=== PATIENT | male | born 1945 | race Caucasian/White ===

== ENCOUNTER → 2017-01-16 | Outpatient (CLI) | payer OTHER ==
[~2017-01-16] MED LIST: ADVIN50/60 INH; ALBUAER2 INH; ATEN-173 PO; CYAN3INJ INJ; FAMO20TA11 PO; FELO5TAB PO; FERR325T5 PO; LORA-741 PO; OMEG10007 PO; ONDA8TAB7 PO; POTA-335 PO; PROM25TA9 PO; SERT100T PO; TERA1CAP PO
--- NOTE | 2017-01-16 09:25 | DIAGNOSTIC IMAGING REPORT ---
CHEST 2 VIEWS ROUTINE CLINICAL HISTORY: R05 [id number] dyspnea COMPARISON STUDY: 03/21/2016 FINDINGS: Chronic emphysematous change. Chronic blunting right lateral costophrenic angle. No focal infiltrate. IMPRESSION: Emphysematous change. Chronic basilar pleural reactive change. No acute process. A small chronic pneumothorax right base is unchanged Electronically signed by: Diony Wallis M.D. 01/16/2017 9:24 AM Dictated Date/Time: 01/16/2017 9:20 AM
== END | disposition home or self-care (01) ==
LOC: C.RAD1850 08:53
PROVIDERS: ATTEND Physician Assistant
DX: R05 Cough (principal)

== ENCOUNTER → 2018-04-27 | Outpatient (CLI) | payer OTHER ==
[2018-04-27 14:44] LABS: BASO % 0.9 %; BASO ABS # 0.05 K/uL (0-0.2); EOS % 2.7 %; EOS ABS # 0.15 K/uL (0-0.5); HEMATOCRIT 40.8 % (42-52); HEMOGLOBIN 13.5 g/dL (14.0-18.0); IG# 0.01 K/uL (0.00-0.02); LYMPH % 15.4 %; LYMPH ABS # 0.84 K/uL (1.2-3.4); MEAN CELL VOLUME 88.5 fL (80-100); MEAN CORPUSCULAR HEMOGLOBIN 29.3 pg (25-34); MEAN CORPUSCULAR HGB CONC 33.1 g/dl (32-36); MEAN PLATELET VOLUME 10.1 fL (7.4-10.4); MONO ABS # 0.44 K/uL (0.11-0.59); NEUT % 72.8 %; NEUT ABS # 3.98 K/uL (1.4-6.5); PLATELET COUNT 180 K/uL (130-400); RED CELL DISTRIBUTION WIDTH CV 13.8 % (11.5-14.5); RED CELL DISTRIBUTION WIDTH SD 44.2 fL (36.4-46.3); WHITE BLOOD COUNT 5.47 K/uL (4.8-10.8)
== END | disposition home or self-care (01) ==
LOC: C.LAB1850 12:57
PROVIDERS: ATTEND Internal Medicine
DX: D64.9 Anemia, unspecified (principal)

== ENCOUNTER 2021-08-23 17:57 | Inpatient (IN) ==
[2021-08-23] MEDS ORDERED: ACETAMINOPHEN 325 MG TAB PO STA (18:24)
[2021-08-23 18:43] LABS: Hematocrit (blood only) 39.8 % (42-52); Mean Corpuscular Hgb Conc 32.7 g/dL (32-36); Mean Corpuscular Volume 85.8 fL (80-100); Platelet Count 151 K/uL (130-400); RDW Coefficient of Variation 12.9 % (11.5-14.5); RDW Standard Deviation 41.1 fL (36.4-46.3); Red Blood Count 4.64 M/uL (4.7-6.1); White Blood Count 7.31 K/uL (4.8-10.8)
[2021-08-23 19:06] LABS: Alanine Aminotransferase 18 (12-78); Albumin Level 2.7 gm/dl (3.4-5.0); Aspartate Aminotransferase 35 U/L (15-37); BUN Creatinine Ratio 21.7 (10-20); Blood Urea Nitrogen 30 mg/dl (7-18); Calcium 8.9 mg/dl (8.5-10.1); Carbon Dioxide 28 mmol/L (21-32); Chloride 102 mmol/L (98-107); Est GFR (African American) 56.8 ml/min; Glucose 209 mg/dl (70-99); Potassium 3.5 mmol/L (3.5-5.1); Sodium 137 mmol/L (136-145)
[2021-08-23 19:09] LABS: Albumin Globulin Ratio 0.6 (0.9-2); Alkaline Phosphatase 158 U/L (45-117); Bilirubin,Total 0.5 mg/dl (0.2-1); Globulin 4.2 gm/dl (2.5-4.0); Total Protein 6.9 gm/dl (6.4-8.2)
[2021-08-23 20:04] LABS: Appearance Urine Clear (Clear); Bacteria Urine Automated Negative (Negative); Bilirubin Urine Negative (Negative); Blood Urine Trace (Negative); Color Urine Yellow; Epithelial Cell Urine Auto >30 /lpf (0-5); Glucose Urine UA Trace (Negative); Ketones Urine Negative (Negative); Leukocyte Esterase Urine Negative (Negative); Nitrite Urine Negative (Negative); Protein Urine 4+ (Negative); RBC Urine Automated 0-4 /hpf (0-4); Specific Gravity Urine 1.019 (1.000-1.030); Urobilinogen Urine Negative (Negative)
[2021-08-23 20:50] LABS: Basophils # (auto) 0.01 K/uL (0-0.2); Basophils % (auto) 0.1 %; Immature Granulocytes # (auto) 0.02 K/uL (0.00-0.02); Immature Granulocytes % (auto) 0.3 %; Lymphocytes # (auto) 0.41 K/uL (1.2-3.4); Lymphocytes % (auto) 5.6 %; Monocytes # (auto) 0.61 K/uL (0.11-0.59); Monocytes % (auto) 8.3 %; Neutrophils # (auto) 6.26 K/uL (1.4-6.5); Neutrophils % (auto) 85.7 %
[2021-08-23] MEDS ORDERED: SODIUM CHLORIDE 0.9% 1000ML 500 ML IV ONE (23:43)
[2021-08-23] MEDS ORDERED: PIPERACILL/TAZOBAC CONSULT ACTIVE PRN (23:44)
[2021-08-23] MEDS ORDERED: PIPERACILLIN/TAZOBACTAM 4.5 GM/120 ML BAG IV ONE (23:44)
[2021-08-24] MEDS: SODIUM CHLORIDE 0.9% 1000ML 1,000 ML IV SCH ×2 (01:06→07:39)
[2021-08-24 01:20] LABS: Influenza A virus by PCR Negative (Neg); Influenza B virus by PCR Negative (Neg); RSV by PCR Negative (Neg); SARS CoV2 RNA(COVID-19) InHosp NEGATIVE (Negative)
[2021-08-24] MEDS ORDERED: ACETAMINOPHEN 500 MG TAB PO STA (02:17)
--- NOTE | 2021-08-24 03:20 | History & Physical Report ---
Date of Service August 24, 2021 Assessment & Plan (1) Fever: Plan: 75 yo M with extensive cancer history currently on chemotherapy admitted for fever of unknown origin. Fever of unknown origin - febrile to 39.1C in ER, no wbc elevation. crp and procal pending.normotensive - CXR comparable to previous, no obvious pneumonia - no abdominal signs/sx - no sx - normal mentation/neuro exam, less likely meningitis - blood cultures pending - UA wo LE/nitrates - started on zosyn in ER - MRSA nares ordered - Covid/flu/rsv negative HTN - cont losartan, felodipine,atenolol, BPH - cont terazosin Depression - cont sertraline Chemotherapy - dabrafenib 150 mg po Q12 - trametinib 2 mg daily - follows with dr. nowak DVT ppx: heparin sq bid FEN/GI: regular diet, iv ns Bowel regimen: prn miralax Code Status: full code Dispo: med/surg (2) Adenocarcinoma of prostate: (3) Lung cancer: (4) Cancer of kidney: History of Present Illness Primary Care Provider: Raffy Bedolla MD 75 yo M with hx nonsmall cell lung cancer s/p resection, adenocarcinoma of prostate, kidney cancer, currently on chemotherapy who came to the ER for concern of ongoing fevers and chills. He says he's had these symptoms for about 3 days now. Mostly fatigued, and feeling chills. Mild fever at home but doesn't remember the number. No trouble breathing/cough/nausea. did have 1 episode of emesis, no diarrhea or abdominal pain. No trouble with urination or pain with urination. No recent radiation treatments, takes chemotherapy pills daily. Allergies Allergy/AdvReac Type Severity Reaction Status Date / Time No Known Drug Allergies Allergy Unknown Verified 08/24/21 01:57 Home Medications Medication Instructions Recorded Confirmed Type cholecalciferol (vitamin D3) 25 1,000 unit PO QAM 07/02/18 08/24/21 History mcg (1,000 unit) tablet (Vitamin D3) ferrous sulfate 325 mg (65 mg 325 mg PO QAM tab 09/08/19 08/24/21 History iron) tablet,delayed release famotidine 20 mg tablet (Pepcid) 20 mg PO QAM 11/23/19 08/24/21 History ondansetron 8 mg disintegrating 8 mg PO Q8 PRN 11/23/19 08/24/21 History tablet albuterol sulfate 90 mcg/actuation 2 puff INHALATION Q4 PRN #18 gm 10/11/20 08/24/21 Rx aerosol inhaler (Ventolin HFA) fluticasone propionate 220 2 puff INH BID #3 inhaler 10/11/20 08/24/21 Rx mcg/actuation HFA aerosol inhaler (Flovent HFA) losartan 100 mg tablet (Cozaar) 100 mg PO QAM #90 tab 03/07/21 08/24/21 Rx terazosin 5 mg capsule 5 mg PO HS #90 cap 03/07/21 08/24/21 Rx atenolol 25 mg tablet (Tenormin) 25 mg PO BID #180 tab 06/07/21 08/24/21 Rx sertraline 100 mg tablet (Zoloft) 200 mg PO HS #180 tab 06/07/21 08/24/21 Rx potassium chloride 10 mEq 30 meq PO BID #540 tab 06/24/21 08/24/21 Rx tablet,extended release(part/cryst) (Klor-Con M) Metamucil 0.36gm 1 cap PO DAILY 08/24/21 08/24/21 History acetaminophen 650 mg tablet 650 mg PO Q6H PRN 08/24/21 08/24/21 History cyanocobalamin (vitamin B-12) 1,000 mcg IM MONTHLY 08/24/21 08/24/21 History 1,000 mcg/mL injection solution dabrafenib 75 mg capsule (Tafinlar) 150 mg PO Q12 08/24/21 08/24/21 History felodipine 5 mg tablet,extended 5 mg PO AMPM 08/24/21 08/24/21 History release 24 hr multivitamin with minerals 1 tab PO BID 08/24/21 08/24/21 History (Multiple Vitamin-Minerals) omega [id number]-ukm-fish oil 1,200 mg 1 cap PO DAILY 08/24/21 08/24/21 History (144 mg-216 mg) capsule (Fish Oil) prochlorperazine maleate 10 mg 10 mg PO Q6 PRN 08/24/21 08/24/21 History tablet trametinib 2 mg tablet (Mekinist) 2 mg PO DAILY 08/24/21 08/24/21 History Past Med/Surg History Medical History Adenocarcinoma of prostate Anemia Anosmia Anxiety Asthma Bladder neck contracture Cancer of kidney Chronic back pain Diastasis recti Dysphagia Essential hypertension GERD (gastroesophageal reflux disease) Hernia, abdominal Hyperlipidemia Hypertension Irritable bowel syndrome Lung cancer Male stress incontinence Migraine Non-small cell carcinoma of lung Osteoarthritis Renal cell carcinoma Sensorineural hearing loss (SNHL) Sensorineural hearing loss (SNHL) of both ears Umbilical hernia Surgical History H/O basal cell carcinoma excision H/O radical prostatectomy H/O straightening of nasal septum H/O vasectomy History of colonoscopy History of esophagogastroduodenoscopy (EGD) History of lung surgery History of right cataract extraction Family History Mother Parkinson disease Father Colon cancer Colorectal cancer Other FHx: cancer Family history of diabetes mellitus Family history of high blood pressure Family history of lung disease No family history of adverse response to anesthesia Denies family history of Ovarian cancer Prostate cancer Myocardial infarction Breast cancer Social History Smoking Status: Never smoker Second Hand Exposure: Yes (family smoked); Hx Alcohol Use: Yes Alcohol type: wine Hx Substance Use: No Preferred Language: Stateless Communication Ability: Effective Visual Impairment: No Limitations Hearing Ability: Normal Geothermal Installer Required: No Beliefs That Will Affect Care: None marital status: / Current Living Situation: Alone current occupational status: retired Feels Safe at Home: Yes Childhood Exposure to Second-Hand Smoke: Yes Dental Care, Regularly: Yes Physical Activity Frequency: Does not Exercise Seatbelt Use: always Sunscreen Use: Yes Assistive Devices: Glasses and Hearing Aid - Bilateral Review of Systems Review of Systems: All systems reviewed & are unremarkable except as noted in Subjective Physical Exam Constitutional: + cachectic, + frail appearing and cooperative; no acute distress Respiratory: normal respiratory effort, lungs clear to auscultation able to speak in complete sentences; no respiratory distress and no retractions Auscultation: no crackles, no rhonchi and no wheezes Cardiovascular: Rate/Rhythm: regular rate and regular rhythm Heart Sounds: normal S1, normal S2 and + murmur Vessels: posterior tibial pulses present Extremities: no edema Gastrointestinal (Abdomen): Inspection/Auscultation: abdomen normal to inspection Percussion/Palpation: abdomen soft; abdomen nontender Results & Data Results & Data ([facility]) Vital Signs (Past 12 Hours) Vital Signs Temp Pulse Pulse Resp BP BP Pulse Ox 08/24/21 02:36 73 22 174/77 H 95 08/24/21 02:17 39.1 C H 08/24/21 01:06 75 18 176/83 H 96 08/23/21 23:00 36.8 C 66 18 138/71 93 08/23/21 18:16 38.5 C H 84 20 152/67 H 90 Laboratory Results Laboratory Results WBC 7.31 K/uL (4.8-10.8) 08/23/21 18:25 RBC 4.64 M/uL (4.7-6.1) L 08/23/21 18:25 Hgb 13.0 g/dL (14.0-18.0) L 08/23/21 18:25 Hct 39.8 % (42-52) L 08/23/21 18:25 MCV 85.8 fL (80-100) 08/23/21 18:25 MCH 28.0 pg (25-34) 08/23/21 18:25 MCHC 32.7 g/dL (32-36) 08/23/21 18:25 RDW Std Deviation 41.1 fL (36.4-46.3) 08/23/21 18:25 RDW Coeff of Girish 12.9 % (11.5-14.5) 08/23/21 18:25 Plt Count 151 K/uL (130-400) 08/23/21 18:25 MPV 10.0 fL (7.4-10.4) 08/23/21 18:25 Immature Gran % (Auto) 0.3 % 08/23/21 18:25 Neut % (Auto) 85.7 % 08/23/21 18:25 Lymph % (Auto) 5.6 % 08/23/21 18:25 [place] % (Auto) 8.3 % 08/23/21 18:25 Eos % (Auto) 0.0 % 08/23/21 18:25 Baso % (Auto) 0.1 % 08/23/21 18:25 Neut # (Auto) 6.26 K/uL (1.4-6.5) 08/23/21 18:25 Lymph # (Auto) 0.41 K/uL (1.2-3.4) L 08/23/21 18:25 [place] # (Auto) 0.61 K/uL (0.11-0.59) H 08/23/21 18:25 Eos # (Auto) 0.00 K/uL (0-0.5) 08/23/21 18:25 Baso # (Auto) 0.01 K/uL (0-0.2) 08/23/21 18:25 Immature Gran # (Auto) 0.02 K/uL (0.00-0.02) 08/23/21 18:25 Hyposegmented Neuts 1+ 08/23/21 18:25 Sodium 137 mmol/L (136-145) 08/23/21 18:25 Potassium 3.5 mmol/L (3.5-5.1) 08/23/21 18:25 Chloride 102 mmol/L (98-107) 08/23/21 18:25 Carbon Dioxide 28 mmol/L (21-32) 08/23/21 18:25 Anion Gap 7.0 (3-11) 08/23/21 18:25 BUN 30 mg/dl (7-18) H 08/23/21 18:25 Creatinine 1.38 mg/dl (0.6-1.4) 08/23/21 18:25 Est Cr Clr Drug Dosing Not Reportable 08/23/21 18:25 Est GFR ( Amer) 56.8 ml/min 08/23/21 18:25 Est GFR (Non-Af Amer) 49.0 ml/min 08/23/21 18:25 BUN/Creatinine Ratio 21.7 (10-20) H 08/23/21 18:25 Glucose 209 mg/dl (70-99) H 08/23/21 18:25 Lactate 2.0 mmol/L (0.4-2.0) 08/24/21 00:39 Calcium 8.9 mg/dl (8.5-10.1) 08/23/21 18:25 Total Bilirubin 0.5 mg/dl (0.2-1) 08/23/21 18:25 AST 35 U/L (15-37) 08/23/21 18:25 ALT 18 (12-78) 08/23/21 18:25 Alkaline Phosphatase 158 U/L (45-117) H 08/23/21 18:25 Total Protein 6.9 gm/dl (6.4-8.2) 08/23/21 18: Albumin 2.7 gm/dl (3.4-5.0) L 08/23/21 18: Globulin 4.2 gm/dl (2.5-4.0) H 08/23/21 18: Albumin/Globulin Ratio 0.6 (0.9-2) L 08/23/21 18: Urine Color Yellow 08/23/21 18: Urine Appearance Clear (Clear) 08/23/21 18: Urine pH 7.0 (4.5-7.5) 08/23/21 18:30 Ur Specific [place] 1.019 (1.000-1.030) 08/23/21 18:30 Urine Protein 4+ (Negative) H 08/23/21 18:30 Urine Glucose (UA) Trace (Negative) H 08/23/21 18:30 Urine Ketones Negative (Negative) 08/23/21 18: Urine Blood Trace (Negative) H 08/23/21 18:30 Urine Nitrite Negative (Negative) 08/23/21 18:30 Urine Bilirubin Negative (Negative) 08/23/21 18:30 Urine Urobilinogen Negative (Negative) 08/23/21 18:30 Ur Leukocyte Esterase Negative (Negative) 08/23/21 18:30 Urine WBC (Auto) 5-10 /hpf (0-5) H 08/23/21 18:30 Urine RBC (Auto) 0-4 /hpf (0-4) 08/23/21 18:30 U Hyaline Cast (Auto) 1-5 /lpf (0-5) 08/23/21 18:30 U Epithel Cells (Auto) >30 /lpf (0-5) H 08/23/21 18:30 Urine Bacteria (Auto) Negative (Negative) 08/23/21 18:30 Ur Renal Epithelial Cell Not Reportable 08/23/21 18:30 SARS-CoV-2 (PCR) NEGATIVE (Negative) 08/24/21 00:06 Influenza Type A (PCR) Negative (Neg) 08/24/21 00:06 Influenza Type B (PCR) Negative (Neg) 08/24/21 00:06 RSV (RT-PCR) Negative (Neg) 08/24/21 00:06 SARS-CoV-2, RNA, NAAT NEGATIVE (NEGATIVE) 08/23/21 22:50 Code Status & VTE Plan VTE Prophylaxis Plan VTE Prophylaxis will be ordered: Yes Supervising Physician Co-Signing Physician Notes Attending addendum: I have physically seen this patient, have supervised the medical residents activities, and agree with the H&P unless as otherwise noted. Assessment and Plan: Febrile illness/immunocompromised patient on oral chemotherapy for lung cancer- Empiric broad-spectrum antibiotic coverage with vancomycin IV and Zosyn IV DuoNebs every 2 hours as needed Nasal cannula oxygen, titrate for pulse ox about 92% Sputum Gram stain culture Blood cultures Remaining orders and notations as noted Resident Activity Tracking Resident Involvement: Resident Care Provided Care Provided: Adult Hospital Medicine
[2021-08-24] MEDS ORDERED: ONDANSETRON INJ 2 MG/ML 2 ML VIAL IV PRN (05:20)
[2021-08-24] MEDS ORDERED: PROCHLORPERAZINE 5 MG in SYRINGE 4 ML IV PRN (05:20)
[2021-08-24] MEDS ORDERED: PATIENT'S HEIGHT AND/OR WEIGHT NEEDED SCH (05:45)
[2021-08-24 06:43] LABS: Hematocrit (blood only) 35.4 % (42-52); Hemoglobin 11.5 g/dL (14.0-18.0); Mean Corpuscular Hemoglobin 27.8 pg (25-34); Mean Corpuscular Hgb Conc 32.5 g/dL (32-36); Mean Corpuscular Volume 85.7 fL (80-100); Mean Platelet Volume 10.3 fL (7.4-10.4); Platelet Count 148 K/uL (130-400); Red Blood Count 4.13 M/uL (4.7-6.1); White Blood Count 8.25 K/uL (4.8-10.8)
[2021-08-24 07:02] LABS: BUN Creatinine Ratio 23.7 (10-20); C Reactive Protein 8.97 mg/dl (0-0.29); Creatinine Clr Calc Pharmacy 34.4 ml/min; Est GFR (African American) 50.5 ml/min; Est GFR (Non-African American) 43.6 ml/min; Potassium 3.2 mmol/L (3.5-5.1)
[2021-08-24 07:09] LABS: Basophils # (auto) 0.01 K/uL (0-0.2); Basophils % (auto) 0.1 %; Immature Granulocytes # (auto) 0.02 K/uL (0.00-0.02); Immature Granulocytes % (auto) 0.2 %; Lymphocytes # (auto) 0.44 K/uL (1.2-3.4); Lymphocytes % (auto) 5.3 %; Monocytes # (auto) 0.18 K/uL (0.11-0.59); Monocytes % (auto) 2.2 %; Neutrophils % (auto) 92.2 %
[2021-08-24] MEDS: PIPERACILLIN/TAZOBACTAM 3.375 GM in DEXTROSE 5% 100 ML IV SCH ×3 (07:39→22:03)
--- NOTE | 2021-08-24 08:12 | XRay Report ---
XR chest 1V portable CLINICAL HISTORY: SOB, fever, lung CA. COMPARISON STUDY: 09/08/2018 TECHNIQUE: 1 view of the chest FINDINGS: Single frontal view of the chest demonstrates the heart to again be enlarged. Compared to previous ex amination, there is no significant interval change in patchy interstitial and alveolar opacities invo lving the right lower lobe. There is also again blunting of the right costophrenic angle. The finding s are characteristic of the patient's previous history of lung cancer. The lungs are otherwise clear of acute alveolar opacities or air bronchograms. There is no evidence f or a left pleural effusion. There is no evidence for vascular congestion. There is no acute osseous p athology. IMPRESSION: No acute cardiopulmonary disease. Chronic changes are present involving the right lower l obe in a patient with a history of lung cancer. ACT 112: Negative or not required by law. Electronically signed by: Aleksey Brandt M.D. 08/24/2021 8:11 AM
[2021-08-24] MEDS ORDERED: POTASSIUM CHLORIDE CRTAB 20 MEQ TABCR PO STA (08:34)
[2021-08-24] MEDS ORDERED: LOSARTAN POTASSIUM 50 MG TAB PO SCH (09:00)
[2021-08-24] MEDS: ATENOLOL 25 MG TABLET PO SCH ×2 (10:07→21:59)
[2021-08-24] MEDS: FLUTICASONE FUROATE 200MCG 14 PUFFS/INHALER INH SCH (10:07)
[2021-08-24] MEDS: FELODIPINE 5 MG TABCR PO SCH ×2 (10:07→22:05)
[2021-08-24] MEDS: PSYLLIUM 58.6% POWDER PACKET PO SCH (10:12)
[2021-08-24] MEDS: HEPARIN SOD 5,000 UNIT/0.5 ML VIAL SQ SCH ×2 (10:15→22:01)
--- NOTE | 2021-08-24 10:23 | Electrocardiogram Report ---
Test Reason : Blood Pressure : / mmHG Vent. Rate : 079 BPM Atrial Rate : 079 BPM P-R Int : 154 ms QRS Dur : 074 ms QT Int : 482 ms P-R-T Axes : 066 040 054 degrees QTc Int : 552 ms Normal sinus rhythm Left atrial enlargement Nonspecific ST abnormality Prolonged QT Abnormal ECG When compared with ECG of 05-JUL-2018 22:37, Minimal criteria for Inferior infarct are no longer Present ST no longer elevated in Anterior leads T wave inversion no longer evident in Inferior leads QT has lengthened Confirmed by Dawit Watt ([id number]) on 08/24/2021 10:23:23 AM Referred By: REFERRED SELF Confirmed By:Dawit Watt
--- NOTE | 2021-08-24 11:15 | Hospitalist Progress Note ---
Date of Service August 24, 2021 Assessment & Plan (1) Fever: Plan: Livan Wayne is a 75 yo M with extensive cancer history (non-small cell lung carcinoma, renal papillary carcinoma, adenocarcinoma of prostate) currently on chemotherapy admitted for fever of uncertain etiology. Fever of uncertain etiology: - febrile to 39.1C in ER on 08/23, no wbc elevation - Procal 14.7, CRP 8.97 - CXR from 08/23 comparable to previous, no obvious pneumonia - questionable relation to diarrheal illness that he has had over the last week - blood culture pending - stool culture and C. diff ordered - urinalysis unimpressive for infection - continue zosyn at this time - MRSA nares negative - Covid/flu/rsv negative Proteinuria: - 4+ protein on urinalysis -With mild increase in creatinine today to 1.52 - uncertain relation to history of previous renal carcinoma - should have repeat evaluation as outpatient -Follow BMP -Hold losartan for now for mildly increased losartan HTN: -Hold losartan as above for increasing creatinine -Continue felodipine, atenolol BPH: - cont terazosin Depression: - cont sertraline Chemotherapy - dabrafenib 150 mg po Q12 - trametinib 2 mg daily - follows with Dr. Jaramillo as an outpatient DVT ppx: heparin sq bid FEN/GI: regular diet, iv ns Code Status: full code Dispo: Continued stay, med/surg (2) Lung cancer: (3) Adenocarcinoma of prostate: (4) Cancer of kidney: (5) Hypokalemia: (6) Acute renal insufficiency: (7) Proteinuria: Admission and Anticipated Discharge Date Admission Date: August 24, 2021 Supervising Physician Co-Signing Physician Notes I personally examined the patient and verified all [place] points of history and exam, discussed case, and agree with decision making with Dr. Osorio with the following additions/exceptions: Patient reports feeling a little bit better, but still having chills when I saw him in starting to spike another fever. Is eating somewhat. Reports diarrhea but has not had any so far today. Denies abdominal pain, no chest pain or shortness of breath, no cough. Vitals reviewed Gen: AAOx3, NAD, frail-appearing HEENT: Anicteric sclerae, EOMI CV: RRR no mgr nl S1S2 Pulm: Positive rhonchi at the bases, no wheezes or crackles Abd: +BS soft NT ND no masses or hernias Ext: No edema Skin: No rashes, warm/dry Neuro: Full strength throughout Laboratory values reviewed 75-year-old male here with fever of unknown etiology, in the setting of chemotherapy. He is not neutropenic. Continue to follow blood cultures Continue empiric broad-spectrum antibiotics -Could be drug fever as a side effect of his chemotherapy -Tylenol as needed for fevers Subjective No fevers overnight; continuing to have loose stools that have been present over the last week, did not think it related to his current symptoms but as this has continued he thought he should mention it. Continuing to have chills intermittently. Review of Systems Review of Systems: All systems reviewed & are unremarkable except as noted in Subjective Physical Exam Constitutional: WD/WN, vitals as above Eyes: PERRL, conjunctivae normal, anicteric sclerae Respiratory: normal respiratory effort, lungs clear to auscultation Auscultation: no crackles, no rales, no rhonchi and no wheezes Cardiovascular: Rate/Rhythm: regular rate and regular rhythm Heart Sounds: no gallop, no murmur and no cardiac rub Vessels: normal peripheral pulses; no JVD Extremities: no edema Neurologic: PERRL, EOMI, accommodation nl, no face palsy, no dysarthria CN's II-XI intact bilaterally and moves all extremities Psychiatric: Orientation: alert and oriented x 3 Results & Data Results & Data ([facility]) Vital Signs (Past 12 Hours) Vital Signs Temp Pulse Resp BP Pulse Ox 08/24/21 08:00 68 17 127/64 94 08/24/21 05:20 61 18 142/56 H 92 08/24/21 05:17 61 18 142/56 H 92 08/24/21 02:36 73 22 174/77 H 95 08/24/21 02:17 39.1 C H 08/24/21 01:06 75 18 176/83 H 96 Laboratory Results 08/24/21 08/24/21 08/24/21 Range/Units 05:47 05:47 05:47 WBC 8.25 (4.8-10.8) K/uL RBC 4.13 L (4.7-6.1) M/uL Hgb 11.5 L (14.0-18.0) g/dL Hct 35.4 L (42-52) % MCV 85.7 (80-100) fL MCH 27.8 (25-34) pg MCHC 32.5 (32-36) g/dL RDW Std Deviation 41.0 (36.4-46.3) fL RDW Coeff of Girish 13.0 (11.5-14.5) % Plt Count 148 (130-400) K/uL MPV 10.3 (7.4-10.4) fL Immature Gran % (Auto) 0.2 % Neut % (Auto) 92.2 % Lymph % (Auto) 5.3 % [place] % (Auto) 2.2 % Eos % (Auto) 0.0 % Baso % (Auto) 0.1 % Neut # (Auto) 7.60 H (1.4-6.5) K/uL Lymph # (Auto) 0.44 L (1.2-3.4) K/uL [place] # (Auto) 0.18 (0.11-0.59) K/uL Eos # (Auto) 0.00 (0-0.5) K/uL Baso # (Auto) 0.01 (0-0.2) K/uL Immature Gran # (Auto) 0.02 (0.00-0.02) K/uL Hyposegmented Neuts Sodium 138 (136-145) mmol/L Potassium 3.2 L (3.5-5.1) mmol/L Chloride 104 (98-107) mmol/L Carbon Dioxide 28 (21-32) mmol/L Anion Gap 6.0 (3-11) BUN 36 H (7-18) mg/dl Creatinine 1.52 H (0.6-1.4) mg/dl Est Cr Clr Drug Dosing 34.4 Est GFR ( Amer) 50.5 ml/min Est GFR (Non-Af Amer) 43.6 ml/min BUN/Creatinine Ratio 23.7 H (10-20) Glucose 152 H (70-99) mg/dl Lactate (0.4-2.0) mmol/L Calcium 8.0 L (8.5-10.1) mg/dl Total Bilirubin (0.2-1) mg/dl AST (15-37) U/L ALT (12-78) Alkaline Phosphatase (45-117) U/L C-Reactive Protein 8.97 H (0-0.29) mg/dl Total Protein (6.4-8.2) gm/dl Albumin (3.4-5.0) gm/dl Globulin (2.5-4.0) gm/dl Albumin/Globulin Ratio (0.9-2) Procalcitonin 14.74 H (0-0.5) ng/ml Urine Color Urine Appearance (Clear) Urine pH (4.5-7.5) Ur Specific [place] (1.000-1.030) Urine Protein (Negative) Urine Glucose (UA) (Negative) Urine Ketones (Negative) Urine Blood (Negative) Urine Nitrite (Negative) Urine Bilirubin (Negative) Urine Urobilinogen (Negative) Ur Leukocyte Esterase (Negative) Urine WBC (Auto) (0-5) /hpf Urine RBC (Auto) (0-4) /hpf U Hyaline Cast (Auto) (0-5) /lpf U Epithel Cells (Auto) (0-5) /lpf Urine Bacteria (Auto) (Negative) Ur Renal Epithelial Cell Nasal Screen MRSA (PCR) (Negative) SARS-CoV-2 (PCR) (Negative) Influenza Type A (PCR) (Neg) Influenza Type B (PCR) (Neg) RSV (RT-PCR) (Neg) SARS-CoV-2, RNA, NAAT (NEGATIVE) 08/24/21 08/24/21 08/24/21 Range/Units 03:15 00:39 00:06 WBC (4.8-10.8) K/uL RBC (4.7-6.1) M/uL Hgb (14.0-18.0) g/dL Hct (42-52) % MCV (80-100) fL MCH (25-34) pg MCHC (32-36) g/dL RDW Std Deviation (36.4-46.3) fL RDW Coeff of Girish (11.5-14.5) % Plt Count (130-400) K/uL MPV (7.4-10.4) fL Immature Gran % (Auto) % Neut % (Auto) % Lymph % (Auto) % [place] % (Auto) % Eos % (Auto) % Baso % (Auto) % Neut # (Auto) (1.4-6.5) K/uL Lymph # (Auto) (1.2-3.4) K/uL [place] # (Auto) (0.11-0.59) K/uL Eos # (Auto) (0-0.5) K/uL Baso # (Auto) (0-0.2) K/uL Immature Gran # (Auto) (0.00-0.02) K/uL Hyposegmented Neuts Sodium (136-145) mmol/L Potassium (3.5-5.1) mmol/L Chloride (98-107) mmol/L Carbon Dioxide (21-32) mmol/L Anion Gap (3-11) BUN (7-18) mg/dl Creatinine (0.6-1.4) mg/dl Est Cr Clr Drug Dosing Est GFR ( Amer) ml/min Est GFR (Non-Af Amer) ml/min BUN/Creatinine Ratio (10-20) Glucose (70-99) mg/dl Lactate 2.0 (0.4-2.0) mmol/L Calcium (8.5-10.1) mg/dl Total Bilirubin (0.2-1) mg/dl AST (15-37) U/L ALT (12-78) Alkaline Phosphatase (45-117) U/L C-Reactive Protein (0-0.29) mg/dl Total Protein (6.4-8.2) gm/dl Albumin (3.4-5.0) gm/dl Globulin (2.5-4.0) gm/dl Albumin/Globulin Ratio (0.9-2) Procalcitonin (0-0.5) ng/ml Urine Color Urine Appearance (Clear) Urine pH (4.5-7.5) Ur Specific [place] (1.000-1.030) Urine Protein (Negative) Urine Glucose (UA) (Negative) Urine Ketones (Negative) Urine Blood (Negative) Urine Nitrite (Negative) Urine Bilirubin (Negative) Urine Urobilinogen (Negative) Ur Leukocyte Esterase (Negative) Urine WBC (Auto) (0-5) /hpf Urine RBC (Auto) (0-4) /hpf U Hyaline Cast (Auto) (0-5) /lpf U Epithel Cells (Auto) (0-5) /lpf Urine Bacteria (Auto) (Negative) Ur Renal Epithelial Cell Nasal Screen MRSA (PCR) Negative (Negative) SARS-CoV-2 (PCR) NEGATIVE (Negative) Influenza Type A (PCR) Negative (Neg) Influenza Type B (PCR) Negative (Neg) RSV (RT-PCR) Negative (Neg) SARS-CoV-2, RNA, NAAT (NEGATIVE) 08/23/21 08/23/21 08/23/21 Range/Units 22:50 18:30 18:25 WBC (4.8-10.8) K/uL RBC (4.7-6.1) M/uL Hgb (14.0-18.0) g/dL Hct (42-52) % MCV (80-100) fL MCH (25-34) pg MCHC (32-36) g/dL RDW Std Deviation (36.4-46.3) fL RDW Coeff of Girish (11.5-14.5) % Plt Count (130-400) K/uL MPV (7.4-10.4) fL Immature Gran % (Auto) % Neut % (Auto) % Lymph % (Auto) % [place] % (Auto) % Eos % (Auto) % Baso % (Auto) % Neut # (Auto) (1.4-6.5) K/uL Lymph # (Auto) (1.2-3.4) K/uL [place] # (Auto) (0.11-0.59) K/uL Eos # (Auto) (0-0.5) K/uL Baso # (Auto) (0-0.2) K/uL Immature Gran # (Auto) (0.00-0.02) K/uL Hyposegmented Neuts Sodium 137 (136-145) mmol/L Potassium 3.5 (3.5-5.1) mmol/L Chloride 102 (98-107) mmol/L Carbon Dioxide 28 (21-32) mmol/L Anion Gap 7.0 (3-11) BUN 30 H (7-18) mg/dl Creatinine 1.38 (0.6-1.4) mg/dl Est Cr Clr Drug Dosing Not Reportable Est GFR ( Amer) 56.8 ml/min Est GFR (Non-Af Amer) 49.0 ml/min BUN/Creatinine Ratio 21.7 H (10-20) Glucose 209 H (70-99) mg/dl Lactate (0.4-2.0) mmol/L Calcium 8.9 (8.5-10.1) mg/dl Total Bilirubin 0.5 (0.2-1) mg/dl AST 35 (15-37) U/L ALT 18 (12-78) Alkaline Phosphatase 158 H (45-117) U/L C-Reactive Protein (0-0.29) mg/dl Total Protein 6.9 (6.4-8.2) gm/dl Albumin 2.7 L (3.4-5.0) gm/dl Globulin 4.2 H (2.5-4.0) gm/dl Albumin/Globulin Ratio 0.6 L (0.9-2) Procalcitonin (0-0.5) ng/ml Urine Color Yellow Urine Appearance Clear (Clear) Urine pH 7.0 (4.5-7.5) Ur Specific [place] 1.019 (1.000-1.030) Urine Protein 4+ H (Negative) Urine Glucose (UA) Trace H (Negative) Urine Ketones Negative (Negative) Urine Blood Trace H (Negative) Urine Nitrite Negative (Negative) Urine Bilirubin Negative (Negative) Urine Urobilinogen Negative (Negative) Ur Leukocyte Esterase Negative (Negative) Urine WBC (Auto) 5-10 H (0-5) /hpf Urine RBC (Auto) 0-4 (0-4) /hpf U Hyaline Cast (Auto) 1-5 (0-5) /lpf U Epithel Cells (Auto) >30 H (0-5) /lpf Urine Bacteria (Auto) Negative (Negative) Ur Renal Epithelial Cell Not Reportable Nasal Screen MRSA (PCR) (Negative) SARS-CoV-2 (PCR) (Negative) Influenza Type A (PCR) (Neg) Influenza Type B (PCR) (Neg) RSV (RT-PCR) (Neg) SARS-CoV-2, RNA, NAAT NEGATIVE (NEGATIVE) 08/23/21 Range/Units 18:25 WBC (4.8-10.8) K/uL RBC (4.7-6.1) M/uL Hgb (14.0-18.0) g/dL Hct (42-52) % MCV (80-100) fL MCH (25-34) pg MCHC (32-36) g/dL RDW Std Deviation (36.4-46.3) fL RDW Coeff of Girish (11.5-14.5) % Plt Count (130-400) K/uL MPV (7.4-10.4) fL Immature Gran % (Auto) 0.3 % Neut % (Auto) 85.7 % Lymph % (Auto) 5.6 % [place] % (Auto) 8.3 % Eos % (Auto) 0.0 % Baso % (Auto) 0.1 % Neut # (Auto) 6.26 (1.4-6.5) K/uL Lymph # (Auto) 0.41 L (1.2-3.4) K/uL [place] # (Auto) 0.61 H (0.11-0.59) K/uL Eos # (Auto) 0.00 (0-0.5) K/uL Baso # (Auto) 0.01 (0-0.2) K/uL Immature Gran # (Auto) 0.02 (0.00-0.02) K/uL Hyposegmented Neuts 1+ Sodium (136-145) mmol/L Potassium (3.5-5.1) mmol/L Chloride (98-107) mmol/L Carbon Dioxide (21-32) mmol/L Anion Gap (3-11) BUN (7-18) mg/dl Creatinine (0.6-1.4) mg/dl Est Cr Clr Drug Dosing Est GFR ( Amer) ml/min Est GFR (Non-Af Amer) ml/min BUN/Creatinine Ratio (10-20) Glucose (70-99) mg/dl Lactate (0.4-2.0) mmol/L Calcium (8.5-10.1) mg/dl Total Bilirubin (0.2-1) mg/dl AST (15-37) U/L ALT (12-78) Alkaline Phosphatase (45-117) U/L C-Reactive Protein (0-0.29) mg/dl Total Protein (6.4-8.2) gm/dl Albumin (3.4-5.0) gm/dl Globulin (2.5-4.0) gm/dl Albumin/Globulin Ratio (0.9-2) Procalcitonin (0-0.5) ng/ml Urine Color Urine Appearance (Clear) Urine pH (4.5-7.5) Ur Specific [place] (1.000-1.030) Urine Protein (Negative) Urine Glucose (UA) (Negative) Urine Ketones (Negative) Urine Blood (Negative) Urine Nitrite (Negative) Urine Bilirubin (Negative) Urine Urobilinogen (Negative) Ur Leukocyte Esterase (Negative) Urine WBC (Auto) (0-5) /hpf Urine RBC (Auto) (0-4) /hpf U Hyaline Cast (Auto) (0-5) /lpf U Epithel Cells (Auto) (0-5) /lpf Urine Bacteria (Auto) (Negative) Ur Renal Epithelial Cell Nasal Screen MRSA (PCR) (Negative) SARS-CoV-2 (PCR) (Negative) Influenza Type A (PCR) (Neg) Influenza Type B (PCR) (Neg) RSV (RT-PCR) (Neg) SARS-CoV-2, RNA, NAAT (NEGATIVE) Medications Administered Current Inpatient Medications Acetaminophen (Acetaminophen 500 Mg Tab) 1,000 mg PO Q8H PRN PRN Reason: Pain or Fever Stop: 09/23/21 18:00 Last Admin: 08/24/21 18:43 Dose: 1,000 mg Documented by: Atenolol (Atenolol 25 Mg Tablet) 25 mg PO BID [facility] Stop: 09/23/21 08:59 Last Admin: 08/24/21 10:07 Dose: 25 mg Documented by: Felodipine (Felodipine 5 Mg Tabcr) 5 mg PO BID [facility] Stop: 09/23/21 08:59 Last Admin: 08/24/21 10:07 Dose: 5 mg Documented by: Fluticasone Furoate (Fluticasone Furoate 200mcg 14 Puffs/Inhaler) 1 puffs INH QAM [facility] Stop: 09/23/21 08:59 Last Admin: 08/24/21 10:07 Dose: 1 puffs Documented by: Heparin Sodium (Porcine) (Heparin Sod 5,000 Unit/0.5 Ml Vial) 5,000 units SQ Q12 [facility] Stop: 09/23/21 08:59 Last Admin: 08/24/21 10:15 Dose: 5,000 units Documented by: Prochlorperazine 5 mg/ Syringe 5 mls @ 5 mls/min IV Q6H PRN PRN Reason: Nausea And Vomiting Stop: 09/23/21 05:19 Piperacillin Sod/Tazobactam (Sod 3.375 gm/ Dextrose) 115 mls @ 28.75 mls/hr IV Q8H [facility]; Protocol Stop: 08/26/21 05:59 Last Admin: 08/24/21 15:28 Dose: 28.8 mls/hr Documented by: Potassium Chloride/Sodium Chloride (Normal Saline W/20 Meq Kcl) 20 meq in 1,000 mls @ 125 mls/hr IV .Q8H [facility] Stop: 09/23/21 14:24 Last Admin: 08/24/21 16:07 Dose: 125 mls/hr Documented by: Losartan Potassium (Losartan Potassium 50 Mg Tab) 100 mg PO QAM [facility] Stop: 09/23/21 08:59 Last Admin: 08/24/21 10:07 Dose: 100 mg Documented by: Miscellaneous (Dabrafenib [Tafinlar] 75 Mg - Order Awaiting Action) 1 ea N/A QS [facility] Stop: 09/23/21 07:59 Last Admin: 08/24/21 15:27 Dose: Not Given Documented by: Miscellaneous (Trametinib [Mekinist] 2 Mg - Order Awaiting Action) 1 ea N/A QS [facility] Stop: 09/23/21 07:59 Last Admin: 08/24/21 15:28 Dose: Not Given Documented by: Miscellaneous Information (Piperacill/Tazobac Consult Active) 1 ea N/A UD PRN PRN Reason: Consult Stop: 09/22/21 23:43 Ondansetron HCl (Ondansetron Inj 2 Mg/Ml 2 Ml Vial) 4 mg IV Q4H PRN PRN Reason: nausea Stop: 09/23/21 05:19 Last Admin: 08/24/21 18:43 Dose: 4 mg Documented by: Psyllium Hydrophilic Mucilloid (Psyllium 58.6% Powder Packet) 1 pkt PO DAILY [facility] Stop: 09/23/21 08:59 Last Admin: 08/24/21 10:12 Dose: 1 pkt Documented by: Sertraline HCl (Sertraline Hcl 100 Mg Tablet) 200 mg PO [facility] Stop: 09/23/21 20:59 Terazosin HCl (Terazosin Hcl 5 Mg Cap) 5 mg PO [facility] Stop: 09/23/21 20:59 Resident Activity Tracking Resident Involvement: Resident Care Provided Care Provided: Adult [facility]
[2021-08-24] MEDS: NSS + 20MEQ KCL 20 MEQ/1,000 ML BAG IV SCH ×2 (16:07→21:52)
--- NOTE | 2021-08-24 17:37 | Emergency Department Note ---
Impression & Plan Non-small cell carcinoma of lung, Fever ED Provider Note CHIEF COMPLAINT: fever HISTORY OF PRESENT ILLNESS: This 75-year-old male patient presents to the emergency department complaints of fevers and chills. Patient states he is undergoing chemotherapy for non-small cell cancer of the lung. He noticed some chills earlier this evening and took his temperature. He states it was low-grade, just over 100 degrees. He denies any different coughing than usual. He has not had any shortness of breath. He is vaccinated against COVID-19. He denies any unusual exposures or recent illnesses. He does have a history also of skin cancer, renal cell cancer and prostate cancer. He denies any difficulty with his urination recently. REVIEW OF SYSTEMS: A review of systems was performed with positives and pertinent negatives listed in the history of present illness. 10 systems were reviewed and are otherwise negative. ALLERGIES: see below MEDICATIONS: see below PMH: see below SOCIAL HISTORY: see below DDx:Viral syndrome, otitis, pharyngitis, pneumonia, influenza, meningitis, urinary tract infection, sepsis, bacteremia, as well as other pathologies. PHYSICAL EXAM: Vital signs reviewed. General: Chronically ill-appearing 75-year-old male, thin and frail in no significant distress. HEENT: No scleral icterus, PERRLA, neck supple. Atraumatic. Cardiovascular: Regular rate and rhythm, no extra sounds. Pulmonary: Clear to auscultation bilaterally, normal work of breathing. Abdomen: Soft, nontender, nondistended, positive bowel sounds. Musculoskeletal: Atraumatic, no peripheral edema. Neurologic: Patient awake alert and oriented x 3 Skin: Warm, dry, no rash EMERGENCY DEPARTMENT COURSE/MDM: This patient was evaluated and appears to be in no significant distress. IV access was obtained and laboratory work was drawn. Patient was placed on surveillance system monitor and appears to be in a normal sinus rhythm. Oxygenation has remained stable. Patient was given Tylenol initially but waited for a prolonged period of time prior to coming back to bed in the emergency department due to overwhelming volumes. Blood cultures and a lactate have been obtained. Patient did spike a fever. He was hydrated with normal saline solution, given IV Zosyn was administered. Patient has tested Covid and flu negative. Case has been discussed with the hospitalist service for admissio n and further management. The patient is aware of the plan and agrees. MONITORING: An order for cardiac monitoring was placed and the patient is noted to be in a NSR at 66 beats per minute. RADIOLOGY: see below EKG: normal sinus rhythm at 79 bpm. Left atrial enlargement, nonspecific ST abnormality. T wave abnormality noted in the anterolateral leads. Prolonged QT interval at 552. DISPOSITION: Admit Past Med/Surg History Medical History Adenocarcinoma of prostate Anemia 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 per records Anxiety Asthma well controlled Bladder neck contracture Cancer of kidney s/p cryoablation Chronic back pain Diastasis recti Dysphagia per remote records Essential hypertension GERD (gastroesophageal reflux disease) Hernia, abdominal Hyperlipidemia Hypertension Irritable bowel syndrome Lung cancer 7 years ago, s/p surgery Male stress incontinence Migraine ocular Non-small cell carcinoma of lung Osteoarthritis Renal cell carcinoma Sensorineural hearing loss (SNHL) Sensorineural hearing loss (SNHL) of both ears Umbilical hernia Surgical History H/O basal cell carcinoma excision x2 H/O radical prostatectomy H/O straightening of nasal septum H/O vasectomy History of colonoscopy History of esophagogastroduodenoscopy (EGD) History of lung surgery RIGHT > 7 YRS AGO History of right cataract extraction Family History Mother Parkinson disease Father Colon cancer Colorectal cancer Other FHx: cancer Family history of diabetes mellitus Family history of high blood pressure Family history of lung disease No family history of adverse response to anesthesia Denies family history of Ovarian cancer Prostate cancer Myocardial infarction Breast cancer Social History Smoking Status: Former smoker Second Hand Exposure: No; Do You Dip or Chew Tobacco: No; Hx Alcohol Use: No Hx Substance Use: No Preferred Language: Italian Communication Ability: Effective Visual Impairment: No Limitations Hearing Ability: Normal Filing Or Registry Clerk Required: No Beliefs That Will Affect Care: None marital status: / Current Living Situation: Alone current occupational status: retired Other Information That Helps Us Care for You: No Feels Safe at Home: Yes Safety Concerns: Feels Safe At This Time Childhood Exposure to Second-Hand Smoke: Yes Dental Care, Regularly: Yes Physical Activity Frequency: Does not Exercise Seatbelt Use: always Sunscreen Use: Yes Assistive Devices: Glasses Allergies Allergies Allergy/AdvReac Type Severity Reaction Status Date / Time No Known Drug Allergies Allergy Unknown Verified 08/24/21 01:57 Home Meds Home Medications Medication Instructions Recorded Confirmed cholecalciferol (vitamin D3) 25 1,000 unit PO QAM 07/02/18 08/24/21 mcg (1,000 unit) tablet (Vitamin D3) ferrous sulfate 325 mg (65 mg 325 mg PO QAM tab 09/08/19 08/24/21 iron) tablet,delayed release famotidine 20 mg tablet (Pepcid) 20 mg PO QAM 11/23/19 08/24/21 ondansetron 8 mg disintegrating 8 mg PO Q8 PRN 11/23/19 08/24/21 tablet Metamucil 0.36gm 1 cap PO DAILY 08/24/21 08/24/21 acetaminophen 650 mg tablet 650 mg PO Q6H PRN 08/24/21 08/24/21 cyanocobalamin (vitamin B-12) 1,000 mcg IM MONTHLY 08/24/21 08/24/21 1,000 mcg/mL injection solution dabrafenib 75 mg capsule (Tafinlar) 150 mg PO Q12 08/24/21 08/24/21 felodipine 5 mg tablet,extended 5 mg PO AMPM 08/24/21 08/24/21 release 24 hr multivitamin with minerals 1 tab PO BID 08/24/21 08/24/21 (Multiple Vitamin-Minerals) omega [id number]-ovk-fish oil 1,200 mg 1 cap PO DAILY 08/24/21 08/24/21 (144 mg-216 mg) capsule (Fish Oil) prochlorperazine maleate 10 mg 10 mg PO Q6 PRN 08/24/21 08/24/21 tablet trametinib 2 mg tablet (Mekinist) 2 mg PO DAILY 08/24/21 08/24/21 Previous Rx's Medication Instructions Recorded albuterol sulfate 90 mcg/actuation 2 puff INHALATION Q4 PRN #18 gm 10/11/20 aerosol inhaler (Ventolin HFA) fluticasone propionate 220 2 puff INH BID #3 inhaler 10/11/20 mcg/actuation HFA aerosol inhaler (Flovent HFA) losartan 100 mg tablet (Cozaar) 100 mg PO QAM #90 tab 03/07/21 terazosin 5 mg capsule 5 mg PO HS #90 cap 03/07/21 atenolol 25 mg tablet (Tenormin) 25 mg PO BID #180 tab 06/07/21 sertraline 100 mg tablet (Zoloft) 200 mg PO HS #180 tab 06/07/21 potassium chloride 10 mEq 30 meq PO BID #540 tab 06/24/21 tablet,extended release(part/cryst) (Klor-Con M) Results & Data (ED) Vital Signs Vital Signs - 24 hr 08/25/21 15:29 08/25/21 22:15 08/26/21 03:12 Temperature 36.4 C L 36.5 C Temperature Source Oral Oral Pulse Rate [Finger] 58 L 60 60 Respiratory Rate 16 16 Respiratory Effort / Characteristics Non-Labored Spontaneous Respiratory Depth Normal Normal Respiratory Pattern Regular Blood Pressure [Left Arm] Blood Pressure [Right Arm] 126/78 183/72 H 127/65 Blood Pressure Mean [Left Arm] Blood Pressure Mean [Right Arm] 94 109 85 Blood Pressure Position [Right Arm] Lying Lying Lying Pulse Oximetry 96 96 Oxygen Delivery Method Room Air Room Air 08/26/21 08:20 Temperature 34.7 C L Temperature Source Axillary Pulse Rate [Finger] 63 Respiratory Rate 16 Respiratory Effort / Characteristics Non-Labored Respiratory Depth Normal Respiratory Pattern Blood Pressure [Left Arm] 180/80 H Blood Pressure [Right Arm] Blood Pressure Mean [Left Arm] 113 Blood Pressure Mean [Right Arm] Blood Pressure Position [Right Arm] Pulse Oximetry 95 Oxygen Delivery Method Room Air Home Medications Current Medication List: was personally reviewed by me Laboratory Data Attestation: I reviewed the patient's lab results. Result diagrams: 08/26/21 07:05 08/26/21 07:05 Lab Results 08/23/21 08/23/21 08/23/21 Range/Units 18:25 18:25 18:30 WBC 7.31 (4.8-10.8) K/uL RBC 4.64 L (4.7-6.1) M/uL Hgb 13.0 L (14.0-18.0) g/dL Hct 39.8 L (42-52) % MCV 85.8 (80-100) fL MCH 28.0 (25-34) pg MCHC 32.7 (32-36) g/dL RDW Std Deviation 41.1 (36.4-46.3) fL RDW Coeff of Girish 12.9 (11.5-14.5) % Plt Count 151 (130-400) K/uL MPV 10.0 (7.4-10.4) fL Immature Gran % (Auto) 0.3 % Neut % (Auto) 85.7 % Lymph % (Auto) 5.6 % [place] % (Auto) 8.3 % Eos % (Auto) 0.0 % Baso % (Auto) 0.1 % Neut # (Auto) 6.26 (1.4-6.5) K/uL Lymph # (Auto) 0.41 L (1.2-3.4) K/uL [place] # (Auto) 0.61 H (0.11-0.59) K/uL Eos # (Auto) 0.00 (0-0.5) K/uL Baso # (Auto) 0.01 (0-0.2) K/uL Immature Gran # (Auto) 0.02 (0.00-0.02) K/uL Hyposegmented Neuts 1+ RBC Morphology PT (9.0-12.0) Seconds INR (0.9-1.1) Fibrinogen (184-400) mg/dl Sodium 137 (136-145) mmol/L Potassium 3.5 (3.5-5.1) mmol/L Chloride 102 (98-107) mmol/L Carbon Dioxide 28 (21-32) mmol/L Anion Gap 7.0 (3-11) BUN 30 H (7-18) mg/dl Creatinine 1.38 (0.6-1.4) mg/dl Est Cr Clr Drug Dosing Not Reportable Est GFR ( Amer) 56.8 ml/min Est GFR (Non-Af Amer) 49.0 ml/min BUN/Creatinine Ratio 21.7 H (10-20) Glucose 209 H (70-99) mg/dl POC Glucose (70-99) mg/dl Lactate (0.4-2.0) mmol/L Calcium 8.9 (8.5-10.1) mg/dl Phosphorus (2.5-4.9) mg/dl Magnesium (1.8-2.4) mg/dl Total Bilirubin 0.5 (0.2-1) mg/dl AST 35 (15-37) U/L ALT 18 (12-78) Alkaline Phosphatase 158 H (45-117) U/L C-Reactive Protein (0-0.29) mg/dl Total Protein 6.9 (6.4-8.2) gm/dl Albumin 2.7 L (3.4-5.0) gm/dl Globulin 4.2 H (2.5-4.0) gm/dl Albumin/Globulin Ratio 0.6 L (0.9-2) Procalcitonin (0-0.5) ng/ml Urine Color Yellow Urine Appearance Clear (Clear) Urine pH 7.0 (4.5-7.5) Ur Specific [place] 1.019 (1.000-1.030) Urine Protein 4+ H (Negative) Urine Glucose (UA) Trace H (Negative) Urine Ketones Negative (Negative) Urine Blood Trace H (Negative) Urine Nitrite Negative (Negative) Urine Bilirubin Negative (Negative) Urine Urobilinogen Negative (Negative) Ur Leukocyte Esterase Negative (Negative) Urine WBC (Auto) 5-10 H (0-5) /hpf Urine RBC (Auto) 0-4 (0-4) /hpf U Hyaline Cast (Auto) 1-5 (0-5) /lpf U Epithel Cells (Auto) >30 H (0-5) /lpf Urine Bacteria (Auto) Negative (Negative) Ur Renal Epithelial Cell Not Reportable Nasal Screen MRSA (PCR) (Negative) Stl C. cayetanensis PCR (NotDetected) Stool Rotavirus A PCR (NotDetected) Stl Adenov F 40/41 PCR (NotDetected) Stool Astrovirus (PCR) (NotDetected) Stool Campylobacter PCR (NotDetected) Stl C. diff Tox A/B PCR (NotDetected) Stool Cryptosporidium PCR (NotDetected) Stl E.coli Shiga Tox PCR (NotDetected) Stl Enterotoxigenic E PCR (NotDetected) Stool EPEC (PCR) (NotDetected) Stool EAEC (PCR) (NotDetected) Stl E. histolytica PCR (NotDetected) Stool Giardia Lamblia PCR (NotDetected) Stool Salmonella PCR (NotDetected) Stool Sapovirus (PCR) (NotDetected) Stl P. shigelloides PCR (NotDetected) Stl Shigella/EIEC PCR (NotDetected) St Y.enterocolitica PCR (NotDetected) Stool Vibrio (PCR) (NotDetected) Stl Vibrio cholerae PCR (NotDetected) Stl Norovirus GI/GII PCR (NotDetected) SARS-CoV-2 (PCR) (Negative) Influenza Type A (PCR) (Neg) Influenza Type B (PCR) (Neg) RSV (RT-PCR) (Neg) SARS-CoV-2, RNA, NAAT (NEGATIVE) 08/23/21 08/24/21 08/24/21 Range/Units 22:50 00:06 00:39 WBC (4.8-10.8) K/uL RBC (4.7-6.1) M/uL Hgb (14.0-18.0) g/dL Hct (42-52) % MCV (80-100) fL MCH (25-34) pg MCHC (32-36) g/dL RDW Std Deviation (36.4-46.3) fL RDW Coeff of Girish (11.5-14.5) % Plt Count (130-400) K/uL MPV (7.4-10.4) fL Immature Gran % (Auto) % Neut % (Auto) % Lymph % (Auto) % [place] % (Auto) % Eos % (Auto) % Baso % (Auto) % Neut # (Auto) (1.4-6.5) K/uL Lymph # (Auto) (1.2-3.4) K/uL [place] # (Auto) (0.11-0.59) K/uL Eos # (Auto) (0-0.5) K/uL Baso # (Auto) (0-0.2) K/uL Immature Gran # (Auto) (0.00-0.02) K/uL Hyposegmented Neuts RBC Morphology PT (9.0-12.0) Seconds INR (0.9-1.1) Fibrinogen (184-400) mg/dl Sodium (136-145) mmol/L Potassium (3.5-5.1) mmol/L Chloride (98-107) mmol/L Carbon Dioxide (21-32) mmol/L Anion Gap (3-11) BUN (7-18) mg/dl Creatinine (0.6-1.4) mg/dl Est Cr Clr Drug Dosing Est GFR ( Amer) ml/min Est GFR (Non-Af Amer) ml/min BUN/Creatinine Ratio (10-20) Glucose (70-99) mg/dl POC Glucose (70-99) mg/dl Lactate 2.0 (0.4-2.0) mmol/L Calcium (8.5-10.1) mg/dl Phosphorus (2.5-4.9) mg/dl Magnesium (1.8-2.4) mg/dl Total Bilirubin (0.2-1) mg/dl AST (15-37) U/L ALT (12-78) Alkaline Phosphatase (45-117) U/L C-Reactive Protein (0-0.29) mg/dl Total Protein (6.4-8.2) gm/dl Albumin (3.4-5.0) gm/dl Globulin (2.5-4.0) gm/dl Albumin/Globulin Ratio (0.9-2) Procalcitonin (0-0.5) ng/ml Urine Color Urine Appearance (Clear) Urine pH (4.5-7.5) Ur Specific [place] (1.000-1.030) Urine Protein (Negative) Urine Glucose (UA) (Negative) Urine Ketones (Negative) Urine Blood (Negative) Urine Nitrite (Negative) Urine Bilirubin (Negative) Urine Urobilinogen (Negative) Ur Leukocyte Esterase (Negative) Urine WBC (Auto) (0-5) /hpf Urine RBC (Auto) (0-4) /hpf U Hyaline Cast (Auto) (0-5) /lpf U Epithel Cells (Auto) (0-5) /lpf Urine Bacteria (Auto) (Negative) Ur Renal Epithelial Cell Nasal Screen MRSA (PCR) (Negative) Stl C. cayetanensis PCR (NotDetected) Stool Rotavirus A PCR (NotDetected) Stl Adenov F 40/41 PCR (NotDetected) Stool Astrovirus (PCR) (NotDetected) Stool Campylobacter PCR (NotDetected) Stl C. diff Tox A/B PCR (NotDetected) Stool Cryptosporidium PCR (NotDetected) Stl E.coli Shiga Tox PCR (NotDetected) Stl Enterotoxigenic E PCR (NotDetected) Stool EPEC (PCR) (NotDetected) Stool EAEC (PCR) (NotDetected) Stl E. histolytica PCR (NotDetected) Stool Giardia Lamblia PCR (NotDetected) Stool Salmonella PCR (NotDetected) Stool Sapovirus (PCR) (NotDetected) Stl P. shigelloides PCR (NotDetected) Stl Shigella/EIEC PCR (NotDetected) St Y.enterocolitica PCR (NotDetected) Stool Vibrio (PCR) (NotDetected) Stl Vibrio cholerae PCR (NotDetected) Stl Norovirus GI/GII PCR (NotDetected) SARS-CoV-2 (PCR) NEGATIVE (Negative) Influenza Type A (PCR) Negative (Neg) Influenza Type B (PCR) Negative (Neg) RSV (RT-PCR) Negative (Neg) SARS-CoV-2, RNA, NAAT NEGATIVE (NEGATIVE) 08/24/21 08/24/21 08/24/21 Range/Units 03:15 05:47 05:47 WBC 8.25 (4.8-10.8) K/uL RBC 4.13 L (4.7-6.1) M/uL Hgb 11.5 L (14.0-18.0) g/dL Hct 35.4 L (42-52) % MCV 85.7 (80-100) fL MCH 27.8 (25-34) pg MCHC 32.5 (32-36) g/dL RDW Std Deviation 41.0 (36.4-46.3) fL RDW Coeff of Girish 13.0 (11.5-14.5) % Plt Count 148 (130-400) K/uL MPV 10.3 (7.4-10.4) fL Immature Gran % (Auto) 0.2 % Neut % (Auto) 92.2 % Lymph % (Auto) 5.3 % [place] % (Auto) 2.2 % Eos % (Auto) 0.0 % Baso % (Auto) 0.1 % Neut # (Auto) 7.60 H (1.4-6.5) K/uL Lymph # (Auto) 0.44 L (1.2-3.4) K/uL [place] # (Auto) 0.18 (0.11-0.59) K/uL Eos # (Auto) 0.00 (0-0.5) K/uL Baso # (Auto) 0.01 (0-0.2) K/uL Immature Gran # (Auto) 0.02 (0.00-0.02) K/uL Hyposegmented Neuts RBC Morphology PT (9.0-12.0) Seconds INR (0.9-1.1) Fibrinogen (184-400) mg/dl Sodium 138 (136-145) mmol/L Potassium 3.2 L (3.5-5.1) mmol/L Chloride 104 (98-107) mmol/L Carbon Dioxide 28 (21-32) mmol/L Anion Gap 6.0 (3-11) BUN 36 H (7-18) mg/dl Creatinine 1.52 H (0.6-1.4) mg/dl Est Cr Clr Drug Dosing 34.4 Est GFR ( Amer) 50.5 ml/min Est GFR (Non-Af Amer) 43.6 ml/min BUN/Creatinine Ratio 23.7 H (10-20) Glucose 152 H (70-99) mg/dl POC Glucose (70-99) mg/dl Lactate (0.4-2.0) mmol/L Calcium 8.0 L (8.5-10.1) mg/dl Phosphorus (2.5-4.9) mg/dl Magnesium (1.8-2.4) mg/dl Total Bilirubin (0.2-1) mg/dl AST (15-37) U/L ALT (12-78) Alkaline Phosphatase (45-117) U/L C-Reactive Protein 8.97 H (0-0.29) mg/dl Total Protein (6.4-8.2) gm/dl Albumin (3.4-5.0) gm/dl Globulin (2.5-4.0) gm/dl Albumin/Globulin Ratio (0.9-2) Procalcitonin (0-0.5) ng/ml Urine Color Urine Appearance (Clear) Urine pH (4.5-7.5) Ur Specific [place] (1.000-1.030) Urine Protein (Negative) Urine Glucose (UA) (Negative) Urine Ketones (Negative) Urine Blood (Negative) Urine Nitrite (Negative) Urine Bilirubin (Negative) Urine Urobilinogen (Negative) Ur Leukocyte Esterase (Negative) Urine WBC (Auto) (0-5) /hpf Urine RBC (Auto) (0-4) /hpf U Hyaline Cast (Auto) (0-5) /lpf U Epithel Cells (Auto) (0-5) /lpf Urine Bacteria (Auto) (Negative) Ur Renal Epithelial Cell Nasal Screen MRSA (PCR) Negative (Negative) Stl C. cayetanensis PCR (NotDetected) Stool Rotavirus A PCR (NotDetected) Stl Adenov F 40 PCR (NotDetected) Stool Astrovirus (PCR) (NotDetected) Stool Campylobacter PCR (NotDetected) Stl C. diff Tox A/B PCR (NotDetected) Stool Cryptosporidium PCR (NotDetected) Stl E.coli Shiga Tox PCR (NotDetected) Stl Enterotoxigenic E PCR (NotDetected) Stool EPEC (PCR) (NotDetected) Stool EAEC (PCR) (NotDetected) Stl E. histolytica PCR (NotDetected) Stool Giardia Lamblia PCR (NotDetected) Stool Salmonella PCR (NotDetected) Stool Sapovirus (PCR) (NotDetected) Stl P. shigelloides PCR (NotDetected) Stl Shigella/EIEC PCR (NotDetected) St Y.enterocolitica PCR (NotDetected) Stool Vibrio (PCR) (NotDetected) Stl Vibrio cholerae PCR (NotDetected) Stl Norovirus GI/GII PCR (NotDetected) SARS-CoV-2 (PCR) (Negative) Influenza Type A (PCR) (Neg) Influenza Type B (PCR) (Neg) RSV (RT-PCR) (Neg) SARS-CoV-2, RNA, NAAT (NEGATIVE) 08/24/21 08/24/21 08/25/21 Range/Units 05:47 21:41 02:24 WBC (4.8-10.8) K/uL RBC (4.7-6.1) M/uL Hgb (14.0-18.0) g/dL Hct (42-52) % MCV (80-100) fL MCH (25-34) pg MCHC (32-36) g/dL RDW Std Deviation (36.4-46.3) fL RDW Coeff of Girish (11.5-14.5) % Plt Count (130-400) K/uL MPV (7.4-10.4) fL Immature Gran % (Auto) % Neut % (Auto) % Lymph % (Auto) % [place] % (Auto) % Eos % (Auto) % Baso % (Auto) % Neut # (Auto) (1.4-6.5) K/uL Lymph # (Auto) (1.2-3.4) K/uL [place] # (Auto) (0.11-0.59) K/uL Eos # (Auto) (0-0.5) K/uL Baso # (Auto) (0-0.2) K/uL Immature Gran # (Auto) (0.00-0.02) K/uL Hyposegmented Neuts RBC Morphology PT (9.0-12.0) Seconds INR (0.9-1.1) Fibrinogen (184-400) mg/dl Sodium (136-145) mmol/L Potassium (3.5-5.1) mmol/L Chloride (98-107) mmol/L Carbon Dioxide (21-32) mmol/L Anion Gap (3-11) BUN (7-18) mg/dl Creatinine (0.6-1.4) mg/dl Est Cr Clr Drug Dosing Est GFR ( Amer) ml/min Est GFR (Non-Af Amer) ml/min BUN/Creatinine Ratio (10-20) Glucose (70-99) mg/dl POC Glucose 154 H (70-99) mg/dl Lactate (0.4-2.0) mmol/L Calcium (8.5-10.1) mg/dl Phosphorus (2.5-4.9) mg/dl Magnesium (1.8-2.4) mg/dl Total Bilirubin (0.2-1) mg/dl AST (15-37) U/L ALT (12-78) Alkaline Phosphatase (45-117) U/L C-Reactive Protein (0-0.29) mg/dl Total Protein (6.4-8.2) gm/dl Albumin (3.4-5.0) gm/dl Globulin (2.5-4.0) gm/dl Albumin/Globulin Ratio (0.9-2) Procalcitonin 14.74 H (0-0.5) ng/ml Urine Color Urine Appearance (Clear) Urine pH (4.5-7.5) Ur Specific [place] (1.000-1.030) Urine Protein (Negative) Urine Glucose (UA) (Negative) Urine Ketones (Negative) Urine Blood (Negative) Urine Nitrite (Negative) Urine Bilirubin (Negative) Urine Urobilinogen (Negative) Ur Leukocyte Esterase (Negative) Urine WBC (Auto) (0-5) /hpf Urine RBC (Auto) (0-4) /hpf U Hyaline Cast (Auto) (0-5) /lpf U Epithel Cells (Auto) (0-5) /lpf Urine Bacteria (Auto) (Negative) Ur Renal Epithelial Cell Nasal Screen MRSA (PCR) (Negative) Stl C. cayetanensis PCR Not Detected (NotDetected) Stool Rotavirus A PCR Not Detected (NotDetected) Stl Adenov F 40/41 PCR Not Detected (NotDetected) Stool Astrovirus (PCR) Not Detected (NotDetected) Stool Campylobacter PCR Not Detected (NotDetected) Stl C. diff Tox A/B PCR Not Detected (NotDetected) Stool Cryptosporidium PCR Not Detected (NotDetected) Stl E.coli Shiga Tox PCR Not Detected (NotDetected) Stl Enterotoxigenic E PCR Not Detected (NotDetected) Stool EPEC (PCR) Not Detected (NotDetected) Stool EAEC (PCR) Not Detected (NotDetected) Stl E. histolytica PCR Not Detected (NotDetected) Stool Giardia Lamblia PCR Not Detected (NotDetected) Stool Salmonella PCR Not Detected (NotDetected) Stool Sapovirus (PCR) Not Detected (NotDetected) Stl P. shigelloides PCR Not Detected (NotDetected) Stl Shigella/EIEC PCR Not Detected (NotDetected) St Y.enterocolitica PCR Not Detected (NotDetected) Stool Vibrio (PCR) Not Detected (NotDetected) Stl Vibrio cholerae PCR Not Detected (NotDetected) Stl Norovirus GI/GII PCR Not Detected (NotDetected) SARS-CoV-2 (PCR) (Negative) Influenza Type A (PCR) (Neg) Influenza Type B (PCR) (Neg) RSV (RT-PCR) (Neg) SARS-CoV-2, RNA, NAAT (NEGATIVE) 08/25/21 08/25/21 08/25/21 Range/Units 05:34 05:34 09:38 WBC 4.61 L (4.8-10.8) K/uL RBC 3.70 L (4.7-6.1) M/uL Hgb 10.4 L (14.0-18.0) g/dL Hct 31.3 L (42-52) % MCV 84.6 (80-100) fL MCH 28.1 (25-34) pg MCHC 33.2 (32-36) g/dL RDW Std Deviation 40.6 (36.4-46.3) fL RDW Coeff of Girish 13.2 (11.5-14.5) % Plt Count 87 L (130-400) K/uL MPV 9.3 (7.4-10.4) fL Immature Gran % (Auto) 0.2 % Neut % (Auto) 91.4 % Lymph % (Auto) 6.7 % [place] % (Auto) 1.7 % Eos % (Auto) 0.0 % Baso % (Auto) 0.0 % Neut # (Auto) 4.21 (1.4-6.5) K/uL Lymph # (Auto) 0.31 L (1.2-3.4) K/uL [place] # (Auto) 0.08 L (0.11-0.59) K/uL Eos # (Auto) 0.00 (0-0.5) K/uL Baso # (Auto) 0.00 (0-0.2) K/uL Immature Gran # (Auto) 0.01 (0.00-0.02) K/uL Hyposegmented Neuts RBC Morphology Unremarkable PT 12.4 H (9.0-12.0) Seconds INR 1.2 H (0.9-1.1) Fibrinogen 407 H (184-400) mg/dl Sodium 137 (136-145) mmol/L Potassium 3.3 L (3.5-5.1) mmol/L Chloride 107 (98-107) mmol/L Carbon Dioxide 22 (21-32) mmol/L Anion Gap 8.0 (3-11) BUN 40 H (7-18) mg/dl Creatinine 1.78 H (0.6-1.4) mg/dl Est Cr Clr Drug Dosing 26.4 Est GFR ( Amer) 41.7 ml/min Est GFR (Non-Af Amer) 36.0 ml/min BUN/Creatinine Ratio 22.2 H (10-20) Glucose 149 H (70-99) mg/dl POC Glucose (70-99) mg/dl Lactate (0.4-2.0) mmol/L Calcium 7.8 L (8.5-10.1) mg/dl Phosphorus (2.5-4.9) mg/dl Magnesium (1.8-2.4) mg/dl Total Bilirubin (0.2-1) mg/dl AST (15-37) U/L ALT (12-78) Alkaline Phosphatase (45-117) U/L C-Reactive Protein (0-0.29) mg/dl Total Protein (6.4-8.2) gm/dl Albumin (3.4-5.0) gm/dl Globulin (2.5-4.0) gm/dl Albumin/Globulin Ratio (0.9-2) Procalcitonin (0-0.5) ng/ml Urine Color Urine Appearance (Clear) Urine pH (4.5-7.5) Ur Specific [place] (1.000-1.030) Urine Protein (Negative) Urine Glucose (UA) (Negative) Urine Ketones (Negative) Urine Blood (Negative) Urine Nitrite (Negative) Urine Bilirubin (Negative) Urine Urobilinogen (Negative) Ur Leukocyte Esterase (Negative) Urine WBC (Auto) (0-5) /hpf Urine RBC (Auto) (0-4) /hpf U Hyaline Cast (Auto) (0-5) /lpf U Epithel Cells (Auto) (0-5) /lpf Urine Bacteria (Auto) (Negative) Ur Renal Epithelial Cell Nasal Screen MRSA (PCR) (Negative) Stl C. cayetanensis PCR (NotDetected) Stool Rotavirus A PCR (NotDetected) Stl Adenov F 40/41 PCR (NotDetected) Stool Astrovirus (PCR) (NotDetected) Stool Campylobacter PCR (NotDetected) Stl C. diff Tox A/B PCR (NotDetected) Stool Cryptosporidium PCR (NotDetected) Stl E.coli Shiga Tox PCR (NotDetected) Stl Enterotoxigenic E PCR (NotDetected) Stool EPEC (PCR) (NotDetected) Stool EAEC (PCR) (NotDetected) Stl E. histolytica PCR (NotDetected) Stool Giardia Lamblia PCR (NotDetected) Stool Salmonella PCR (NotDetected) Stool Sapovirus (PCR) (NotDetected) Stl P. shigelloides PCR (NotDetected) Stl Shigella/EIEC PCR (NotDetected) St Y.enterocolitica PCR (NotDetected) Stool Vibrio (PCR) (NotDetected) Stl Vibrio cholerae PCR (NotDetected) Stl Norovirus GI/GII PCR (NotDetected) SARS-CoV-2 (PCR) (Negative) Influenza Type A (PCR) (Neg) Influenza Type B (PCR) (Neg) RSV (RT-PCR) (Neg) SARS-CoV-2, RNA, NAAT (NEGATIVE) 08/25/21 08/26/21 08/26/21 Range/Units 09:38 07:05 07:05 WBC 3.96 L 3.25 L (4.8-10.8) K/uL RBC 3.70 L 3.61 L (4.7-6.1) M/uL Hgb 10.3 L 10.0 L (14.0-18.0) g/dL Hct 31.8 L 31.0 L (42-52) % MCV 85.9 85.9 (80-100) fL MCH 27.8 27.7 (25-34) pg MCHC 32.4 32.3 (32-36) g/dL RDW Std Deviation 42.2 41.9 (36.4-46.3) fL RDW Coeff of Girish 13.3 13.2 (11.5-14.5) % Plt Count 83 L 90 L (130-400) K/uL MPV 10.1 11.3 H (7.4-10.4) fL Immature Gran % (Auto) 0.3 0.3 % Neut % (Auto) 87.0 76.0 % Lymph % (Auto) 10.4 16.3 % [place] % (Auto) 2.3 6.8 % Eos % (Auto) 0.0 0.3 % Baso % (Auto) 0.0 0.3 % Neut # (Auto) 3.45 2.47 (1.4-6.5) K/uL Lymph # (Auto) 0.41 L 0.53 L (1.2-3.4) K/uL [place] # (Auto) 0.09 L 0.22 (0.11-0.59) K/uL Eos # (Auto) 0.00 0.01 (0-0.5) K/uL Baso # (Auto) 0.00 0.01 (0-0.2) K/uL Immature Gran # (Auto) 0.01 0.01 (0.00-0.02) K/uL Hyposegmented Neuts RBC Morphology PT (9.0-12.0) Seconds INR (0.9-1.1) Fibrinogen (184-400) mg/dl Sodium 141 (136-145) mmol/L Potassium 3.0 L (3.5-5.1) mmol/L Chloride 111 H (98-107) mmol/L Carbon Dioxide 23 (21-32) mmol/L Anion Gap 7.0 (3-11) BUN 29 H (7-18) mg/dl Creatinine 1.59 H (0.6-1.4) mg/dl Est Cr Clr Drug Dosing 29.6 Est GFR ( Amer) 47.8 ml/min Est GFR (Non-Af Amer) 41.3 ml/min BUN/Creatinine Ratio 18.1 (10-20) Glucose 141 H (70-99) mg/dl POC Glucose (70-99) mg/dl Lactate (0.4-2.0) mmol/L Calcium 8.4 L (8.5-10.1) mg/dl Phosphorus 1.9 L (2.5-4.9) mg/dl Magnesium 1.8 (1.8-2.4) mg/dl Total Bilirubin (0.2-1) mg/dl AST (15-37) U/L ALT (12-78) Alkaline Phosphatase (45-117) U/L C-Reactive Protein (0-0.29) mg/dl Total Protein (6.4-8.2) gm/dl Albumin (3.4-5.0) gm/dl Globulin (2.5-4.0) gm/dl Albumin/Globulin Ratio (0.9-2) Procalcitonin (0-0.5) ng/ml Urine Color Urine Appearance (Clear) Urine pH (4.5-7.5) Ur Specific [place] (1.000-1.030) Urine Protein (Negative) Urine Glucose (UA) (Negative) Urine Ketones (Negative) Urine Blood (Negative) Urine Nitrite (Negative) Urine Bilirubin (Negative) Urine Urobilinogen (Negative) Ur Leukocyte Esterase (Negative) Urine WBC (Auto) (0-5) /hpf Urine RBC (Auto) (0-4) /hpf U Hyaline Cast (Auto) (0-5) /lpf U Epithel Cells (Auto) (0-5) /lpf Urine Bacteria (Auto) (Negative) Ur Renal Epithelial Cell Nasal Screen MRSA (PCR) (Negative) Stl C. cayetanensis PCR (NotDetected) Stool Rotavirus A PCR (NotDetected) Stl Adenov F 40/41 PCR (NotDetected) Stool Astrovirus (PCR) (NotDetected) Stool Campylobacter PCR (NotDetected) Stl C. diff Tox A/B PCR (NotDetected) Stool Cryptosporidium PCR (NotDetected) Stl E.coli Shiga Tox PCR (NotDetected) Stl Enterotoxigenic E PCR (NotDetected) Stool EPEC (PCR) (NotDetected) Stool EAEC (PCR) (NotDetected) Stl E. histolytica PCR (NotDetected) Stool Giardia Lamblia PCR (NotDetected) Stool Salmonella PCR (NotDetected) Stool Sapovirus (PCR) (NotDetected) Stl P. shigelloides PCR (NotDetected) Stl Shigella/EIEC PCR (NotDetected) St Y.enterocolitica PCR (NotDetected) Stool Vibrio (PCR) (NotDetected) Stl Vibrio cholerae PCR (NotDetected) Stl Norovirus GI/GII PCR (NotDetected) SARS-CoV-2 (PCR) (Negative) Influenza Type A (PCR) (Neg) Influenza Type B (PCR) (Neg) RSV (RT-PCR) (Neg) SARS-CoV-2, RNA, NAAT (NEGATIVE) Administered Medications Acetaminophen (Acetaminophen 500 Mg Tab) 1,000 mg PO Q8H PRN PRN Reason: Pain or Fever Stop: 09/23/21 18:00 Last Admin: 08/24/21 18:43 Dose: 1,000 mg Documented by: [id number] Atenolol (Atenolol 25 Mg Tablet) 25 mg PO BID [facility] Stop: 09/23/21 08:59 Last Admin: 08/26/21 09:22 Dose: 25 mg Documented by: [id number] Admin: 08/25/21 22:18 Dose: 25 mg Documented by: [id number] Admin: 08/25/21 09:23 Dose: 25 mg Documented by: [id number] Admin: 08/24/21 21:59 Dose: Not Given Documented by: [id number] Admin: 08/24/21 10:07 Dose: 25 mg Documented by: [id number] Felodipine (Felodipine 5 Mg Tabcr) 5 mg PO BID [facility] Stop: 09/23/21 08:59 Last Admin: 08/26/21 09:22 Dose: 5 mg Documented by: [id number] Admin: 08/25/21 22:18 Dose: 5 mg Documented by: [id number] Admin: 08/25/21 09:23 Dose: 5 mg Documented by: [id number] Admin: 08/24/21 22:05 Dose: 5 mg Documented by: [id number] Admin: 08/24/21 10:07 Dose: 5 mg Documented by: [id number] Fluticasone Furoate (Fluticasone Furoate 200mcg 14 Puffs/Inhaler) 1 puffs INH QAM [facility] Stop: 09/23/21 08:59 Last Admin: 08/26/21 10:36 Dose: 1 puffs Documented by: [id number] Admin: 08/25/21 09:34 Dose: Not Given Documented by: [id number] Admin: 08/24/21 10:07 Dose: 1 puffs Documented by: [id number] Heparin Sodium (Porcine) (Heparin Sod 5,000 Unit/0.5 Ml Vial) 5,000 units SQ Q12 [facility] Stop: 09/23/21 08:59 Last Admin: 08/24/21 22:01 Dose: 5,000 units Documented by: [id number] Admin: 08/24/21 10:15 Dose: 5,000 units Documented by: [id number] Potassium Chloride/Sodium Chloride (Normal Saline W/20 Meq Kcl) 20 meq in 1,000 mls @ 125 mls/hr IV .Q8H [facility] Stop: 09/23/21 14:24 Last Admin: 08/26/21 10:36 Dose: 125 mls/hr Documented by: [id number] Infusion: 08/26/21 10:36 Dose: 125 mls/hr Documented by: [id number] Admin: 08/26/21 03:05 Dose: 125 mls/hr Documented by: [id number] Infusion: 08/26/21 03:05 Dose: 0 mls/hr Documented by: [id number] Admin: 08/25/21 19:01 Dose: 75 mls/hr Documented by: [id number] Infusion: 08/25/21 19:01 Dose: 75 mls/hr Documented by: [id number] Admin: 08/25/21 09:23 Dose: 75 mls/hr Documented by: [id number] Infusion: 08/25/21 09:23 Dose: 75 mls/hr Documented by: [id number] Infusion: 08/24/21 23:05 Dose: 75 mls/hr Documented by: [id number] Admin: 08/24/21 21:52 Dose: 125 mls/hr Documented by: [id number] Infusion: 08/24/21 21:52 Dose: 0 mls/hr Documented by: [id number] Admin: 08/24/21 16:07 Dose: 125 mls/hr Documented by: [id number] Loperamide HCl (Loperamide Hcl 2 Mg Cap) 2 mg PO Q4H PRN PRN Reason: diarrhea/loose stools Stop: 09/24/21 13:59 Last Admin: 08/26/21 09:34 Dose: 2 mg Documented by: [id number] Admin: 08/25/21 19:05 Dose: 2 mg Documented by: [id number] Admin: 08/25/21 14:56 Dose: 2 mg Documented by: [id number] Losartan Potassium (Losartan Potassium 50 Mg Tab) 100 mg PO QAM [facility] Stop: 09/23/21 08:59 Last Admin: 08/24/21 10:07 Dose: 100 mg Documented by: [id number] Non-Formulary Patient's Own Med- Trametinib 1 ea PO Q24H [facility] Stop: 09/24/21 17:59 Last Admin: 08/25/21 22:38 Dose: 1 tab Documented by: [id number] Non-Formulary Patient's Own Med- Tafinlar 1 ea PO Q12H [facility] Stop: 09/24/21 18:14 Last Admin: 08/26/21 09:25 Dose: 2 cap Documented by: [id number] Admin: 08/25/21 22:38 Dose: 2 cap Documented by: [id number] Ondansetron HCl (Ondansetron Inj 2 Mg/Ml 2 Ml Vial) 4 mg IV Q4H PRN PRN Reason: nausea Stop: 09/23/21 05:19 Last Admin: 08/24/21 18:43 Dose: 4 mg Documented by: [id number] Potassium Chloride (Potassium Chloride Crtab 20 Meq Tabcr) 40 meq PO TODAY@0930 [facility] Stop: 08/26/21 23:59 Last Admin: 08/26/21 09:31 Dose: 40 meq Documented by: [id number] Psyllium Hydrophilic Mucilloid (Psyllium 58.6% Powder Packet) 1 pkt PO DAILY [facility] Stop: 09/23/21 08:59 Last Admin: 08/26/21 09:22 Dose: Not Given Documented by: [id number] Admin: 08/25/21 09:24 Dose: Not Given Documented by: [id number] Admin: 08/24/21 10:12 Dose: 1 pkt Documented by: [id number] Sertraline HCl (Sertraline Hcl 100 Mg Tablet) 200 mg PO [facility] Stop: 09/23/21 20:59 Last Admin: 08/25/21 22:40 Dose: 200 mg Documented by: [id number] Admin: 08/24/21 22:03 Dose: 200 mg Documented by: [id number] Terazosin HCl (Terazosin Hcl 5 Mg Cap) 5 mg PO [facility] Stop: 09/23/21 20:59 Last Admin: 08/25/21 22:19 Dose: 5 mg Documented by: [id number] Admin: 08/24/21 22:05 Dose: 5 mg Documented by: [id number] Discontinued Medications Acetaminophen (Acetaminophen 325 Mg Tab) 650 mg PO NOW STA Stop: 08/23/21 18:25 Last Admin: 12/10/21 18:45 Dose: 650 mg Documented by: [id number] Acetaminophen (Acetaminophen 500 Mg Tab) 1,000 mg PO NOW STA Stop: 08/24/21 02:18 Last Admin: 08/24/21 02:33 Dose: 1,000 mg Documented by: [id number] Albuterol (Albut/Ipratrop 3mg/0.5mg Neb 3 Ml Vial) 3 ml NEB QIDR [facility] Stop: 09/24/21 06:59 Last Admin: 08/25/21 10:56 Dose: Not Given Documented by: [id number] Admin: 08/25/21 08:41 Dose: Not Given Documented by: [id number] Sodium Chloride (Nss 1000ml) 500 mls @ 999 mls/hr IV .Q31M ONE Stop: 08/24/21 00:13 Last Infusion: 08/24/21 00:32 Dose: 0 mls/hr Documented by: [id number] Admin: 08/23/21 23:57 Dose: 999 mls/hr Documented by: [id number] Sodium Chloride (Nss 1000ml) 1,000 mls @ 125 mls/hr IV .Q8H [facility] Stop: 09/22/21 23:44 Last Infusion: 08/24/21 16:07 Dose: 0 mls/hr Documented by: [id number] Admin: 08/24/21 07:39 Dose: 125 mls/hr Documented by: [id number] Infusion: 08/24/21 07:39 Dose: 125 mls/hr Documented by: [id number] Admin: 08/24/21 01:06 Dose: 125 mls/hr Documented by: [id number] Piperacillin Sod/Tazobactam Sod (Zosyn) 4.5 gm in 120 mls @ 240 mls/hr IV NOW ONE Stop: 08/24/21 00:13 Last Infusion: 08/24/21 01:03 Dose: 0 mls/hr Documented by: [id number] Admin: 08/23/21 23:57 Dose: 240 mls/hr Documented by: [id number] Piperacillin Sod/Tazobactam (Sod 3.375 gm/ Dextrose) 115 mls @ 28.75 mls/hr IV Q8H [facility]; Protocol Stop: 08/26/21 05:59 Last Infusion: 08/26/21 02:23 Dose: 0 mls/hr Documented by: [id number] Admin: 08/25/21 22:20 Dose: 28.8 mls/hr Documented by: [id number] Infusion: 08/25/21 19:01 Dose: 0 mls/hr Documented by: [id number] Admin: 08/25/21 14:56 Dose: 28.8 mls/hr Documented by: [id number] Infusion: 08/25/21 09:53 Dose: 0 mls/hr Documented by: [id number] Admin: 08/25/21 05:48 Dose: 28.8 mls/hr Documented by: [id number] Infusion: 08/25/21 02:18 Dose: 0 mls/hr Documented by: [id number] Admin: 08/24/21 22:03 Dose: 28.8 mls/hr Documented by: [id number] Infusion: 08/24/21 19:45 Dose: 0 mls/hr Documented by: [id number] Admin: 08/24/21 15:28 Dose: 28.8 mls/hr Documented by: [id number] Infusion: 08/24/21 12:00 Dose: 0 mls/hr Documented by: [id number] Admin: 08/24/21 07:39 Dose: 28.8 mls/hr Documented by: [id number] Magnesium Sulfate/Dextrose (Magnesium Sulfate / D5w) 1 gm in 100 mls @ 50 mls/hr IV ONE ONE Stop: 08/26/21 11:59 Last Infusion: 08/26/21 12:51 Dose: 0 mls/hr Documented by: [id number] Admin: 08/26/21 10:36 Dose: 50 mls/hr Documented by: [id number] Potassium Phosphate 15 mmol/ (Sodium Chloride) 255 mls @ 88 mls/hr IV ONE ONE Stop: 08/26/21 12:53 Last Admin: 08/26/21 10:36 Dose: 88 mls/hr Documented by: [id number] Miscellaneous (Dabrafenib [Tafinlar] 75 Mg - Order Awaiting Action) 1 ea N/A QS [facility] Stop: 09/23/21 07:59 Last Admin: 08/25/21 15:24 Dose: Not Given Documented by: [id number] Admin: 08/25/21 09:22 Dose: Not Given Documented by: [id number] Admin: 08/24/21 23:31 Dose: Not Given Documented by: [id number] Admin: 08/24/21 15:27 Dose: Not Given Documented by: [id number] Admin: 08/24/21 15:27 Dose: Not Given Documented by: [id number] Miscellaneous (Trametinib [Mekinist] 2 Mg - Order Awaiting Action) 1 ea N/A QS [facility] Stop: 09/23/21 07:59 Last Admin: 08/25/21 15:25 Dose: Not Given Documented by: [id number] Admin: 08/25/21 09:23 Dose: Not Given Documented by: [id number] Admin: 08/24/21 23:31 Dose: Not Given Documented by: [id number] Admin: 08/24/21 15:28 Dose: Not Given Documented by: [id number] Admin: 08/24/21 15:28 Dose: Not Given Documented by: [id number] Potassium Chloride (Potassium Chloride Crtab 20 Meq Tabcr) 40 meq PO NOW STA Stop: 08/24/21 08:35 Last Admin: 08/24/21 10:06 Dose: 40 meq Documented by: [id number] Potassium Chloride (Potassium Chloride Crtab 20 Meq Tabcr) 40 meq PO NOW [facility] Stop: 08/25/21 07:48 Last Admin: 08/25/21 09:22 Dose: 40 meq Documented by: [id number] Imaging Data Radiologist's Impression: Chest X-Ray 08/23/21 23:42 XR chest 1V portable CLINICAL HISTORY: SOB, fever, lung CA. COMPARISON STUDY: 09/08/2018 TECHNIQUE: 1 view of the chest FINDINGS: Single frontal view of the chest demonstrates the heart to again be enlarged. Compared to previous examination, there is no significant interval change in patchy interstitial and alveolar opacities involving the right lower lobe. There is also again blunting of the right costophrenic angle. The findings are characteristic of the patient's previous history of lung cancer. The lungs are otherwise clear of acute alveolar opacities or air bronchograms. There is no evidence for a left pleural effusion. There is no evidence for vascular congestion. There is no acute osseous pathology. IMPRESSION: No acute cardiopulmonary disease. Chronic changes are present involving the right lower lobe in a patient with a history of lung cancer. ACT 112: Negative or not required by law. Electronically signed by: Aleksey Brandt M.D. 08/24/2021 8:11 AM Blood Pressure Blood Pressure Findings: Elevated blood pressure Blood Pressure Disposition: further management by hospitalist Discharge Plan Visit Data Chief Complaint: Vomiting ED Provider: Rani Rucker Discharge Problem: Non-small cell carcinoma of lung, Fever Patient Disposition: Admitted As Inpatient Discharge Instructions Interventions: ED Discharge Assessment Last Done: 08/24/21 05:19 Discharge Problem: Non-small cell carcinoma of lung Qualifiers: Laterality: unspecified laterality Qualified Code(s): C34.90 - Malignant neoplasm of unspecified part of unspecified bronchus or lung Fever Qualifiers: Fever type: due to other condition Qualified Code(s): R50.81 - Fever presenting with conditions classified elsewhere
[2021-08-24] MEDS ORDERED: ACETAMINOPHEN 500 MG TAB PO PRN (18:01)
--- NOTE | 2021-08-24 20:22 | Billing Data ---
Date of Service August 24, 2021 Coding Level of Care Code 89532 Initial Inpt Care Lvl 3
--- NOTE | 2021-08-24 21:36 | Billing Data ---
Date of Service August 24, 2021 Coding Level of Care Code 93110 Subseq Hosp Care Lvl 3
[2021-08-24] MEDS: SERTRALINE HCL 100 MG TABLET PO SCH (22:03)
[2021-08-24] MEDS: TERAZOSIN HCL 5 MG CAP PO SCH (22:05)
[2021-08-24 23:27] LABS: Adenovirus F 40/41 PCR Not Detected (NotDetected); Astrovirus PCR Not Detected (NotDetected); Campylobacter PCR Not Detected (NotDetected); Clostridium diff Toxin A/B PCR Not Detected (NotDetected); Cryptosporidium PCR Not Detected (NotDetected); Cyclospora cayetanensis PCR Not Detected (NotDetected); Entamoeba histolytica PCR Not Detected (NotDetected); Enteroaggregative E.coli(EAEC) Not Detected (NotDetected); Enteropathogenic E.coli (EPEC) Not Detected (NotDetected); Enterotoxigenic E.coli (ETEC) Not Detected (NotDetected); Giardia lamblia PCR Not Detected (NotDetected); Norovirus GI/GII PCR Not Detected (NotDetected); Plesiomonas shigelloides PCR Not Detected (NotDetected); Rotavirus A PCR Not Detected (NotDetected); Salmonella PCR Not Detected (NotDetected); Sapovirus PCR Not Detected (NotDetected); Shiga-like Toxin E.coli (STEC) Not Detected (NotDetected); Shigella/Enteroinvasive E.coli Not Detected (NotDetected); Vibrio cholerae PCR Not Detected (NotDetected); Vibrio species PCR Not Detected (NotDetected); Yersinia enterocolitica PCR Not Detected (NotDetected)
[2021-08-25 05:44] LABS: Hematocrit (blood only) 31.3 % (42-52); Hemoglobin 10.4 g/dL (14.0-18.0); Mean Corpuscular Hemoglobin 28.1 pg (25-34); Mean Corpuscular Hgb Conc 33.2 g/dL (32-36); Mean Corpuscular Volume 84.6 fL (80-100); RDW Coefficient of Variation 13.2 % (11.5-14.5); RDW Standard Deviation 40.6 fL (36.4-46.3); White Blood Count 4.61 K/uL (4.8-10.8)
[2021-08-25] MEDS: PIPERACILLIN/TAZOBACTAM 3.375 GM in DEXTROSE 5% 100 ML IV SCH ×3 (05:48→22:20)
[2021-08-25 06:05] LABS: BUN Creatinine Ratio 22.2 (10-20); Calcium 7.8 mg/dl (8.5-10.1); Creatinine Clr Calc Pharmacy 26.4 ml/min; Est GFR (African American) 41.7 ml/min; Potassium 3.3 mmol/L (3.5-5.1)
[2021-08-25 07:08] LABS: Immature Granulocytes # (auto) 0.01 K/uL (0.00-0.02); Immature Granulocytes % (auto) 0.2 %; Lymphocytes # (auto) 0.31 K/uL (1.2-3.4); Lymphocytes % (auto) 6.7 %; Mean Platelet Volume 9.3 fL (7.4-10.4); Monocytes # (auto) 0.08 K/uL (0.11-0.59); Monocytes % (auto) 1.7 %; Neutrophils # (auto) 4.21 K/uL (1.4-6.5); Neutrophils % (auto) 91.4 %; Platelet Count 87 K/uL (130-400); RBC Morphology Unremarkable
[2021-08-25] MEDS ORDERED: POTASSIUM CHLORIDE CRTAB 20 MEQ TABCR PO STA (07:47)
[2021-08-25] MEDS: ALBUT/IPRATROP 3MG/0.5MG NEB 3 ML VIAL NEB SCH ×2 (08:41→10:56)
[2021-08-25] MEDS: NSS + 20MEQ KCL 20 MEQ/1,000 ML BAG IV SCH ×2 (09:23→19:01)
[2021-08-25] MEDS: FELODIPINE 5 MG TABCR PO SCH ×2 (09:23→22:18)
[2021-08-25] MEDS: ATENOLOL 25 MG TABLET PO SCH ×2 (09:23→22:18)
[2021-08-25] MEDS: PSYLLIUM 58.6% POWDER PACKET PO SCH (09:24)
[2021-08-25] MEDS: FLUTICASONE FUROATE 200MCG 14 PUFFS/INHALER INH SCH (09:34)
[2021-08-25 09:51] LABS: Hematocrit (blood only) 31.8 % (42-52); Hemoglobin 10.3 g/dL (14.0-18.0); Mean Corpuscular Hemoglobin 27.8 pg (25-34); Mean Corpuscular Hgb Conc 32.4 g/dL (32-36); Mean Corpuscular Volume 85.9 fL (80-100); RDW Coefficient of Variation 13.3 % (11.5-14.5); RDW Standard Deviation 42.2 fL (36.4-46.3); White Blood Count 3.96 K/uL (4.8-10.8)
[2021-08-25 09:52] LABS: Mean Platelet Volume 10.1 fL (7.4-10.4); Platelet Count 83 K/uL (130-400)
[2021-08-25 10:02] LABS: Fibrinogen 407 mg/dl (184-400); INR 1.2 (0.9-1.1); Prothrombin Time 12.4 Seconds (9.0-12.0)
[2021-08-25 10:06] LABS: Immature Granulocytes # (auto) 0.01 K/uL (0.00-0.02); Immature Granulocytes % (auto) 0.3 %; Lymphocytes # (auto) 0.41 K/uL (1.2-3.4); Lymphocytes % (auto) 10.4 %; Monocytes # (auto) 0.09 K/uL (0.11-0.59); Monocytes % (auto) 2.3 %; Neutrophils # (auto) 3.45 K/uL (1.4-6.5)
--- NOTE | 2021-08-25 12:10 | Hospitalist Progress Note ---
Date of Service August 25, 2021 Assessment & Plan (1) Fever: Plan: Livan Wayne is a 75 yo M with extensive cancer history (non-small cell lung carcinoma, renal papillary carcinoma, adenocarcinoma of prostate) currently on chemotherapy admitted for fever of uncertain etiology. Fever of uncertain etiology: - febrile to 39.1C in ER on 08/23, no wbc elevation - Procal 14.7, CRP 8.97 - CXR from 08/23 comparable to previous, no obvious pneumonia - questionable relation to diarrheal illness that he has had over the last week, but stool studies PCR and C. diff negative - blood culture NGTD - urinalysis unimpressive for infection - continue zosyn until blood cultures negative at 48hrs - MRSA nares negative - Covid/flu/rsv negative -Could be from drug reaction Hypokalemia: - likely secondary to diarrhea - K 3.3 this morning - IVF with 20meq of KCl - replenished with 40meq of KCl PO this morning - continue to monitor and replete as needed Acute Kidney Injury: - Cr elevated this AM to 1.78 - baseline Cr 1.2 - likely secondary to dehydration in the setting of diarrheal illness - IVF increased to 125mL/hr - recheck BMP in AM Thrombocytopenia: - Plts dropped to 87 this AM; recheck 83 - fibrinogen 407 - unlikely to represent DIC/HIT - stopped SQ Heparin - potential side effect of chemotherapy - continue to monitor daily Proteinuria: - 4+ protein on urinalysis - uncertain relation to history of previous renal carcinoma - should have repeat evaluation as outpatient -Holding home losartan HTN: -Holding home losartan for acute kidney injury but will continue felodipine, atenolol BPH: - continue terazosin Depression: - continue sertraline Chemotherapy - dabrafenib 150 mg po Q12 - trametinib 2 mg daily - follows with Dr. Jaramillo as an outpatient DVT ppx: SCDs; hold chemoprophylaxis at this time due to worsening thrombocytopenia FEN/GI: regular diet, iv ns Code Status: full code Dispo: med/surg (2) Adenocarcinoma of prostate: (3) Lung cancer: (4) Cancer of kidney: (5) Hypokalemia: (6) Acute renal insufficiency: (7) Proteinuria: Admission and Anticipated Discharge Date Admission Date: August 24, 2021 Supervising Physician Co-Signing Physician Notes I personally examined the patient and verified all [place] points of history and exam, discussed case, and agree with decision making with Dr. Osorio with the following additions/exceptions: Patient reports continued diarrhea loose stools, weakness, but denies abdominal pains. No fevers today. Is eating somewhat. Does not really feel much better than yesterday. Vitals reviewed Gen: AAOx3, NAD, frail-appearing HEENT: Anicteric sclerae, EOMI CV: RRR no mgr nl S1S2 Pulm: Clear to auscultation bilaterally, no wheezes crackles or rhonchi, breathing unlabored Abd: +BS soft NT ND no masses or hernias Ext: No edema Skin: No rashes, warm/dry Neuro: Full strength throughout Laboratory values reviewed 75-year-old male here with fever of unknown etiology, in the setting of chemotherapy. He is not neutropenic. With diarrhea and generalized weakness, acute kidney injury, hypokalemia, and antineoplastic induced pancytopenia Continue to follow blood cultures-discontinue antibiotics if cultures negative after 48 hours -Could be drug fever as a side effect of his chemotherapy -Tylenol as needed for fevers -Hydrate for dehydration from diarrhea, replete potassium, and follow BMP in the morning to see if acute kidney injury resolved Imodium added as needed for diarrhea Needs PT/OT to see if we will need rehab We will touch base with his oncologist on Thursday to let him know about his admission Subjective Feeling much better this morning, no return of fevers or chills overnight. Did have one elevated temperature to 37.7 yesterday afternoon but otherwise has felt fine. Continuing to have intermittent loose stools that are what concerns him most about going home. Feels like he would be too weak from having the diarrhea if he does not have some help at home. Review of Systems Review of Systems: All systems reviewed & are unremarkable except as noted in Subjective Physical Exam Constitutional: WD/WN, vitals as above Eyes: PERRL, conjunctivae normal, anicteric sclerae Respiratory: normal respiratory effort, lungs clear to auscultation Aus cultation: no crackles, no rales, no rhonchi and no wheezes Cardiovascular: Rate/Rhythm: regular rate and regular rhythm Heart Sounds: no gallop, no murmur and no cardiac rub Vessels: normal peripheral pulses; no JVD Extremities: no edema Neurologic: PERRL, EOMI, accommodation nl, no face palsy, no dysarthria CN's II-XI intact bilaterally and moves all extremities Psychiatric: Orientation: alert and oriented x 3 Results & Data Results & Data ([facility]) Vital Signs (Past 12 Hours) Vital Signs Temp Pulse Resp BP Pulse Ox 08/25/21 07:53 37 C 65 16 111/60 93 Laboratory Results 08/25/21 08/25/21 08/25/21 Range/Units 09:38 09:38 05:34 WBC 3.96 L (4.8-10.8) K/uL RBC 3.70 L (4.7-6.1) M/uL Hgb 10.3 L (14.0-18.0) g/dL Hct 31.8 L (42-52) % MCV 85.9 (80-100) fL MCH 27.8 (25-34) pg MCHC 32.4 (32-36) g/dL RDW Std Deviation 42.2 (36.4-46.3) fL RDW Coeff of Girish 13.3 (11.5-14.5) % Plt Count 83 L (130-400) K/uL MPV 10.1 (7.4-10.4) fL Immature Gran % (Auto) 0.3 % Neut % (Auto) 87.0 % Lymph % (Auto) 10.4 % [place] % (Auto) 2.3 % Eos % (Auto) 0.0 % Baso % (Auto) 0.0 % Neut # (Auto) 3.45 (1.4-6.5) K/uL Lymph # (Auto) 0.41 L (1.2-3.4) K/uL [place] # (Auto) 0.09 L (0.11-0.59) K/uL Eos # (Auto) 0.00 (0-0.5) K/uL Baso # (Auto) 0.00 (0-0.2) K/uL Immature Gran # (Auto) 0.01 (0.00-0.02) K/uL RBC Morphology PT 12.4 H (9.0-12.0) Seconds INR 1.2 H (0.9-1.1) Fibrinogen 407 H (184-400) mg/dl Sodium 137 (136-145) mmol/L Potassium 3.3 L (3.5-5.1) mmol/L Chloride 107 (98-107) mmol/L Carbon Dioxide 22 (21-32) mmol/L Anion Gap 8.0 (3-11) BUN 40 H (7-18) mg/dl Creatinine 1.78 H (0.6-1.4) mg/dl Est Cr Clr Drug Dosing 26.4 ml/min Est GFR ( Amer) 41.7 ml/min Est GFR (Non-Af Amer) 36.0 ml/min BUN/Creatinine Ratio 22.2 H (10-20) Glucose 149 H (70-99) mg/dl POC Glucose (70-99) mg/dl Calcium 7.8 L (8.5-10.1) mg/dl Stl C. cayetanensis PCR (NotDetected) Stool Rotavirus A PCR (NotDetected) Stl Adenov F 40 PCR (NotDetected) Stool Astrovirus (PCR) (NotDetected) Stool Campylobacter PCR (NotDetected) Stl C. diff Tox A/B PCR (NotDetected) Stool Cryptosporidium PCR (NotDetected) Stl E.coli Shiga Tox PCR (NotDetected) Stl Enterotoxigenic E PCR (NotDetected) Stool EPEC (PCR) (NotDetected) Stool EAEC (PCR) (NotDetected) Stl E. histolytica PCR (NotDetected) Stool Giardia Lamblia PCR (NotDetected) Stool Salmonella PCR (NotDetected) Stool Sapovirus (PCR) (NotDetected) Stl P. shigelloides PCR (NotDetected) Stl Shigella/EIEC PCR (NotDetected) St Y.enterocolitica PCR (NotDetected) Stool Vibrio (PCR) (NotDetected) Stl Vibrio cholerae PCR (NotDetected) Stl Norovirus GI/GII PCR (NotDetected) 08/25/21 08/25/21 08/24/21 Range/Units 05:34 02:24 21:41 WBC 4.61 L (4.8-10.8) K/uL RBC 3.70 L (4.7-6.1) M/uL Hgb 10.4 L (14.0-18.0) g/dL Hct 31.3 L (42-52) % MCV 84.6 (80-100) fL MCH 28.1 (25-34) pg MCHC 33.2 (32-36) g/dL RDW Std Deviation 40.6 (36.4-46.3) fL RDW Coeff of Girihs 13.2 (11.5-14.5) % Plt Count 87 L (130-400) K/uL MPV 9.3 (7.4-10.4) fL Immature Gran % (Auto) 0.2 % Neut % (Auto) 91.4 % Lymph % (Auto) 6.7 % [place] % (Auto) 1.7 % Eos % (Auto) 0.0 % Baso % (Auto) 0.0 % Neut # (Auto) 4.21 (1.4-6.5) K/uL Lymph # (Auto) 0.31 L (1.2-3.4) K/uL [place] # (Auto) 0.08 L (0.11-0.59) K/uL Eos # (Auto) 0.00 (0-0.5) K/uL Baso # (Auto) 0.00 (0-0.2) K/uL Immature Gran # (Auto) 0.01 (0.00-0.02) K/uL RBC Morphology Unremarkable PT (9.0-12.0) Seconds INR (0.9-1.1) Fibrinogen (184-400) mg/dl Sodium (136-145) mmol/L Potassium (3.5-5.1) mmol/L Chloride (98-107) mmol/L Carbon Dioxide (21-32) mmol/L Anion Gap (3-11) BUN (7-18) mg/dl Creatinine (0.6-1.4) mg/dl Est Cr Clr Drug Dosing ml/min Est GFR ( Amer) ml/min Est GFR (Non-Af Amer) ml/min BUN/Creatinine Ratio (10-20) Glucose (70-99) mg/dl POC Glucose 154 H (70-99) mg/dl Calcium (8.5-10.1) mg/dl Stl C. cayetanensis PCR Not Detected (NotDetected) Stool Rotavirus A PCR Not Detected (NotDetected) Stl Adenov F 40/41 PCR Not Detected (NotDetected) Stool Astrovirus (PCR) Not Detected (NotDetected) Stool Campylobacter PCR Not Detected (NotDetected) Stl C. diff Tox A/B PCR Not Detected (NotDetected) Stool Cryptosporidium PCR Not Detected (NotDetected) Stl E.coli Shiga Tox PCR Not Detected (NotDetected) Stl Enterotoxigenic E PCR Not Detected (NotDetected) Stool EPEC (PCR) Not Detected (NotDetected) Stool EAEC (PCR) Not Detected (NotDetected) Stl E. histolytica PCR Not Detected (NotDetected) Stool Giardia Lamblia PCR Not Detected (NotDetected) Stool Salmonella PCR Not Detected (NotDetected) Stool Sapovirus (PCR) Not Detected (NotDetected) Stl P. shigelloides PCR Not Detected (NotDetected) Stl Shigella/EIEC PCR Not Detected (NotDetected) St Y.enterocolitica PCR Not Detected (NotDetected) Stool Vibrio (PCR) Not Detected (NotDetected) Stl Vibrio cholerae PCR Not Detected (NotDetected) Stl Norovirus GI/GII PCR Not Detected (NotDetected) Medications Administered Current Inpatient Medications Acetaminophen (Acetaminophen 500 Mg Tab) 1,000 mg PO Q8H PRN PRN Reason: Pain or Fever Stop: 09/23/21 18:00 Last Admin: 08/24/21 18:43 Dose: 1,000 mg Documented by: Albuterol (Albut/Ipratrop 3mg/0.5mg Neb 3 Ml Vial) 3 ml NEB Q4R PRN PRN Reason: Shortness Of Breath Or Wheezing Stop: 09/24/21 12:40 Atenolol (Atenolol 25 Mg Tablet) 25 mg PO BID [facility] Stop: 09/23/21 08:59 Last Admin: 08/25/21 09:23 Dose: 25 mg Documented by: Felodipine (Felodipine 5 Mg Tabcr) 5 mg PO BID [facility] Stop: 09/23/21 08:59 Last Admin: 08/25/21 09:23 Dose: 5 mg Documented by: Fluticasone Furoate (Fluticasone Furoate 200mcg 14 Puffs/Inhaler) 1 puffs INH QAM [facility] Stop: 09/23/21 08:59 Last Admin: 08/25/21 09:34 Dose: Not Given Documented by: Heparin Sodium (Porcine) (Heparin Sod 5,000 Unit/0.5 Ml Vial) 5,000 units SQ Q12 [facility] Stop: 09/23/21 08:59 Last Admin: 08/24/21 22:01 Dose: 5,000 units Documented by: Prochlorperazine 5 mg/ Syringe 5 mls @ 5 mls/min IV Q6H PRN PRN Reason: Nausea And Vomiting Stop: 09/23/21 05:19 Piperacillin Sod/Tazobactam (Sod 3.375 gm/ Dextrose) 115 mls @ 28.75 mls/hr IV Q8H [facility]; Protocol Stop: 08/26/21 05:59 Last Admin: 08/25/21 14:56 Dose: 28.8 mls/hr Documented by: Potassium Chloride/Sodium Chloride (Normal Saline W/20 Meq Kcl) 20 meq in 1,000 mls @ 125 mls/hr IV .Q8H [facility] Stop: 09/23/21 14:24 Last Admin: 08/25/21 09:23 Dose: 75 mls/hr Documented by: Loperamide HCl (Loperamide Hcl 2 Mg Cap) 2 mg PO Q4H PRN PRN Reason: diarrhea/loose stools Stop: 09/24/21 13:59 Last Admin: 08/25/21 14:56 Dose: 2 mg Documented by: Losartan Potassium (Losartan Potassium 50 Mg Tab) 100 mg PO QAM [facility] Stop: 09/23/21 08:59 Last Admin: 08/24/21 10:07 Dose: 100 mg Documented by: Miscellaneous (Dabrafenib [Tafinlar] 75 Mg - Order Awaiting Action) 1 ea N/A QS [facility] Stop: 09/23/21 07:59 Last Admin: 08/25/21 15:24 Dose: Not Given Documented by: Miscellaneous (Trametinib [Mekinist] 2 Mg - Order Awaiting Action) 1 ea N/A QS [facility] Stop: 09/23/21 07:59 Last Admin: 08/25/21 15:25 Dose: Not Given Documented by: Miscellaneous Information (Piperacill/Tazobac Consult Active) 1 ea N/A UD PRN PRN Reason: Consult Stop: 08/26/21 05:59 Ondansetron HCl (Ondansetron Inj 2 Mg/Ml 2 Ml Vial) 4 mg IV Q4H PRN PRN Reason: nausea Stop: 09/23/21 05:19 Last Admin: 08/24/21 18:43 Dose: 4 mg Documented by: Psyllium Hydrophilic Mucilloid (Psyllium 58.6% Powder Packet) 1 pkt PO DAILY [facility] Stop: 09/23/21 08:59 Last Admin: 08/25/21 09:24 Dose: Not Given Documented by: Sertraline HCl (Sertraline Hcl 100 Mg Tablet) 200 mg PO [facility] Stop: 09/23/21 20:59 Last Admin: 08/24/21 22:03 Dose: 200 mg Documented by: Terazosin HCl (Terazosin Hcl 5 Mg Cap) 5 mg PO [facility] Stop: 09/23/21 20:59 Last Admin: 08/24/21 22:05 Dose: 5 mg Documented by: Resident Activity Tracking Resident Involvement: Resident Care Provided Care Provided: Adult Hospital Medicine
[2021-08-25] MEDS ORDERED: ALBUT/IPRATROP 3MG/0.5MG NEB 3 ML VIAL NEB PRN (12:42)
[2021-08-25] MEDS: LOPERAMIDE HCL 2 MG CAP PO PRN ×2 (14:56→19:05)
[2021-08-25] MEDS ORDERED: [UNRECOGNIZED DRUG - OTHER] PO SCH (18:15)
--- NOTE | 2021-08-25 21:25 | Billing Data ---
Date of Service August 25, 2021 Coding Level of Care Code 64847 Subseq Obs Care Lvl 3
[2021-08-25] MEDS: TERAZOSIN HCL 5 MG CAP PO SCH (22:19)
[2021-08-25] MEDS: TAFINLAR PO SCH (22:38)
[2021-08-25] MEDS: TRAMETINIB PO SCH (22:38)
[2021-08-25] MEDS: SERTRALINE HCL 100 MG TABLET PO SCH (22:40)
[2021-08-26] MEDS: NSS + 20MEQ KCL 20 MEQ/1,000 ML BAG IV SCH ×3 (03:05→18:31)
[2021-08-26 08:29] LABS: Basophils # (auto) 0.01 K/uL (0-0.2); Basophils % (auto) 0.3 %; Eosinophils # (auto) 0.01 K/uL (0-0.5); Eosinophils % (auto) 0.3 %; Immature Granulocytes # (auto) 0.01 K/uL (0.00-0.02); Immature Granulocytes % (auto) 0.3 %; Lymphocytes # (auto) 0.53 K/uL (1.2-3.4); Lymphocytes % (auto) 16.3 %; Mean Corpuscular Hemoglobin 27.7 pg (25-34); Mean Corpuscular Hgb Conc 32.3 g/dL (32-36); Mean Corpuscular Volume 85.9 fL (80-100); Mean Platelet Volume 11.3 fL (7.4-10.4); Monocytes # (auto) 0.22 K/uL (0.11-0.59); Monocytes % (auto) 6.8 %; Neutrophils # (auto) 2.47 K/uL (1.4-6.5); Platelet Count 90 K/uL (130-400); RDW Coefficient of Variation 13.2 % (11.5-14.5); RDW Standard Deviation 41.9 fL (36.4-46.3); Red Blood Count 3.61 M/uL (4.7-6.1); White Blood Count 3.25 K/uL (4.8-10.8)
[2021-08-26 08:52] LABS: BUN Creatinine Ratio 18.1 (10-20); Calcium 8.4 mg/dl (8.5-10.1); Creatinine Clr Calc Pharmacy 29.6 ml/min; Est GFR (African American) 47.8 ml/min; Est GFR (Non-African American) 41.3 ml/min; Magnesium 1.8 mg/dl (1.8-2.4); Phosphorus 1.9 mg/dl (2.5-4.9)
[2021-08-26] MEDS ORDERED: POTASSIUM PHOS 3 MMOL/1 ML INFUSION IV STA (09:12)
[2021-08-26] MEDS: ATENOLOL 25 MG TABLET PO SCH ×2 (09:22→21:18)
[2021-08-26] MEDS: FELODIPINE 5 MG TABCR PO SCH ×2 (09:22→21:18)
[2021-08-26] MEDS: PSYLLIUM 58.6% POWDER PACKET PO SCH (09:22)
[2021-08-26] MEDS: TAFINLAR PO SCH ×2 (09:25→21:16)
[2021-08-26] MEDS ORDERED: POTASSIUM CHLORIDE CRTAB 20 MEQ TABCR PO SCH (09:30)
[2021-08-26] MEDS: LOPERAMIDE HCL 2 MG CAP PO PRN (09:34)
[2021-08-26] MEDS ORDERED: MAGNESIUM SULFATE / D5W 1 GM/100 ML BAG IV ONE (10:00)
[2021-08-26] MEDS ORDERED: POTASSIUM PHOSPHATE 15 MMOL in SODIUM CHLORIDE 0.9% 250 ML IV ONE (10:00)
[2021-08-26] MEDS: FLUTICASONE FUROATE 200MCG 14 PUFFS/INHALER INH SCH (10:36)
--- NOTE | 2021-08-26 14:51 | Hospitalist Progress Note ---
Date of Service August 26, 2021 Assessment & Plan (1) Fever: Plan: Livan Wayne is a 75 yo M with extensive cancer history (non-small cell lung carcinoma, renal papillary carcinoma, adenocarcinoma of prostate) currently on chemotherapy admitted for fever of uncertain etiology. Fever of uncertain etiology: - febrile to 39.1C in ER on 08/23, no wbc elevation. No fever since 08/24 - Procal 14.7, CRP 8.97 - CXR from 08/23 comparable to previous, no obvious pneumonia - questionable relation to diarrheal illness that he has had over the last week, but stool studies PCR and C. diff negative - blood culture remains NGTD - urinalysis negative for infection -Received zosyn but now discontinued as blood cultures negative at 48hrs - MRSA nares negative - Covid/flu/rsv negative -Could be from drug reaction-discussed with his primary oncologist who agrees that fever was most likely secondary to drug reaction to his chemotherapy Hypokalemia: Process - likely secondary to diarrhea - K 3.0 this morning -Replace with oral potassium chloride - continue to monitor and replete as needed -Give 1 g of magnesium sulfate Hypophosphatemia-give potassium phosphate -Follow level in the morning Acute Kidney Injury: - Cr elevated to 1.78 after admission, now improved after IV fluid hydration - baseline Cr 1.2 - likely secondary to dehydration in the setting of diarrheal illness -Continue IVF increased to 125mL/hr - recheck BMP in AM -Holding losartan from home but can now restart Thrombocytopenia/pancytopenia secondary to antineoplastic therapy - Plts dropped to 87 but now improved back to 90 - fibrinogen 407 - unlikely to represent DIC/HIT -Okay to restart SQ Heparin -Hemoglobin at 10 and WBC count 3.2-monitor, no transfusional support needed Proteinuria: - 4+ protein on urinalysis - uncertain relation to history of previous renal carcinoma - should have repeat evaluation as outpatient -Holding home losartan for now for acute kidney injury but will restart tomorrow HTN: Blood pressures becoming quite elevated -Restart home losartan as above -Continue felodipine, atenolol BPH: - continue terazosin Depression: - continue sertraline Chemotherapy - dabrafenib 150 mg po Q12 - trametinib 2 mg daily - follows with Dr. Jaramillo as an outpatient-Dr. Jaramillo is aware that he was admitted with fever as above Left inguinal hernia-reducible, occasionally symptomatic -Advised he is not a candidate for elective repair at this time due to undergoing chemotherapy -Gave precautions to return if has signs of incarcerated hernia, worsening pain, etc. DVT ppx: SCDs; SQ heparin Code Status: full code Dispo: med/surg, hopeful to discharge to home tomorrow PT/OT recommend return home (2) Adenocarcinoma of prostate: (3) Lung cancer: (4) Cancer of kidney: (5) Hypokalemia: (6) Acute renal insufficiency: (7) Proteinuria: (8) Inguinal hernia of left side without obstruction or gangrene: Admission and Anticipated Discharge Date Admission Date: August 26, 2021 Subjective Patient reports still having diarrhea 3-4 times a day but has improved and is getting more formed. No blood. No abdominal pain but does report pain in the left groin above the penis that is been going on for a few months since he was out gardening 1 day. He also has pain in that left inguinal region with straining on the toilet to go to the bathroom. No chest pain or shortness of breath. No fevers. I discussed his care with his primary oncologist. Patient is feeling little bit stronger. Review of Systems Review of Systems: All systems reviewed & are unremarkable except as noted in HPI & below Physical Exam Constitutional: + thin and + underweight Eyes: + anicteric sclerae Neck: trachea midline, no thyromegaly Respiratory: normal respiratory effort Auscultation: + rhonchi (at right base); no crackles and no wheezes Cardiovascular: RRR, no murmur, no edema Chest (Breasts): Chest: normal inspection of chest Gastrointestinal (Abdomen): Inspection/Auscultation: abdomen normal to inspection and normal bowel sounds Percussion/Palpation: abdomen soft and + hernia (Small, left inguinal region, reducible); abdomen nontender Musculoskeletal: Extremities: extremities normal to inspection; no cyanosis and no clubbing Skin: no rashes, warm and dry Neurologic: moves all extremities and awake; no focal motor deficits Psychiatric: A+Ox3, euthymic affect Lymphatic: no lymphedema Results & Data Results & Data ([facility]) Vital Signs (Past 12 Hours) Vital Signs Temp Pulse Resp BP BP Pulse Ox 08/26/21 11:30 167/72 H 08/26/21 08:20 34.7 C L 63 16 180/80 H 95 08/26/21 03:12 60 127/65 Laboratory Results 08/26/21 07:05 08/26/21 07:05 PG Care Time/CCT Total # of Minutes Spent Total Time Spent with Patient: Total time spent is greater than 50% in coordination of care (as documented) at patient's floor/unit and/or counseling patient: Coding Level of Care Code 46334 Subseq Hosp Care Lvl 3 Diagnoses Fever R50.9 Adenocarcinoma of prostate C61 Lung cancer C34.90 Cancer of kidney C64.9 Hypokalemia E87.6 Acute renal insufficiency N28.9 Proteinuria R80.9 Inguinal hernia of left side without obstruction or gangrene K40.90
[2021-08-26] MEDS: TRAMETINIB PO SCH (21:15)
[2021-08-26] MEDS: HEPARIN SOD 5,000 UNIT/0.5 ML VIAL SQ SCH (21:17)
[2021-08-26] MEDS: SERTRALINE HCL 100 MG TABLET PO SCH (21:17)
[2021-08-26] MEDS: TERAZOSIN HCL 5 MG CAP PO SCH (21:18)
[2021-08-27] MEDS: NSS + 20MEQ KCL 20 MEQ/1,000 ML BAG IV SCH ×2 (02:37→10:27)
[2021-08-27 06:55] LABS: Hematocrit (blood only) 33.5 % (42-52); Mean Corpuscular Hemoglobin 27.8 pg (25-34); Mean Corpuscular Hgb Conc 32.8 g/dL (32-36); Mean Corpuscular Volume 84.8 fL (80-100); RDW Coefficient of Variation 13.1 % (11.5-14.5); RDW Standard Deviation 40.7 fL (36.4-46.3); Red Blood Count 3.95 M/uL (4.7-6.1); White Blood Count 3.57 K/uL (4.8-10.8)
[2021-08-27 06:58] LABS: Mean Platelet Volume 11.1 fL (7.4-10.4); Platelet Count 92 K/uL (130-400)
[2021-08-27 07:22] LABS: Basophils # (auto) 0.01 K/uL (0-0.2); Basophils % (auto) 0.3 %; Eosinophils # (auto) 0.04 K/uL (0-0.5); Eosinophils % (auto) 1.1 %; Immature Granulocytes # (auto) 0.01 K/uL (0.00-0.02); Immature Granulocytes % (auto) 0.3 %; Lymphocytes # (auto) 0.86 K/uL (1.2-3.4); Lymphocytes % (auto) 24.1 %; Monocytes # (auto) 0.22 K/uL (0.11-0.59); Monocytes % (auto) 6.2 %; Neutrophils # (auto) 2.43 K/uL (1.4-6.5)
[2021-08-27 07:24] LABS: Potassium 2.7 mmol/L (3.5-5.1)
[2021-08-27 07:28] LABS: Calcium 8.4 mg/dl (8.5-10.1); Creatinine Clr Calc Pharmacy 43.2 ml/min; Est GFR (African American) 75.5 ml/min; Est GFR (Non-African American) 65.1 ml/min; Magnesium 1.7 mg/dl (1.8-2.4); Phosphorus 2.3 mg/dl (2.5-4.9)
[2021-08-27] MEDS: FELODIPINE 5 MG TABCR PO SCH ×2 (08:04→21:03)
[2021-08-27] MEDS: ATENOLOL 25 MG TABLET PO SCH ×2 (08:04→21:03)
[2021-08-27] MEDS: FAMOTIDINE 20 MG TAB PO SCH (08:04)
[2021-08-27] MEDS: FERROUS SULFATE 325 MG TAB PO SCH (08:05)
[2021-08-27] MEDS: CEROVITE ADV FORMULA TAB PO SCH ×2 (08:05→21:04)
[2021-08-27] MEDS: FLUTICASONE FUROATE 200MCG 14 PUFFS/INHALER INH SCH (08:06)
[2021-08-27] MEDS: LOSARTAN POTASSIUM 50 MG TAB PO SCH (08:06)
[2021-08-27] MEDS: TAFINLAR PO SCH ×2 (08:07→21:05)
[2021-08-27] MEDS: HEPARIN SOD 5,000 UNIT/0.5 ML VIAL SQ SCH ×2 (08:08→21:03)
[2021-08-27] MEDS: PSYLLIUM 58.6% POWDER PACKET PO SCH (08:08)
[2021-08-27] MEDS ORDERED: POTASSIUM CHLORIDE 10 MEQ TABCR PO SCH (09:00)
[2021-08-27] MEDS ORDERED: POTASSIUM PHOS 3 MMOL/1 ML INFUSION IV STA (09:13)
[2021-08-27] MEDS ORDERED: POTASSIUM PHOSPHATE 21 MMOL in SODIUM CHLORIDE 0.9% 500 ML IV ONE (10:00)
[2021-08-27] MEDS: POTASSIUM CHLORIDE CRTAB 20 MEQ TABCR PO SCH ×3 (10:00→21:03)
--- NOTE | 2021-08-27 11:31 | Hospitalist Progress Note ---
Date of Service August 27, 2021 Assessment & Plan (1) Fever: Plan: Livan Wayne is a 75 yo M with extensive cancer history (non-small cell lung carcinoma, renal papillary carcinoma, adenocarcinoma of prostate) currently on chemotherapy admitted for fever of uncertain etiology. Fever-infection ruled out, most likely from chemotherapy agents - febrile to 39.1C in ER on 08/23, no wbc elevation. No fever since 08/24 - Procal 14.7, CRP 8.97, PCT now trended downward to 4...may be due to cancer and not bacterial infection - CXR from 08/23 comparable to previous, no obvious pneumonia - questionable relation to diarrheal illness that he has had over the last week, but stool studies PCR and C. diff negative - blood culture remains NGTD over 72 hours - urinalysis negative for infection -Received zosyn but now discontinued as blood cultures negative at 48hrs - MRSA nares negative - Covid/flu/rsv negative -Could be from drug reaction-discussed with his primary oncologist who agrees that fever was most likely secondary to drug reaction to his chemotherapy Hypokalemia: Process - likely secondary to diarrhea -K remains even lower today at 2.7 -Replace with oral potassium chloride as wlel as IV K-phos - continue to monitor and replete as needed -Give 2 g of magnesium sulfate as wlel for hypomagnesemia Hypophosphatemia-give potassium phosphate again today -Follow level in the morning Acute Kidney Injury: - Cr elevated to 1.78 after admission, now improved after IV fluid hydration - baseline Cr 1.2 and seal skinner now less than that - likely secondary to dehydration in the setting of diarrheal illness -dc IVF - recheck BMP in AM -have since restarted losartan from home Thrombocytopenia/pancytopenia secondary to antineoplastic therapy - Plts dropped to 87 but now improved back to 92 - fibrinogen 407 - unlikely to represent DIC/HIT -Hemoglobin up to 11 and WBC count 3.2-monitor, no transfusional support needed Proteinuria: - 4+ protein on urinalysis - uncertain relation to history of previous renal carcinoma - should have repeat evaluation as outpatient -continue losartan HTN: Blood pressures becoming quite elevated -Restarted home losartan as above today -Continue felodipine, atenolol -follow BPs dc IVFs BPH: - continue terazosin Depression: - continue sertraline Chemotherapy - dabrafenib 150 mg po Q12 - trametinib 2 mg daily - follows with Dr. Jaramillo as an outpatient-Dr. Jaramillo is aware that he was admitted with fever as above Left inguinal hernia-reducible, occasionally symptomatic -Advised he is not a candidate for elective repair at this time due to undergoing chemotherapy -Gave precautions to return if has signs of incarcerated hernia, worsening pain, etc. DVT ppx: SCDs; SQ heparin Code Status: full code Dispo: med/surg, hopeful to discharge to home tomorrow with home health, discussed with CM PT/OT recommend return home (2) Adenocarcinoma of prostate: (3) Lung cancer: (4) Cancer of kidney: (5) Hypokalemia: (6) Acute renal insufficiency: (7) Proteinuria: (8) Inguinal hernia of left side without obstruction or gangrene: Admission and Anticipated Discharge Date Admission Date: August 26, 2021 Subjective Anxious about making sure he has home health set up prior to discharge. Diarrhea has definitely slowed down-only 2 times since yesterday and more formed. Says his appetite is improving. No fevers, no other concerns except has questions about if he is a risk to others as far as chemotherapy exposure i.e. can he hold his friend's grandchild safely. Review of Systems Review of Systems: All systems reviewed & are unremarkable except as noted in HPI & below Physical Exam Constitutional: + thin and + underweight Eyes: + anicteric sclerae Neck: trachea midline, no thyromegaly Respiratory: normal respiratory effort Auscultation: + rhonchi (at right base); no crackles and no wheezes Cardiovascular: RRR, no murmur, no edema Chest (Breasts): Chest: normal inspection of chest Gastrointestinal (Abdomen): Inspection/Auscultation: abdomen normal to inspection and normal bowel sounds Percussion/Palpation: abdomen soft; abdomen nontender and no guarding Musculoskeletal: Extremities: extremities normal to inspection; no cyanosis and no clubbing Skin: no rashes, warm and dry Neurologic: moves all extremities and awake; no focal motor deficits Psychiatric: A+Ox3, euthymic affect Lymphatic: no lymphedema Results & Data Results & Data ([facility]) Vital Signs (Past 12 Hours) Vital Signs Temp Pulse Resp BP Pulse Ox 08/27/21 07:59 36.2 C L 67 16 173/77 H 96 Laboratory Results 08/27/21 08/27/21 08/27/21 Range/Units 05:36 05:36 05:36 WBC 3.57 L (4.8-10.8) K/uL RBC 3.95 L (4.7-6.1) M/uL Hgb 11.0 L (14.0-18.0) g/dL Hct 33.5 L (42-52) % MCV 84.8 (80-100) fL MCH 27.8 (25-34) pg MCHC 32.8 (32-36) g/dL RDW Std Deviation 40.7 (36.4-46.3) fL RDW Coeff of Girish 13.1 (11.5-14.5) % Plt Count 92 L (130-400) K/uL MPV 11.1 H (7.4-10.4) fL Immature Gran % (Auto) 0.3 % Neut % (Auto) 68.0 % Lymph % (Auto) 24.1 % [place] % (Auto) 6.2 % Eos % (Auto) 1.1 % Baso % (Auto) 0.3 % Neut # (Auto) 2.43 (1.4-6.5) K/uL Lymph # (Auto) 0.86 L (1.2-3.4) K/uL [place] # (Auto) 0.22 (0.11-0.59) K/uL Eos # (Auto) 0.04 (0-0.5) K/uL Baso # (Auto) 0.01 (0-0.2) K/uL Immature Gran # (Auto) 0.01 (0.00-0.02) K/uL Hyposegmented Neuts Occasional Sodium 142 (136-145) mmol/L Potassium 2.7 L (3.5-5.1) mmol/L Chloride 110 H (98-107) mmol/L Carbon Dioxide 26 (21-32) mmol/L Anion Gap 6.0 (3-11) BUN 20 H (7-18) mg/dl Creatinine 1.09 (0.6-1.4) mg/dl Est Cr Clr Drug Dosing 43.2 ml/min Est GFR ( Amer) 75.5 ml/min Est GFR (Non-Af Amer) 65.1 ml/min BUN/Creatinine Ratio 18.0 (10-20) Glucose 113 H (70-99) mg/dl Calcium 8.4 L (8.5-10.1) mg/dl Phosphorus 2.3 L (2.5-4.9) mg/dl Magnesium 1.7 L (1.8-2.4) mg/dl Procalcitonin 4.89 H (0-0.5) ng/ml PG Care Time/CCT Total # of Minutes Spent Total Time Spent with Patient: Total time spent is greater than 50% in coordination of care (as documented) at patient's floor/unit and/or counseling patient: Coding Level of Care Code 94103 Subseq Hosp Care Lvl 3 Diagnoses Fever R50.9 Adenocarcinoma of prostate C61 Lung cancer C34.90 Cancer of kidney C64.9 Hypokalemia E87.6 Acute renal insufficiency N28.9 Proteinuria R80.9 Inguinal hernia of left side without obstruction or gangrene K40.90
[2021-08-27] MEDS: MAGNESIUM SULFATE / D5W 1 GM/100 ML BAG IV SCH ×2 (11:41→14:10)
[2021-08-27 20:57] LABS: Appearance Urine Clear (Clear); Bacteria Urine Automated Negative (Negative); Bilirubin Urine Negative (Negative); Blood Urine 1+ (Negative); Color Urine Yellow; Glucose Urine UA Trace (Negative); Ketones Urine Negative (Negative); Leukocyte Esterase Urine Negative (Negative); Nitrite Urine Negative (Negative); Protein Urine 2+ (Negative); RBC Urine Automated 0-4 /hpf (0-4); Specific Gravity Urine 1.011 (1.000-1.030); Urobilinogen Urine Negative (Negative)
[2021-08-27] MEDS: SERTRALINE HCL 100 MG TABLET PO SCH (21:03)
[2021-08-27] MEDS: TRAMETINIB PO SCH (21:04)
[2021-08-27] MEDS: TERAZOSIN HCL 5 MG CAP PO SCH (21:04)
[2021-08-27 21:13] LABS: Creatinine Urine Random 18.6 mg/dl; Protein Creatinine Ratio Urine 6.7 (0-0.2); Total Protein Urine Random 124.3 mg/dl (0-11.9)
[2021-08-28] MEDS: TAFINLAR PO SCH (07:53)
[2021-08-28 08:27] LABS: Basophils # (auto) 0.02 K/uL (0-0.2); Basophils % (auto) 0.7 %; Eosinophils # (auto) 0.02 K/uL (0-0.5); Eosinophils % (auto) 0.7 %; Hematocrit (blood only) 35.5 % (42-52); Hemoglobin 11.5 g/dL (14.0-18.0); Lymphocytes # (auto) 0.83 K/uL (1.2-3.4); Lymphocytes % (auto) 28.7 %; Mean Corpuscular Hemoglobin 27.8 pg (25-34); Mean Corpuscular Hgb Conc 32.4 g/dL (32-36); Mean Corpuscular Volume 85.7 fL (80-100); Mean Platelet Volume 10.3 fL (7.4-10.4); Monocytes # (auto) 0.14 K/uL (0.11-0.59); Monocytes % (auto) 4.8 %; Neutrophils # (auto) 1.88 K/uL (1.4-6.5); Neutrophils % (auto) 65.1 %; Platelet Count 104 K/uL (130-400); RDW Coefficient of Variation 13.3 % (11.5-14.5); RDW Standard Deviation 42.2 fL (36.4-46.3); Red Blood Count 4.14 M/uL (4.7-6.1); White Blood Count 2.89 K/uL (4.8-10.8)
[2021-08-28] MEDS: PSYLLIUM 58.6% POWDER PACKET PO SCH (08:52)
[2021-08-28 09:05] LABS: Calcium 9.3 mg/dl (8.5-10.1); Creatinine Clr Calc Pharmacy 44.8 ml/min; Est GFR (Non-African American) 68.1 ml/min; Phosphorus 2.3 mg/dl (2.5-4.9); Potassium 3.8 mmol/L (3.5-5.1)
[2021-08-28] MEDS ORDERED: hydrALAZINE HCL 20 MG/ML VIAL IV STA (09:28)
[2021-08-28] MEDS ORDERED: POTASSIUM PHOS 3 MMOL/1 ML INFUSION IV STA (09:30)
[2021-08-28] MEDS: POTASSIUM CHLORIDE CRTAB 20 MEQ TABCR PO SCH (09:36)
[2021-08-28] MEDS ORDERED: POTASSIUM PHOSPHATE 9 MMOL in SODIUM CHLORIDE 0.9% 250 ML IV ONE (10:00)
[2021-08-28] MEDS: FLUTICASONE FUROATE 200MCG 14 PUFFS/INHALER INH SCH (10:02)
[2021-08-28] MEDS: CEROVITE ADV FORMULA TAB PO SCH (10:02)
[2021-08-28] MEDS: FERROUS SULFATE 325 MG TAB PO SCH (10:02)
[2021-08-28] MEDS: LOSARTAN POTASSIUM 50 MG TAB PO SCH (10:02)
[2021-08-28] MEDS: FAMOTIDINE 20 MG TAB PO SCH (10:02)
[2021-08-28] MEDS: FELODIPINE 5 MG TABCR PO SCH (10:02)
[2021-08-28] MEDS: HEPARIN SOD 5,000 UNIT/0.5 ML VIAL SQ SCH (10:02)
[2021-08-28] MEDS: ATENOLOL 25 MG TABLET PO SCH (10:59)
--- NOTE | 2021-08-28 12:15 | Discharge Summary ---
Date of Service August 28, 2021 Admission HPI Per Admitting Provider 75 yo M with hx nonsmall cell lung cancer s/p resection, adenocarcinoma of prostate, kidney cancer, currently on chemotherapy who came to the ER for concern of ongoing fevers and chills. He says he's had these symptoms for about 3 days now. Mostly fatigued, and feeling chills. Mild fever at home but doesn't remember the number. No trouble breathing/cough/nausea. did have 1 episode of emesis, no diarrhea or abdominal pain. No trouble with urination or pain with urination. No recent radiation treatments, takes chemotherapy pills daily. Principal Diagnosis Fever-likely secondary to chemotherapy, Hypokalemia, SEN Discharge Exam Constitutional + thin and + underweight Eyes + anicteric sclerae Neck trachea midline, no thyromegaly Respiratory normal respiratory effort Auscultation: + rhonchi (at right base); no crackles and no wheezes Cardiovascular RRR, no murmur, no edema Chest (Breasts) Chest: normal inspection of chest Gastrointestinal (Abdomen) Inspection/Auscultation: abdomen normal to inspection and normal bowel sounds Percussion/Palpation: abdomen soft; abdomen nontender and no guarding Musculoskeletal Extremities: extremities normal to inspection; no cyanosis and no clubbing Skin no rashes, warm and dry Neurologic moves all extremities and awake; no focal motor deficits Psychiatric A+Ox3, euthymic affect Lymphatic no lymphedema Discharge Data Allergies Allergy/AdvReac Type Severity Reaction Status Date / Time No Known Drug Allergies Allergy Unknown Verified 08/24/21 01:57 Consultations 08/24/21 02:19 ED Decision to Admit Stat Procedures Performed 08/28/21 08:10 08/28/21 08:10 Ordered Studies Chest X-Ray 08/23/21 23:42 XR chest 1V portable CLINICAL HISTORY: SOB, fever, lung CA. COMPARISON STUDY: 09/08/2018 TECHNIQUE: 1 view of the chest FINDINGS: Single frontal view of the chest demonstrates the heart to again be enlarged. C ompared to previous examination, there is no significant interval change in patchy interstitial and alveolar opacities involving the right lower lobe. There is also again blunting of the right costophrenic angle. The findings are characteristic of the patient's previous history of lung cancer. The lungs are otherwise clear of acute alveolar opacities or air bronchograms. There is no evidence for a left pleural effusion. There is no evidence for vascular congestion. There is no acute osseous pathology. IMPRESSION: No acute cardiopulmonary disease. Chronic changes are present involving the right lower lobe in a patient with a history of lung cancer. ACT 112: Negative or not required by law. Electronically signed by: Aleksey Brandt M.D. 08/24/2021 8:11 AM Hospital Course (1) Fever: Livan Wayne is a 75 yo M with extensive cancer history (non-small cell lung carcinoma, renal papillary carcinoma, adenocarcinoma of prostate) currently on chemotherapy admitted for fever of uncertain etiology. Fever-infection ruled out, most likely from chemotherapy agents - febrile to 39.1C in ER on 08/23, no wbc elevation. No fever since 08/24 - Procal 14.7, CRP 8.97, PCT now trended downward to 4...may be due to chemotherapy agents and not bacterial infection - CXR from 08/23 comparable to previous, no obvious pneumonia - questionable relation to diarrheal illness that he has had over the last week, but stool studies PCR and C. diff negative - blood culture remains NGTD after 4 days - urinalysis negative for infection -Received zosyn but then discontinued as blood cultures negative at 48hrs - MRSA nares negative - Covid/flu/rsv negative -Could be from drug reaction-discussed with his primary oncologist who agrees that fever was most likely secondary to drug reaction to his chemotherapy Hypokalemia: Process - likely secondary to diarrhea -replaced K+ and Magnesium over several days and improved -continue home KCl supplement on discharge Hypophosphatemia-give potassium phosphate again today but overall improved Acute Kidney Injury: - Cr elevated to 1.78 after admission, now improved after IV fluid hydration - baseline Cr 1.2 and executive staff assistant now less than that - likely secondary to dehydration in the setting of diarrheal illness -have since restarted losartan from home -follow up with Nephrology especially given proteinuria--> UA with 4+ and then repeat UA with 2+ protein. Spot prot/executive staff assistant ratio HIGH at 6.4 Thrombocytopenia/pancytopenia secondary to antineoplastic therapy - Plts dropped to 87 but now improved back to 100 - fibrinogen 407 - unlikely to represent DIC/HIT -Hemoglobin up to 11.5 and WBC count 2.8-monitor, no transfusional support needed Proteinuria: - 4+ protein on urinalysis, then Spot Prot/executive staff assistant ratio 6.4 - uncertain relation to history of previous renal carcinoma vs chemotherapy? - should have repeat evaluation as outpatient and see Nephro -continue losartan HTN: Blood pressures becoming quite elevated but was off his losartan for a few days due to SEN gave IV hydralazine asymptomatic -Restarted home losartan and should improve -Continue felodipine, atenolol -follow BPs with home health RN BPH: - continue terazosin Depression: - continue sertraline Chemotherapy - dabrafenib 150 mg po Q12 - trametinib 2 mg daily - follows with Dr. Jaramillo as an outpatient-Dr. Jaramillo is aware that he was admitted with fever as above Left inguinal hernia-reducible, occasionally symptomatic -Advised he is not a candidate for elective repair at this time due to undergoing chemotherapy -Gave precautions to return if has signs of incarcerated hernia, worsening pain, etc. DVT ppx: SCDs; SQ heparin Code Status: full code Dispo: dc to home with home health today PT/OT recommend return home (2) Adenocarcinoma of prostate: (3) Lung cancer: (4) Cancer of kidney: (5) Hypokalemia: (6) Acute renal insufficiency: (7) Proteinuria: (8) Inguinal hernia of left side without obstruction or gangrene: Total Time Total Time Spent Total Time Spent (In Minutes): 40 min Discharge Plan Discharge Items Patient Disposition: Home - Home Health Services Reason For Visit: FEVER, CHEMO Discharge Diagnosis: Fever, dehydration, Diarrhea, Proteinuria (protein in urine) Condition on Discharge: Fair Activity: As commented below Lifting: No more than 10 pounds Lifting Comment: Due to suspected left groin hernia Bathing: No limitations Exercise/Sports: Gradually increase as tolerated Non-emergency contact: Primary Care Provider, Mold Release Worker and Oncologist Call non-emergency contact if: you have any medication questions, your symptoms worsen, your pain is not controlled, your pain is worsening, your pain is unus ual for you, your pain is concerning for you, you have a fever and your temperature is above 101 Follow-up/Referrals: Martín Gomez MD [Physician] - (Please follow up on the protein in your urine within 2-3 weeks. ) ,Raffy Montano MD [Primary Care Provider] - (Follow up within 1-2 weeks.) Clark Jaramillo MD [Surgeon] - (Follow up within 1 week ) Diet: Regular Addtl Attending Provider Instructions: You can take Imodium for your lose stools as needed. Your fever was likely due to a side effect of your chemotherapy drugs. You were not found to have a source of infection and all antibiotics were stopped. Follow up with Dr. Jaramillo within the week. You were also found to have a likely left inguinal (groin) hernia. This is not an urgent problem unless it becomes painful and the pain is not resolving. You have some protein in your urine. The reason for why is not clear, but you should follow up with a Mold Release Worker within the month. Pending Studies at Discharge: No Stand-Alone Forms: My [facility], Smoking Cessation Medications and DC Order Prescriptions: New loperamide 2 mg Capsule 2 mg PO Q4H PRN (Reason: loose stool) Qty: 30 RF: 0 Continued losartan [Cozaar] 100 mg tablet 100 mg PO QAM Qty: 90 RF: 3 terazosin 5 mg capsule 5 mg PO HS Qty: 90 RF: 3 sertraline [Zoloft] 100 mg tablet 200 mg PO HS Qty: 180 RF: 3 atenolol [Tenormin] 25 mg tablet 25 mg PO BID Qty: 180 RF: 3 potassium chloride [Klor-Con M10] 10 mEq tablet,ER particles/crystals 30 meq PO BID Qty: 540 RF: 3 ferrous sulfate 325 mg (65 mg iron) tablet,delayed release (DR/EC) 325 mg PO QAM RF: 0 albuterol sulfate [Ventolin HFA] 90 mcg/actuation HFA aerosol inhaler 2 puff Inhalation Q4 PRN (Reason: Shortness Of Breath Or Wheezing) Qty: 18 RF: 11 Flovent HFA 220 mcg/actuation HFA aerosol inhaler 2 puff INH BID Qty: 3 RF: 3 cholecalciferol (vitamin D3) [Vitamin D3] 1,000 unit Tablet 1,000 unit PO QAM RF: 0 ondansetron 8 mg Tablet,Disintegrating 8 mg PO Q8 PRN (Reason: Nausea) RF: 0 famotidine [Pepcid] 20 mg Tablet 20 mg PO QAM RF: 0 felodipine 5 mg tablet extended release 24 hr 5 mg PO AMPM RF: 0 Mekinist 2 mg tablet 2 mg PO DAILY RF: 0 prochlorperazine maleate 10 mg tablet 10 mg PO Q6 PRN (Reason: Nausea) RF: 0 acetaminophen 650 mg Tablet 650 mg PO Q6H PRN (Reason: Pain) RF: 0 Tafinlar 75 mg capsule 150 mg PO Q12 RF: 0 Multiple Vitamin-Minerals Tablet 1 tab PO BID RF: 0 omega 1-djb-kdj-fish oil [Fish Oil] 1,200 (144-216) mg Capsule 1 cap PO DAILY RF: 0 Metamucil 0.36gm 1 cap PO DAILY RF: 0 cyanocobalamin (vitamin B-12) [Vitamin B-12] 1,000 mcg/mL Solution 1,000 mcg IM MONTHLY RF: 0 Discharge Orders: Discharge Order (Routine); Ordered 08/28/21 Ordered By: Amanda Hurley Admission Data Admit Date/Time: 08/26/21 09:09 Attending Provider: Amanda Hurley Admit Provider: Graciela Duckworth Primary Care Provider: Raffy Bedolla Other Providers: Aakash Vargas [facility] Coding Level of Care Code D/C DAY MANAGEMENT >30 MINS Diagnoses Fever R50.9 Adenocarcinoma of prostate C61 Lung cancer C34.90 Cancer of kidney C64.9 Hypokalemia E87.6 Acute renal insufficiency N28.9 Proteinuria R80.9 Inguinal hernia of left side without obstruction or gangrene K40.90
== END 2021-08-28 14:33 | disposition home health service (06) | DRG 864 ==
LOC: EDINP 17:57 → ED 17:57 → SUATTDRO 08-24 03:05 → 3E 08-24 05:19
DX: R50.2 Drug induced fever; K21.9 Gastro-esophageal reflux disease without esophagitis; Z80.0 Family history of malignant neoplasm of digestive organs; R80.9 Proteinuria, unspecified; Z90.79 Acquired absence of other genital organ(s); N40.0 Benign prostatic hyperplasia without lower urinary tract symptoms; Z79.899 Other long term (current) drug therapy; Z77.22 Contact with and (suspected) exposure to environmental tobacco smoke (acute) (chronic); I10 Essential (primary) hypertension; D84.821 Immunodeficiency due to drugs; C34.90 Malignant neoplasm of unspecified part of unspecified bronchus or lung; D61.810 Antineoplastic chemotherapy induced pancytopenia; K40.90 Unilateral inguinal hernia, without obstruction or gangrene, not specified as recurrent; T45.1X5A Adverse effect of antineoplastic and immunosuppressive drugs, initial encounter; E78.5 Hyperlipidemia, unspecified; R63.6 Underweight; E86.0 Dehydration; Z68.1 Body mass index [BMI] 19.9 or less, adult; Z85.528 Personal history of other malignant neoplasm of kidney; E87.6 Hypokalemia; F32.9 Major depressive disorder, single episode, unspecified; J45.909 Unspecified asthma, uncomplicated; N17.9 Acute kidney failure, unspecified; R19.7 Diarrhea, unspecified; E83.39 Other disorders of phosphorus metabolism; Z85.46 Personal history of malignant neoplasm of prostate; Z87.891 Personal history of nicotine dependence; Z20.822 Contact with and (suspected) exposure to COVID-19

== ENCOUNTER 2021-09-06 16:49 | Inpatient (IN) ==
--- NOTE | 2021-09-06 17:09 | Emergency Department Note ---
Impression & Plan Elevated troponin, Rhabdomyolysis, Acute renal failure ADMIT ED Provider Note HPI: The patient is a 75-year-old male with history of adenocarcinoma of the prostate, Adenocarcinoma of the lung, he is currently on chemotherapy, presents the emergency department with a chief complaint of "found down". Patient is alert on arrival, he is very frail appearing, appears disheveled, has dry mucous membranes and dried blood within the oral cavity. He is alert and oriented, he tells me he fell earlier today, A friend did a wellness check today and found him on the ground lying on his right side. Patient states that he does have some headache, he does have a contusion to the right part of his head. He maintains flexion is at the hips bilaterally, ambulates his upper extremities without issue. Denies any chest pain or shortness of breath. He is tachycardic on arrival but otherwise saturating well on room air. ROS: - General: Found down, unwitnessed fall *10 point review systems was conducted and is otherwise negative unless stated above *Outpatient medications and allergy history reviewed PE: General: Alert, NAD, Frail-appearing and cachectic HEENT: R forehead contusion, trachea midline, dry mucous membranes Eyes: Extraocular eye movement is intact, no scleral erythema Pulmonary: Clear to auscultation bilaterally, no wheezing Cardio: Regular rate and rhythm GI: Abdomen is soft, nontender : No suprapubic tenderness MSK: No evidence of trauma or malformation of the extremities, no edema, patient maintains flexion at the hips bilaterally Skin: No evidence of rash Neuro: Alert, no focal deficits Psychiatric: Cooperative conveyor monitor: - An order was placed for continuous cardiac monitoring - Patient was noted to be in Sinus rhythm with rate of 116 EKG: Rate: 101 Rhythm: Sinus tachycardia Intervals: Within normal limits ST changes: No ST elevation Time: 1718 Medical Decision Making: Patient presented having been found down at home at a wellness check. He is very frail appearing, cachectic, appears dry. He is otherwise in no acute distress and he is alert and able to speak to me on arrival. Labwork shows multiple metabolic abnormalities, patient does have a creatinine elevation of 4.4 which appears acute, also noted to have CPK level at approximately 87,000, troponin is slightly elevated at 0.15, patient denies any chest pain, EKG does not show any acute ischemic changes. I suspect the troponin elevation is secondary to dehydration and acute kidney injury in the setting of otherwise asymptomatic presentation for ACS and EKG without ischemic changes.X-ray imaging of the chest does not show any evidence of rib fractures or pneumothorax. CT imaging of the head does not show any evidence of an acute intracranial bleed. Interventions included2 L of IV fluid here in the ED and none further secondary to hemodynamic stability and concern for fluid overload, patient remained hemodynamically stable while here in the ED. Procalcitonin is elevated greater than 200, there is no leukocytosis or left shift however given the patient's immunocompromised status blood cultures were drawn in the ED and he was initiated on broad-spectrum antibiotics. On reevaluation the patient is resting in bed, he remains hemodynamically stable, discussed the above findings and the patient is in agreement for admission. Case was discussed with the on-call hospitalist and the patient was admitted to the [facility] hospitalist group for further care. Diagnosis: 1. Acute kidney injury 2. Elevated troponin 3. Rhabdomyolysis 4. Deconditioned state, Ambulatory difficulty Disposition: Admission Diony Garcia DO Emergency Medicine Past Med/Surg History Medical History (Updated 09/06/21 @ 20:50 by Diony Garcia DO) Adenocarcinoma of prostate Anemia 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 per records Anxiety Asthma well controlled Bladder neck contracture Cancer of kidney s/p cryoablation Chronic back pain Diastasis recti Dysphagia per remote records Essential hypertension GERD (gastroesophageal reflux disease) Hyperlipidemia Hypertension Inguinal hernia of left side without obstruction or gangrene Irritable bowel syndrome Lung cancer 7 years ago, s/p surgery Male stress incontinence Migraine ocular Non-small cell carcinoma of lung Osteoarthritis Renal cell carcinoma Sensorineural hearing loss (SNHL) of both ears Umbilical hernia Surgical History H/O basal cell carcinoma excision x2 H/O radical prostatectomy H/O straightening of nasal septum H/O vasectomy History of colonoscopy History of esophagogastroduodenoscopy (EGD) History of lung surgery RIGHT > 7 YRS AGO History of right cataract extraction Family History Mother Parkinson disease Father Colon cancer Colorectal cancer Other FHx: cancer Family history of diabetes mellitus Family history of high blood pressure Family history of lung disease No family history of adverse response to anesthesia Denies family history of Ovarian cancer Prostate cancer Myocardial infarction Breast cancer Social History Smoking Status: Former smoker Second Hand Exposure: No; Hx Alcohol Use: No Hx Substance Use: No Preferred Language: Czech Communication Ability: Effective Visual Impairment: No Limitations 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 Beliefs That Will Affect Care: None marital status: / Current Living Situation: Alone current occupational status: retired Feels Safe at Home: No Is there a partner from a previous relationship who is making you feel unsafe now?: No Childhood Exposure to Second-Hand Smoke: Yes Dental Care, Regularly: Yes Physical Activity Frequency: Does not Exercise Seatbelt Use: always Sunscreen Use: Yes Assistive Devices: Glasses Allergies Allergies Allergy/AdvReac Type Severity Reaction Status Date / Time No Known Allergies Allergy Verified 09/06/21 17:37 Home Meds Home Medications Medication Instructions Recorded Confirmed cholecalciferol (vitamin D3) 25 1,000 unit PO QAM 07/02/18 09/06/21 mcg (1,000 unit) tablet (Vitamin D3) ferrous sulfate 325 mg (65 mg 325 mg PO QAM tab 09/08/19 09/06/21 iron) tablet,delayed release famotidine 20 mg tablet (Pepcid) 20 mg PO QAM 11/23/19 09/06/21 ondansetron 8 mg disintegrating 8 mg PO Q8 PRN 11/23/19 09/06/21 tablet cyanocobalamin (vitamin B-12) 1,000 mcg IM MONTHLY 08/24/21 09/06/21 1,000 mcg/mL injection solution dabrafenib 75 mg capsule (Tafinlar) 150 mg PO Q12 08/24/21 09/06/21 felodipine 5 mg tablet,extended 5 mg PO AMPM 08/24/21 09/06/21 release 24 hr multivitamin with minerals 1 tab PO BID 08/24/21 09/06/21 (Multiple Vitamin-Minerals) omega 5-nmd-gvx-fish oil 1,200 mg 1 cap PO DAILY 08/24/21 09/06/21 (144 mg-216 mg) capsule (Fish Oil) prochlorperazine maleate 10 mg 10 mg PO Q6 PRN 08/24/21 09/06/21 tablet trametinib 2 mg tablet (Mekinist) 2 mg PO DAILY 08/24/21 09/06/21 acetaminophen 325 mg tablet 650 mg PO DIRECTED PRN 09/06/21 09/06/21 (Tylenol) psyllium husk 0.4 gram capsule 0.4 g PO DAILY 09/06/21 09/06/21 (Metamucil) Previous Rx's Medication Instructions Recorded albuterol sulfate 90 mcg/actuation 2 puff INHALATION Q4 PRN #18 gm 10/11/20 aerosol inhaler (Ventolin HFA) fluticasone propionate 220 2 puff INH BID #3 inhaler 10/11/20 mcg/actuation HFA aerosol inhaler (Flovent HFA) losartan 100 mg tablet (Cozaar) 100 mg PO QAM #90 tab 03/07/21 terazosin 5 mg capsule 5 mg PO HS #90 cap 03/07/21 atenolol 25 mg tablet (Tenormin) 25 mg PO BID #180 tab 06/07/21 sertraline 100 mg tablet (Zoloft) 200 mg PO HS #180 tab 06/07/21 potassium chloride 10 mEq 30 meq PO BID #540 tab 06/24/21 tablet,extended release(part/cryst) (Klor-Con M) loperamide 2 mg capsule 2 mg PO Q4H PRN #30 cap 08/28/21 Results & Data (ED) Vital Signs Vital Signs - 24 hr 09/06/21 16:44 09/06/21 17:06 09/06/21 17:07 Temperature 37.9 C H Temperature Source Oral Pulse Rate 117 H 112 H 112 H Pulse Rate from SpO2 Sensor 112 H Pulse Rhythm Regular Regular Pulse Strength Normal Respiratory Rate 20 20 27 H Respiratory Effort / Characteristics Non-Labored Non-Labored Respiratory Depth Normal Respiratory Pattern Regular Blood Pressure 115/70 Blood Pressure Mean 85 Blood Pressure Position Lying Pulse Oximetry 95 96 94 Oxygen Delivery Method Room Air Room Air Sepsis Recent Fever Within 48 Hours No Sepsis New/Unexplained Change in Mental Status No Sepsis Action Taken by Nursing No Action Required 09/06/21 17:30 09/06/21 17:43 09/06/21 18:00 Temperature Temperature Source Pulse Rate 102 H 103 H Pulse Rate from SpO2 Sensor Pulse Rhythm Pulse Strength Respiratory Rate 28 H 20 24 Respiratory Effort / Characteristics Non-Labored Respiratory Depth Respiratory Pattern Blood Pressure 115/70 Blood Pressure Mean 85 Blood Pressure Position Pulse Oximetry 98 94 Oxygen Delivery Method Nasal Cannula Sepsis Recent Fever Within 48 Hours Sepsis New/Unexplained Change in Mental Status Sepsis Action Taken by Nursing Laboratory Data Result diagrams: 09/06/21 17:35 09/06/21 17:35 Lab Results 09/06/21 09/06/21 09/06/21 Range/Units 17:35 17:35 17:35 WBC 10.52 (4.8-10.8) K/uL RBC 4.66 L (4.7-6.1) M/uL Hgb 13.2 L (14.0-18.0) g/dL Hct 40.4 L (42-52) % MCV 86.7 (80-100) fL MCH 28.3 (25-34) pg MCHC 32.7 (32-36) g/dL RDW Std Deviation 44.3 (36.4-46.3) fL RDW Coeff of Girish 14.2 (11.5-14.5) % Plt Count 97 L (130-400) K/uL MPV 11.4 H (7.4-10.4) fL Immature Gran % (Auto) 0.2 % Neut % (Auto) 87.6 % Lymph % (Auto) 9.0 % [place] % (Auto) 3.0 % Eos % (Auto) 0.0 % Baso % (Auto) 0.2 % Neut # (Auto) 9.21 H (1.4-6.5) K/uL Lymph # (Auto) 0.95 L (1.2-3.4) K/uL [place] # (Auto) 0.32 (0.11-0.59) K/uL Eos # (Auto) 0.00 (0-0.5) K/uL Baso # (Auto) 0.02 (0-0.2) K/uL Immature Gran # (Auto) 0.02 (0.00-0.02) K/uL Hyposegmented Neuts 1+ Dohle Bodies 1+ Platelet Estimate Decreased L (Normal) PT 13.9 H (9.0-12.0) Seconds INR 1.4 H (0.9-1.1) APTT 43.9 H (21.0-31.0) Seconds PTT Ratio 1.7 Sodium 138 (136-145) mmol/L Potassium 3.6 (3.5-5.1) mmol/L Chloride 103 (98-107) mmol/L Carbon Dioxide 26 (21-32) mmol/L Anion Gap 9.0 (3-11) BUN 62 H (7-18) mg/dl Creatinine 4.44 H (0.6-1.4) mg/dl Est Cr Clr Drug Dosing 11.2 ml/min Est GFR ( Amer) 13.8 ml/min Est GFR (Non-Af Amer) 11.9 ml/min BUN/Creatinine Ratio 14.0 (10-20) Glucose 120 H (70-99) mg/dl Lactate (0.4-2.0) mmol/L Calcium 8.9 (8.5-10.1) mg/dl Magnesium 2.5 H (1.8-2.4) mg/dl Total Bilirubin 0.8 (0.2-1) mg/dl AST 311 H (15-37) U/L ALT 40 (12-78) Alkaline Phosphatase 111 (45-117) U/L Total Creatine Kinase 8707 H (39-308) U/L Troponin I 0.541 H* (0-0.045) ng/ml Total Protein 7.0 (6.4-8.2) gm/dl Albumin 2.5 L (3.4-5.0) gm/dl Globulin 4.5 H (2.5-4.0) gm/dl Albumin/Globulin Ratio 0.6 L (0.9-2) Procalcitonin (0-0.5) ng/ml SARS-CoV-2 (PCR) (Negative) Influenza Type A (PCR) (Neg) Influenza Type B (PCR) (Neg) RSV (RT-PCR) (Neg) 09/06/21 09/06/21 09/06/21 Range/Units 17:35 17:35 19:36 WBC (4.8-10.8) K/uL RBC (4.7-6.1) M/uL Hgb (14.0-18.0) g/dL Hct (42-52) % MCV (80-100) fL MCH (25-34) pg MCHC (32-36) g/dL RDW Std Deviation (36.4-46.3) fL RDW Coeff of Girish (11.5-14.5) % Plt Count (130-400) K/uL MPV (7.4-10.4) fL Immature Gran % (Auto) % Neut % (Auto) % Lymph % (Auto) % [place] % (Auto) % Eos % (Auto) % Baso % (Auto) % Neut # (Auto) (1.4-6.5) K/uL Lymph # (Auto) (1.2-3.4) K/uL [place] # (Auto) (0.11-0.59) K/uL Eos # (Auto) (0-0.5) K/uL Baso # (Auto) (0-0.2) K/uL Immature Gran # (Auto) (0.00-0.02) K/uL Hyposegmented Neuts Dohle Bodies Platelet Estimate (Normal) PT (9.0-12.0) Seconds INR (0.9-1.1) APTT (21.0-31.0) Seconds PTT Ratio Sodium (136-145) mmol/L Potassium (3.5-5.1) mmol/L Chloride (98-107) mmol/L Carbon Dioxide (21-32) mmol/L Anion Gap (3-11) BUN (7-18) mg/dl Creatinine (0.6-1.4) mg/dl Est Cr Clr Drug Dosing ml/min Est GFR ( Amer) ml/min Est GFR (Non-Af Amer) ml/min BUN/Creatinine Ratio (10-20) Glucose (70-99) mg/dl Lactate 2.1 H* 1.9 (0.4-2.0) mmol/L Calcium (8.5-10.1) mg/dl Magnesium (1.8-2.4) mg/dl Total Bilirubin (0.2-1) mg/dl AST (15-37) U/L ALT (12-78) Alkaline Phosphatase (45-117) U/L Total Creatine Kinase (39-308) U/L Troponin I (0-0.045) ng/ml Total Protein (6.4-8.2) gm/dl Albumin (3.4-5.0) gm/dl Globulin (2.5-4.0) gm/dl Albumin/Globulin Ratio (0.9-2) Procalcitonin > 200.00 H (0-0.5) ng/ml SARS-CoV-2 (PCR) (Negative) Influenza Type A (PCR) (Neg) Influenza Type B (PCR) (Neg) RSV (RT-PCR) (Neg) 09/06/21 Range/Units Unknown WBC (4.8-10.8) K/uL RBC (4.7-6.1) M/uL Hgb (14.0-18.0) g/dL Hct (42-52) % MCV (80-100) fL MCH (25-34) pg MCHC (32-36) g/dL RDW Std Deviation (36.4-46.3) fL RDW Coeff of Girish (11.5-14.5) % Plt Count (130-400) K/uL MPV (7.4-10.4) fL Immature Gran % (Auto) % Neut % (Auto) % Lymph % (Auto) % [place] % (Auto) % Eos % (Auto) % Baso % (Auto) % Neut # (Auto) (1.4-6.5) K/uL Lymph # (Auto) (1.2-3.4) K/uL [place] # (Auto) (0.11-0.59) K/uL Eos # (Auto) (0-0.5) K/uL Baso # (Auto) (0-0.2) K/uL Immature Gran # (Auto) (0.00-0.02) K/uL Hyposegmented Neuts Dohle Bodies Platelet Estimate (Normal) PT (9.0-12.0) Seconds INR (0.9-1.1) APTT (21.0-31.0) Seconds PTT Ratio Sodium (136-145) mmol/L Potassium (3.5-5.1) mmol/L Chloride (98-107) mmol/L Carbon Dioxide (21-32) mmol/L Anion Gap (3-11) BUN (7-18) mg/dl Creatinine (0.6-1.4) mg/dl Est Cr Clr Drug Dosing ml/min Est GFR ( Amer) ml/min Est GFR (Non-Af Amer) ml/min BUN/Creatinine Ratio (10-20) Glucose (70-99) mg/dl Lactate (0.4-2.0) mmol/L Calcium (8.5-10.1) mg/dl Magnesium (1.8-2.4) mg/dl Total Bilirubin (0.2-1) mg/dl AST (15-37) U/L ALT (12-78) Alkaline Phosphatase (45-117) U/L Total Creatine Kinase (39-308) U/L Troponin I (0-0.045) ng/ml Total Protein (6.4-8.2) gm/dl Albumin (3.4-5.0) gm/dl Globulin (2.5-4.0) gm/dl Albumin/Globulin Ratio (0.9-2) Procalcitonin (0-0.5) ng/ml SARS-CoV-2 (PCR) NEGATIVE (Negative) Influenza Type A (PCR) Negative (Neg) Influenza Type B (PCR) Negative (Neg) RSV (RT-PCR) Negative (Neg) Administered Medications Discontinued Medications Sodium Chloride (Nss 1000ml) 1,000 mls @ 999 mls/hr IV .Q1H1M MAURO Stop: 09/06/21 18:15 Last Admin: 09/06/21 18:07 Dose: 999 mls/hr Documented by: [id number] Sodium Chloride (Nss 1000ml) 1,000 mls @ 999 mls/hr IV .Q1H1M ONE Stop: 09/06/21 19:48 Last Admin: 09/06/21 19:56 Dose: 999 mls/hr Documented by: [id number] Piperacillin Sod/Tazobactam (Sod 3.375 gm/ Dextrose) 100 ml in 115 mls @ 230 mls/hr IV NOW STA Stop: 09/06/21 19:43 Last Admin: 09/06/21 19:56 Dose: 230 mls/hr Documented by: [id number] Imaging Data Radiologist's Impression: Chest X-Ray 09/06/21 17:06 XR chest 1V portable CLINICAL HISTORY: SEPSIS. Evaluate cardiopulmonary status COMPARISON STUDY: 08/23/2021 TECHNIQUE: 1 view of the chest FINDINGS: Single frontal view of the chest demonstrates the cardiomediastinal silhouette to be within normal limits. Compared to previous examination, there are again chronic prominence of the interstitial markings involving the right lower lobe and chronic blunting the right costophrenic angle. The lungs are otherwise clear of alveolar opacities. There is no evidence for pleural effusion. There is no evidence for vascular congestion. There is no acute osseous pathology. IMPRESSION: No acute cardiopulmonary disease. Chronic prominence of the initial markings involving the right lung base is again seen with chronic blunting of the right costophrenic angle. ACT 112: Negative or not required by law. Electronically signed by: Aleksey Brandt M.D. 09/06/2021 5:[address] 09/06/21 17:06 CT head/brain wo con CLINICAL HISTORY: Status post fall with trauma to the head. Swelling of the forehead. COMPARISON STUDY: No previous studies for comparison. CT DOSE: TECHNIQUE: Standard CT of the Brain was performed without IV contrast. A dose lowering technique was utilized adhering to the principles of ALARA. FINDINGS: Extraaxial space: There is no evidence for subdural hematoma. There are no extra-axial fluid collections. Ventricles and cisterns: The ventricles are mildly dilated bilaterally. There is no evidence for midline shift or mass effect. Parenchyma: There is no subarachnoid or intraparenchymal hemorrhage. There is no evidence for an acute infarct or cerebral edema. There is mild cerebral cortical atrophy and decreased attenuation in the periventricular white matter representing remote small vessel disease. There are no gross mass lesions. Osseous structures: There is no evidence for an acute fracture. The visualized paranasal sinuses are clear. The mastoid air cells are clear bilaterally. Soft tissues: There is a small subgaleal hematoma involving the forehead on the right. IMPRESSION: No acute intracerebral pathology. Mild cerebral cortical atrophy and remote small vessel disease. Small subgaleal hematoma. ACT 112: Negative or not required by law. Electronically signed by: Aleksey Brandt M.D. 09/06/2021 6:[address] 09/06/21 17:09 CT facial bones wo con CLINICAL HISTORY: Status post fall with trauma to the head. Swelling of the forehead. COMPARISON STUDY: No previous studies for comparison. CT DOSE: 851.29 mGy.cm TECHNIQUE: Standard CT of the Facial Bones and Orbits was performed without IV contrast. A dose lowering technique was utilized adhering to the principles of ALARA. FINDINGS: Bones: There are no displaced fractures identified. The orbital rims are intact bilaterally. The zygomatic arches are intact bilaterally. There is evidence for a minimally depressed, nondisplaced fracture involving the lateral wall of the nasal bones on the right. It is possible that this represents an old fracture. Clinical correlation is necessary. The nasal bridge and spines are intact. The nasal septum is in the midline. The mandible and maxilla are intact. Paranasal sinuses:The adjacent paranasal sinuses are clear. Soft tissues:There is mild soft tissue swelling present involving the forehead on the right. IMPRESSION: Evidence for a minimally depressed, nondisplaced fracture involving the wall of the nasal bones on the right. It is possible that this represents an old fracture. Focal correlation is necessary. No other evidence for acute fracture. Mild soft tissue swelling involving the right forehead. ACT 112: Negative or not required by law. Electronically signed by: Aleksey Brandt M.D. 09/06/2021 6:56 PM Discharge Plan Visit Data Chief Complaint: Fall Stated Complaint: Fall, Weakness, Confusion ED Provider: Diony Garcia Discharge Problem: Elevated troponin, Rhabdomyolysis, Acute renal failure Forms Stand Alone Forms: [facility] Prescriptions Prescriptions: No Action losartan [Cozaar] 100 mg tablet 100 mg PO QAM Qty: 90 RF: 3 terazosin 5 mg capsule 5 mg PO HS Qty: 90 RF: 3 sertraline [Zoloft] 100 mg tablet 200 mg PO HS Qty: 180 RF: 3 atenolol [Tenormin] 25 mg tablet 25 mg PO BID Qty: 180 RF: 3 potassium chloride [Klor-Con M10] 10 mEq tablet,ER particles/crystals 30 meq PO BID Qty: 540 RF: 3 ferrous sulfate 325 mg (65 mg iron) tablet,delayed release (DR/EC) 325 mg PO QAM RF: 0 albuterol sulfate [Ventolin HFA] 90 mcg/actuation HFA aerosol inhaler 2 puff Inhalation Q4 PRN (Reason: Shortness Of Breath Or Wheezing) Qty: 18 RF: 11 Flovent HFA 220 mcg/actuation HFA aerosol inhaler 2 puff INH BID Qty: 3 RF: 3 cholecalciferol (vitamin D3) [Vitamin D3] 1,000 unit Tablet 1,000 unit PO QAM RF: 0 ondansetron 8 mg Tablet,Disintegrating 8 mg PO Q8 PRN (Reason: Nausea) RF: 0 famotidine [Pepcid] 20 mg Tablet 20 mg PO QAM RF: 0 felodipine 5 mg tablet extended release 24 hr 5 mg PO AMPM RF: 0 Mekinist 2 mg tablet 2 mg PO DAILY RF: 0 prochlorperazine maleate 10 mg tablet 10 mg PO Q6 PRN (Reason: Nausea) RF: 0 Tafinlar 75 mg capsule 150 mg PO Q12 RF: 0 Multiple Vitamin-Minerals Tablet 1 tab PO BID RF: 0 omega 3-cyr-cms-fish oil [Fish Oil] 1,200 (144-216) mg Capsule 1 cap PO DAILY RF: 0 cyanocobalamin (vitamin B-12) 1,000 mcg/mL Solution 1,000 mcg IM MONTHLY RF: 0 loperamide 2 mg Capsule 2 mg PO Q4H PRN (Reason: loose stool) Qty: 30 RF: 0 acetaminophen [Tylenol] 325 mg Tablet 650 mg PO DIRECTED PRN (Reason: PAIN/FEVER) RF: 0 psyllium husk [Metamucil] 0.4 gram Capsule 0.4 g PO DAILY RF: 0 Referrals Referrals: Raffy Bedolla MD [Primary Care Provider] - Discharge Problem: Rhabdomyolysis Qualifiers: Rhabdomyolysis type: non-traumatic Qualified Code(s): M62.82 - Rhabdomyolysis Acute renal failure Qualifiers: Acute renal failure type: unspecified Qualified Code(s): N17.9 - Acute kidney failure, unspecified
[2021-09-06] MEDS ORDERED: SODIUM CHLORIDE 0.9% 1000ML 1,000 ML IV SCH (17:15)
[2021-09-06 17:50] LABS: Hematocrit (blood only) 40.4 % (42-52); Hemoglobin 13.2 g/dL (14.0-18.0); Mean Corpuscular Hemoglobin 28.3 pg (25-34); Mean Corpuscular Hgb Conc 32.7 g/dL (32-36); Mean Corpuscular Volume 86.7 fL (80-100); RDW Coefficient of Variation 14.2 % (11.5-14.5); RDW Standard Deviation 44.3 fL (36.4-46.3); Red Blood Count 4.66 M/uL (4.7-6.1); White Blood Count 10.52 K/uL (4.8-10.8)
--- NOTE | 2021-09-06 18:00 | XRay Report ---
XR chest 1V portable CLINICAL HISTORY: SEPSIS. Evaluate cardiopulmonary status COMPARISON STUDY: 08/23/2021 TECHNIQUE: 1 view of the chest FINDINGS: Single frontal view of the chest demonstrates the cardiomediastinal silhouette to be within normal li mits. Compared to previous examination, there are again chronic prominence of the interstitial markin gs involving the right lower lobe and chronic blunting the right costophrenic angle. The lungs are ot herwise clear of alveolar opacities. There is no evidence for pleural effusion. There is no evidence for vascular congestion. There is no acute osseous pathology. IMPRESSION: No acute cardiopulmonary disease. Chronic prominence of the initial markings involving th e right lung base is again seen with chronic blunting of the right costophrenic angle. ACT 112: Negative or not required by law. Electronically signed by: Aleksey Brandt M.D. 09/06/2021 5:59 PM
[2021-09-06 18:02] LABS: INR 1.4 (0.9-1.1); Partial Thromboplastin Ratio 1.7; Partial Thromboplastin Time 43.9 Seconds (21.0-31.0); Prothrombin Time 13.9 Seconds (9.0-12.0)
[2021-09-06 18:11] LABS: Albumin Level 2.5 gm/dl (3.4-5.0); Calcium 8.9 mg/dl (8.5-10.1); Creatinine Clr Calc Pharmacy 11.2 ml/min; Est GFR (African American) 13.8 ml/min; Est GFR (Non-African American) 11.9 ml/min; Magnesium 2.5 mg/dl (1.8-2.4); Potassium 3.6 mmol/L (3.5-5.1)
[2021-09-06 18:23] LABS: Mean Platelet Volume 11.4 fL (7.4-10.4); Platelet Count 97 K/uL (130-400)
[2021-09-06 18:25] LABS: Basophils # (auto) 0.02 K/uL (0-0.2); Basophils % (auto) 0.2 %; Dohle Bodies 1+; Immature Granulocytes # (auto) 0.02 K/uL (0.00-0.02); Immature Granulocytes % (auto) 0.2 %; Lymphocytes # (auto) 0.95 K/uL (1.2-3.4); Monocytes # (auto) 0.32 K/uL (0.11-0.59); Neutrophils # (auto) 9.21 K/uL (1.4-6.5); Neutrophils % (auto) 87.6 %; Platelet Estimate Decreased (Normal)
[2021-09-06 18:28] LABS: Influenza A virus by PCR Negative (Neg); Influenza B virus by PCR Negative (Neg); RSV by PCR Negative (Neg); SARS CoV2 RNA(COVID-19) InHosp NEGATIVE (Negative)
[2021-09-06 18:42] LABS: Albumin Globulin Ratio 0.6 (0.9-2); Bilirubin,Total 0.8 mg/dl (0.2-1); Globulin 4.5 gm/dl (2.5-4.0); Troponin I 0.541 ng/ml (0-0.045)
[2021-09-06] MEDS ORDERED: SODIUM CHLORIDE 0.9% 1000ML 1,000 ML IV ONE (18:48)
--- NOTE | 2021-09-06 18:52 | CT Scan Report ---
CT head/brain wo con CLINICAL HISTORY: Status post fall with trauma to the head. Swelling of the forehead. COMPARISON STUDY: No previous studies for comparison. CT DOSE: TECHNIQUE: Standard CT of the Brain was performed without IV contrast. A dose lowering technique was utilized adhering to the principles of ALARA. FINDINGS: Extraaxial space: There is no evidence for subdural hematoma. There are no extra-axial fluid collecti ons. Ventricles and cisterns: The ventricles are mildly dilated bilaterally. There is no evidence for mid line shift or mass effect. Parenchyma: There is no subarachnoid or intraparenchymal hemorrhage. There is no evidence for an acu te infarct or cerebral edema. There is mild cerebral cortical atrophy and decreased attenuation in th e periventricular white matter representing remote small vessel disease. There are no gross mass lesi ons. Osseous structures: There is no evidence for an acute fracture. The visualized paranasal sinuses are clear. The mastoid air cells are clear bilaterally. Soft tissues: There is a small subgaleal hematoma involving the forehead on the right. IMPRESSION: No acute intracerebral pathology. Mild cerebral cortical atrophy and remote small vessel disease. Small subgaleal hematoma. ACT 112: Negative or not required by law. Electronically signed by: Aleksey Brandt M.D. 09/06/2021 6:51 PM
--- NOTE | 2021-09-06 18:58 | CT Scan Report ---
CT facial bones wo con CLINICAL HISTORY: Status post fall with trauma to the head. Swelling of the forehead. COMPARISON STUDY: No previous studies for comparison. CT DOSE: 851.29 mGy.cm TECHNIQUE: Standard CT of the Facial Bones and Orbits was performed without IV contrast. A dose lowe ring technique was utilized adhering to the principles of ALARA. FINDINGS: Bones: There are no displaced fractures identified. The orbital rims are intact bilaterally. The zygo matic arches are intact bilaterally. There is evidence for a minimally depressed, nondisplaced fractu re involving the lateral wall of the nasal bones on the right. It is possible that this represents an old fracture. Clinical correlation is necessary. The nasal bridge and spines are intact. The nasal s eptum is in the midline. The mandible and maxilla are intact. Paranasal sinuses:The adjacent paranasal sinuses are clear. Soft tissues:There is mild soft tissue swelling present involving the forehead on the right. IMPRESSION: Evidence for a minimally depressed, nondisplaced fracture involving the wall of the nasal bones on the right. It is possible that this represents an old fracture. Focal correlation is necess mariah. No other evidence for acute fracture. Mild soft tissue swelling involving the right forehead. ACT 112: Negative or not required by law. Electronically signed by: Aleksey Brandt M.D. 09/06/2021 6:56 PM
[2021-09-06] MEDS ORDERED: PIPERACILLIN/TAZOBACTAM 3.375 GM in DEXTROSE 5% 100 ML/100 ML BAG IV STA (19:14)
[2021-09-06] MEDS ORDERED: VANCOMYCIN HCL 1,250 MG in SODIUM CHLORIDE 0.9% 500 ML IV ONE (19:14)
[2021-09-06] MEDS ORDERED: VANCOMYCIN CONSULT ACTIVE PRN ×2 (19:14→23:43)
[2021-09-06] MEDS ORDERED: PIPERACILL/TAZOBAC CONSULT ACTIVE PRN ×2 (19:14→23:43)
--- NOTE | 2021-09-06 20:25 | History & Physical Report ---
Date of Service September 06, 2021 Assessment & Plan (1) Elevated troponin: Plan: The patient will be admitted to telemetry for serial cardiac enzymes, serial EKG's, cardiac rhythm monitoring and a 2-D echocardiogram with Dopplers. Troponin 0.541 upon admission Likely supply demand mismatch, type II MO (2) Rhabdomyolysis: Plan: Rhabdomyolysis/acute renal failure- CK 8707, creatinine 4.44 with baseline 1.05 Received normal saline 2 L from the ED Continue NSS at 80 mils per hour x1 additional liter, and follow labs serially in a.m. (3) Acute renal failure: Plan: See above (4) Lung cancer: Plan: Lung cancer, presently undergoing chemotherapy (5) Adenocarcinoma of prostate: Plan: Continue Terazosin (6) Renal cell carcinoma: Plan: Noted (7) Essential hypertension: Plan: Continue atenolol, felodipine with hold parameters, hold losartan History of Present Illness Chief Complaint: The patient presents to the emergency department after being found down on the floor for an unknown period of time, after having been found by a friend who was doing a wellness check today. Primary Care Provider: Raffy Bedolla MD The patient is a 75-year-old male with a past medical history including SNHL bilaterally, prostate cancer, aortic regurgitation, asthma, diastases recti, diastolic dysfunction, hypertension, hyperlipidemia, irritable bowel syndrome, LVH, male stress incontinence, much regurgitation, non-small cell carcinoma of lung, renal cell carcinoma, umbilical hernia, ayla B12 deficiency and hypertens ion. The patient is presently undergoing chemotherapy for lung cancer. He does not remember any of the events that led up to his fall. He has a notable Eulalio contusion over his right frontal area. Allergies Allergy/AdvReac Type Severity Reaction Status Date / Time No Known Allergies Allergy Verified 09/06/21 17:37 Home Medications Medication Instructions Recorded Confirmed Type cholecalciferol (vitamin D3) 25 1,000 unit PO QAM 07/02/18 09/06/21 History mcg (1,000 unit) tablet (Vitamin D3) ferrous sulfate 325 mg (65 mg 325 mg PO QAM tab 09/08/19 09/06/21 History iron) tablet,delayed release famotidine 20 mg tablet (Pepcid) 20 mg PO QAM 11/23/19 09/06/21 History ondansetron 8 mg disintegrating 8 mg PO Q8 PRN 11/23/19 09/06/21 History tablet albuterol sulfate 90 mcg/actuation 2 puff INHALATION Q4 PRN #18 gm 10/11/20 09/06/21 Rx aerosol inhaler (Ventolin HFA) fluticasone propionate 220 2 puff INH BID #3 inhaler 10/11/20 09/06/21 Rx mcg/actuation HFA aerosol inhaler (Flovent HFA) losartan 100 mg tablet (Cozaar) 100 mg PO QAM #90 tab 03/07/21 09/06/21 Rx terazosin 5 mg capsule 5 mg PO HS #90 cap 03/07/21 09/06/21 Rx atenolol 25 mg tablet (Tenormin) 25 mg PO BID #180 tab 06/07/21 09/06/21 Rx sertraline 100 mg tablet (Zoloft) 200 mg PO HS #180 tab 06/07/21 09/06/21 Rx potassium chloride 10 mEq 30 meq PO BID #540 tab 06/24/21 09/06/21 Rx tablet,extended release(part/cryst) (Klor-Con M) cyanocobalamin (vitamin B-12) 1,000 mcg IM MONTHLY 08/24/21 09/06/21 History 1,000 mcg/mL injection solution dabrafenib 75 mg capsule (Tafinlar) 150 mg PO Q12 08/24/21 09/06/21 History felodipine 5 mg tablet,extended 5 mg PO AMPM 08/24/21 09/06/21 History release 24 hr multivitamin with minerals 1 tab PO BID 08/24/21 09/06/21 History (Multiple Vitamin-Minerals) omega 9-[id number]-znz-fish oil 1,200 mg 1 cap PO DAILY 08/24/21 09/06/21 History (144 mg-216 mg) capsule (Fish Oil) prochlorperazine maleate 10 mg 10 mg PO Q6 PRN 08/24/21 09/06/21 History tablet trametinib 2 mg tablet (Mekinist) 2 mg PO DAILY 08/24/21 09/06/21 History loperamide 2 mg capsule 2 mg PO Q4H PRN #30 cap 08/28/21 09/06/21 Rx acetaminophen 325 mg tablet 650 mg PO DIRECTED PRN 09/06/21 09/06/21 History (Tylenol) psyllium husk 0.4 gram capsule 0.4 g PO DAILY 09/06/21 09/06/21 History (Metamucil) Past Med/Surg History Medical History (Updated 09/07/21 @ 00:03 by Mic Bermudez) Adenocarcinoma of prostate Anemia 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 per records Anxiety Asthma well controlled Bladder neck contracture Cancer of kidney s/p cryoablation Chronic back pain Diastasis recti Dysphagia per remote records Essential hypertension GERD (gastroesophageal reflux disease) Hyperlipidemia Hypertension Inguinal hernia of left side without obstruction or gangrene Irritable bowel syndrome Lung cancer 7 years ago, s/p surgery Male stress incontinence Migraine ocular Non-small cell carcinoma of lung Osteoarthritis Renal cell carcinoma Sensorineural hearing loss (SNHL) of both ears Umbilical hernia Surgical History H/O basal cell carcinoma excision x2 H/O radical prostatectomy H/O straightening of nasal septum H/O vasectomy History of colonoscopy History of esophagogastroduodenoscopy (EGD) History of lung surgery RIGHT > 7 YRS AGO History of right cataract extraction Family History Mother Parkinson disease Father Colon cancer Colorectal cancer Other FHx: cancer Family history of diabetes mellitus Family history of high blood pressure Family history of lung disease No family history of adverse response to anesthesia Denies family history of Ovarian cancer Prostate cancer Myocardial infarction Breast cancer Social History Smoking Status: Former smoker Second Hand Exposure: No; Hx Alcohol Use: No Hx Substance Use: No Preferred Language: Malaysian Communication Ability: Effective Visual Impairment: No Limitations Hearing Ability: Normal Form Carpenter Required: No Beliefs That Will Affect Care: None marital status: / Current Living Situation: Alone current occupational status: retired Feels Safe at Home: No Is there a partner from a previous relationship who is making you feel unsafe now?: No Childhood Exposure to Second-Hand Smoke: Yes Dental Care, Regularly: Yes Physical Activity Frequency: Does not Exercise Seatbelt Use: always Sunscreen Use: Yes Assistive Devices: Glasses Review of Systems Review of Systems: The patient presently denies chest pain, palpitations, lower extremity swelling, sore throat, fevers, chills, sweats, nausea, vomiting, diarrhea , constipation, abdominal pain, pelvic pain, blood in urine or stool, dysuria, urinary frequency or urgency, rash, abnormal bruising or bleeding, focal weakness, numbness or tingling in arms or legs, back or neck pain, or night sweats. The review of systems is otherwise negative other than for that already noted above, and at least 10 systems have been reviewed. Physical Exam Physical Exam: The patient is awake, alert, looks cachectic, bifrontal and right supraorbital swelling and erythema, lying in bed and in no acute distress. HEENT--PERRL, EOMI, mucous membranes and oropharynx dry. Neck--supple. No JVD. No bruits. Thyroid normal, trachea midline, no adenopathy. Heart--normal S1 and S2. No murmurs, rubs or gallops. Lungs--diminished throughout. No respiratory distress, no accessory muscle use. Abdomen--normal bowel sounds and soft. Nontender. Nondistended. Extremities--no cyanosis or clubbing. No edema. Dermatologic--rash as noted above Neurologic--cranial nerves II through XII grossly intact. Rheumatologic--limited exam Psychiatric--mildly confused Results & Data Results & Data ([facility]) Vital Signs (Past 12 Hours) Vital Signs Temp Pulse Resp BP Pulse Ox 09/06/21 18:00 103 H 24 115/70 94 09/06/21 17:43 20 98 09/06/21 17:30 102 H 28 H 09/06/21 17:07 112 H 27 H 94 09/06/21 17:06 112 H 20 96 09/06/21 16:44 37.9 C H 117 H 20 115/70 95 Laboratory Results Laboratory Results WBC 10.52 K/uL (4.8-10.8) 09/06/21 17:35 RBC 4.66 M/uL (4.7-6.1) L 09/06/21 17:35 Hgb 13.2 g/dL (14.0-18.0) L 09/06/21 17:35 Hct 40.4 % (42-52) L 09/06/21 17:35 MCV 86.7 fL (80-100) 09/06/21 17:35 MCH 28.3 pg (25-34) 09/06/21 17:35 MCHC 32.7 g/dL (32-36) 09/06/21 17:35 RDW Std Deviation 44.3 fL (36.4-46.3) 09/06/21 17:35 RDW Coeff of Girish 14.2 % (11.5-14.5) 09/06/21 17:35 Plt Count 97 K/uL (130-400) L 09/06/21 17:35 MPV 11.4 fL (7.4-10.4) H 09/06/21 17:35 Immature Gran % (Auto) 0.2 % 09/06/21 17:35 Neut % (Auto) 87.6 % 09/06/21 17:35 Lymph % (Auto) 9.0 % 09/06/21 17:35 [place]osa % (Auto) 3.0 % 09/06/21 17:35 Eos % (Auto) 0.0 % 09/06/21 17:35 Baso % (Auto) 0.2 % 09/06/21 17:35 Neut # (Auto) 9.21 K/uL (1.4-6.5) H 09/06/21 17:35 Lymph # (Auto) 0.95 K/uL (1.2-3.4) L 09/06/21 17:35 [place]iposa # (Auto) 0.32 K/uL (0.11-0.59) 09/06/21 17:35 Eos # (Auto) 0.00 K/uL (0-0.5) 09/06/21 17:35 Baso # (Auto) 0.02 K/uL (0-0.2) 09/06/21 17:35 Immature Gran # (Auto) 0.02 K/uL (0.00-0.02) 09/06/21 17:35 Hyposegmented Neuts 1+ 09/06/21 17:35 Dohle Bodies 1+ 09/06/21 17:35 Platelet Estimate Decreased (Normal) L 09/06/21 17:35 PT 13.9 Seconds (9.0-12.0) H 09/06/21 17:35 INR 1.4 (0.9-1.1) H 09/06/21 17:35 APTT 43.9 Seconds (21.0-31.0) H 09/06/21 17:35 PTT Ratio 1.7 09/06/21 17:35 Sodium 138 mmol/L (136-145) 09/06/21 17:35 Potassium 3.6 mmol/L (3.5-5.1) 09/06/21 17:35 Chloride 103 mmol/L (98-107) 09/06/21 17:35 Carbon Dioxide 26 mmol/L (21-32) 09/06/21 17:35 Anion Gap 9.0 (3-11) 09/06/21 17:35 BUN 62 mg/dl (7-18) H 09/06/21 17:35 Creatinine 4.44 mg/dl (0.6-1.4) H 09/06/21 17:35 Est Cr Clr Drug Dosing 11.2 ml/min 09/06/21 17:35 Est GFR ( Amer) 13.8 ml/min 09/06/21 17:35 Est GFR (Non-Af Amer) 11.9 ml/min 09/06/21 17:35 BUN/Creatinine Ratio 14.0 (10-20) 09/06/21 17:35 Glucose 120 mg/dl (70-99) H 09/06/21 17:35 Lactate 1.9 mmol/L (0.4-2.0) 09/06/21 19:36 Calcium 8.9 mg/dl (8.5-10.1) 09/06/21 17:35 Magnesium 2.5 mg/dl (1.8-2.4) H 09/06/21 17:35 Total Bilirubin 0.8 mg/dl (0.2-1) 09/06/21 17:35 AST 311 U/L (15-37) H 09/06/21 17:35 ALT 40 (12-78) 09/06/21 17:35 Alkaline Phosphatase 111 U/L (45-117) 09/06/21 17:35 Total Creatine Kinase 8707 U/L (39-308) H 09/06/21 17:35 Troponin I 0.541 ng/ml (0-0.045) H* 09/06/21 17:35 Total Protein 7.0 gm/dl (6.4-8.2) 09/06/21 17:35 Albumin 2.5 gm/dl (3.4-5.0) L 09/06/21 17:35 Globulin 4.5 gm/dl (2.5-4.0) H 09/06/21 17:35 Albumin/Globulin Ratio 0.6 (0.9-2) L 09/06/21 17:35 Procalcitonin > 200.00 ng/ml (0-0.5) H 09/06/21 17:35 SARS-CoV-2 (PCR) NEGATIVE (Negative) 09/06/21 Unknown Influenza Type A (PCR) Negative (Neg) 09/06/21 Unknown Influenza Type B (PCR) Negative (Neg) 09/06/21 Unknown RSV (RT-PCR) Negative (Neg) 09/06/21 Unknown Impressions Chest X-Ray 09/06/21 17:06 XR chest 1V portable CLINICAL HISTORY: SEPSIS. Evaluate cardiopulmonary status COMPARISON STUDY: 08/23/2021 TECHNIQUE: 1 view of the chest FINDINGS: Single frontal view of the chest demonstrates the cardiomediastinal silhouette to be within normal limits. Compared to previous examination, there are again chronic prominence of the interstitial markings involving the right lower lobe and chronic blunting the right costophrenic angle. The lungs are otherwise clear of alveolar opacities. There is no evidence for pleural effusion. There is no evidence for vascular congestion. There is no acute osseous pathology. IMPRESSION: No acute cardiopulmonary disease. Chronic prominence of the initial markings involving the right lung base is again seen with chronic blunting of the right costophrenic angle. ACT 112: Negative or not required by law. Electronically signed by: Aleksey Brandt M.D. 09/06/2021 5:[address] 09/06/21 17:06 CT head/brain wo con CLINICAL HISTORY: Status post fall with trauma to the head. Swelling of the forehead. COMPARISON STUDY: No previous studies for comparison. CT DOSE: TECHNIQUE: Standard CT of the Brain was performed without IV contrast. A dose lowering technique was utilized adhering to the principles of ALARA. FINDINGS: Extraaxial space: There is no evidence for subdural hematoma. There are no extra-axial fluid collections. Ventricles and cisterns: The ventricles are mildly dilated bilaterally. There is no evidence for midline shift or mass effect. Parenchyma: There is no subarachnoid or intraparenchymal hemorrhage. There is no evidence for an acute infarct or cerebral edema. There is mild cerebral cortical atrophy and decreased attenuation in the periventricular white matter representing remote small vessel disease. There are no gross mass lesions. Osseous structures: There is no evidence for an acute fracture. The visualized paranasal sinuses are clear. The mastoid air cells are clear bilaterally. Soft tissues: There is a small subgaleal hematoma involving the forehead on the right. IMPRESSION: No acute intracerebral pathology. Mild cerebral cortical atrophy and remote small vessel disease. Small subgaleal hematoma. ACT 112: Negative or not required by law. Electronically signed by: Aleksey Brandt M.D. 09/06/2021 6:[address] 09/06/21 17:09 CT facial bones wo con CLINICAL HISTORY: Status post fall with trauma to the head. Swelling of the forehead. COMPARISON STUDY: No previous studies for comparison. CT DOSE: 851.29 mGy.cm TECHNIQUE: Standard CT of the Facial Bones and Orbits was performed without IV contrast. A dose lowering technique was utilized adhering to the principles of ALARA. FINDINGS: Bones: There are no displaced fractures identified. The orbital rims are intact bilaterally. The zygomatic arches are intact bilaterally. There is evidence for a minimally depressed, nondisplaced fracture involving the lateral wall of the nasal bones on the right. It is possible that this represents an old fracture. Clinical correlation is necessary. The nasal bridge and spines are intact. The nasal septum is in the midline. The mandible and maxilla are intact. Paranasal sinuses:The adjacent paranasal sinuses are clear. Soft tissues:There is mild soft tissue swelling present involving the forehead on the right. IMPRESSION: Evidence for a minimally depressed, nondisplaced fracture involving the wall of the nasal bones on the right. It is possible that this represents an old fracture. Focal correlation is necessary. No other evidence for acute fracture. Mild soft tissue swelling involving the right forehead. ACT 112: Negative or not required by law. Electronically signed by: Aleksey Brandt M.D. 09/06/2021 6:56 PM Code Status & VTE Plan Code Status Full code VTE Prophylaxis Plan VTE Prophylaxis will be ordered: Yes PG Care Time/CCT Total # of Minutes Spent Total Time Spent with Patient: Total time spent is greater than 50% in coordination of care (as documented) at patient's floor/unit and/or counseling patient: Coding Level of Care Code 52709 Initial Inpt Care Lvl 3 Diagnoses Elevated troponin R77.8 Rhabdomyolysis M62.82 Rhabdomyolysis type: non-traumatic Acute renal failure N17.9 Acute renal failure type: unspecified Adenocarcinoma of prostate C61 Essential hypertension I10 Renal cell carcinoma C64.9 Lung cancer C34.90 (1) Rhabdomyolysis Rhabdomyolysis type: non-traumatic Qualified Code(s): M62.82 - Rhabdomyolysis (2) Acute renal failure Acute renal failure type: unspecified Qualified Code(s): N17.9 - Acute kidney failure, unspecified
[2021-09-06] MEDS ORDERED: ATENOLOL 25 MG TABLET PO SCH (23:43)
[2021-09-06] MEDS ORDERED: POTASSIUM CHLORIDE 10 MEQ TABCR PO SCH (23:43)
[2021-09-06] MEDS ORDERED: PROCHLORPERAZINE MALEATE 10 MG TAB PO PRN (23:43)
[2021-09-06] MEDS ORDERED: ONDANSETRON INJ 2 MG/ML 2 ML VIAL IV PRN (23:43)
[2021-09-06] MEDS ORDERED: FELODIPINE 5 MG TABCR PO SCH (23:43)
[2021-09-06] MEDS ORDERED: LOPERAMIDE HCL 2 MG CAP PO PRN (23:43)
[2021-09-07] MEDS: SERTRALINE HCL 100 MG TABLET PO SCH ×2 (01:02→21:55)
[2021-09-07] MEDS: TERAZOSIN HCL 5 MG CAP PO SCH (01:02)
[2021-09-07] MEDS ORDERED: SODIUM CHLORIDE 0.9% 1000ML 1,000 ML IV SCH (02:45)
[2021-09-07] MEDS: ALBUMIN 25% 100 mL 25 GM/100 ML VIAL IV SCH ×2 (04:19→05:56)
[2021-09-07] MEDS: PIPERACILLIN/TAZOBACTAM 3.375 GM in DEXTROSE 5% 100 ML IV SCH ×2 (05:14→16:46)
[2021-09-07 06:15] LABS: Hematocrit (blood only) 30.4 % (42-52); Hemoglobin 9.8 g/dL (14.0-18.0); Mean Corpuscular Hemoglobin 27.8 pg (25-34); Mean Corpuscular Hgb Conc 32.2 g/dL (32-36); Mean Corpuscular Volume 86.1 fL (80-100); Mean Platelet Volume 11.6 fL (7.4-10.4); Platelet Count 69 K/uL (130-400); RDW Coefficient of Variation 14.5 % (11.5-14.5); RDW Standard Deviation 44.8 fL (36.4-46.3); Red Blood Count 3.53 M/uL (4.7-6.1); White Blood Count 6.17 K/uL (4.8-10.8)
[2021-09-07 06:20] LABS: Basophils # (auto) 0.01 K/uL (0-0.2); Basophils % (auto) 0.2 %; Immature Granulocytes # (auto) 0.01 K/uL (0.00-0.02); Immature Granulocytes % (auto) 0.2 %; Lymphocytes % (auto) 11.3 %; Monocytes # (auto) 0.27 K/uL (0.11-0.59); Monocytes % (auto) 4.4 %; Neutrophils # (auto) 5.18 K/uL (1.4-6.5); Neutrophils % (auto) 83.9 %; RBC Morphology Unremarkable
[2021-09-07 06:46] LABS: Albumin Globulin Ratio 0.6 (0.9-2); Albumin Level 2.1 gm/dl (3.4-5.0); BUN Creatinine Ratio 14.6 (10-20); Bilirubin,Total 0.6 mg/dl (0.2-1); Calcium 7.7 mg/dl (8.5-10.1); Creatinine Clr Calc Pharmacy 10.7 ml/min; Est GFR (African American) 13.1 ml/min; Est GFR (Non-African American) 11.3 ml/min; Globulin 3.5 gm/dl (2.5-4.0); Potassium 3.4 mmol/L (3.5-5.1); Total Protein 5.6 gm/dl (6.4-8.2); Troponin I 0.525 ng/ml (0-0.045)
[2021-09-07] MEDS ORDERED: STAT IV STA ×2 (06:51→18:02)
[2021-09-07] MEDS ORDERED: SODIUM BICARBONATE 8.4% 150 MEQ in DEXTROSE 5% 1,000 ML IV SCH (07:00)
[2021-09-07] MEDS ORDERED: LACTATED RINGER'S 1,000 ML IV ONE ×2 (08:36→09:45)
[2021-09-07] MEDS ORDERED: POTASSIUM CHLORIDE CRTAB 20 MEQ TABCR PO STA (08:39)
[2021-09-07] MEDS ORDERED: FERROUS SULFATE 325 MG TAB PO SCH (09:00)
[2021-09-07] MEDS ORDERED: VANCOMYCIN HCL 1,000 MG in SODIUM CHLORIDE 0.9% 250 ML IV SCH (09:00)
[2021-09-07] MEDS ORDERED: ENOXAPARIN INJ 30 MG/0.3 ML SYR SQ SCH (09:00)
[2021-09-07] MEDS ORDERED: CEROVITE ADV FORMULA TAB PO SCH (09:00)
[2021-09-07] MEDS ORDERED: LOSARTAN POTASSIUM 50 MG TAB PO SCH (09:00)
[2021-09-07] MEDS ORDERED: CHOLECALCIFEROL 1,000 UNITS 25 MCG TAB PO SCH (09:00)
--- NOTE | 2021-09-07 09:48 | Pharmacy Report ---
Pharmacy Abx Dose Short Note - Date of Service September 07, 2021 - Assessment & Plan Assessment 75 year old M receiving IV Vancomycin + Zosyn for empiric treatment of sepsis Day # 2 of antimicrobial therapy, pt immunocompromised, lung cancer, with Rhabdomyolysis/acute renal failure- CK 8707, creatinine 4.6 with baseline 1.05 Procal > 200 WBC normal Blood cultures pending Plan Vancomycin * Random level of 19.7 mcg/mL is therapeutic * Will continue to dose empirically based on blood levels d/t ARF * Vancomycin 750mg IV x1 dose now, then random level with AM labs Pharmacy will continue to follow and will adjust dose/frequency as necessary. Thank you.
[2021-09-07] MEDS ORDERED: VANCOMYCIN HCL 750 MG in SODIUM CHLORIDE 0.9% 250 ML IV ONE (10:00)
[2021-09-07] MEDS ORDERED: STAT IV Infusion **Titration per Protocol STA (10:22)
[2021-09-07] MEDS ORDERED: NOREPINEPHRINE/D5W 8 MG/508 ML BAG IV SCH (10:30)
--- NOTE | 2021-09-07 10:34 | Electrocardiogram Report ---
Test Reason : Blood Pressure : / mmHG Vent. Rate : 101 BPM Atrial Rate : 101 BPM P-R Int : 142 ms QRS Dur : 078 ms QT Int : 344 ms P-R-T Axes : 057 059 059 degrees QTc Int : 446 ms Poor data quality, interpretation may be adversely affected Sinus tachycardia with Premature supraventricular complexes and Premature ventricular complexes Possible Left atrial enlargement T wave abnormality, consider lateral ischemia Abnormal ECG When compared with ECG of 23-AUG-2021 18:26, Significant changes have occurred Confirmed by Raffy Dawn ([id number]) on 09/07/2021 10:33:58 AM Referred By: REFERRED SELF Confirmed By:Raffy Dawn
[2021-09-07] MEDS: FAMOTIDINE 20 MG TAB PO SCH (10:48)
[2021-09-07] MEDS: HEPARIN SOD 5,000 UNIT/0.5 ML VIAL SC SCH ×2 (10:49→21:55)
[2021-09-07] MEDS ORDERED: VANCOMYCIN HCL 500 MG in 0.9 % SODIUM CHLORIDE 100 ML IV ONE (11:00)
--- NOTE | 2021-09-07 11:13 | Hospitalist Progress Note ---
Date of Service September 07, 2021 Assessment & Plan (1) Shock: Plan: Likely secondary to sepsis and hypovolemic shock, with associated acute kidney injury, myocardial demand ischemia With lactic acidosis and high anion gap metabolic acidosis Blood pressure 60/40 this morning despite 2 L normal saline Hemoglobin low but stable at 9.8 -Bolused two more liters of LR and blood pressure still in the 70s over 50s systolic, lactate remains back within normal limits -Procalcitonin greater than 200 but could be falsely positive in the setting of rhabdomyolysis -Transferred to ICU and started on Levophed through peripheral IV, may need central line later if not able to be weaned off by this evening -Continue broad-spectrum antibiotics with IV Zosyn and vancomycin -Follow blood cultures -Urinalysis still not collected as Bautista catheterization was unsuccessful-attemp t to collect UA and urine culture -Follow CBC, CMP, magnesium, phosphorus (2) Acute renal failure: Plan: With acute kidney injury with creatinine up to 4.6, BUN up to 68, worsening since admission With high anion gap metabolic acidosis Secondary to septic shock and hypovolemia from diarrhea, as well as rhabdomyolysis UA unable to be collected so far With a history of proteinuria last admission (last week) With small amount of urine in the bladder on bladder scan, renal ultrasound normal here -Continue hydrating with IV fluids -Starting vasopressors as above -Appreciate nephrology consultation -Follow serial BMP -Continue sodium bicarbonate drip (3) Lactic acidosis: Plan: Secondary to septic shock as above Following continue hydration Pressure support with vasopressors (4) Elevated troponin: Plan: Troponin 0.541 upon admission and repeat trended downward Likely supply demand mismatch, type II IN Most recent echocardiogram 07/25/2021 with hyperdynamic systolic function, no regional wall motion abnormalities, trace AI, mild pulmonary hypertension No need to repeat echo at this point as troponin is mildly elevated and trending downward Do not suspect acute coronary syndrome (5) Fall: Plan: Secondary to weakness from sepsis and hypotension With possible new versus old nasal bone fracture on the right, however patient does not clinically have any pain there and this is likely old With neck pain-check CT neck-negative (6) Rhabdomyolysis: Plan: Rhabdomyolysis/acute renal failure- CK 8707, creatinine 4.44 with baseline 1.05 upon admission CK now trending downward to 7000, creatinine worsening as above Continue IV fluids Follow CPK in the morning Nephrology following Follow Phos, magnesium, CMP Continue sodium bicarbonate drip (7) Lung cancer: Plan: Lung cancer, presently undergoing chemotherapy and hold home chemotherapy agents (8) Adenocarcinoma of prostate: Plan: Hold home Terazosin due to hypotension (9) Renal cell carcinoma: Plan: Noted with history of cryotherapy Follows with urology as an outpatient (10) Essential hypertension: Plan: hold atenolol, felodipine, and losartan, as well as Terazosin (11) Nasal fracture: Plan: As above, likely chronic (12) Neck pain: Plan: [place] whiplash therapy CT neck negative for fracture Plan: DVT prophylaxis-Heparin SQ Disposition-transfer to ICU for septic shock as above Admission and Anticipated Discharge Date Admission Date: September 06, 2021 Subjective Patient was having significant hypotension this morning with blood pressure 60/40. He was still mentating. Complained of some pain in the back of his neck from his fall, but denied nasal or facial pain. Also some pain in the knees. No abdominal pain but continues to have incontinence to loose stools. Reports he started having chills a few days ago and then was just so weak that he fell on the ground he thinks for at least many hours but does not recall exactly how long he was down. He remembers being so weak that he could not get up. I discussed his care with his son on the phone. Patient denies chest pains but has some shortness of breath and is requiring oxygen. I discussed his care with the superintendent [employer] mixing [employer]. After receiving a total of 4 L of crystalloid fluid since admission without improvement of his blood pressure, recommendation was to start Levophed and transferred to the ICU. The nurse tried to place Bautista catheter but was unable to pass and the patient refused further tries. Review of Systems Review of Systems: All systems reviewed & are unremarkable except as noted in HPI & below Physical Exam Constitutional: + ill appearing and + underweight Eyes: + anicteric sclerae ENMT: external ear and nose normal, oropharynx normal Neck: trachea midline, no thyromegaly (+TTP over paraspinous muscles but not over spinous processes) Respiratory: normal respiratory effort; no cough Auscultation: + rhonchi (right lower lung field); no crackles and no wheezes Cardiovascular: RRR, no murmur, no edema Chest (Breasts): Chest: normal inspection of chest Gastrointestinal (Abdomen): normal bowel sounds, soft, nontender, no hepatosplenomegaly Musculoskeletal: Extremities: extremities normal to inspection; no cyanosis and no clubbing No tenderness palpation over bilateral knees Skin: no rashes, warm and dry Neurologic: moves all extremities and awake; no focal motor deficits Psychiatric: A+Ox3, euthymic affect Lymphatic: no lymphedema Results & Data Results & Data ([facility]) Vital Signs (Past 12 Hours) Vital Signs Pulse Pulse Ox Pulse Ox 09/07/21 01:35 83 95 09/07/21 01:33 91 Laboratory Results 09/07/21 09/07/21 09/07/21 Range/Units 15:00 12:48 12:48 WBC (4.8-10.8) K/uL RBC (4.7-6.1) M/uL Hgb (14.0-18.0) g/dL Hct (42-52) % MCV (80-100) fL MCH (25-34) pg MCHC (32-36) g/dL RDW Std Deviation (36.4-46.3) fL RDW Coeff of Girish (11.5-14.5) % Plt Count (130-400) K/uL MPV (7.4-10.4) fL Immature Gran % (Auto) % Neut % (Auto) % Lymph % (Auto) % [place] % (Auto) % Eos % (Auto) % Baso % (Auto) % Neut # (Auto) (1.4-6.5) K/uL Lymph # (Auto) (1.2-3.4) K/uL [place] # (Auto) (0.11-0.59) K/uL Eos # (Auto) (0-0.5) K/uL Baso # (Auto) (0-0.2) K/uL Immature Gran # (Auto) (0.00-0.02) K/uL RBC Morphology Sodium 143 (136-145) mmol/L Potassium 3.7 (3.5-5.1) mmol/L Chloride 111 H (98-107) mmol/L Carbon Dioxide 17 L (21-32) mmol/L Anion Gap 15.0 H (3-11) BUN 70 H (7-18) mg/dl Creatinine 4.52 H* (0.6-1.4) mg/dl Est Cr Clr Drug Dosing 10.9 ml/min Est GFR ( Amer) 13.5 ml/min Est GFR (Non-Af Amer) 11.7 ml/min BUN/Creatinine Ratio 15.4 (10-20) Glucose 177 H (70-99) mg/dl Lactate (0.4-2.0) mmol/L Calcium 7.0 L (8.5-10.1) mg/dl Phosphorus 5.3 H (2.5-4.9) mg/dl Magnesium 2.2 (1.8-2.4) mg/dl Total Bilirubin (0.2-1) mg/dl AST (15-37) U/L ALT (12-78) Alkaline Phosphatase (45-117) U/L Total Creatine Kinase 7941 H (39-308) U/L Troponin I 0.316 H* (0-0.045) ng/ml Total Protein (6.4-8.2) gm/dl Albumin 2.4 L (3.4-5.0) gm/dl Globulin (2.5-4.0) gm/dl Albumin/Globulin Ratio (0.9-2) Procalcitonin (0-0.5) ng/ml Random Cortisol Nasal Screen MRSA (PCR) Negative (Negative) Random Vancomycin mcg/ml 09/07/21 09/07/21 09/07/21 Range/Units 09:07 09:07 04:47 WBC (4.8-10.8) K/uL RBC (4.7-6.1) M/uL Hgb (14.0-18.0) g/dL Hct (42-52) % MCV (80-100) fL MCH (25-34) pg MCHC (32-36) g/dL RDW Std Deviation (36.4-46.3) fL RDW Coeff of Girish (11.5-14.5) % Plt Count (130-400) K/uL MPV (7.4-10.4) fL Immature Gran % (Auto) % Neut % (Auto) % Lymph % (Auto) % [place] % (Auto) % Eos % (Auto) % Baso % (Auto) % Neut # (Auto) (1.4-6.5) K/uL Lymph # (Auto) (1.2-3.4) K/uL [place] # (Auto) (0.11-0.59) K/uL Eos # (Auto) (0-0.5) K/uL Baso # (Auto) (0-0.2) K/uL Immature Gran # (Auto) (0.00-0.02) K/uL RBC Morphology Sodium (136-145) mmol/L Potassium (3.5-5.1) mmol/L Chloride (98-107) mmol/L Carbon Dioxide (21-32) mmol/L Anion Gap (3-11) BUN (7-18) mg/dl Creatinine (0.6-1.4) mg/dl Est Cr Clr Drug Dosing ml/min Est GFR ( Amer) ml/min Est GFR (Non-Af Amer) ml/min BUN/Creatinine Ratio (10-20) Glucose (70-99) mg/dl Lactate 1.6 (0.4-2.0) mmol/L Calcium (8.5-10.1) mg/dl Phosphorus (2.5-4.9) mg/dl Magnesium (1.8-2.4) mg/dl Total Bilirubin (0.2-1) mg/dl AST (15-37) U/L ALT (12-78) Alkaline Phosphatase (45-117) U/L Total Creatine Kinase (39-308) U/L Troponin I (0-0.045) ng/ml Total Protein (6.4-8.2) gm/dl Albumin (3.4-5.0) gm/dl Globulin (2.5-4.0) gm/dl Albumin/Globulin Ratio (0.9-2) Procalcitonin (0-0.5) ng/ml Random Cortisol Pending Nasal Screen MRSA (PCR) (Negative) Random Vancomycin 19.7 mcg/ml 09/07/21 09/07/21 09/06/21 Range/Units 04:47 04:47 19:36 WBC 6.17 (4.8-10.8) K/uL RBC 3.53 L (4.7-6.1) M/uL Hgb 9.8 L D (14.0-18.0) g/dL Hct 30.4 L (42-52) % MCV 86.1 (80-100) fL MCH 27.8 (25-34) pg MCHC 32.2 (32-36) g/dL RDW Std Deviation 44.8 (36.4-46.3) fL RDW Coeff of Girish 14.5 (11.5-14.5) % Plt Count 69 L (130-400) K/uL MPV 11.6 H (7.4-10.4) fL Immature Gran % (Auto) 0.2 % Neut % (Auto) 83.9 % Lymph % (Auto) 11.3 % [place] % (Auto) 4.4 % Eos % (Auto) 0.0 % Baso % (Auto) 0.2 % Neut # (Auto) 5.18 (1.4-6.5) K/uL Lymph # (Auto) 0.70 L (1.2-3.4) K/uL [place] # (Auto) 0.27 (0.11-0.59) K/uL Eos # (Auto) 0.00 (0-0.5) K/uL Baso # (Auto) 0.01 (0-0.2) K/uL Immature Gran # (Auto) 0.01 (0.00-0.02) K/uL RBC Morphology Unremarkable Sodium 140 (136-145) mmol/L Potassium 3.4 L (3.5-5.1) mmol/L Chloride 110 H (98-107) mmol/L Carbon Dioxide 18 L (21-32) mmol/L Anion Gap 12.0 H (3-11) BUN 68 H (7-18) mg/dl Creatinine 4.64 H* (0.6-1.4) mg/dl Est Cr Clr Drug Dosing 10.7 ml/min Est GFR ( Amer) 13.1 ml/min Est GFR (Non-Af Amer) 11.3 ml/min BUN/Creatinine Ratio 14.6 (10-20) Glucose 102 H (70-99) mg/dl Lactate 1.9 (0.4-2.0) mmol/L Calcium 7.7 L (8.5-10.1) mg/dl Phosphorus (2.5-4.9) mg/dl Magnesium (1.8-2.4) mg/dl Total Bilirubin 0.6 (0.2-1) mg/dl AST 338 H (15-37) U/L ALT 46 (12-78) Alkaline Phosphatase 82 (45-117) U/L Total Creatine Kinase 54745 H (39-308) U/L Troponin I 0.525 H* (0-0.045) ng/ml Total Protein 5.6 L (6.4-8.2) gm/dl Albumin 2.1 L (3.4-5.0) gm/dl Globulin 3.5 (2.5-4.0) gm/dl Albumin/Globulin Ratio 0.6 L (0.9-2) Procalcitonin (0-0.5) ng/ml Random Cortisol Nasal Screen MRSA (PCR) (Negative) Random Vancomycin mcg/ml 09/06/21 Range/Units 17:35 WBC (4.8-10.8) K/uL RBC (4.7-6.1) M/uL Hgb (14.0-18.0) g/dL Hct (42-52) % MCV (80-100) fL MCH (25-34) pg MCHC (32-36) g/dL RDW Std Deviation (36.4-46.3) fL RDW Coeff of Girish (11.5-14.5) % Plt Count (130-400) K/uL MPV (7.4-10.4) fL Immature Gran % (Auto) % Neut % (Auto) % Lymph % (Auto) % [place] % (Auto) % Eos % (Auto) % Baso % (Auto) % Neut # (Auto) (1.4-6.5) K/uL Lymph # (Auto) (1.2-3.4) K/uL [place] # (Auto) (0.11-0.59) K/uL Eos # (Auto) (0-0.5) K/uL Baso # (Auto) (0-0.2) K/uL Immature Gran # (Auto) (0.00-0.02) K/uL RBC Morphology Sodium (136-145) mmol/L Potassium (3.5-5.1) mmol/L Chloride (98-107) mmol/L Carbon Dioxide (21-32) mmol/L Anion Gap (3-11) BUN (7-18) mg/dl Creatinine (0.6-1.4) mg/dl Est Cr Clr Drug Dosing ml/min Est GFR ( Amer) ml/min Est GFR (Non-Af Amer) ml/min BUN/Creatinine Ratio (10-20) Glucose (70-99) mg/dl Lactate (0.4-2.0) mmol/L Calcium (8.5-10.1) mg/dl Phosphorus (2.5-4.9) mg/dl Magnesium (1.8-2.4) mg/dl Total Bilirubin (0.2-1) mg/dl AST (15-37) U/L ALT (12-78) Alkaline Phosphatase (45-117) U/L Total Creatine Kinase (39-308) U/L Troponin I (0-0.045) ng/ml Total Protein (6.4-8.2) gm/dl Albumin (3.4-5.0) gm/dl Globulin (2.5-4.0) gm/dl Albumin/Globulin Ratio (0.9-2) Procalcitonin > 200.00 H (0-0.5) ng/ml Random Cortisol Nasal Screen MRSA (PCR) (Negative) Random Vancomycin mcg/ml Diagnostic Findings Cervical Spine CT 09/07/21 11:14 CT cervical spine wo con CLINICAL HISTORY: fall, posterior neck pain TECHNIQUE: Multidetector row helical CT of the cervical spine was performed without administration of intravenous contrast. Coronal and sagittal reformations were obtained. Automated dose lowering techniques and/or adjustment according to patient size were utilized for this exam. Comparison: None available at the time of this dictation. FINDINGS: No acute fractures or subluxations are identified. The alignment is normal. Degenerative changes are seen in the visualized spine. The prevertebral soft tissues are unremarkable. IMPRESSION: No evidence of acute bony injury. ACT 112: Negative or not required by law. Electronically signed by: Eitan Whitfield M.D. 09/07/2021 3:07 PM Renal Ultrasound 09/07/21 16:49 US renal/blad retro comp CLINICAL HISTORY: SEN TECHNIQUE: Multiple sonographic real-time images of the kidneys and bladder were obtained. COMPARISON: None available at the time of this dictation. FINDINGS: The right kidney measures 10.3 cm in length, and the left kidney measures 10.5 cm in length. The right kidney is normal in size, contour, cortical thickness, and echogenicity. No hydronephrosis is identified. Simple appearing cysts are seen. No perinephric fluid collection is seen. The left kidney is normal in size, contour, cortical thickness and echogenicity. 2 renal cysts are noted. No renal lesion is identified. No perinephric fluid collection is seen. The bladder is partially distended. No large intraluminal mass is seen. IMPRESSION: No evidence of hydronephrosis bilaterally. Renal cysts are seen. ACT 112: Negative or not required by law. Electronically signed by: Eitan Whitfield M.D. 09/07/2021 5:34 PM PG Care Time/CCT Total # of Minutes Spent Total Time Spent with Patient: Total time spent is greater than 50% in coordination of care (as documented) at patient's floor/unit and/or counseling patient: Coding Level of Care Code 38388 Subseq Hosp Care Lvl 3 Diagnoses Elevated troponin R77.8 Rhabdomyolysis M62.82 Rhabdomyolysis type: non-traumatic Acute renal failure N17.9 Acute renal failure type: unspecified Lung cancer C34.90 Adenocarcinoma of prostate C61 Renal cell carcinoma C64.9 Essential hypertension I10 Shock R57.9 Lactic acidosis E87.2 Fall W19.XXXA Nasal fracture S02.2XXA Neck pain M54.2 (1) Acute renal failure Acute renal failure type: unspecified Qualified Code(s): N17.9 - Acute kidney failure, unspecified (2) Rhabdomyolysis Rhabdomyolysis type: non-traumatic Qualified Code(s): M62.82 - Rhabdomyolysis
[2021-09-07] MEDS ORDERED: ICU PROTOCOL FOR HYPERGLYCEMIA PRN (14:30)
--- NOTE | 2021-09-07 15:08 | CT Scan Report ---
CT cervical spine wo con CLINICAL HISTORY: fall, posterior neck pain TECHNIQUE: Multidetector row helical CT of the cervical spine was performed without administration of intravenous contrast. Coronal and sagittal reformations were obtained. Automated dose lowering techn iques and/or adjustment according to patient size were utilized for this exam. Comparison: None available at the time of this dictation. FINDINGS: No acute fractures or subluxations are identified. The alignment is normal. Degenerative changes are seen in the visualized spine. The prevertebral soft tissues are unremarkable. IMPRESSION: No evidence of acute bony injury. ACT 112: Negative or not required by law. Electronically signed by: Eitan Whitfield M.D. 09/07/2021 3:07 PM
[2021-09-07] MEDS ORDERED: NORMOSOL-R 500 ML IV ONE (16:48)
--- NOTE | 2021-09-07 16:51 | Nephrology Consultation ---
Date of Consultation September 07, 2021 Assessment & Plan (1) Acute renal failure: Prerenal + rhabdomyolysis. Urine output not able to be documented due to incontinence. Challenge with additional 500 ml bolus Normosol now. Renal US requested. Unable to obtain UA/microscopy. Goals of care reviewed. Repeat metabolic profile + PO4 + CK now. Medications appropriate for kidney dysfunction. (2) Rhabdomyolysis: Repeat CK now. Found down at home --- precipitating event unclear. Tele monitor. Dabrafenib and trametinib held. Continue NaHCO3 gtt. (3) Lactic acidosis: MAP goal >65. Weaning levophed. History of Present Illness Reason for Consultation: SEN Requesting Physician: Amanda Hurley MD Attending Physician: Amanda Hurley MD History of Present Illness Mr. Regino Wayne is a 75 year-old male with metastatic poorly differentiated lung adenocarcinoma on palliative therapy with dabrafenib and trametinib. Medical history notable for prostate cancer treated with prostatectomy in 2009 and a papillary renal cell treated with cryoblation in 2016. Medical history also notable for hypertension and recent issues with dysphagia. Livan has had evidence of failure to thrive over the past several months with notable weight loss and progressive weakness. Livan continues to live alone. He admits that he is having more difficulty maintaining indepen dence. He has friends checking in regularly at home. Livan does not recall falling at home. He did suffer an unwitnessed fall with head injury and was found down at home by a friend. Head CT demonstrating a scalp hematoma and possible broken nose. Laboratory studies demonstrating SEN and rhabdomyolysis. CK trending 8700 to [address]. Incontinent of urine. I/O's not accurate. Bladder scan for 130 ml. Bautista not able to be placed after 2 attempts and subsequently refused by patient. The patient was transferred to the ICU today, after he remained hypotensive post 2 L of IV Normosol and IV albumin. Levophed gtt started on transfer. Overnight, IV NSS provided which was converted to a NaHCO3 gtt. Baseline creatinine is normal <1 mg/dL. Creatinine 4.44 mg/dL on admission increased to 4.64 mg/dL. I discussed dialysis briefly with Livan. He has never previously seen a delivery merchandiser. His [id number] is on hemodialysis and he has some insight into the treatments. EKG/tele demonstrating sinus tachycardia and PVC's. QTc 446. Allergies Allergy/AdvReac Type Severity Reaction Status Date / Time No Known Allergies Allergy Verified 09/06/21 17:37 Home Medications Medication Instructions Recorded Confirmed Type cholecalciferol (vitamin D3) 25 1,000 unit PO QAM 07/02/18 09/06/21 History mcg (1,000 unit) tablet (Vitamin D3) ferrous sulfate 325 mg (65 mg 325 mg PO QAM tab 09/08/19 09/06/21 History iron) tablet,delayed release famotidine 20 mg tablet (Pepcid) 20 mg PO QAM 11/23/19 09/06/21 History ondansetron 8 mg disintegrating 8 mg PO Q8 PRN 11/23/19 09/06/21 History tablet albuterol sulfate 90 mcg/actuation 2 puff INHALATION Q4 PRN #18 gm 10/11/20 09/06/21 Rx aerosol inhaler (Ventolin HFA) fluticasone propionate 220 2 puff INH BID #3 inhaler 10/11/20 09/06/21 Rx mcg/actuation HFA aerosol inhaler (Flovent HFA) losartan 100 mg tablet (Cozaar) 100 mg PO QAM #90 tab 03/07/21 09/06/21 Rx terazosin 5 mg capsule 5 mg PO HS #90 cap 03/07/21 09/06/21 Rx atenolol 25 mg tablet (Tenormin) 25 mg PO BID #180 tab 06/07/21 09/06/21 Rx sertraline 100 mg tablet (Zoloft) 200 mg PO HS #180 tab 06/07/21 09/06/21 Rx potassium chloride 10 mEq 30 meq PO BID #540 tab 06/24/21 09/06/21 Rx tablet,extended release(part/cryst) (Klor-Con M) cyanocobalamin (vitamin B-12) 1,000 mcg IM MONTHLY 08/24/21 09/06/21 History 1,000 mcg/mL injection solution dabrafenib 75 mg capsule (Tafinlar) 150 mg PO Q12 08/24/21 09/06/21 History felodipine 5 mg tablet,extended 5 mg PO AMPM 08/24/21 09/06/21 History release 24 hr multivitamin with minerals 1 tab PO BID 08/24/21 09/06/21 History (Multiple Vitamin-Minerals) omega 9-xuy-smo-fish oil 1,200 mg 1 cap PO DAILY 08/24/21 09/06/21 History (144 mg-216 mg) capsule (Fish Oil) prochlorperazine maleate 10 mg 10 mg PO Q6 PRN 08/24/21 09/06/21 History tablet trametinib 2 mg tablet (Mekinist) 2 mg PO DAILY 08/24/21 09/06/21 History loperamide 2 mg capsule 2 mg PO Q4H PRN #30 cap 08/28/21 09/06/21 Rx acetaminophen 325 mg tablet 650 mg PO DIRECTED PRN 09/06/21 09/06/21 History (Tylenol) psyllium husk 0.4 gram capsule 0.4 g PO DAILY 09/06/21 09/06/21 History (Metamucil) Patient History Medical History (Updated 09/07/21 @ 11:13 by Amanda Hurley MD) Adenocarcinoma of prostate Anemia 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 per records Anxiety Asthma well controlled Bladder neck contracture Cancer of kidney s/p cryoablation Chronic back pain Diastasis recti Dysphagia per remote records Essential hypertension GERD (gastroesophageal reflux disease) Hyperlipidemia Hypertension Inguinal hernia of left side without obstruction or gangrene Irritable bowel syndrome Lung cancer 7 years ago, s/p surgery Male stress incontinence Migraine ocular Non-small cell carcinoma of lung Osteoarthritis Renal cell carcinoma Sensorineural hearing loss (SNHL) of both ears Umbilical hernia Surgical History H/O basal cell carcinoma excision x2 H/O radical prostatectomy H/O straightening of nasal septum H/O vasectomy History of colonoscopy History of esophagogastroduodenoscopy (EGD) History of lung surgery RIGHT > 7 YRS AGO History of right cataract extraction Family History Mother Parkinson disease Father Colon cancer Colorectal cancer Other FHx: cancer Family history of diabetes mellitus Family history of high blood pressure Family history of lung disease No family history of adverse response to anesthesia Denies family history of Ovarian cancer Prostate cancer Myocardial infarction Breast cancer Social History Smoking Status: Former smoker Second Hand Exposure: No; Hx Alcohol Use: No Hx Substance Use: No Preferred Language: Setswana Communication Ability: Effective Visual Impairment: No Limitations Hearing Ability: Normal Breast Surgeon Required: No Beliefs That Will Affect Care: None marital status: / Current Living Situation: Alone current occupational status: retired Feels Safe at Home: Yes Childhood Exposure to Second-Hand Smoke: Yes Dental Care, Regularly: Yes Physical Activity Frequency: Does not Exercise Seatbelt Use: always Sunscreen Use: Yes Assistive Devices: Glasses Review of Systems Review of Systems: All systems reviewed & are unremarkable except as noted in HPI & below Physical Exam Constitutional: + ill appearing, + cachectic and + frail appearing; no acute distress Eyes: + anicteric sclerae; no corneal abnormality ENMT: Mouth: + dry oral mucous membranes; no oral mucosal abnormality Neck: normal visual inspection and trachea midline Respiratory: normal respiratory effort Auscultation: lungs clear to auscultation bilaterally Cardiovascular: Rate/Rhythm: regular rate Heart Sounds: normal S1 and normal S2 Extremities: no edema Musculoskeletal: Extremities: no cyanosis and no clubbing Skin: normal turgor; no lesions Neurologic: Motor/Sensory: no tremor and no asterixis Psychiatric: Orientation: alert and oriented x 3 Results & Data ([facility]) Vital Signs (Past 12 Hours) Vital Signs Pulse Resp BP Pulse Ox 09/07/21 16:00 71 19 121/69 94 09/07/21 15:24 72 09/07/21 15:00 78 19 101/67 98 09/07/21 14:00 63 18 100 09/07/21 13:30 69 21 100 09/07/21 13:00 72 16 98 09/07/21 12:45 67 17 104/56 L 100 09/07/21 12:30 77 22 99 09/07/21 12:15 75 6 L 97 09/07/21 12:00 97 H 11 L 92/53 L 97 09/07/21 11:45 108 H 13 97 09/07/21 11:30 100 H 23 95 09/07/21 11:15 103 H 29 H 89 L 09/07/21 11:00 103 H 11 L 90 09/07/21 10:45 94 H 17 92/50 L 95 09/07/21 10:30 98 H 16 96 09/07/21 10:15 92 H 7 L 77/48 L 96 09/07/21 10:00 94 H 9 L 92 09/07/21 09:45 97 H 11 L 77/48 L 99 09/07/21 09:30 90 10 L 99 09/07/21 09:15 89 13 100 09/07/21 09:00 96 H 14 100 09/07/21 08:45 90 18 98 09/07/21 08:30 98 H 20 100 09/07/21 08:15 96 H 22 98 09/07/21 08:00 92 H 14 90 09/07/21 07:45 93 H 14 100 09/07/21 07:30 99 H 17 100 09/07/21 07:15 65 14 99 09/07/21 07:00 69 15 97 09/07/21 06:45 68 13 96 09/07/21 06:30 63 5 L 90/44 L 98 09/07/21 06:15 66 18 97 09/07/21 06:00 65 17 93 09/07/21 05:45 75 26 H 09/07/21 05:30 66 20 97 09/07/21 05:15 78 17 89 L 09/07/21 05:00 71 22 78/42 L 90 Laboratory Results Laboratory Results - last 24 hr 09/06/21 09/06/21 09/06/21 17:35 17:35 17:35 WBC 10.52 RBC 4.66 L Hgb 13.2 L Hct 40.4 L MCV 86.7 MCH 28.3 MCHC 32.7 RDW Std Deviation 44.3 RDW Coeff of Girish 14.2 Plt Count 97 L MPV 11.4 H Immature Gran % (Auto) 0.2 Neut % (Auto) 87.6 Lymph % (Auto) 9.0 [place] % (Auto) 3.0 Eos % (Auto) 0.0 Baso % (Auto) 0.2 Neut # (Auto) 9.21 H Lymph # (Auto) 0.95 L [place] # (Auto) 0.32 Eos # (Auto) 0.00 Baso # (Auto) 0.02 Immature Gran # (Auto) 0.02 Hyposegmented Neuts 1+ Dohle Bodies 1+ Platelet Estimate Decreased L RBC Morphology PT 13.9 H INR 1.4 H APTT 43.9 H PTT Ratio 1.7 Sodium 138 Potassium 3.6 Chloride 103 Carbon Dioxide 26 Anion Gap 9.0 BUN 62 H Creatinine 4.44 H Est Cr Clr Drug Dosing 11.2 Est GFR ( Amer) 13.8 Est GFR (Non-Af Amer) 11.9 BUN/Creatinine Ratio 14.0 Glucose 120 H Lactate Calcium 8.9 Phosphorus Magnesium 2.5 H Total Bilirubin 0.8 AST 311 H ALT 40 Alkaline Phosphatase 111 Total Creatine Kinase 8707 H Troponin I 0.541 H* Total Protein 7.0 Albumin 2.5 L Globulin 4.5 H Albumin/Globulin Ratio 0.6 L Procalcitonin Random Cortisol Nasal Screen MRSA (PCR) Random Vancomycin SARS-CoV-2 (PCR) Influenza Type A (PCR) Influenza Type B (PCR) RSV (RT-PCR) 09/06/21 09/06/21 09/06/21 17:35 17:35 19:36 WBC RBC Hgb Hct MCV MCH MCHC RDW Std Deviation RDW Coeff of Girish Plt Count MPV Immature Gran % (Auto) Neut % (Auto) Lymph % (Auto) [place] % (Auto) Eos % (Auto) Baso % (Auto) Neut # (Auto) Lymph # (Auto) [place] # (Auto) Eos # (Auto) Baso # (Auto) Immature Gran # (Auto) Hyposegmented Neuts Dohle Bodies Platelet Estimate RBC Morphology PT INR APTT PTT Ratio Sodium Potassium Chloride Carbon Dioxide Anion Gap BUN Creatinine Est Cr Clr Drug Dosing Est GFR ( Amer) Est GFR (Non-Af Amer) BUN/Creatinine Ratio Glucose Lactate 2.1 H* 1.9 Calcium Phosphorus Magnesium Total Bilirubin AST ALT Alkaline Phosphatase Total Creatine Kinase Troponin I Total Protein Albumin Globulin Albumin/Globulin Ratio Procalcitonin > 200.00 H Random Cortisol Nasal Screen MRSA (PCR) Random Vancomycin SARS-CoV-2 (PCR) Influenza Type A (PCR) Influenza Type B (PCR) RSV (RT-PCR) 09/06/21 09/07/21 09/07/21 Unknown 04:47 04:47 WBC 6.17 RBC 3.53 L Hgb 9.8 L D Hct 30.4 L MCV 86.1 MCH 27.8 MCHC 32.2 RDW Std Deviation 44.8 RDW Coeff of Girish 14.5 Plt Count 69 L MPV 11.6 H Immature Gran % (Auto) 0.2 Neut % (Auto) 83.9 Lymph % (Auto) 11.3 [place] % (Auto) 4.4 Eos % (Auto) 0.0 Baso % (Auto) 0.2 Neut # (Auto) 5.18 Lymph # (Auto) 0.70 L [place] # (Auto) 0.27 Eos # (Auto) 0.00 Baso # (Auto) 0.01 Immature Gran # (Auto) 0.01 Hyposegmented Neuts Dohle Bodies Platelet Estimate RBC Morphology Unremarkable PT INR APTT PTT Ratio Sodium 140 Potassium 3.4 L Chloride 110 H Carbon Dioxide 18 L Anion Gap 12.0 H BUN 68 H Creatinine 4.64 H* Est Cr Clr Drug Dosing 10.7 Est GFR ( Amer) 13.1 Est GFR (Non-Af Amer) 11.3 BUN/Creatinine Ratio 14.6 Glucose 102 H Lactate Calcium 7.7 L Phosphorus Magnesium Total Bilirubin 0.6 AST 338 H ALT 46 Alkaline Phosphatase 82 Total Creatine Kinase 68151 H Troponin I 0.525 H* Total Protein 5.6 L Albumin 2.1 L Globulin 3.5 Albumin/Globulin Ratio 0.6 L Procalcitonin Random Cortisol Nasal Screen MRSA (PCR) Random Vancomycin SARS-CoV-2 (PCR) NEGATIVE Influenza Type A (PCR) Negative Influenza Type B (PCR) Negative RSV (RT-PCR) Negative 09/07/21 09/07/21 09/07/21 04:47 09:07 09:07 WBC RBC Hgb Hct MCV MCH MCHC RDW Std Deviation RDW Coeff of Girish Plt Count MPV Immature Gran % (Auto) Neut % (Auto) Lymph % (Auto) [place] % (Auto) Eos % (Auto) Baso % (Auto) Neut # (Auto) Lymph # (Auto) [place] # (Auto) Eos # (Auto) Baso # (Auto) Immature Gran # (Auto) Hyposegmented Neuts Dohle Bodies Platelet Estimate RBC Morphology PT INR APTT PTT Ratio Sodium Potassium Chloride Carbon Dioxide Anion Gap BUN Creatinine Est Cr Clr Drug Dosing Est GFR ( Amer) Est GFR (Non-Af Amer) BUN/Creatinine Ratio Glucose Lactate 1.6 Calcium Phosphorus Magnesium Total Bilirubin AST ALT Alkaline Phosphatase Total Creatine Kinase Troponin I Total Protein Albumin Globulin Albumin/Globulin Ratio Procalcitonin Random Cortisol Pending Nasal Screen MRSA (PCR) Random Vancomycin 19.7 SARS-CoV-2 (PCR) Influenza Type A (PCR) Influenza Type B (PCR) RSV (RT-PCR) 09/07/21 09/07/21 09/07/21 12:48 12:48 15:00 WBC RBC Hgb Hct MCV MCH MCHC RDW Std Deviation RDW Coeff of Girish Plt Count MPV Immature Gran % (Auto) Neut % (Auto) Lymph % (Auto) [place] % (Auto) Eos % (Auto) Baso % (Auto) Neut # (Auto) Lymph # (Auto) [place] # (Auto) Eos # (Auto) Baso # (Auto) Immature Gran # (Auto) Hyposegmented Neuts Dohle Bodies Platelet Estimate RBC Morphology PT INR APTT PTT Ratio Sodium Pending Potassium Pending Chloride Pending Carbon Dioxide Pending Anion Gap Pending BUN Pending Creatinine Pending Est Cr Clr Drug Dosing Pending Est GFR ( Amer) Pending Est GFR (Non-Af Amer) Pending BUN/Creatinine Ratio Pending Glucose Pending Lactate Calcium Pending Phosphorus Pending Magnesium Pending Total Bilirubin AST ALT Alkaline Phosphatase Total Creatine Kinase Pending Troponin I 0.316 H* Total Protein Albumin Pending Globulin Albumin/Globulin Ratio Procalcitonin Random Cortisol Nasal Screen MRSA (PCR) Negative Random Vancomycin SARS-CoV-2 (PCR) Influenza Type A (PCR) Influenza Type B (PCR) RSV (RT-PCR) PG Care Time/CCT Total # of Minutes Spent Total Time Spent with Patient: Total time spent is greater than 50% in coordination of care (as documented) at patient's floor/unit and/or counseling patient: Coding Level of Care Code 04855 Inpt Consult Level 4 Diagnoses Rhabdomyolysis M62.82 Rhabdomyolysis type: non-traumatic Acute renal failure N17.9 Acute renal failure type: unspecified Lactic acidosis E87.2 (1) Rhabdomyolysis Rhabdomyolysis type: non-traumatic Qualified Code(s): M62.82 - Rhabdomyolysis (2) Acute renal failure Acute renal failure type: unspecified Qualified Code(s): N17.9 - Acute kidney failure, unspecified
[2021-09-07 17:25] LABS: Albumin Level 2.4 gm/dl (3.4-5.0); BUN Creatinine Ratio 15.4 (10-20); Creatinine Clr Calc Pharmacy 10.9 ml/min; Est GFR (African American) 13.5 ml/min; Est GFR (Non-African American) 11.7 ml/min; Magnesium 2.2 mg/dl (1.8-2.4); Phosphorus 5.3 mg/dl (2.5-4.9); Potassium 3.7 mmol/L (3.5-5.1)
--- NOTE | 2021-09-07 17:35 | Critical Care Consultation ---
Date of Consultation September 07, 2021 Assessment & Plan (1) Acute renal failure: (2) Rhabdomyolysis: (3) Shock: (4) Non-small cell carcinoma of lung: Chest x-ray 07/07/2021 personally reviewed: portable film, hyperinflated, right costophrenic angle is blunted, left costophrenic angle is clean. No clear lung infiltrate appreciated. --Shock Seems to be a combination of sepsis and hypovolemia Patient has gone appropriate amount of IV fluids Continue with vasopressor support to keep the MAP better than 65 Continue with antibiotics Nasal MRSA negative COVID-19 PCR negative Influenza a and B negative Procalcitonin > 200, this could be seen in case of rhabdo as well --Acute renal failure Likely from dehydration and rhabdomyolysis Continue with IV fluids If there is no improvement patient will need hemodialysis Nephrology is on board Continue with bicarb drip -- HAGMA Likely from elevated BUN Continue to monitor --Rhabdomyolysis CPK 10,000 Etiology is likely from being on the floor for a long time Medication which the patient was taking for palliative --NSTEMI Likely demand ischemia Continue to monitor --Coagulopathy INR 1.4 Vitamin K 5 mg given 09/07/2021 --History of metastatic adenocarcinoma of the lung On palliative chemotherapy Dabrafenib and trametinib On hold while in the hospital --COPD Patient is only on ICS regimen I would rather have the patient on LABA/LAMA regimen --History of renal cell carcinoma as well as prostate cancer S/p surgery --DNI --Prophylaxis VTE: Heparin GI: Pepcid Lines: Peripheral Diet: N.p.o. Plan: Try to write it down vasopressors. If the patient is persistently needing high dose of vasopressors and I will put a central line in. Patient is incontinent. And is refusing Bautista catheter placement. We will repeat BMP to see if the creatinine is going down. Patient might need hemodialysis in future. There is no emergent need for hemodialysis Source of sepsis is unknown right now. UA was not dirty Chest x-ray did not show any significant change compared to before Patient did complain of diarrhea Patient is +6 L his lungs are clear. We will give more monitoring of fluid. Renal ultrasound has been ordered by nephrology. We will follow it up Random cortisol has been ordered. We will follow it up I have personally spent 57 minutes of critical care time in the direct managemen t of this patient. This is a life/limb threatening event. This includes time spent evaluating patie nt, direct bedside care, chart review, placing orders, interpretation of diagnostic studies, discussion with consultants, patient, and family members, as well as other required patient management activities. This time is exclusive of all separately billable procedures, and teaching time and separate from and in addition to any other critical care service time. Please note the above document was generated using voice recognition software. It may contain grammatical, syntax or spelling errors. History of Present Illness Attending Physician: Amanda Hurley MD History of Present Illness 75 year-old male with metastatic poorly differentiated lung adenocarcinoma on palliative therapy with dabrafenib and trametinib presented to the hospital with complaints of generalized weakness. He was also found on the floor for unknown duration of time Past medical history:prostate cancer treated with prostatectomy in 2009 and a papillary renal cell treated with cryoblation in 2016, hypertension Patient was found to be in acute renal failure. He was also hypotensive earlier during the day and did not respond to 3 L of fluid. He was started on Levophed and subsequently sent to the ICU At the time of examination patient was on 0.11 of Levophed. His map was in the 70s. I went down to 0.05 and his map was still in the low 70s. Patient has been complaining of diarrhea since what he can recall. Loose with complaints of chills Denies any dysuria prior to presented to the hospital Denies any headache No blurry vision Complains of cough which has been there for a long time. No change in frequency or consistency. Denies any hemoptysis Social history: Heavy smoker quit approximately 40 years ago Allergies Allergy/AdvReac Type Severity Reaction Status Date / Time No Known Allergies Allergy Verified 09/06/21 17:37 Home Medications Medication Instructions Recorded Confirmed Type cholecalciferol (vitamin D3) 25 1,000 unit PO QAM 07/02/18 09/06/21 History mcg (1,000 unit) tablet (Vitamin D3) ferrous sulfate 325 mg (65 mg 325 mg PO QAM tab 09/08/19 09/06/21 History iron) tablet,delayed release famotidine 20 mg tablet (Pepcid) 20 mg PO QAM 11/23/19 09/06/21 History ondansetron 8 mg disintegrating 8 mg PO Q8 PRN 11/23/19 09/06/21 History tablet albuterol sulfate 90 mcg/actuation 2 puff INHALATION Q4 PRN #18 gm 10/11/20 09/06/21 Rx aerosol inhaler (Ventolin HFA) fluticasone propionate 220 2 puff INH BID #3 inhaler 10/11/20 09/06/21 Rx mcg/actuation HFA aerosol inhaler (Flovent HFA) losartan 100 mg tablet (Cozaar) 100 mg PO QAM #90 tab 03/07/21 09/06/21 Rx terazosin 5 mg capsule 5 mg PO HS #90 cap 03/07/21 09/06/21 Rx atenolol 25 mg tablet (Tenormin) 25 mg PO BID #180 tab 06/07/21 09/06/21 Rx sertraline 100 mg tablet (Zoloft) 200 mg PO HS #180 tab 06/07/21 09/06/21 Rx potassium chloride 10 mEq 30 meq PO BID #540 tab 06/24/21 09/06/21 Rx tablet,extended release(part/cryst) (Klor-Con M) cyanocobalamin (vitamin B-12) 1,000 mcg IM MONTHLY 08/24/21 09/06/21 History 1,000 mcg/mL injection solution dabrafenib 75 mg capsule (Tafinlar) 150 mg PO Q12 08/24/21 09/06/21 History felodipine 5 mg tablet,extended 5 mg PO AMPM 08/24/21 09/06/21 History release 24 hr multivitamin with minerals 1 tab PO BID 08/24/21 09/06/21 History (Multiple Vitamin-Minerals) omega 3-uah-tcl-fish oil 1,200 mg 1 cap PO DAILY 08/24/21 09/06/21 History (144 mg-216 mg) capsule (Fish Oil) prochlorperazine maleate 10 mg 10 mg PO Q6 PRN 08/24/21 09/06/21 History tablet trametinib 2 mg tablet (Mekinist) 2 mg PO DAILY 08/24/21 09/06/21 History loperamide 2 mg capsule 2 mg PO Q4H PRN #30 cap 08/28/21 09/06/21 Rx acetaminophen 325 mg tablet 650 mg PO DIRECTED PRN 09/06/21 09/06/21 History (Tylenol) psyllium husk 0.4 gram capsule 0.4 g PO DAILY 09/06/21 09/06/21 History (Metamucil) Patient History Medical History (Updated 09/07/21 @ 11:13 by Amanda Hurley MD) Adenocarcinoma of prostate Anemia 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 per records Anxiety Asthma well controlled Bladder neck contracture Cancer of kidney s/p cryoablation Chronic back pain Diastasis recti Dysphagia per remote records Essential hypertension GERD (gastroesophageal reflux disease) Hyperlipidemia Hypertension Inguinal hernia of left side without obstruction or gangrene Irritable bowel syndrome Lung cancer 7 years ago, s/p surgery Male stress incontinence Migraine ocular Non-small cell carcinoma of lung Osteoarthritis Renal cell carcinoma Sensorineural hearing loss (SNHL) of both ears Umbilical hernia Surgical History H/O basal cell carcinoma excision x2 H/O radical prostatectomy H/O straightening of nasal septum H/O vasectomy History of colonoscopy History of esophagogastroduodenoscopy (EGD) History of lung surgery RIGHT > 7 YRS AGO History of right cataract extraction Family History Mother Parkinson disease Father Colon cancer Colorectal cancer Other FHx: cancer Family history of diabetes mellitus Family history of high blood pressure Family history of lung disease No family history of adverse response to anesthesia Denies family history of Ovarian cancer Prostate cancer Myocardial infarction Breast cancer Social History Smoking Status: Former smoker Second Hand Exposure: No; Hx Alcohol Use: No Hx Substance Use: No Preferred Language: Bel[place]ian Communication Ability: Effective Visual Impairment: No Limitations Hearing Ability: Normal 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 Beliefs That Will Affect Care: None marital status: / Current Living Situation: Alone current occupational status: retired Feels Safe at Home: Yes Childhood Exposure to Second-Hand Smoke: Yes Dental Care, Regularly: Yes Physical Activity Frequency: Does not Exercise Seatbelt Use: always Sunscreen Use: Yes Assistive Devices: Glasses Review of Systems Review of Systems: All systems reviewed & are unremarkable except as noted in HPI & below Physical Exam Physical Exam: Constitutional: No acute distress, frail-appearing HEENT: EOMI, PERRLA Respiratory system: Decreased air entry bilaterally, no wheeze, rhonchi, mild crackles right lower lobe CVS: S1-S2 positive, no murmurs or gallops Abdomen: Soft, nontender, nondistended, positive bowel sounds x4 Extremities: +2 pulses bilaterally radialis/ dorsalis pedis, no cyanosis, no edema Neuro: Awake alert oriented x3 Psych: Normal mood and affect G/U: No Bautista Skin: no rashes, warm and dry Lymphatic: no cervical or axillary lymphadenopathy Results & Data Results & Data ([facility]) Vital Signs (Past 12 Hours) Vital Signs Pulse Resp BP Pulse Ox 09/07/21 16:00 71 19 121/69 94 09/07/21 15:24 72 09/07/21 15:00 78 19 101/67 98 09/07/21 14:00 63 18 100 09/07/21 13:30 69 21 100 09/07/21 13:00 72 16 98 09/07/21 12:45 67 17 104/56 L 100 09/07/21 12:30 77 22 99 09/07/21 12:15 75 6 L 97 09/07/21 12:00 97 H 11 L 92/53 L 97 09/07/21 11:45 108 H 13 97 09/07/21 11:30 100 H 23 95 09/07/21 11:15 103 H 29 H 89 L 09/07/21 11:00 103 H 11 L 90 09/07/21 10:45 94 H 17 92/50 L 95 09/07/21 10:30 98 H 16 96 09/07/21 10:15 92 H 7 L 77/48 L 96 09/07/21 10:00 94 H 9 L 92 09/07/21 09:45 97 H 11 L 77/48 L 99 09/07/21 09:30 90 10 L 99 09/07/21 09:15 89 13 100 09/07/21 09:00 96 H 14 100 09/07/21 08:45 90 18 98 09/07/21 08:30 98 H 20 100 09/07/21 08:15 96 H 22 98 09/07/21 08:00 92 H 14 90 09/07/21 07:45 93 H 14 100 09/07/21 07:30 99 H 17 100 09/07/21 07:15 65 14 99 09/07/21 07:00 69 15 97 09/07/21 06:45 68 13 96 09/07/21 06:30 63 5 L 90/44 L 98 09/07/21 06:15 66 18 97 09/07/21 06:00 65 17 93 09/07/21 05:45 75 26 H 09/07/21 05:30 66 20 97 09/07/21 05:15 78 17 89 L Laboratory Results 09/07/21 04:47 Coding Level of Care Code Critical Care 1st 30-74 mins Diagnoses Acute renal failure N17.9 Acute renal failure type: unspecified Rhabdomyolysis M62.82 Rhabdomyolysis type: non-traumatic Shock R57.9 Non-small cell carcinoma of lung C34.90 Laterality: unspecified laterality Time Spent (min) 57 (1) Acute renal failure Acute renal failure type: unspecified Qualified Code(s): N17.9 - Acute kidney failure, unspecified (2) Non-small cell carcinoma of lung Laterality: unspecified laterality Qualified Code(s): C34.90 - Malignant neoplasm of unspecified part of unspecified bronchus or lung (3) Rhabdomyolysis Rhabdomyolysis type: non-traumatic Qualified Code(s): M62.82 - Rhabdomyolysis
--- NOTE | 2021-09-07 17:35 | Ultrasound Report ---
US renal/blad retro comp CLINICAL HISTORY: SEN TECHNIQUE: Multiple sonographic real-time images of the kidneys and bladder were obtained. COMPARISON: None available at the time of this dictation. FINDINGS: The right kidney measures 10.3 cm in length, and the left kidney measures 10.5 cm in length. The right kidney is normal in size, contour, cortical thickness, and echogenicity. No hydronephrosis is identified. Simple appearing cysts are seen. No perinephric fluid collection is seen. The left kidney is normal in size, contour, cortical thickness and echogenicity. 2 renal cysts are n oted. No renal lesion is identified. No perinephric fluid collection is seen. The bladder is partially distended. No large intraluminal mass is seen. IMPRESSION: No evidence of hydronephrosis bilaterally. Renal cysts are seen. ACT 112: Negative or not required by law. Electronically signed by: Eitan Whitfield M.D. 09/07/2021 5:34 PM
[2021-09-07] MEDS ORDERED: PHYTONADIONE 5 MG in SODIUM CHLORIDE 0.9% 50 ML IV ONE (18:00)
[2021-09-07] MEDS: DOXYCYCLINE HYCLATE 100 MG in DEXTROSE 5% 100 ML IV SCH (18:43)
[2021-09-07] MEDS: SODIUM BICARBONATE 8.4% 150 MEQ in DEXTROSE 5% 1,000 ML IV SCH (18:44)
[2021-09-08] MEDS: PIPERACILLIN/TAZOBACTAM 3.375 GM in DEXTROSE 5% 100 ML IV SCH ×2 (03:41→16:35)
[2021-09-08 05:16] LABS: Hematocrit (blood only) 24.5 % (42-52); Mean Corpuscular Hemoglobin 27.7 pg (25-34); Mean Corpuscular Hgb Conc 32.7 g/dL (32-36); Mean Corpuscular Volume 84.8 fL (80-100); RDW Coefficient of Variation 14.3 % (11.5-14.5); RDW Standard Deviation 44.1 fL (36.4-46.3); Red Blood Count 2.89 M/uL (4.7-6.1); White Blood Count 3.39 K/uL (4.8-10.8)
[2021-09-08 05:35] LABS: Mean Platelet Volume 11.2 fL (7.4-10.4); Platelet Count 60 K/uL (130-400)
[2021-09-08 05:53] LABS: Albumin Level 2.2 gm/dl (3.4-5.0); BUN Creatinine Ratio 15.5 (10-20); Calcium 6.9 mg/dl (8.5-10.1); Creatinine Clr Calc Pharmacy 11.4 ml/min; Est GFR (African American) 14.2 ml/min; Est GFR (Non-African American) 12.3 ml/min
[2021-09-08 05:58] LABS: Basophils # (auto) 0.01 K/uL (0-0.2); Basophils % (auto) 0.3 %; Lymphocytes # (auto) 0.47 K/uL (1.2-3.4); Lymphocytes % (auto) 13.9 %; Monocytes # (auto) 0.17 K/uL (0.11-0.59); Neutrophils # (auto) 2.74 K/uL (1.4-6.5); Neutrophils % (auto) 80.8 %
[2021-09-08 06:02] LABS: Albumin Globulin Ratio 0.7 (0.9-2); Bilirubin,Total 0.6 mg/dl (0.2-1); Total Protein 5.2 gm/dl (6.4-8.2); Troponin I 0.152 ng/ml (0-0.045)
[2021-09-08] MEDS: DOXYCYCLINE HYCLATE 100 MG in DEXTROSE 5% 100 ML IV SCH ×2 (06:24→18:02)
[2021-09-08 07:46] LABS: Appearance Urine Clear (Clear); Bacteria Urine Automated Negative (Negative); Bilirubin Urine Negative (Negative); Blood Urine 3+ (Negative); Color Urine Yellow; Glucose Urine UA Negative (Negative); Ketones Urine Negative (Negative); Leukocyte Esterase Urine Negative (Negative); Nitrite Urine Negative (Negative); Protein Urine 2+ (Negative); RBC Urine Automated 0-4 /hpf (0-4); Urobilinogen Urine Negative (Negative)
[2021-09-08] MEDS: POTASSIUM CHLORIDE / WTR 10 MEQ/100 ML PLCT IV SCH ×3 (08:43→11:12)
[2021-09-08] MEDS: FAMOTIDINE 20 MG TAB PO SCH (08:44)
[2021-09-08] MEDS: HEPARIN SOD 5,000 UNIT/0.5 ML VIAL SC SCH (08:45)
[2021-09-08] MEDS: FLUTICASONE FUROATE 200MCG 14 PUFFS/INHALER INH SCH (08:45)
[2021-09-08] MEDS: SODIUM BICARBONATE 8.4% 150 MEQ in DEXTROSE 5% 1,000 ML IV SCH (08:56)
[2021-09-08] MEDS ORDERED: POTASSIUM CHLORIDE CRTAB 20 MEQ TABCR PO STA (09:05)
[2021-09-08] MEDS: NORMOSOL-R 1,000 ML IV SCH ×2 (09:22→18:03)
[2021-09-08 09:56] LABS: Magnesium 2.2 mg/dl (1.8-2.4)
[2021-09-08] MEDS: PANTOprazole 40 MG in SYRINGE 0 ML IV SCH ×2 (12:03→21:15)
--- NOTE | 2021-09-08 12:18 | Hospitalist Progress Note ---
Date of Service September 08, 2021 Assessment & Plan (1) Shock: Plan: Likely secondary to sepsis and hypovolemic shock, with associated acute kidney injury, myocardial demand ischemia With lactic acidosis and high anion gap metabolic acidosis Blood pressure 60/40 shortly after admission despite 2 L normal saline Hemoglobin low but stable at 9.8 on arrival -was bolused two more liters of LR and blood pressure still in the 70s over 50s systolic, lactate back within normal limits -Procalcitonin greater than 200 but could be falsely positive in the setting of rhabdomyolysis -Transferred to ICU and started on Levophed through peripheral IV, then weaned off within 8 hours BPs now much improved -holding all home antihypertensives -Continue broad-spectrum antibiotics with IV Zosyn and doxy -Follow blood cultures-NGTD -Urinalysis took a while to collect after admission and had already received abx--> no signs of infection -continue IVFs with Normosol at 125mL/hr -Follow CBC, CMP, magnesium, phosphorus Appreciate Ticket Agent's management (2) Acute renal failure: Plan: With acute kidney injury with creatinine up to 4.6, BUN up to 68, worsening since admission With high anion gap metabolic acidosis Secondary to septic shock and hypovolemia from diarrhea, as well as rhabdomyolysis UA with 2+ protein and 3+ blood, no casts With a history of proteinuria last admission (last week) With small amount of urine in the bladder on bladder scan, renal ultrasound normal here Groundman/Lineman down today to 4.3, HAGMA now resolved after NaHCO3 gtt Making urine Appreciate Nephrology consultation -Continue hydrating with IV fluids -Follow serial BMP (3) Lactic acidosis: Plan: Secondary to septic shock as above resolved now with hydration and pressor support (4) Elevated troponin: Plan: Troponin 0.541 upon admission and repeat trended downward Likely supply demand mismatch, type II [place] Most recent echocardiogram 07/25/2021 with hyperdynamic systolic function, no regional wall motion abnormalities, trace AI, mild pulmonary hypertension No need to repeat echo at this point as troponin is mildly elevated and trending downward Do not suspect acute coronary syndrome (5) Fall: Plan: Secondary to weakness from sepsis and hypotension With possible new versus old nasal bone fracture on the right, however patient does not clinically have any pain there and this is likely old With neck pain-check CT neck-negative (6) Rhabdomyolysis: Plan: Rhabdomyolysis/acute renal failure- CK 8707, creatinine 4.44 with baseline 1.05 upon admission CK now trending downward to 6000, creatinine worsening as above Continue IV fluids Follow CPK in the morning Nephrology following Follow Phos, magnesium, CMP received sodium bicarbonate drip, now stopped (7) Lung cancer: Plan: Lung cancer, presently undergoing chemotherapy and hold home chemotherapy agents f/u with Oncology after discharge not ready to consider Hospice but is thinking about end of life issues (8) Adenocarcinoma of prostate: Plan: Hold home Terazosin due to hypotension is s/p prostatectomy is on terazosin for urinary incontinence (9) Renal cell carcinoma: Plan: Noted with history of cryotherapy Follows with urology as an outpatient (10) Essential hypertension: Plan: hold atenolol, felodipine, and losartan, as well as Terazosin for hypotension as above (11) Nasal fracture: Plan: As above, likely chronic (12) Neck pain: Plan: Shannan whiplash therapy CT neck negative for fracture (13) Anemia: Plan: hgb dropped to 8.0 from 9.8 yesterday no melena or BRBPR Likely hemodilutional repeat H/H later start IV PPI bid in case of UGI bleeding no abd pain (14) Hypokalemia: Plan: replace with po and IV potassium Plan: DVT prophylaxis-Heparin SQ on hold in case of GI bleeding FEN-IVFs as above, can advance diet likely to renal diet-defer to ICU Disposition-continued stay ICU Admission and Anticipated Discharge Date Admission Date: September 06, 2021 Subjective Pt has laryngitis today and is having trouble speaking loudly. Was very philosophical this AM talking about end of life issues, but then would go off on tangents about caring for babies. I believe he is saying that he is realizing the end of his life is approaching, but he's accepting of it. He is not sure if he wants to go on hospice just yet when he broached the topic, but referred to his "love-hate relationship" with his chemotherapy drugs. Is making urine and had a green loose stool overnight but no melena. No abd pain Some neck pain still with certain movements Tele with NSR, frequent ectopy I discussed his care with Ticket Agent and Nephrology Review of Systems Review of Systems: All systems reviewed & are unremarkable except as noted in HPI & below Physical Exam Constitutional: + ill appearing and + underweight Eyes: + anicteric sclerae ENMT: external ear and nose normal, oropharynx normal Neck: normal visual inspection Respiratory: normal respiratory effort, lungs clear to auscultation normal respiratory effort; no cough Cardiovascular: RRR, no murmur, no edema Chest (Breasts): Chest: normal inspection of chest Gastrointestinal (Abdomen): normal bowel sounds, soft, nontender, no hepatosplenomegaly Musculoskeletal: Extremities: extremities normal to inspection; no cyanosis and no clubbing Skin: no rashes, warm and dry Neurologic: moves all extremities and awake; no focal motor deficits Psychiatric: Orientation: alert, oriented to person, oriented to place and cooperative Lymphatic: no lymphedema Results & Data Results & Data ([facility]) Vital Signs (Past 12 Hours) Vital Signs Temp Pulse Resp BP Pulse Ox 09/08/21 11:00 66 20 142/65 H 95 09/08/21 10:00 69 24 120/67 96 09/08/21 09:30 68 19 97 09/08/21 09:00 69 20 117/70 93 09/08/21 08:30 69 19 99 09/08/21 08:00 36.7 C 69 19 127/69 96 09/08/21 07:30 66 25 H 94 09/08/21 07:00 77 20 77 L 09/08/21 05:00 68 17 124/66 88 L 09/08/21 04:05 36.6 C 09/08/21 04:00 67 17 126/60 96 09/08/21 03:00 68 20 116/62 82 L 09/08/21 02:00 66 20 110/61 96 09/08/21 01:00 64 19 101/54 L 95 Laboratory Results 09/08/21 09/08/21 09/08/21 Range/Units 09:11 09:11 07:36 WBC (4.8-10.8) K/uL RBC (4.7-6.1) M/uL Hgb (14.0-18.0) g/dL Hct (42-52) % MCV (80-100) fL MCH (25-34) pg MCHC (32-36) g/dL RDW Std Deviation (36.4-46.3) fL RDW Coeff of Girish (11.5-14.5) % Plt Count (130-400) K/uL MPV (7.4-10.4) fL Immature Gran % (Auto) % Neut % (Auto) % Lymph % (Auto) % [place] % (Auto) % Eos % (Auto) % Baso % (Auto) % Neut # (Auto) (1.4-6.5) K/uL Lymph # (Auto) (1.2-3.4) K/uL [place] # (Auto) (0.11-0.59) K/uL Eos # (Auto) (0-0.5) K/uL Baso # (Auto) (0-0.2) K/uL Immature Gran # (Auto) (0.00-0.02) K/uL Sodium (136-145) mmol/L Potassium (3.5-5.1) mmol/L Chloride (98-107) mmol/L Carbon Dioxide (21-32) mmol/L Anion Gap (3-11) BUN (7-18) mg/dl Creatinine (0.6-1.4) mg/dl Est Cr Clr Drug Dosing ml/min Est GFR ( Amer) ml/min Est GFR (Non-Af Amer) ml/min BUN/Creatinine Ratio (10-20) Glucose (70-99) mg/dl Calcium (8.5-10.1) mg/dl Phosphorus 3.0 D (2.5-4.9) mg/dl Magnesium 2.2 (1.8-2.4) mg/dl Total Bilirubin (0.2-1) mg/dl AST (15-37) U/L ALT (12-78) Alkaline Phosphatase (45-117) U/L Total Creatine Kinase (39-308) U/L Troponin I (0-0.045) ng/ml Total Protein (6.4-8.2) gm/dl Albumin (3.4-5.0) gm/dl Globulin (2.5-4.0) gm/dl Albumin/Globulin Ratio (0.9-2) Urine Color Yellow Urine Appearance Clear (Clear) Urine pH 7.0 (4.5-7.5) Ur Specific [place] 1.010 (1.000-1.030) Urine Protein 2+ H (Negative) Urine Glucose (UA) Negative (Negative) Urine Ketones Negative (Negative) Urine Blood 3+ H (Negative) Urine Nitrite Negative (Negative) Urine Bilirubin Negative (Negative) Urine Urobilinogen Negative (Negative) Ur Leukocyte Esterase Negative (Negative) Urine WBC (Auto) 1-5 (0-5) /hpf Urine RBC (Auto) 0-4 (0-4) /hpf U Hyaline Cast (Auto) 1-5 (0-5) /lpf U Epithel Cells (Auto) 10-20 H (0-5) /lpf Urine Bacteria (Auto) Negative (Negative) Nasal Screen MRSA (PCR) (Negative) Random Vancomycin mcg/ml Blood Type O Positive Antibody Screen NEGATIVE 09/08/21 09/08/21 09/08/21 Range/Units 04:50 04:50 04:50 WBC 3.39 L (4.8-10.8) K/uL RBC 2.89 L (4.7-6.1) M/uL Hgb 8.0 L (14.0-18.0) g/dL Hct 24.5 L (42-52) % MCV 84.8 (80-100) fL MCH 27.7 (25-34) pg MCHC 32.7 (32-36) g/dL RDW Std Deviation 44.1 (36.4-46.3) fL RDW Coeff of Girish 14.3 (11.5-14.5) % Plt Count 60 L (130-400) K/uL MPV 11.2 H (7.4-10.4) fL Immature Gran % (Auto) 0.0 % Neut % (Auto) 80.8 % Lymph % (Auto) 13.9 % [place] % (Auto) 5.0 % Eos % (Auto) 0.0 % Baso % (Auto) 0.3 % Neut # (Auto) 2.74 (1.4-6.5) K/uL Lymph # (Auto) 0.47 L (1.2-3.4) K/uL [place] # (Auto) 0.17 (0.11-0.59) K/uL Eos # (Auto) 0.00 (0-0.5) K/uL Baso # (Auto) 0.01 (0-0.2) K/uL Immature Gran # (Auto) 0.00 (0.00-0.02) K/uL Sodium 140 (136-145) mmol/L Potassium 3.0 L D (3.5-5.1) mmol/L Chloride 105 (98-107) mmol/L Carbon Dioxide 28 (21-32) mmol/L Anion Gap 7.0 (3-11) BUN 67 H (7-18) mg/dl Creatinine 4.34 H (0.6-1.4) mg/dl Est Cr Clr Drug Dosing 11.4 ml/min Est GFR ( Amer) 14.2 ml/min Est GFR (Non-Af Amer) 12.3 ml/min BUN/Creatinine Ratio 15.5 (10-20) Glucose 172 H (70-99) mg/dl Calcium 6.9 L (8.5-10.1) mg/dl Phosphorus (2.5-4.9) mg/dl Magnesium (1.8-2.4) mg/dl Total Bilirubin 0.6 (0.2-1) mg/dl AST 269 H (15-37) U/L ALT 47 (12-78) Alkaline Phosphatase 59 (45-117) U/L Total Creatine Kinase 6919 H (39-308) U/L Troponin I 0.152 H* (0-0.045) ng/ml Total Protein 5.2 L (6.4-8.2) gm/dl Albumin 2.2 L (3.4-5.0) gm/dl Globulin 3.0 (2.5-4.0) gm/dl Albumin/Globulin Ratio 0.7 L (0.9-2) Urine Color Urine Appearance (Clear) Urine pH (4.5-7.5) Ur Specific [place] (1.000-1.030) Urine Protein (Negative) Urine Glucose (UA) (Negative) Urine Ketones (Negative) Urine Blood (Negative) Urine Nitrite (Negative) Urine Bilirubin (Negative) Urine Urobilinogen (Negative) Ur Leukocyte Esterase (Negative) Urine WBC (Auto) (0-5) /hpf Urine RBC (Auto) (0-4) /hpf U Hyaline Cast (Auto) (0-5) /lpf U Epithel Cells (Auto) (0-5) /lpf Urine Bacteria (Auto) (Negative) Nasal Screen MRSA (PCR) (Negative) Random Vancomycin 20.4 mcg/ml Blood Type Antibody Screen 09/07/21 09/07/21 09/07/21 Range/Units 20:38 15:00 12:48 WBC (4.8-10.8) K/uL RBC (4.7-6.1) M/uL Hgb (14.0-18.0) g/dL Hct (42-52) % MCV (80-100) fL MCH (25-34) pg MCHC (32-36) g/dL RDW Std Deviation (36.4-46.3) fL RDW Coeff of Girish (11.5-14.5) % Plt Count (130-400) K/uL MPV (7.4-10.4) fL Immature Gran % (Auto) % Neut % (Auto) % Lymph % (Auto) % [place] % (Auto) % Eos % (Auto) % Baso % (Auto) % Neut # (Auto) (1.4-6.5) K/uL Lymph # (Auto) (1.2-3.4) K/uL [place] # (Auto) (0.11-0.59) K/uL Eos # (Auto) (0-0.5) K/uL Baso # (Auto) (0-0.2) K/uL Immature Gran # (Auto) (0.00-0.02) K/uL Sodium 143 (136-145) mmol/L Potassium 3.7 (3.5-5.1) mmol/L Chloride 111 H (98-107) mmol/L Carbon Dioxide 17 L (21-32) mmol/L Anion Gap 15.0 H (3-11) BUN 70 H (7-18) mg/dl Creatinine 4.52 H* (0.6-1.4) mg/dl Est Cr Clr Drug Dosing 10.9 ml/min Est GFR ( Amer) 13.5 ml/min Est GFR (Non-Af Amer) 11.7 ml/min BUN/Creatinine Ratio 15.4 (10-20) Glucose 177 H (70-99) mg/dl Calcium 7.0 L (8.5-10.1) mg/dl Phosphorus 5.3 H (2.5-4.9) mg/dl Magnesium 2.2 (1.8-2.4) mg/dl Total Bilirubin (0.2-1) mg/dl AST (15-37) U/L ALT (12-78) Alkaline Phosphatase (45-117) U/L Total Creatine Kinase 7941 H (39-308) U/L Troponin I 0.213 H* (0-0.045) ng/ml Total Protein (6.4-8.2) gm/dl Albumin 2.4 L (3.4-5.0) gm/dl Globulin (2.5-4.0) gm/dl Albumin/Globulin Ratio (0.9-2) Urine Color Urine Appearance (Clear) Urine pH (4.5-7.5) Ur Specific [place] (1.000-1.030) Urine Protein (Negative) Urine Glucose (UA) (Negative) Urine Ketones (Negative) Urine Blood (Negative) Urine Nitrite (Negative) Urine Bilirubin (Negative) Urine Urobilinogen (Negative) Ur Leukocyte Esterase (Negative) Urine WBC (Auto) (0-5) /hpf Urine RBC (Auto) (0-4) /hpf U Hyaline Cast (Auto) (0-5) /lpf U Epithel Cells (Auto) (0-5) /lpf Urine Bacteria (Auto) (Negative) Nasal Screen MRSA (PCR) Negative (Negative) Random Vancomycin mcg/ml Blood Type Antibody Screen 09/07/21 Range/Units 12:48 WBC (4.8-10.8) K/uL RBC (4.7-6.1) M/uL Hgb (14.0-18.0) g/dL Hct (42-52) % MCV (80-100) fL MCH (25-34) pg MCHC (32-36) g/dL RDW Std Deviation (36.4-46.3) fL RDW Coeff of Girish (11.5-14.5) % Plt Count (130-400) K/uL MPV (7.4-10.4) fL Immature Gran % (Auto) % Neut % (Auto) % Lymph % (Auto) % [place] % (Auto) % Eos % (Auto) % Baso % (Auto) % Neut # (Auto) (1.4-6.5) K/uL Lymph # (Auto) (1.2-3.4) K/uL [place] # (Auto) (0.11-0.59) K/uL Eos # (Auto) (0-0.5) K/uL Baso # (Auto) (0-0.2) K/uL Immature Gran # (Auto) (0.00-0.02) K/uL Sodium (136-145) mmol/L Potassium (3.5-5.1) mmol/L Chloride (98-107) mmol/L Carbon Dioxide (21-32) mmol/L Anion Gap (3-11) BUN (7-18) mg/dl Creatinine (0.6-1.4) mg/dl Est Cr Clr Drug Dosing ml/min Est GFR ( Amer) ml/min Est GFR (Non-Af Amer) ml/min BUN/Creatinine Ratio (10-20) Glucose (70-99) mg/dl Calcium (8.5-10.1) mg/dl Phosphorus (2.5-4.9) mg/dl Magnesium (1.8-2.4) mg/dl Total Bilirubin (0.2-1) mg/dl AST (15-37) U/L ALT (12-78) Alkaline Phosphatase (45-117) U/L Total Creatine Kinase (39-308) U/L Troponin I 0.316 H* (0-0.045) ng/ml Total Protein (6.4-8.2) gm/dl Albumin (3.4-5.0) gm/dl Globulin (2.5-4.0) gm/dl Albumin/Globulin Ratio (0.9-2) Urine Color Urine Appearance (Clear) Urine pH (4.5-7.5) Ur Specific [place] (1.000-1.030) Urine Protein (Negative) Urine Glucose (UA) (Negative) Urine Ketones (Negative) Urine Blood (Negative) Urine Nitrite (Negative) Urine Bilirubin (Negative) Urine Urobilinogen (Negative) Ur Leukocyte Esterase (Negative) Urine WBC (Auto) (0-5) /hpf Urine RBC (Auto) (0-4) /hpf U Hyaline Cast (Auto) (0-5) /lpf U Epithel Cells (Auto) (0-5) /lpf Urine Bacteria (Auto) (Negative) Nasal Screen MRSA (PCR) (Negative) Random Vancomycin mcg/ml Blood Type Antibody Screen PG Care Time/CCT Total # of Minutes Spent Total Time Spent with Patient: Total time spent is greater than 50% in coordination of care (as documented) at patient's floor/unit and/or counseling patient: Coding Level of Care Code 46389 Subseq Hosp Care Lvl 3 Diagnoses Shock R57.9 Acute renal failure N17.9 Acute renal failure type: unspecified Lactic acidosis E87.2 Elevated troponin R77.8 Fall W19.XXXA Rhabdomyolysis M62.82 Rhabdomyolysis type: non-traumatic Lung cancer C34.90 Adenocarcinoma of prostate C61 Renal cell carcinoma C64.9 Essential hypertension I10 Nasal fracture S02.2XXA Neck pain M54.2 Anemia D64.9 Hypokalemia E87.6 (1) Acute renal failure Acute renal failure type: unspecified Qualified Code(s): N17.9 - Acute kidney failure, unspecified (2) Rhabdomyolysis Rhabdomyolysis type: non-traumatic Qualified Code(s): M62.82 - Rhabdomyolysis
--- NOTE | 2021-09-08 13:53 | Nephrology Progress Note ---
Date of Service September 08, 2021 Assessment & Plan (1) Acute renal failure: Plan: Prerenal + rhabdomyolysis. Urine output not able to be documented due to incontinence. Continue Normosol @ 125 ml/hr. Creatinine stable at 4.34 mg/dL. CK trending down, now 6000. Renal US reviewed. No obstruction. UA demonstrating 2+ protein and 3+ blood. Microscopy acellular. Repeat metabolic profile + CK in the AM. Medications appropriate for kidney dysfunction. Dabrafenib and trametinib held. (2) Rhabdomyolysis: Plan: Improving. Monitor CK daily. Found down at home likely due to debility. Low threshold for PRBC transfusion support in management of anemia. (3) Proteinuria: Plan: Outpatient follow up. Admission and Anticipated Discharge Date Admission Date: September 06, 2021 Subjective No acute events overnight. Livan reports some laryngitis this AM. Remains in sinus rhythm with PVCs on monitor. Laryngitis is new for him. No sinus congestion. Pain over the bridge of his nose associated with bruise from fall and an associated small laceration. Tolerating liquid diet. No abdominal pain. Loose stool but no diarrhea. Livan reports that he has had intermittent diarrhea at home for several months and questioned if this could be related to medications including his chemotherapy. No obvious blood in stool. He has been weak and losing weight for several months and expressed concerns that some of the side effects may be related to his chemotherapy. Review of Systems Review of Systems: All systems reviewed & are unremarkable except as noted in HPI & below Physical Exam Constitutional: + thin and + frail appearing; no acute distress Eyes: + anicteric sclerae; no corneal abnormality ENMT: Mouth: + dry oral mucous membranes; no oral mucosal abnormality Neck: normal visual inspection and trachea midline Respiratory: normal respiratory effort Auscultation: lungs clear to auscultation bilaterally Cardiovascular: Rate/Rhythm: regular rate Heart Sounds: normal S1 and normal S2 Extremities: no edema Musculoskeletal: Extremities: no cyanosis and no clubbing Skin: normal turgor; no lesions Neurologic: Motor/Sensory: no tremor and no asterixis Psychiatric: Orientation: alert and oriented x 3 Results & Data ([facility]) Vital Signs (Past 12 Hours) Vital Signs Temp Pulse Resp BP BP Pulse Ox 09/08/21 13:00 74 24 137/78 09/08/21 12:30 69 20 89 L 09/08/21 12:00 36.7 C 70 26 H 124/78 09/08/21 11:30 70 20 78 L 09/08/21 11:00 66 20 142/65 H 95 09/08/21 10:00 69 24 120/67 96 09/08/21 09:30 68 19 97 09/08/21 09:00 69 20 117/70 93 09/08/21 08:30 69 19 99 09/08/21 08:00 36.7 C 69 19 127/69 96 09/08/21 07:30 66 25 H 94 09/08/21 07:00 77 20 77 L 09/08/21 05:00 68 17 124/66 88 L 09/08/21 04:05 36.6 C 09/08/21 04:00 67 17 126/60 96 09/08/21 03:00 68 20 116/62 82 L 09/08/21 02:00 66 20 110/61 96 Laboratory Results Laboratory Results - last 24 hr 09/07/21 09/07/21 09/07/21 12:48 15:00 20:38 WBC RBC Hgb Hct MCV MCH MCHC RDW Std Deviation RDW Coeff of Girish Plt Count MPV Immature Gran % (Auto) Neut % (Auto) Lymph % (Auto) [place] % (Auto) Eos % (Auto) Baso % (Auto) Neut # (Auto) Lymph # (Auto) [place] # (Auto) Eos # (Auto) Baso # (Auto) Immature Gran # (Auto) Sodium 143 Potassium 3.7 Chloride 111 H Carbon Dioxide 17 L Anion Gap 15.0 H BUN 70 H Creatinine 4.52 H* Est Cr Clr Drug Dosing 10.9 Est GFR ( Amer) 13.5 Est GFR (Non-Af Amer) 11.7 BUN/Creatinine Ratio 15.4 Glucose 177 H Calcium 7.0 L Phosphorus 5.3 H Magnesium 2.2 Total Bilirubin AST ALT Alkaline Phosphatase Total Creatine Kinase 7941 H Troponin I 0.213 H* Total Protein Albumin 2.4 L Globulin Albumin/Globulin Ratio Urine Color Urine Appearance Urine pH Ur Specific [place] Urine Protein Urine Glucose (UA) Urine Ketones Urine Blood Urine Nitrite Urine Bilirubin Urine Urobilinogen Ur Leukocyte Esterase Urine WBC (Auto) Urine RBC (Auto) U Hyaline Cast (Auto) U Epithel Cells (Auto) Urine Bacteria (Auto) Nasal Screen MRSA (PCR) Negative Stool Occult Bld Scrn Stl C. diff Tox B Gene Random Vancomycin Blood Type Antibody Screen 09/08/21 09/08/21 09/08/21 04:50 04:50 04:50 WBC 3.39 L RBC 2.89 L Hgb 8.0 L Hct 24.5 L MCV 84.8 MCH 27.7 MCHC 32.7 RDW Std Deviation 44.1 RDW Coeff of Girish 14.3 Plt Count 60 L MPV 11.2 H Immature Gran % (Auto) 0.0 Neut % (Auto) 80.8 Lymph % (Auto) 13.9 [place] % (Auto) 5.0 Eos % (Auto) 0.0 Baso % (Auto) 0.3 Neut # (Auto) 2.74 Lymph # (Auto) 0.47 L [place] # (Auto) 0.17 Eos # (Auto) 0.00 Baso # (Auto) 0.01 Immature Gran # (Auto) 0.00 Sodium 140 Potassium 3.0 L D Chloride 105 Carbon Dioxide 28 Anion Gap 7.0 BUN 67 H Creatinine 4.34 H Est Cr Clr Drug Dosing 11.4 Est GFR ( Amer) 14.2 Est GFR (Non-Af Amer) 12.3 BUN/Creatinine Ratio 15.5 Glucose 172 H Calcium 6.9 L Phosphorus Magnesium Total Bilirubin 0.6 AST 269 H ALT 47 Alkaline Phosphatase 59 Total Creatine Kinase 6919 H Troponin I 0.152 H* Total Protein 5.2 L Albumin 2.2 L Globulin 3.0 Albumin/Globulin Ratio 0.7 L Urine Color Urine Appearance Urine pH Ur Specific [place] Urine Protein Urine Glucose (UA) Urine Ketones Urine Blood Urine Nitrite Urine Bilirubin Urine Urobilinogen Ur Leukocyte Esterase Urine WBC (Auto) Urine RBC (Auto) U Hyaline Cast (Auto) U Epithel Cells (Auto) Urine Bacteria (Auto) Nasal Screen MRSA (PCR) Stool Occult Bld Scrn Stl C. diff Tox B Gene Random Vancomycin 20.4 Blood Type Antibody Screen 09/08/21 09/08/21 09/08/21 07:36 09:11 09:11 WBC RBC Hgb Hct MCV MCH MCHC RDW Std Deviation RDW Coeff of Girish Plt Count MPV Immature Gran % (Auto) Neut % (Auto) Lymph % (Auto) [place] % (Auto) Eos % (Auto) Baso % (Auto) Neut # (Auto) Lymph # (Auto) [place] # (Auto) Eos # (Auto) Baso # (Auto) Immature Gran # (Auto) Sodium Potassium Chloride Carbon Dioxide Anion Gap BUN Creatinine Est Cr Clr Drug Dosing Est GFR ( Amer) Est GFR (Non-Af Amer) BUN/Creatinine Ratio Glucose Calcium Phosphorus 3.0 D Magnesium 2.2 Total Bilirubin AST ALT Alkaline Phosphatase Total Creatine Kinase Troponin I Total Protein Albumin Globulin Albumin/Globulin Ratio Urine Color Yellow Urine Appearance Clear Urine pH 7.0 Ur Specific [place] 1.010 Urine Protein 2+ H Urine Glucose (UA) Negative Urine Ketones Negative Urine Blood 3+ H Urine Nitrite Negative Urine Bilirubin Negative Urine Urobilinogen Negative Ur Leukocyte Esterase Negative Urine WBC (Auto) 1-5 Urine RBC (Auto) 0-4 U Hyaline Cast (Auto) 1-5 U Epithel Cells (Auto) 10-20 H Urine Bacteria (Auto) Negative Nasal Screen MRSA (PCR) Stool Occult Bld Scrn Stl C. diff Tox B Gene Random Vancomycin Blood Type O Positive Antibody Screen NEGATIVE 09/08/21 09/08/21 Unknown Unknown WBC RBC Hgb Hct MCV MCH MCHC RDW Std Deviation RDW Coeff of Girish Plt Count MPV Immature Gran % (Auto) Neut % (Auto) Lymph % (Auto) [place] % (Auto) Eos % (Auto) Baso % (Auto) Neut # (Auto) Lymph # (Auto) [place] # (Auto) Eos # (Auto) Baso # (Auto) Immature Gran # (Auto) Sodium Potassium Chloride Carbon Dioxide Anion Gap BUN Creatinine Est Cr Clr Drug Dosing Est GFR ( Amer) Est GFR (Non-Af Amer) BUN/Creatinine Ratio Glucose Calcium Phosphorus Magnesium Total Bilirubin AST ALT Alkaline Phosphatase Total Creatine Kinase Troponin I Total Protein Albumin Globulin Albumin/Globulin Ratio Urine Color Urine Appearance Urine pH Ur Specific [place] Urine Protein Urine Glucose (UA) Urine Ketones Urine Blood Urine Nitrite Urine Bilirubin Urine Urobilinogen Ur Leukocyte Esterase Urine WBC (Auto) Urine RBC (Auto) U Hyaline Cast (Auto) U Epithel Cells (Auto) Urine Bacteria (Auto) Nasal Screen MRSA (PCR) Stool Occult Bld Scrn Positive A Stl C. diff Tox B Gene Pending Random Vancomycin Blood Type Antibody Screen PG Care Time/CCT Total # of Minutes Spent Total Time Spent with Patient: Total time spent is greater than 50% in coordination of care (as documented) at patient's floor/unit and/or counseling patient: Coding Level of Care Code 12057 Subseq Hosp Care Lvl 3 Diagnoses Acute renal failure N17.9 Acute renal failure type: unspecified Rhabdomyolysis M62.82 Rhabdomyolysis type: non-traumatic Proteinuria R80.9 (1) Acute renal failure Acute renal failure type: unspecified Qualified Code(s): N17.9 - Acute kidney failure, unspecified (2) Rhabdomyolysis Rhabdomyolysis type: non-traumatic Qualified Code(s): M62.82 - Rhabdomyolysis
[2021-09-08 15:31] LABS: Hematocrit (blood only) 25.2 % (42-52); Hemoglobin 8.4 g/dL (14.0-18.0)
--- NOTE | 2021-09-08 15:50 | Critical Care Progress Note ---
Date of Service September 08, 2021 Assessment & Plan (1) Acute renal failure: (2) Rhabdomyolysis: (3) Shock: (4) Non-small cell carcinoma of lung: Plan: Chest x-ray 07/07/2021 personally reviewed: portable film, hyperinflated, right costophrenic angle is blunted, left costophrenic angle is clean. No clear lung infiltrate appreciated. --Shock Seems to be a combination of sepsis and hypovolemia Patient has gone appropriate amount of IV fluids Continue with vasopressor support to keep the MAP better than 65 Continue with antibiotics Nasal MRSA negative COVID-19 PCR negative Influenza a and B negative C. difficile negative Procalcitonin > 200, this could be seen in case of rhabdo as well --Acute renal failure Likely from dehydration and rhabdomyolysis Continue with IV fluids If there is no improvement patient will need hemodialysis Nephrology is on board Continue with bicarb drip --Acute drop in hemoglobin Could be dilutional given that the patient has gotten significant amount of IV fluid Type and screen Monitor H&H Transfuse if hemoglobin is less than 7 --S/p HAGMA Likely from elevated BUN Continue to monitor --Rhabdomyolysis CPK trending down 10,000 --> 6900 Etiology is likely from being on the floor for a long time Medication which the patient was taking for palliative --NSTEMI Likely demand ischemia Continue to monitor --Coagulopathy INR 1.4 Vitamin K 5 mg given 09/07/2021 --History of metastatic adenocarcinoma of the lung On palliative chemotherapy Dabrafenib and trametinib On hold while in the hospital --COPD Patient is only on ICS regimen I would rather have the patient on LABA/LAMA regimen --History of renal cell carcinoma as well as prostate cancer S/p surgery --DNI --Prophylaxis VTE: Heparin on hold GI: Protonix twice daily Lines: Peripheral Diet: Cardiorenal diet Plan: In/out: +4.1 L, urine output 653 Patient has been refusing Bautista catheters and so unfortunately do not have strict output numbers Patient seemed to have melanotic stools. He was Hemoccult was positive Repeat H&H was done which was found to be 8.4 I will repeat another H&H later today. Pepcid been discontinued patient has been started on Protonix. Patient is also thrombocytopenic likely from the chemotherapy. Hold heparin C. difficile negative Hypokalemia being replaced Bicarb drip was discontinued. I have personally spent 35 minutes of critical care time in the direct man agement of this patient. This is a life/limb threatening event. This includes time spent evaluating patient, direct bedside care, chart review, placing orders, interpretation of diagnostic studies, discussion with consultants, patient, and family members, as well as other required patient management activities. This time is exclusive of all separately billable procedures, and teaching time and separate from and in addition to any other critical care service time. Please note the above document was generated using voice recognition software. It may contain grammatical, syntax or spelling errors. Admission and Anticipated Discharge Date Admission Date: September 06, 2021 Subjective Patient seen and examined at bedside. No acute distress, no adverse events ove rnight Complains of mild. Denies any significant shortness of breath No nausea or vomiting Patient did have bowel movement and is also needing treatment. Patient had melanotic stool today. Review of Systems Review of Systems: All systems reviewed & are unremarkable except as noted in Subjective Physical Exam Physical Exam: Constitutional: No acute distress, frail-appearing HEENT: EOMI, PERRLA Respiratory system: Decreased air entry bilaterally, no wheeze, rhonchi, mild crackles right lower lobe CVS: S1-S2 positive, no murmurs or gallops Abdomen: Soft, nontender, nondistended, positive bowel sounds x4 Extremities: +2 pulses bilaterally radialis/ dorsalis pedis, no cyanosis, no edema Neuro: Awake alert oriented x3 Psych: Normal mood and affect G/U: No Bautista Skin: no rashes, warm and dry Lymphatic: no cervical or axillary lymphadenopathy Results & Data Results & Data ([facility]) Vital Signs (Past 12 Hours) Vital Signs Temp Pulse Resp BP BP Pulse Ox 09/08/21 15:00 68 14 144/89 H 88 L 09/08/21 14:30 67 21 92 09/08/21 14:00 67 19 127/75 88 L 09/08/21 13:30 69 20 90 09/08/21 13:00 74 24 137/78 09/08/21 12:30 69 20 89 L 09/08/21 12:00 36.7 C 70 26 H 124/78 09/08/21 11:30 70 20 78 L 09/08/21 11:00 66 20 142/65 H 95 09/08/21 10:00 69 24 120/67 96 09/08/21 09:30 68 19 97 09/08/21 09:00 69 20 117/70 93 09/08/21 08:30 69 19 99 09/08/21 08:00 36.7 C 69 19 127/69 96 09/08/21 07:30 66 25 H 94 09/08/21 07:00 77 20 77 L 09/08/21 05:00 68 17 124/66 88 L 09/08/21 04:05 36.6 C 09/08/21 04:00 67 17 126/60 96 Laboratory Results 09/08/21 15:14 09/08/21 04:50 Coding Level of Care Code Critical Care 1st 30-74 mins Diagnoses Acute renal failure N17.9 Acute renal failure type: unspecified Rhabdomyolysis M62.82 Rhabdomyolysis type: non-traumatic Shock R57.9 Non-small cell carcinoma of lung C34.90 Laterality: unspecified laterality Time Spent (min) 35 (1) Acute renal failure Acute renal failure type: unspecified Qualified Code(s): N17.9 - Acute kidney failure, unspecified (2) Rhabdomyolysis Rhabdomyolysis type: non-traumatic Qualified Code(s): M62.82 - Rhabdomyolysis (3) Non-small cell carcinoma of lung Laterality: unspecified laterality Qualified Code(s): C34.90 - Malignant neoplasm of unspecified part of unspecified bronchus or lung
[2021-09-08] MEDS ORDERED: ALBUTEROL HFA 8 GM INHALER INH PRN (16:49)
[2021-09-08] MEDS: SERTRALINE HCL 100 MG TABLET PO SCH (21:15)
[2021-09-09] MEDS: NORMOSOL-R 1,000 ML IV SCH ×2 (02:10→13:13)
[2021-09-09] MEDS: PIPERACILLIN/TAZOBACTAM 3.375 GM in DEXTROSE 5% 100 ML IV SCH ×2 (04:19→16:40)
[2021-09-09] MEDS: DOXYCYCLINE HYCLATE 100 MG in DEXTROSE 5% 100 ML IV SCH ×2 (05:35→17:59)
[2021-09-09 05:59] LABS: Albumin Globulin Ratio 0.7 (0.9-2); Albumin Level 2.3 gm/dl (3.4-5.0); BUN Creatinine Ratio 15.2 (10-20); Bilirubin,Total 0.7 mg/dl (0.2-1); Calcium 7.8 mg/dl (8.5-10.1); Creatinine Clr Calc Pharmacy 13.4 ml/min; Est GFR (African American) 17.7 ml/min; Est GFR (Non-African American) 15.3 ml/min; Globulin 3.3 gm/dl (2.5-4.0); Magnesium 2.2 mg/dl (1.8-2.4); Total Protein 5.6 gm/dl (6.4-8.2)
[2021-09-09 06:11] LABS: Phosphorus 3.1 mg/dl (2.5-4.9)
[2021-09-09 06:30] LABS: Basophils # (auto) 0.01 K/uL (0-0.2); Basophils % (auto) 0.3 %; Eosinophils # (auto) 0.01 K/uL (0-0.5); Eosinophils % (auto) 0.3 %; Hemoglobin 8.8 g/dL (14.0-18.0); Immature Granulocytes # (auto) 0.02 K/uL (0.00-0.02); Immature Granulocytes % (auto) 0.5 %; Lymphocytes # (auto) 0.63 K/uL (1.2-3.4); Lymphocytes % (auto) 16.2 %; Mean Corpuscular Hemoglobin 27.8 pg (25-34); Mean Corpuscular Hgb Conc 32.6 g/dL (32-36); Mean Corpuscular Volume 85.4 fL (80-100); Mean Platelet Volume 13.1 fL (7.4-10.4); Monocytes # (auto) 0.18 K/uL (0.11-0.59); Monocytes % (auto) 4.6 %; Neutrophils # (auto) 3.04 K/uL (1.4-6.5); Neutrophils % (auto) 78.1 %; Platelet Count 79 K/uL (130-400); RBC Morphology Unremarkable; RDW Coefficient of Variation 14.5 % (11.5-14.5); RDW Standard Deviation 44.9 fL (36.4-46.3); Red Blood Count 3.16 M/uL (4.7-6.1); White Blood Count 3.89 K/uL (4.8-10.8)
[2021-09-09] MEDS: PANTOprazole 40 MG in SYRINGE 0 ML IV SCH (08:50)
[2021-09-09] MEDS: FLUTICASONE FUROATE 200MCG 14 PUFFS/INHALER INH SCH (08:50)
--- NOTE | 2021-09-09 10:36 | Nephrology Progress Note ---
Date of Service September 09, 2021 Assessment & Plan (1) Acute renal failure: Plan: Prerenal + rhabdomyolysis. Urine output not able to be documented due to incontinence. Continue Normosol @ 100 ml/hr. Creatinine improving. CK trending down. Repeat metabolic profile + CK in the AM. Medications appropriate for kidney dysfunction. Dabrafenib and trametinib held. Baseline creatinine 1.0 mg/dL. (2) Rhabdomyolysis: Plan: Improving. Monitor CK daily. Low threshold for PRBC transfusion support in management of anemia. (3) Proteinuria: Plan: Outpatient follow up. Admission and Anticipated Discharge Date Admission Date: September 06, 2021 Subjective No acute events overnight. No BM overnight. Denies pain. Breathing comfortably. Appetite poor. Laryngitis improving. Review of Systems Review of Systems: All systems reviewed & are unremarkable except as noted in HPI & below Physical Exam Constitutional: + thin and + frail appearing; no acute distress Eyes: + anicteric sclerae; no corneal abnormality ENMT: Mouth: + dry oral mucous membranes; no oral mucosal abnormality Neck: normal visual inspection and trachea midline Respiratory: normal respiratory effort Auscultation: lungs clear to auscultation bilaterally Cardiovascular: Rate/Rhythm: regular rate Heart Sounds: normal S1 and normal S2 Extremities: no edema Musculoskeletal: Extremities: no cyanosis and no clubbing Skin: normal turgor; no lesions Neurologic: Motor/Sensory: no tremor and no asterixis Psychiatric: Orientation: alert and oriented x 3 Results & Data ([facility]) Vital Signs (Past 12 Hours) Vital Signs Temp Pulse Resp BP Pulse Ox 09/09/21 05:43 36.4 C L 72 15 163/63 H 98 09/09/21 02:45 36.6 C 70 20 136/78 99 09/08/21 22:50 36.5 C 82 19 147/63 H 93 Laboratory Results Laboratory Results - last 24 hr 09/08/21 09/08/21 09/08/21 04:50 15:14 Unknown WBC RBC Hgb 8.4 L Hct 25.2 L MCV MCH MCHC RDW Std Deviation RDW Coeff of Girish Plt Count MPV Immature Gran % (Auto) Neut % (Auto) Lymph % (Auto) [place] % (Auto) Eos % (Auto) Baso % (Auto) Neut # (Auto) Lymph # (Auto) [place] # (Auto) Eos # (Auto) Baso # (Auto) Immature Gran # (Auto) Hyposegmented Neuts 1+ RBC Morphology Sodium Potassium Chloride Carbon Dioxide Anion Gap BUN Creatinine Est Cr Clr Drug Dosing Est GFR ( Amer) Est GFR (Non-Af Amer) BUN/Creatinine Ratio Glucose Calcium Phosphorus Magnesium Total Bilirubin AST ALT Alkaline Phosphatase Total Creatine Kinase Total Protein Albumin Globulin Albumin/Globulin Ratio Procalcitonin Stool Occult Bld Scrn Stl C. diff Tox B Gene Negative Cdiff Gene 09/08/21 09/09/21 09/09/21 Unknown 05:01 05:01 WBC 3.89 L RBC 3.16 L Hgb 8.8 L Hct 27.0 L MCV 85.4 MCH 27.8 MCHC 32.6 RDW Std Deviation 44.9 RDW Coeff of Girish 14.5 Plt Count 79 L MPV 13.1 H Immature Gran % (Auto) 0.5 Neut % (Auto) 78.1 Lymph % (Auto) 16.2 [place] % (Auto) 4.6 Eos % (Auto) 0.3 Baso % (Auto) 0.3 Neut # (Auto) 3.04 Lymph # (Auto) 0.[address] [place] # (Auto) 0.18 Eos # (Auto) 0.01 Baso # (Auto) 0.01 Immature Gran # (Auto) 0.02 Hyposegmented Neuts 1+ RBC Morphology Unremarkable Sodium 142 Potassium 3.0 L Chloride 106 Carbon Dioxide 29 Anion Gap 7.0 BUN 55 H Creatinine 3.61 H D Est Cr Clr Drug Dosing 13.4 Est GFR ( Amer) 17.7 Est GFR (Non-Af Amer) 15.3 BUN/Creatinine Ratio 15.2 Glucose 132 H Calcium 7.8 L Phosphorus 3.1 Magnesium 2.2 Total Bilirubin 0.7 AST 261 H ALT 57 Alkaline Phosphatase 67 Total Creatine Kinase 4813 H Total Protein 5.6 L Albumin 2.3 L Globulin 3.3 Albumin/Globulin Ratio 0.7 L Procalcitonin Stool Occult Bld Scrn Positive A Stl C. diff Tox B Gene 09/09/21 05:01 WBC RBC Hgb Hct MCV MCH MCHC RDW Std Deviation RDW Coeff of Girish Plt Count MPV Immature Gran % (Auto) Neut % (Auto) Lymph % (Auto) [place] % (Auto) Eos % (Auto) Baso % (Auto) Neut # (Auto) Lymph # (Auto) [place] # (Auto) Eos # (Auto) Baso # (Auto) Immature Gran # (Auto) Hyposegmented Neuts RBC Morphology Sodium Potassium Chloride Carbon Dioxide Anion Gap BUN Creatinine Est Cr Clr Drug Dosing Est GFR ( Amer) Est GFR (Non-Af Amer) BUN/Creatinine Ratio Glucose Calcium Phosphorus Magnesium Total Bilirubin AST ALT Alkaline Phosphatase Total Creatine Kinase Total Protein Albumin Globulin Albumin/Globulin Ratio Procalcitonin 93.68 H Stool Occult Bld Scrn Stl C. diff Tox B Gene PG Care Time/CCT Total # of Minutes Spent Total Time Spent with Patient: Total time spent is greater than 50% in coordination of care (as documented) at patient's floor/unit and/or counseling patient: Coding Level of Care Code 82502 Subseq Hosp Care Lvl 3 Diagnoses Acute renal failure N17.9 Acute renal failure type: unspecified Rhabdomyolysis M62.82 Rhabdomyolysis type: non-traumatic Proteinuria R80.9 (1) Acute renal failure Acute renal failure type: unspecified Qualified Code(s): N17.9 - Acute kidney failure, unspecified (2) Rhabdomyolysis Rhabdomyolysis type: non-traumatic Qualified Code(s): M62.82 - Rhabdomyolysis
[2021-09-09] MEDS ORDERED: POTASSIUM CHLORIDE CRTAB 20 MEQ TABCR PO STA (18:14)
--- NOTE | 2021-09-09 19:11 | Hospitalist Progress Note ---
Date of Service September 09, 2021 Assessment & Plan (1) Shock: Plan: Sepsis/Septic Shock and hypovolemic shock, POA with associated acute kidney injury, myocardial demand ischemia With lactic acidosis and high anion gap metabolic acidosis Blood pressure 60/40 shortly after admission despite 2 L normal saline Hemoglobin low but stable at 9.8 on arrival -was bolused two more liters of LR and blood pressure still in the 70s over 50s systolic, lactate back within normal limits -Procalcitonin greater than 200 but could be falsely positive in the setting of rhabdomyolysis -Transferred to ICU and started on Levophed through peripheral IV, then weaned off within 8 hours -Transferred out of ICU on 09/08 BPs now much improved and now actually hypertensive Blood cultures no growth to date No source of infection found thus far Chest x-ray with chronic changes from previous lung surgery and with lung cancer Urinalysis collected after administration of antibiotics but no sign of infection No fevers since admission Procalcitonin trending downward to the 90s His chemotherapy drugs can be known for having side effects of fevers and SIRS -Continue holding all home antihypertensives for now -Continue broad-spectrum antibiotics with IV Zosyn and doxy -Follow blood cultures-NGTD -continue IVFs with Normosol at 100mL/hr -Follow CBC, CMP, magnesium, phosphorus (2) Acute renal failure: Plan: With acute kidney injury with creatinine up to 4.6, BUN up to 68 With high anion gap metabolic acidosis Secondary to septic shock and hypovolemia from diarrhea, as well as rhabdomyol ysis UA with 2+ protein and 3+ blood, no casts With a history of proteinuria last admission (last week) With small amount of urine in the bladder on bladder scan, renal ultrasound normal here School L[employer] Monitor continues to improve today down to 3.6, BUN down to 55, HAGMA now resolved after NaHCO3 gtt upon admission Not oliguric, potassium actually low Appreciate Nephrology consultation -Continue hydrating with IV fluids -Follow serial BMP -Follow urine output (3) Lactic acidosis: Plan: Secondary to septic shock as above resolved now with hydration and pressor support (4) Elevated troponin: Plan: Troponin 0.541 upon admission and repeat trended downward Likely supply demand mismatch, type II [place] Most recent echocardiogram 07/25/2021 with hyperdynamic systolic function, no regional wall motion abnormalities, trace AI, mild pulmonary hypertension No need to repeat echo at this point as troponin is mildly elevated and trending downward Do not suspect acute coronary syndrome (5) Fall: Plan: Secondary to weakness from sepsis and hypotension With possible new versus old nasal bone fracture on the right, however patient does not clinically have any pain there and this is likely old With neck pain-check CT neck-negative (6) Rhabdomyolysis: Plan: Rhabdomyolysis/acute renal failure- CK 8707, creatinine 4.44 with baseline 1.05 upon admission CK now trending downward to 4813, renal function improving Continue IV fluids Follow CPK in the morning Nephrology following Follow Phos, magnesium, CMP received sodium bicarbonate drip, now stopped (7) Anemia: Plan: hgb dropped to 8.0 the day after admission which was likely hemodilutional Chronically low due to antineoplastic therapy Hemoglobin back up today to 8.8 no melena or BRBPR but Hemoccult stool is positive, C. difficile negative -Continue PPI but change to p.o. twice daily (8) Hypokalemia: Plan: Potassium low again today at 3.0 Replaced with 20 mEq potassium chloride With caution in setting of acute kidney injury (9) Lung cancer: Plan: Lung cancer, presently undergoing chemotherapy and hold home chemotherapy agents f/u with Oncology after discharge not ready to consider Hospice but is thinking about end of life issues and "the big picture" (10) Adenocarcinoma of prostate: Plan: Hold home Terazosin due to hypotension is s/p prostatectomy is on terazosin for urinary incontinence (11) Renal cell carcinoma: Plan: Noted with history of cryotherapy Follows with urology as an outpatient (12) Essential hypertension: Plan: hold atenolol, felodipine, and losartan, as well as Terazosin for hypotension as above, but blood pressures are now mildly elevated Consider restarting felodipine and Terazosin in the near future Continue to hold losartan due to acute kidney injury, and would cautiously add back atenolol due to renal failure (13) Nasal fracture: Plan: As above, likely chronic, not having any pain (14) Neck pain: Plan: Likely whiplash secondary to fall down onto his face CT neck negative for fracture (15) Acute encephalopathy: Plan: With some ongoing confusion compared to his baseline mental status that I am familiar with from a previous admission Likely secondary to previous septic and hypovolemic shock (16) Pancytopenia due to antineoplastic chemotherapy: Plan: Pancytopenia due to antineoplastic chemotherapy All cell lines are down, but improving from previous Holding chemotherapy regimen Follow-up with hematology/oncology after discharge Plan: DVT prophylaxis-Heparin SQ on hold due to anemia and positive Hemoccult stool Disposition-continued stay in the PCU, will consult PT/OT and he will likely need rehab placement in the next 2 to 3 days if renal function continues to improve Admission and Anticipated Discharge Date Admission Date: September 06, 2021 Subjective Patient still a little confused today, did almost fall out of bed and is now on one-to-one but he is upset that he has a one-to-one in the room. He is questioning why he is getting so much individualized attention. I tried to explain its for safety. He denies shortness of breath or chest pain, no abdominal pains but feels like he has to have another bowel movement. He is making more urine today and renal function is improved. He is eating and drinking better today. Telemetry with normal sinus rhythm and PVCs and some bigeminy, rates in the 60s to 70s. Review of Systems Review of Systems: All systems reviewed & are unremarkable except as noted in HPI & below Physical Exam Constitutional: + underweight Eyes: + anicteric sclerae ENMT: external ear and nose normal, oropharynx normal Neck: normal visual inspection Respiratory: normal respiratory effort, lungs clear to auscultation normal respiratory effort; no cough Auscultation: + rhonchi (right lower lung field); no crackles and no wheezes Cardiovascular: RRR, no murmur, no edema Chest (Breasts): Chest: normal inspection of chest Gastrointestinal (Abdomen): normal bowel sounds, soft, nontender, no hepatosplenomegaly Musculoskeletal: Extremities: extremities normal to inspection; no cyanosis and no clubbing Skin: no rashes, warm and dry Neurologic: moves all extremities and awake; no focal motor deficits Psychiatric: Orientation: alert, oriented to person, oriented to place and cooperative Lymphatic: no lymphedema Results & Data Results & Data ([facility]) Vital Signs (Past 12 Hours) Vital Signs Temp Pulse Resp BP Pulse Ox 09/09/21 16:00 36.7 C 75 20 161/79 H 98 Laboratory Results 09/09/21 09/09/21 09/09/21 Range/Units 05:01 05:01 05:01 WBC 3.89 L (4.8-10.8) K/uL RBC 3.16 L (4.7-6.1) M/uL Hgb 8.8 L (14.0-18.0) g/dL Hct 27.0 L (42-52) % MCV 85.4 (80-100) fL MCH 27.8 (25-34) pg MCHC 32.6 (32-36) g/dL RDW Std Deviation 44.9 (36.4-46.3) fL RDW Coeff of Girish 14.5 (11.5-14.5) % Plt Count 79 L (130-400) K/uL MPV 13.1 H (7.4-10.4) fL Immature Gran % (Auto) 0.5 % Neut % (Auto) 78.1 % Lymph % (Auto) 16.2 % Barry % (Auto) 4.6 % Eos % (Auto) 0.3 % Baso % (Auto) 0.3 % Neut # (Auto) 3.04 (1.4-6.5) K/uL Lymph # (Auto) 0.63 L (1.2-3.4) K/uL Barry # (Auto) 0.18 (0.11-0.59) K/uL Eos # (Auto) 0.01 (0-0.5) K/uL Baso # (Auto) 0.01 (0-0.2) K/uL Immature Gran # (Auto) 0.02 (0.00-0.02) K/uL Hyposegmented Neuts 1+ RBC Morphology Unremarkable Sodium 142 (136-145) mmol/L Potassium 3.0 L (3.5-5.1) mmol/L Chloride 106 (98-107) mmol/L Carbon Dioxide 29 (21-32) mmol/L Anion Gap 7.0 (3-11) BUN 55 H (7-18) mg/dl Creatinine 3.61 H D (0.6-1.4) mg/dl Est Cr Clr Drug Dosing 13.4 ml/min Est GFR ( Amer) 17.7 ml/min Est GFR (Non-Af Amer) 15.3 ml/min BUN/Creatinine Ratio 15.2 (10-20) Glucose 132 H (70-99) mg/dl Calcium 7.8 L (8.5-10.1) mg/dl Phosphorus 3.1 (2.5-4.9) mg/dl Magnesium 2.2 (1.8-2.4) mg/dl Total Bilirubin 0.7 (0.2-1) mg/dl AST 261 H (15-37) U/L ALT 57 (12-78) Alkaline Phosphatase 67 (45-117) U/L Total Creatine Kinase 4813 H (39-308) U/L Total Protein 5.6 L (6.4-8.2) gm/dl Albumin 2.3 L (3.4-5.0) gm/dl Globulin 3.3 (2.5-4.0) gm/dl Albumin/Globulin Ratio 0.7 L (0.9-2) Procalcitonin 93.68 H (0-0.5) ng/ml Random Cortisol mcg/dl 09/08/21 09/07/21 Range/Units 04:50 09:07 WBC (4.8-10.8) K/uL RBC (4.7-6.1) M/uL Hgb (14.0-18.0) g/dL Hct (42-52) % MCV (80-100) fL MCH (25-34) pg MCHC (32-36) g/dL RDW Std Deviation (36.4-46.3) fL RDW Coeff of Girish (11.5-14.5) % Plt Count (130-400) K/uL MPV (7.4-10.4) fL Immature Gran % (Auto) % Neut % (Auto) % Lymph % (Auto) % Barry % (Auto) % Eos % (Auto) % Baso % (Auto) % Neut # (Auto) (1.4-6.5) K/uL Lymph # (Auto) (1.2-3.4) K/uL Barry # (Auto) (0.11-0.59) K/uL Eos # (Auto) (0-0.5) K/uL Baso # (Auto) (0-0.2) K/uL Immature Gran # (Auto) (0.00-0.02) K/uL Hyposegmented Neuts 1+ RBC Morphology Sodium (136-145) mmol/L Potassium (3.5-5.1) mmol/L Chloride (98-107) mmol/L Carbon Dioxide (21-32) mmol/L Anion Gap (3-11) BUN (7-18) mg/dl Creatinine (0.6-1.4) mg/dl Est Cr Clr Drug Dosing ml/min Est GFR ( Amer) ml/min Est GFR (Non-Af Amer) ml/min BUN/Creatinine Ratio (10-20) Glucose (70-99) mg/dl Calcium (8.5-10.1) mg/dl Phosphorus (2.5-4.9) mg/dl Magnesium (1.8-2.4) mg/dl Total Bilirubin (0.2-1) mg/dl AST (15-37) U/L ALT (12-78) Alkaline Phosphatase (45-117) U/L Total Creatine Kinase (39-308) U/L Total Protein (6.4-8.2) gm/dl Albumin (3.4-5.0) gm/dl Globulin (2.5-4.0) gm/dl Albumin/Globulin Ratio (0.9-2) Procalcitonin (0-0.5) ng/ml Random Cortisol 25.52 mcg/dl PG Care Time/CCT Total # of Minutes Spent Total Time Spent with Patient: Total time spent is greater than 50% in coordination of care (as documented) at patient's floor/unit and/or counseling patient: Coding Level of Care Code 80528 Subseq Hosp Care Lvl 3 Diagnoses Shock R57.9 Acute renal failure N17.9 Acute renal failure type: unspecified Lactic acidosis E87.2 Elevated troponin R77.8 Fall W19.XXXA Rhabdomyolysis M62.82 Rhabdomyolysis type: non-traumatic Lung cancer C34.90 Adenocarcinoma of prostate C61 Renal cell carcinoma C64.9 Essential hypertension I10 Nasal fracture S02.2XXA Neck pain M54.2 Anemia D64.9 Hypokalemia E87.6 Acute encephalopathy G93.40 Pancytopenia due to antineoplastic chemotherapy D61.810; T45.1X5A (1) Acute renal failure Acute renal failure type: unspecified Qualified Code(s): N17.9 - Acute kidney failure, unspecified (2) Rhabdomyolysis Rhabdomyolysis type: non-traumatic Qualified Code(s): M62.82 - Rhabdomyolysis
[2021-09-09] MEDS: SERTRALINE HCL 100 MG TABLET PO SCH (21:11)
[2021-09-09] MEDS: PANTOprazole 40 MG TAB PO SCH (21:11)
[2021-09-10] MEDS: NORMOSOL-R 1,000 ML IV SCH ×2 (02:35→21:19)
[2021-09-10] MEDS: PIPERACILLIN/TAZOBACTAM 3.375 GM in DEXTROSE 5% 100 ML IV SCH (03:36)
[2021-09-10 05:38] LABS: Hematocrit (blood only) 29.7 % (42-52); Hemoglobin 9.3 g/dL (14.0-18.0); Mean Corpuscular Hemoglobin 27.4 pg (25-34); Mean Corpuscular Hgb Conc 31.3 g/dL (32-36); Mean Corpuscular Volume 87.6 fL (80-100); Platelet Count 79 K/uL (130-400); RDW Coefficient of Variation 14.6 % (11.5-14.5); RDW Standard Deviation 46.6 fL (36.4-46.3); Red Blood Count 3.39 M/uL (4.7-6.1); White Blood Count 3.92 K/uL (4.8-10.8)
[2021-09-10] MEDS: DOXYCYCLINE HYCLATE 100 MG in DEXTROSE 5% 100 ML IV SCH (05:41)
[2021-09-10 05:44] LABS: Albumin Level 2.3 gm/dl (3.4-5.0); BUN Creatinine Ratio 14.9 (10-20); Calcium 8.3 mg/dl (8.5-10.1); Est GFR (African American) 25.3 ml/min; Est GFR (Non-African American) 21.8 ml/min; Magnesium 2.1 mg/dl (1.8-2.4); Potassium 2.9 mmol/L (3.5-5.1)
[2021-09-10 05:58] LABS: Basophils # (auto) 0.01 K/uL (0-0.2); Basophils % (auto) 0.3 %; Eosinophils # (auto) 0.02 K/uL (0-0.5); Eosinophils % (auto) 0.5 %; Immature Granulocytes # (auto) 0.01 K/uL (0.00-0.02); Immature Granulocytes % (auto) 0.3 %; Lymphocytes # (auto) 0.64 K/uL (1.2-3.4); Lymphocytes % (auto) 16.3 %; Monocytes # (auto) 0.29 K/uL (0.11-0.59); Monocytes % (auto) 7.4 %; Neutrophils # (auto) 2.95 K/uL (1.4-6.5); Neutrophils % (auto) 75.2 %
[2021-09-10 06:04] LABS: Albumin Globulin Ratio 0.7 (0.9-2); Bilirubin,Total 2.1 mg/dl (0.2-1); Globulin 3.5 gm/dl (2.5-4.0); Phosphorus 2.9 mg/dl (2.5-4.9); Total Protein 5.8 gm/dl (6.4-8.2)
[2021-09-10] MEDS ORDERED: POTASSIUM CHLORIDE CRTAB 20 MEQ TABCR PO STA ×2 (08:32→15:57)
[2021-09-10] MEDS: FLUTICASONE FUROATE 200MCG 14 PUFFS/INHALER INH SCH (09:45)
[2021-09-10] MEDS: PANTOprazole 40 MG TAB PO SCH ×2 (09:47→21:14)
--- NOTE | 2021-09-10 10:17 | Nephrology Progress Note ---
Date of Service September 10, 2021 Assessment & Plan (1) Acute renal failure: Plan: Prerenal + rhabdomyolysis. Urine output not able to be documented due to incontinence. Continue Normosol @ 100 ml/hr. Additional 60 mEq KCl provided this AM for hypokalemia. KCl 20 mEq BID added to medications. Creatinine improving. CK trending down. Repeat metabolic profile + CK in the AM. Medications appropriate for kidney dysfunction. Dabrafenib and trametinib held. Baseline creatinine 1.0 mg/dL. (2) Rhabdomyolysis: Plan: Improving. Monitor CK daily. Low threshold for PRBC transfusion support in management of anemia. (3) Proteinuria: Plan: Outpatient follow up. (4) Hypertension: Plan: Home medications (atenolol, felodipine, terazosin, and losartan) had been held. Continue to avoid restarting ARB for now. Admission and Anticipated Discharge Date Admission Date: September 06, 2021 Subjective No acute events overnight. Denies pain. Appetite fair. Review of Systems Review of Systems: All systems reviewed & are unremarkable except as noted in HPI & below Physical Exam Constitutional: + thin and + frail appearing; no acute distress Eyes: + anicteric sclerae; no corneal abnormality ENMT: Mouth: + dry oral mucous membranes; no oral mucosal abnormality Neck: normal visual inspection and trachea midline Respiratory: normal respiratory effort Auscultation: lungs clear to auscultation bilaterally Cardiovascular: Rate/Rhythm: regular rate Heart Sounds: normal S1 and normal S2 Extremities: no edema Musculoskeletal: Extremities: no cyanosis and no clubbing Skin: normal turgor; no lesions Neurologic: Motor/Sensory: no tremor and no asterixis Psychiatric: Orientation: alert and oriented x 3 Results & Data ([facility]) Vital Signs (Past 12 Hours) Vital Signs Temp Pulse Pulse Resp BP Pulse Ox 09/10/21 07:51 36.7 C 66 19 164/72 H 96 09/10/21 03:45 36.5 C 60 16 185/100 H 96 09/10/21 00:00 72 09/09/21 23:02 36.6 C 75 18 166/85 H 97 Laboratory Results Laboratory Results - last 24 hr 09/07/21 09/10/21 09/10/21 09:07 05:13 05:13 WBC 3.92 L RBC 3.39 L Hgb 9.3 L Hct 29.7 L MCV 87.6 MCH 27.4 MCHC 31.3 L RDW Std Deviation 46.6 H RDW Coeff of Girish 14.6 H Plt Count 79 L MPV 12.0 H Immature Gran % (Auto) 0.3 Neut % (Auto) 75.2 Lymph % (Auto) 16.3 [place] % (Auto) 7.4 Eos % (Auto) 0.5 Baso % (Auto) 0.3 Neut # (Auto) 2.95 Lymph # (Auto) 0.64 L [place] # (Auto) 0.29 Eos # (Auto) 0.02 Baso # (Auto) 0.01 Immature Gran # (Auto) 0.01 Hyposegmented Neuts 1+ Sodium 144 Potassium 2.9 L Chloride 107 Carbon Dioxide 31 Anion Gap 6.0 BUN 40 H Creatinine 2.69 H D Est Cr Clr Drug Dosing 18.0 Est GFR ( Amer) 25.3 Est GFR (Non-Af Amer) 21.8 BUN/Creatinine Ratio 14.9 Glucose 130 H Calcium 8.3 L Phosphorus 2.9 Magnesium 2.1 Total Bilirubin 2.1 H D AST 339 H ALT 93 H Alkaline Phosphatase 392 H D Total Creatine Kinase 1808 H Total Protein 5.8 L Albumin 2.3 L Globulin 3.5 Albumin/Globulin Ratio 0.7 L Random Cortisol 25.52 PG Care Time/CCT Total # of Minutes Spent Total Time Spent with Patient: Total time spent is greater than 50% in coordination of care (as documented) at patient's floor/unit and/or counseling patient: Coding Level of Care Code 29198 Subseq Hosp Care Lvl 3 Diagnoses Acute renal failure N17.9 Acute renal failure type: unspecified Rhabdomyolysis M62.82 Rhabdomyolysis type: non-traumatic Proteinuria R80.9 Hypertension I10 (1) Acute renal failure Acute renal failure type: unspecified Qualified Code(s): N17.9 - Acute kidney failure, unspecified (2) Rhabdomyolysis Rhabdomyolysis type: non-traumatic Qualified Code(s): M62.82 - Rhabdomyolysis
[2021-09-10] MEDS: POTASSIUM CHLORIDE CRTAB 20 MEQ TABCR PO SCH ×2 (12:56→21:15)
--- NOTE | 2021-09-10 15:34 | Hospitalist Progress Note ---
Date of Service September 10, 2021 Assessment & Plan (1) Shock: Plan: Sepsis/Septic Shock and hypovolemic shock, POA with associated acute kidney injury, myocardial demand ischemia. - Blood pressure was 60/40 shortly after admission despite 2 L normal saline. - Transferred to ICU and started on Levophed through peripheral IV, then weaned off within 8 hours. - No source of infection found thus far. * Blood cultures from 09/06 with no growth so far. * Chest x-ray with chronic changes from previous lung surgery and with lung cancer. * UA from 09/08 without signs of infection. * No fevers since admission. His chemotherapy drugs (dabrafenib & trametinib) can be known for having side effects of fevers and SIRS. UpToDate indicates it is even more likely when they are used in combination, and that some patients experienced multiple, discrete episodes. - Stop antibiotics at this time given negative cultures. - Monitor patient and procalcitonin to see if any worsening. - Hold his home chemotherapy medications. Discussed with his oncologist (Clark Jaramillo) on 09/10. Will hold on discharge. (2) Acute renal failure: Plan: With acute kidney injury with creatinine up to 4.6, BUN up to 68. Likely ATN from hypotensions vs. damage from rhabdomyolysis. - Cr continues to improve. Down to 2.7 on 09/10. - Appreciate Nephrology consultation (3) Rhabdomyolysis: Plan: CK was 8707 on admission. CK now trending downward to 1800. - Continue IV fluids (4) Essential hypertension: Plan: BP presently 180/90. - Restart home felodipine - Hold atenolol and losartan (5) Elevated troponin: Plan: Troponin 0.541 upon admission and repeat trended downward. Supply/demand mismatch, type II [place]. Most recent echocardiogram 07/25/2021 with hyperdynamic systolic function, no regional wall motion abnormalities, trace AI, mild pulmonary hypertension. - No inpatient needs (6) Fall: Plan: Secondary to weakness from sepsis and hypotension. With possible new versus old nasal bone fracture on the right; however, patient does not clinically have any pain there. CT neck also negative for fracture. - PT/OT (7) Anemia: Plan: Baseline hgb is ~11 - 12. Hgb dropped to 8.0 the day after admission which was likely hemodilutional. Chronically low due to antineoplastic therapy. No melena or BRBPR but Hemoccult stool is positive, C. difficile negative. - Continue PPI PO BID (8) Lung cancer: Plan: Lung cancer, presently undergoing chemotherapy. Follows with Clark Jaramillo. Per prior provider, not ready to consider hospice but is thinking about end of life issues and "the big picture." - F/u with oncology after discharge -> Hold dabrafenib & trametinib on discharge. (9) Pancytopenia due to antineoplastic chemotherapy: Plan: Pancytopenia due to antineoplastic chemotherapy. (10) Adenocarcinoma of prostate: Plan: S/p prostatectomy. Is on terazosin for urinary incontinence. - Continue home terazosin (11) Renal cell carcinoma: Plan: Noted with history of cryotherapy. Follows with urology as an outpatient. (12) DVT prophylaxis: Plan: Heparin 5,000 units SQ Q12h Admission and Anticipated Discharge Date Admission Date: September 06, 2021 Subjective Doing well today. Still having a tough time talking (he has to clear mucus in the mornings). But feels stronger than when he came in. Reports no fevers/chills, chest pain, shortness of breath, abdominal pain, nausea, or vomiting. Physical Exam Constitutional: + ill appearing and + frail appearing Very thin voice. Eyes: EOM intact bilaterally; no conjunctival abnormality ENMT: external ear and nose normal, oropharynx normal Neck: trachea midline, no thyromegaly normal visual inspection Respiratory: normal respiratory effort, lungs clear to auscultation no respiratory distress Cardiovascular: RRR, no murmur, no edema Gastrointestinal (Abdomen): Inspection/Auscultation: abdomen normal to inspection; abdomen not distended Musculoskeletal: no cyanosis or clubbing, extremities motor strength 5/5 Skin: no rashes, warm and dry Neurologic: moves all extremities and awake Psychiatric: Orientation: alert, oriented to person and cooperative Results & Data Results & Data ([facility]) Vital Signs (Past 12 Hours) Vital Signs Temp Pulse Pulse Resp BP Pulse Ox 09/10/21 12:30 177/89 H 09/10/21 12:07 37.0 C 76 18 181/87 H 97 09/10/21 12:06 77 09/10/21 07:51 36.7 C 66 19 164/72 H 96 09/10/21 03:45 36.5 C 60 16 185/100 H 96 PG Care Time/CCT Total # of Minutes Spent Total Time Spent with Patient: Total time spent is greater than 50% in coordination of care (as documented) at patient's floor/unit and/or counseling patient: Coding Level of Care Code 00099 Subseq Hosp Care Lvl 3 Diagnoses Shock R57.9 Acute renal failure N17.9 Acute renal failure type: unspecified Elevated troponin R77.8 Fall W19.XXXA Rhabdomyolysis M62.82 Rhabdomyolysis type: non-traumatic Anemia D64.9 Lung cancer C34.90 Adenocarcinoma of prostate C61 Renal cell carcinoma C64.9 Essential hypertension I10 Pancytopenia due to antineoplastic chemotherapy D61.810; T45.1X5A DVT prophylaxis Z29.9 (1) Acute renal failure Acute renal failure type: unspecified Qualified Code(s): N17.9 - Acute kidney failure, unspecified (2) Rhabdomyolysis Rhabdomyolysis type: non-traumatic Qualified Code(s): M62.82 - Rhabdomyolysis
[2021-09-10] MEDS: TERAZOSIN HCL 5 MG CAP PO SCH (19:41)
[2021-09-10] MEDS: SERTRALINE HCL 100 MG TABLET PO SCH (21:15)
[2021-09-10] MEDS: HEPARIN SOD 5,000 UNIT/0.5 ML VIAL SC SCH (21:16)
[2021-09-11 04:48] LABS: Hematocrit (blood only) 30.4 % (42-52); Hemoglobin 9.3 g/dL (14.0-18.0); Mean Corpuscular Hgb Conc 30.6 g/dL (32-36); Mean Corpuscular Volume 88.1 fL (80-100); Mean Platelet Volume 10.6 fL (7.4-10.4); Platelet Count 103 K/uL (130-400); RDW Coefficient of Variation 14.4 % (11.5-14.5); RDW Standard Deviation 46.4 fL (36.4-46.3); Red Blood Count 3.45 M/uL (4.7-6.1); White Blood Count 3.68 K/uL (4.8-10.8)
[2021-09-11 04:59] LABS: INR 1.1 (0.9-1.1); Partial Thromboplastin Ratio 1.1; Partial Thromboplastin Time 29.8 Seconds (21.0-31.0); Prothrombin Time 10.9 Seconds (9.0-12.0)
[2021-09-11 05:21] LABS: Albumin Level 2.3 gm/dl (3.4-5.0); BUN Creatinine Ratio 16.4 (10-20); Calcium 8.8 mg/dl (8.5-10.1); Creatinine Clr Calc Pharmacy 22.9 ml/min; Est GFR (African American) 33.8 ml/min; Est GFR (Non-African American) 29.1 ml/min; Magnesium 1.9 mg/dl (1.8-2.4)
[2021-09-11 05:22] LABS: Potassium 3.7 mmol/L (3.5-5.1)
[2021-09-11 05:28] LABS: Albumin Globulin Ratio 0.6 (0.9-2); Bilirubin,Total 0.9 mg/dl (0.2-1); Globulin 3.6 gm/dl (2.5-4.0); Total Protein 5.9 gm/dl (6.4-8.2)
[2021-09-11] MEDS: NORMOSOL-R 1,000 ML IV SCH ×2 (06:47→10:36)
[2021-09-11] MEDS: FELODIPINE 5 MG TABCR PO SCH (08:20)
[2021-09-11] MEDS: HEPARIN SOD 5,000 UNIT/0.5 ML VIAL SC SCH ×2 (08:21→20:54)
[2021-09-11] MEDS: PANTOprazole 40 MG TAB PO SCH ×2 (08:21→20:53)
[2021-09-11] MEDS: FLUTICASONE FUROATE 200MCG 14 PUFFS/INHALER INH SCH (08:21)
[2021-09-11] MEDS: POTASSIUM CHLORIDE CRTAB 20 MEQ TABCR PO SCH ×2 (08:24→20:52)
[2021-09-11] MEDS: FLUTICASONE PROPIONATE NA SPR 16 GM BTL SCH ×2 (09:54→20:53)
--- NOTE | 2021-09-11 10:32 | Nephrology Progress Note ---
Date of Service September 11, 2021 Assessment & Plan (1) Acute renal failure: Plan: Prerenal + rhabdomyolysis. Continued improvement noted. Increasing free water deficit. Normosol switched to 0.45% NaCl. KCl 20 mEq BID. Repeat metabolic profile + CK in the AM. Medications appropriate for kidney dysfunction. Dabrafenib and trametinib held. Baseline creatinine 1.0 mg/dL. (2) Rhabdomyolysis: Plan: Improving. Monitor CK daily. (3) Proteinuria: Plan: Outpatient follow up. (4) Hypertension: Plan: Home medications restarted. Continue to hold losartan. Admission and Anticipated Discharge Date Admission Date: September 06, 2021 Subjective No acute events overnight. No complaints this AM. Review of Systems Review of Systems: All systems reviewed & are unremarkable except as noted in HPI & below Physical Exam Constitutional: + thin and + frail appearing; no acute distress Eyes: + anicteric sclerae; no corneal abnormality ENMT: Mouth: + dry oral mucous membranes; no oral mucosal abnormality Neck: normal visual inspection and trachea midline Respiratory: normal respiratory effort Auscultation: lungs clear to auscultation bilaterally Cardiovascular: Rate/Rhythm: regular rate Heart Sounds: normal S1 and normal S2 Extremities: no edema Musculoskeletal: Extremities: no cyanosis and no clubbing Skin: normal turgor; no lesions Neurologic: Motor/Sensory: no tremor and no asterixis Psychiatric: Orientation: alert and oriented x 3 Results & Data ([facility]) Vital Signs (Past 12 Hours) Vital Signs Temp Pulse Pulse Resp BP Pulse Ox 09/11/21 07:42 36.5 C 66 19 164/86 H 98 09/11/21 03:20 36.4 C L 62 16 168/78 H 98 09/11/21 00:01 36.8 C 70 16 156/73 H 98 09/11/21 00:00 74 Laboratory Results Laboratory Results - last 24 hr 09/11/21 09/11/21 09/11/21 04:30 04:30 04:30 WBC 3.68 L RBC 3.45 L Hgb 9.3 L Hct 30.4 L MCV 88.1 MCH 27.0 MCHC 30.6 L RDW Std Deviation 46.4 H RDW Coeff of Girish 14.4 Plt Count 103 L MPV 10.6 H PT 10.9 INR 1.1 APTT 29.8 PTT Ratio 1.1 Sodium 146 H Potassium 3.7 D Chloride 110 H Carbon Dioxide 32 Anion Gap 4.0 BUN 35 H Creatinine 2.12 H D Est Cr Clr Drug Dosing 22.9 Est GFR ( Amer) 33.8 Est GFR (Non-Af Amer) 29.1 BUN/Creatinine Ratio 16.4 Glucose 116 H Calcium 8.8 Magnesium 1.9 Total Bilirubin 0.9 D AST 168 H ALT 79 H Alkaline Phosphatase 361 H Total Protein 5.9 L Albumin 2.3 L Globulin 3.6 Albumin/Globulin Ratio 0.6 L PG Care Time/CCT Total # of Minutes Spent Total Time Spent with Patient: Total time spent is greater than 50% in coordination of care (as documented) at patient's floor/unit and/or counseling patient: Coding Level of Care Code 47924 Subseq Hosp Care Lvl 3 Diagnoses Acute renal failure N17.9 Acute renal failure type: unspecified Rhabdomyolysis M62.82 Rhabdomyolysis type: non-traumatic Proteinuria R80.9 Hypertension I10 (1) Acute renal failure Acute renal failure type: unspecified Qualified Code(s): N17.9 - Acute kidney failure, unspecified (2) Rhabdomyolysis Rhabdomyolysis type: non-traumatic Qualified Code(s): M62.82 - Rhabdomyolysis
[2021-09-11] MEDS: SODIUM CHLORIDE 0.45 % 1,000 ML IV SCH ×2 (10:35→20:47)
--- NOTE | 2021-09-11 12:08 | Hospitalist Progress Note ---
Date of Service September 11, 2021 Assessment & Plan (1) Shock: Plan: Sepsis/Septic Shock and hypovolemic shock, POA with associated acute kidney injury, myocardial demand ischemia. - Blood pressure was 60/40 shortly after admission despite 2 L normal saline. - Transferred to ICU and started on Levophed through peripheral IV, then weaned off within 8 hours. - No source of infection found thus far. * Blood cultures from 09/06 with no growth so far. * Chest x-ray with chronic changes from previous lung surgery and with lung cancer. * UA from 09/08 without signs of infection. * No fevers since admission. His chemotherapy drugs (dabrafenib & trametinib) can be known for having side effects of fevers and SIRS. UpToDate indicates it is even more likely when they are used in combination, and that some patients experienced multiple, discrete episodes. - Stop antibiotics at this time given negative cultures. - Monitor patient and procalcitonin to see if any worsening. - Hold his home chemotherapy medications. Discussed with his oncologist (Clark Jaramillo) on 09/10. Will hold on discharge. (2) Acute renal failure: Plan: With acute kidney injury with creatinine up to 4.6, BUN up to 68. Likely ATN from hypotensions vs. damage from rhabdomyolysis. - Cr continues to improve. Down to 2.1 on 09/11. - Appreciate Nephrology consultation (3) Rhabdomyolysis: Plan: CK was 8707 on admission. CK now trending downward to 1800. - Continue IV fluids (4) Essential hypertension: Plan: BP presently 140/75. - Restarted home felodipine - Hold atenolol and losartan (5) Elevated troponin: Plan: Troponin 0.541 upon admission and repeat trended downward. Supply/demand mismatch, type II [place]. Most recent echocardiogram 07/25/2021 with hyperdynamic systolic function, no regional wall motion abnormalities, trace AI, mild pulmonary hypertension. - No inpatient needs (6) Fall: Plan: Secondary to weakness from sepsis and hypotension. With possible new versus old nasal bone fracture on the right; however, patient does not clinically have any pain there. CT neck also negative for fracture. - PT/OT (7) Anemia: Plan: Baseline hgb is ~11 - 12. Hgb dropped to 8.0 the day after admission which was likely hemodilutional. Chronically low due to antineoplastic therapy. No melena or BRBPR but Hemoccult stool is positive, C. difficile negative. - Continue PPI PO BID (8) Lung cancer: Plan: Lung cancer, presently undergoing chemotherapy. Follows with Clark Jaramillo. Per prior provider, not ready to consider hospice but is thinking about end of life issues and "the big picture." - F/u with oncology after discharge -> Hold dabrafenib & trametinib on discharge. (9) Pancytopenia due to antineoplastic chemotherapy: Plan: Pancytopenia due to antineoplastic chemotherapy. (10) Adenocarcinoma of prostate: Plan: S/p prostatectomy. Is on terazosin for urinary incontinence. - Continue home terazosin (11) Renal cell carcinoma: Plan: Noted with history of cryotherapy. Follows with urology as an outpatient. (12) DVT prophylaxis: Plan: Heparin 5,000 units SQ Q12h Admission and Anticipated Discharge Date Admission Date: September 06, 2021 Subjective Still having some swallowing issue and congestion in the AM. Also feeling weak. Reports no fevers/chills, chest pain, shortness of breath, abdominal pain, nausea, or vomiting. Physical Exam Constitutional: WD/WN, vitals as above + ill appearing and + frail appearing Eyes: EOM intact bilaterally; no conjunctival abnormality ENMT: external ear and nose normal, oropharynx normal Neck: trachea midline, no thyromegaly normal visual inspection Respiratory: normal respiratory effort, lungs clear to auscultation no respiratory distress Cardiovascular: RRR, no murmur, no edema Gastrointestinal (Abdomen): Inspection/Auscultation: abdomen normal to inspection; abdomen not distended Musculoskeletal: no cyanosis or clubbing, extremities motor strength 5/5 Skin: no rashes, warm and dry Neurologic: moves all extremities and awake Psychiatric: Orientation: alert, oriented to person and cooperative Results & Data Results & Data ([facility]) Vital Signs (Past 12 Hours) Vital Signs Temp Pulse Resp BP Pulse Ox 09/11/21 11:32 36.5 C 67 16 140/76 09/11/21 07:42 36.5 C 66 19 164/86 H 98 09/11/21 03:20 36.4 C L 62 16 168/78 H 98 PG Care Time/CCT Total # of Minutes Spent Total Time Spent with Patient: Total time spent is greater than 50% in coordination of care (as documented) at patient's floor/unit and/or counseling patient: Coding Level of Care Code 69766 Subseq Hosp Care Lvl 2 Diagnoses Shock R57.9 Acute renal failure N17.9 Acute renal failure type: unspecified Rhabdomyolysis M62.82 Rhabdomyolysis type: non-traumatic Essential hypertension I10 Elevated troponin R77.8 Fall W19.XXXA Anemia D64.9 Lung cancer C34.90 Pancytopenia due to antineoplastic chemotherapy D61.810; T45.1X5A Adenocarcinoma of prostate C61 Renal cell carcinoma C64.9 DVT prophylaxis Z29.9 (1) Acute renal failure Acute renal failure type: unspecified Qualified Code(s): N17.9 - Acute kidney failure, unspecified (2) Rhabdomyolysis Rhabdomyolysis type: non-traumatic Qualified Code(s): M62.82 - Rhabdomyolysis
[2021-09-11] MEDS: TERAZOSIN HCL 5 MG CAP PO SCH (20:52)
[2021-09-11] MEDS: SERTRALINE HCL 100 MG TABLET PO SCH (20:52)
[2021-09-12] MEDS: FELODIPINE 5 MG TABCR PO SCH (05:29)
[2021-09-12 06:19] LABS: Albumin Level 2.3 gm/dl (3.4-5.0); BUN Creatinine Ratio 18.1 (10-20); Calcium 8.7 mg/dl (8.5-10.1); Creatinine Clr Calc Pharmacy 30.5 ml/min; Est GFR (African American) 50.9 ml/min; Est GFR (Non-African American) 43.9 ml/min; Magnesium 1.5 mg/dl (1.8-2.4); Potassium 3.5 mmol/L (3.5-5.1)
[2021-09-12 06:21] LABS: Albumin Globulin Ratio 0.6 (0.9-2); Bilirubin,Total 0.9 mg/dl (0.2-1); Globulin 3.6 gm/dl (2.5-4.0); Total Protein 5.9 gm/dl (6.4-8.2)
[2021-09-12] MEDS: SODIUM CHLORIDE 0.45 % 1,000 ML IV SCH (06:24)
[2021-09-12 06:42] LABS: Hematocrit (blood only) 29.8 % (42-52); Hemoglobin 9.1 g/dL (14.0-18.0); Mean Corpuscular Hemoglobin 27.1 pg (25-34); Mean Corpuscular Hgb Conc 30.5 g/dL (32-36); Mean Corpuscular Volume 88.7 fL (80-100); Mean Platelet Volume 10.5 fL (7.4-10.4); Platelet Count 156 K/uL (130-400); RDW Coefficient of Variation 14.3 % (11.5-14.5); RDW Standard Deviation 45.6 fL (36.4-46.3); Red Blood Count 3.36 M/uL (4.7-6.1); White Blood Count 3.93 K/uL (4.8-10.8)
[2021-09-12] MEDS: FLUTICASONE FUROATE 200MCG 14 PUFFS/INHALER INH SCH (08:06)
[2021-09-12] MEDS: FLUTICASONE PROPIONATE NA SPR 16 GM BTL SCH ×2 (08:06→20:55)
[2021-09-12] MEDS: HEPARIN SOD 5,000 UNIT/0.5 ML VIAL SC SCH ×2 (08:07→20:55)
[2021-09-12] MEDS: MAGNESIUM SULFATE / D5W 1 GM/100 ML BAG IV SCH ×2 (09:18→11:39)
[2021-09-12] MEDS: POTASSIUM CHLORIDE CRTAB 20 MEQ TABCR PO SCH (09:19)
[2021-09-12] MEDS: PANTOprazole 40 MG TAB PO SCH ×2 (09:31→20:55)
--- NOTE | 2021-09-12 09:42 | Nephrology Progress Note ---
Date of Service September 12, 2021 Assessment & Plan (1) Acute renal failure: Plan: Continued renal recovery. Volume status acceptable. Tolerating adequate PO fluids. Stop 0.45% NaCl infusion once current bag complete. Remains on KCl 20 mEq BID which may be stopped once tolerating adequate PO intake and serum potassium stable. 2 gm IV MgSO4 provided this AM. Continue to monitor daily metabolic profile. Nephrology will sign off. Kidney function recovering appropriately with anticipated continued improvement once IVF stopped. Please call with any questions or concerns. (2) Rhabdomyolysis: (3) Proteinuria: Plan: Outpatient follow up in the nephrology clinic can be arranged with me at discharge. (4) Hypertension: Plan: Home medications restarted. Losartan may be restarted as needed for hypertension. Admission and Anticipated Discharge Date Admission Date: September 06, 2021 Subjective No acute events overnight. Out of bed to chair this AM. Oral intake improving. Review of Systems Review of Systems: All systems reviewed & are unremarkable except as noted in HPI & below Physical Exam Constitutional: + thin and + frail appearing; no acute distress Eyes: + anicteric sclerae; no corneal abnormality ENMT: Mouth: no oral mucosal abnormality and oral mucous membranes not dry Neck: normal visual inspection and trachea midline Respiratory: normal respiratory effort Auscultation: lungs clear to auscultation bilaterally Cardiovascular: Rate/Rhythm: regular rate Heart Sounds: normal S1 and normal S2 Extremities: no edema Musculoskeletal: Extremities: no cyanosis and no clubbing Skin: normal turgor; no lesions Neurologic: Motor/Sensory: no tremor and no asterixis Psychiatric: Orientation: alert and oriented x 3 Results & Data ([facility]) Vital Signs (Past 12 Hours) Vital Signs Temp Pulse Pulse Resp BP BP Pulse Ox 09/12/21 08:04 36.7 C 81 18 134/65 98 09/12/21 06:31 82 147/71 H 09/12/21 05:11 36.7 C 68 14 186/90 H 99 09/12/21 00:00 72 09/11/21 23:28 36.8 C 72 16 169/89 H 97 Laboratory Results Laboratory Results - last 24 hr 09/12/21 09/12/21 05:07 05:07 WBC 3.93 L RBC 3.36 L Hgb 9.1 L Hct 29.8 L MCV 88.7 MCH 27.1 MCHC 30.5 L RDW Std Deviation 45.6 RDW Coeff of Girish 14.3 Plt Count 156 D MPV 10.5 H Sodium 140 Potassium 3.5 Chloride 106 Carbon Dioxide 31 Anion Gap 3.0 BUN 27 H Creatinine 1.51 H D Est Cr Clr Drug Dosing 30.5 Est GFR ( Amer) 50.9 Est GFR (Non-Af Amer) 43.9 BUN/Creatinine Ratio 18.1 Glucose 96 Calcium 8.7 Magnesium 1.5 L Total Bilirubin 0.9 AST 91 H ALT 59 Alkaline Phosphatase 295 H D Total Protein 5.9 L Albumin 2.3 L Globulin 3.6 Albumin/Globulin Ratio 0.6 L PG Care Time/CCT Total # of Minutes Spent Total Time Spent with Patient: Total time spent is greater than 50% in coordination of care (as documented) at patient's floor/unit and/or counseling patient: Coding Level of Care Code 28160 Subseq Hosp Care Lvl 3 Diagnoses Acute renal failure N17.9 Acute renal failure type: unspecified Rhabdomyolysis M62.82 Rhabdomyolysis type: non-traumatic Proteinuria R80.9 Hypertension I10 (1) Acute renal failure Acute renal failure type: unspecified Qualified Code(s): N17.9 - Acute kidney failure, unspecified (2) Rhabdomyolysis Rhabdomyolysis type: non-traumatic Qualified Code(s): M62.82 - Rhabdomyolysis
--- NOTE | 2021-09-12 10:10 | Hospitalist Progress Note ---
Date of Service September 12, 2021 Assessment & Plan (1) Shock: Plan: Sepsis/Septic Shock and hypovolemic shock, POA with associated acute kidney injury, myocardial demand ischemia. - Blood pressure was 60/40 shortly after admission despite 2 L normal saline. - Transferred to ICU and started on Levophed through peripheral IV, then weaned off within 8 hours. - No source of infection found thus far. * Blood cultures from 09/06 with no growth so far. * Chest x-ray with chronic changes from previous lung surgery and with lung cancer. * UA from 09/08 without signs of infection. * No fevers since admission. His chemotherapy drugs (dabrafenib & trametinib) can be known for having side effects of fevers and SIRS. UpToDate indicates it is even more likely when they are used in combination, and that some patients experienced multiple, discrete episodes. - Stopped antibiotics given negative cultures. - Hold his home chemotherapy medications. Discussed with his oncologist (Clark Jaramillo) on 09/10. Will hold on discharge. - Still stable. Working with PT/OT to see if rehab is appropriate. (2) Acute renal failure: Plan: With acute kidney injury with creatinine up to 4.6, BUN up to 68. Likely ATN from hypotensions vs. damage from rhabdomyolysis. - Cr continues to improve. Down to 1.5 on 09/12. - Appreciate Nephrology consultation (3) Rhabdomyolysis: Plan: CK was 8707 on admission. CK now trending downward to 1800. - Stop IV fluids (4) Essential hypertension: Plan: BP presently 135/65. - Restarted home felodipine - Hold atenolol and losartan (5) Elevated troponin: Plan: Troponin 0.541 upon admission and repeat trended downward. Supply/demand mismatch, type II [place]. Most recent echocardiogram 07/25/2021 with hyperdynamic systolic function, no regional wall motion abnormalities, trace AI, mild pulmonary hypertension. - No inpatient needs (6) Fall: Plan: Secondary to weakness from sepsis and hypotension. With possible new versus old nasal bone fracture on the right; however, patient does not clinically have any pain there. CT neck also negative for fracture. - PT/OT (7) Anemia: Plan: Baseline hgb is ~11 - 12. Hgb dropped to 8.0 the day after admission which was likely hemodilutional. Chronically low due to antineoplastic therapy. No melena or BRBPR but Hemoccult stool is positive, C. difficile negative. - Continue PPI PO BID (8) Lung cancer: Plan: Lung cancer, presently undergoing chemotherapy. Follows with Clark Jaramillo. Per prior provider, not ready to consider hospice but is thinking about end of life issues and "the big picture." - F/u with oncology after discharge -> Hold dabrafenib & trametinib on discharge. (9) Pancytopenia due to antineoplastic chemotherapy: Plan: Pancytopenia due to antineoplastic chemotherapy. (10) Adenocarcinoma of prostate: Plan: S/p prostatectomy. Is on terazosin for urinary incontinence. - Continue home terazosin (11) Renal cell carcinoma: Plan: Noted with history of cryotherapy. Follows with urology as an outpatient. (12) DVT prophylaxis: Plan: Heparin 5,000 units SQ Q12h Admission and Anticipated Discharge Date Admission Date: September 06, 2021 Subjective Doing well today. No overnight concerns. Appetite is good. Reports no fevers/chills, chest pain, shortness of breath, abdominal pain, nausea, or vomiting. Physical Exam Constitutional: WD/WN, vitals as above + frail appearing Eyes: EOM intact bilaterally; no conjunctival abnormality ENMT: external ear and nose normal, oropharynx normal Neck: trachea midline, no thyromegaly normal visual inspection Respiratory: normal respiratory effort, lungs clear to auscultation no respiratory distress Cardiovascular: RRR, no murmur, no edema Gastrointestinal (Abdomen): Inspection/Auscultation: abdomen normal to inspection; abdomen not distended Musculoskeletal: no cyanosis or clubbing, extremities motor strength 5/5 Skin: no rashes, warm and dry Neurologic: moves all extremities and awake Psychiatric: Orientation: alert, oriented to person and cooperative Results & Data Results & Data ([facility]) Vital Signs (Past 12 Hours) Vital Signs Temp Pulse Pulse Resp BP BP Pulse Ox 09/12/21 08:04 36.7 C 81 18 134/65 98 09/12/21 08:00 70 09/12/21 06:31 82 147/71 H 09/12/21 05:11 36.7 C 68 14 186/90 H 99 09/12/21 00:00 72 09/11/21 23:28 36.8 C 72 16 169/89 H 97 PG Care Time/CCT Total # of Minutes Spent Total Time Spent with Patient: Total time spent is greater than 50% in coordination of care (as documented) at patient's floor/unit and/or counseling patient: Coding Level of Care Code 44982 Subseq Hosp Care Lvl 2 Diagnoses Shock R57.9 Acute renal failure N17.9 Acute renal failure type: unspecified Rhabdomyolysis M62.82 Rhabdomyolysis type: non-traumatic Essential hypertension I10 Elevated troponin R77.8 Fall W19.XXXA Anemia D64.9 Lung cancer C34.90 Pancytopenia due to antineoplastic chemotherapy D61.810; T45.1X5A Adenocarcinoma of prostate C61 Renal cell carcinoma C64.9 DVT prophylaxis Z29.9 (1) Acute renal failure Acute renal failure type: unspecified Qualified Code(s): N17.9 - Acute kidney failure, unspecified (2) Rhabdomyolysis Rhabdomyolysis type: non-traumatic Qualified Code(s): M62.82 - Rhabdomyolysis
[2021-09-12] MEDS: TERAZOSIN HCL 5 MG CAP PO SCH (20:55)
[2021-09-12] MEDS: SERTRALINE HCL 100 MG TABLET PO SCH (20:55)
[2021-09-13 07:28] LABS: Hematocrit (blood only) 29.3 % (42-52); Hemoglobin 9.4 g/dL (14.0-18.0); Mean Corpuscular Hemoglobin 27.8 pg (25-34); Mean Corpuscular Hgb Conc 32.1 g/dL (32-36); Mean Corpuscular Volume 86.7 fL (80-100); Mean Platelet Volume 10.8 fL (7.4-10.4); Platelet Count 203 K/uL (130-400); RDW Standard Deviation 44.2 fL (36.4-46.3); Red Blood Count 3.38 M/uL (4.7-6.1); White Blood Count 4.01 K/uL (4.8-10.8)
[2021-09-13] MEDS: HEPARIN SOD 5,000 UNIT/0.5 ML VIAL SC SCH ×2 (07:53→20:26)
[2021-09-13] MEDS: FLUTICASONE FUROATE 200MCG 14 PUFFS/INHALER INH SCH (07:53)
[2021-09-13] MEDS: PANTOprazole 40 MG TAB PO SCH ×2 (07:54→20:27)
[2021-09-13] MEDS: FLUTICASONE PROPIONATE NA SPR 16 GM BTL SCH ×2 (07:54→20:27)
[2021-09-13] MEDS: FELODIPINE 5 MG TABCR PO SCH (07:54)
[2021-09-13 07:58] LABS: BUN Creatinine Ratio 18.5 (10-20); Calcium 9.3 mg/dl (8.5-10.1); Creatinine Clr Calc Pharmacy 26.6 ml/min; Est GFR (African American) 41.7 ml/min; Magnesium 1.7 mg/dl (1.8-2.4); Potassium 3.3 mmol/L (3.5-5.1)
[2021-09-13] MEDS ORDERED: LACTATED RINGER'S 1,000 ML IV ONE (12:14)
--- NOTE | 2021-09-13 12:14 | Hospitalist Progress Note ---
Date of Service September 13, 2021 Assessment & Plan (1) Shock: Plan: Sepsis/Septic Shock and hypovolemic shock, POA with associated acute kidney injury, myocardial demand ischemia. - Blood pressure was 60/40 shortly after admission despite 2 L normal saline. - Transferred to ICU and started on Levophed through peripheral IV, then weaned off within 8 hours. - No source of infection found thus far. * Blood cultures from 09/06 with no growth so far. * Chest x-ray with chronic changes from previous lung surgery and with lung cancer. * UA from 09/08 without signs of infection. * No fevers since admission. His chemotherapy drugs (dabrafenib & trametinib) can be known for having side effects of fevers and SIRS. UpToDate indicates it is even more likely when they are used in combination, and that some patients experienced multiple, discrete episodes. - Stopped antibiotics given negative cultures. - Hold his home chemotherapy medications. Discussed with his oncologist (Clark Jaramillo) on 09/10. Will hold on discharge. - Still stable. Working with PT/OT to see if rehab is appropriate. [facility] an [facility]. (2) Swallowing difficulty: Plan: On 09/11, patient reported a globus sensation in the back of his throat, trouble speaking in the mornings, and trouble with swallowing food. - LAND ACQUISITION SPECIALIST consulted. FEES on 09/11 showed significant inflammation of posterior pharynx with food resting there when eating. Ddx includes pills resting there and causing irritation, GERD/reflux causing chemical lópez, or possible chemotherapy effect. 1) Continue PPI PO BID 2) Given eating recs including meds with carriers and taking alternating bites of solids and liquids 3) Holding chemo as otherwise documented in the note (3) Acute renal failure: Plan: With acute kidney injury with creatinine up to 4.6, BUN up to 68. Likely ATN from hypotensions vs. damage from rhabdomyolysis. - Cr up slightly today at 1.8. Will give another liter of IV fluids in case he is still not drinking much. - Appreciate Nephrology consultation (4) Rhabdomyolysis: Plan: CK was 8707 on admission. CK now trending downward to 1800. - Stable; monitor (5) Essential hypertension: Plan: BP presently 160/75. - Restarted home felodipine - Hold atenolol and losartan (6) Elevated troponin: Plan: Troponin 0.541 upon admission and repeat trended downward. Supply/demand mismatch, type II [place]. Most recent echocardiogram 07/25/2021 with hyperdynamic systolic function, no regional wall motion abnormalities, trace AI, mild pulmonary hypertension. - No inpatient needs (7) Fall: Plan: Secondary to weakness from sepsis and hypotension. With possible new versus old nasal bone fracture on the right; however, patient does not clinically have any pain there. CT neck also negative for fracture. - PT/OT as above (8) Anemia: Plan: Baseline hgb is ~11 - 12. Hgb dropped to 8.0 the day after admission which was likely hemodilutional. Chronically low due to antineoplastic therapy. No melena or BRBPR but Hemoccult stool is positive, C. difficile negative. - Continue PPI PO BID - Hgb has been stable ~9.5 for several days. (9) Lung cancer: Plan: Lung cancer, presently undergoing chemotherapy. Follows with Clark Jaramillo. Per prior provider, not ready to consider hospice but is thinking about end of life issues and "the big picture." - F/u with oncology after discharge -> Hold dabrafenib & trametinib on discharge. (10) Pancytopenia due to antineoplastic chemotherapy: Plan: Pancytopenia due to antineoplastic chemotherapy. (11) Adenocarcinoma of prostate: Plan: S/p prostatectomy. Is on terazosin for urinary incontinence. - Continue home terazosin (12) Renal cell carcinoma: Plan: Noted with history of cryotherapy. Follows with urology as an outpatient. (13) DVT prophylaxis: Plan: Heparin 5,000 units SQ Q12h Admission and Anticipated Discharge Date Admission Date: September 06, 2021 Subjective Doing well today. No overnight concerns. Appetite is good. Feeling better about [facility] today. Would like to proceed. Reports no fevers/chills, chest pain, shortness of breath, abdominal pain, nausea, or vomiting. Physical Exam Constitutional: WD/WN, vitals as above + frail appearing Eyes: EOM intact bilaterally; no conjunctival abnormality ENMT: external ear and nose normal, oropharynx normal Neck: trachea midline, no thyromegaly normal visual inspection Respiratory: normal respiratory effort, lungs clear to auscultation no respiratory distress Cardiovascular: RRR, no murmur, no edema Gastrointestinal (Abdomen): Inspection/Auscultation: abdomen normal to inspection; abdomen not distended Musculoskeletal: no cyanosis or clubbing, extremities motor strength 5/5 Skin: no rashes, warm and dry Neurologic: moves all extremities and awake Psychiatric: Orientation: alert, oriented to person and cooperative Results & Data Results & Data ([facility]) Vital Signs (Past 12 Hours) Vital Signs Temp Pulse Resp BP BP Pulse Ox 09/13/21 07:43 162/72 H 09/13/21 07:10 36.4 C L 66 20 198/81 H 177/75 H 94 09/13/21 04:00 36.4 C L 74 18 188/80 H 92 PG Care Time/CCT Total # of Minutes Spent Total Time Spent with Patient: Total time spent is greater than 50% in coordination of care (as documented) at patient's floor/unit and/or counseling patient: Coding Level of Care Code 48113 Subseq Hosp Care Lvl 3 Diagnoses Shock R57.9 Acute renal failure N17.9 Acute renal failure type: unspecified Rhabdomyolysis M62.82 Rhabdomyolysis type: non-traumatic Essential hypertension I10 Elevated troponin R77.8 Fall W19.XXXA Anemia D64.9 Lung cancer C34.90 Pancytopenia due to antineoplastic chemotherapy D61.810; T45.1X5A Adenocarcinoma of prostate C61 Renal cell carcinoma C64.9 DVT prophylaxis Z29.9 Swallowing difficulty R13.10 (1) Acute renal failure Acute renal failure type: unspecified Qualified Code(s): N17.9 - Acute kidney failure, unspecified (2) Rhabdomyolysis Rhabdomyolysis type: non-traumatic Qualified Code(s): M62.82 - Rhabdomyolysis
[2021-09-13] MEDS: MAGNESIUM SULFATE / D5W 1 GM/100 ML BAG IV SCH ×2 (13:23→15:38)
[2021-09-13] MEDS: SERTRALINE HCL 100 MG TABLET PO SCH (20:26)
[2021-09-13] MEDS: TERAZOSIN HCL 5 MG CAP PO SCH (20:26)
[2021-09-14] MEDS: FELODIPINE 5 MG TABCR PO SCH (08:19)
[2021-09-14] MEDS: FLUTICASONE FUROATE 200MCG 14 PUFFS/INHALER INH SCH (08:19)
[2021-09-14] MEDS: PANTOprazole 40 MG TAB PO SCH ×2 (08:20→20:09)
[2021-09-14] MEDS: HEPARIN SOD 5,000 UNIT/0.5 ML VIAL SC SCH ×2 (08:20→20:08)
[2021-09-14] MEDS: FLUTICASONE PROPIONATE NA SPR 16 GM BTL SCH ×2 (08:20→20:08)
[2021-09-14 08:33] LABS: Hematocrit (blood only) 30.4 % (42-52); Hemoglobin 9.6 g/dL (14.0-18.0); Mean Corpuscular Hemoglobin 27.4 pg (25-34); Mean Corpuscular Hgb Conc 31.6 g/dL (32-36); Mean Corpuscular Volume 86.9 fL (80-100); Mean Platelet Volume 10.5 fL (7.4-10.4); Platelet Count 216 K/uL (130-400); RDW Coefficient of Variation 14.1 % (11.5-14.5); RDW Standard Deviation 43.9 fL (36.4-46.3); White Blood Count 5.34 K/uL (4.8-10.8)
[2021-09-14 09:18] LABS: Albumin Level 2.4 gm/dl (3.4-5.0); BUN Creatinine Ratio 19.3 (10-20); Calcium 10.4 mg/dl (8.5-10.1); Creatinine Clr Calc Pharmacy 30.9 ml/min; Est GFR (African American) 50.9 ml/min; Est GFR (Non-African American) 43.9 ml/min; Magnesium 1.8 mg/dl (1.8-2.4); Potassium 3.3 mmol/L (3.5-5.1)
[2021-09-14 09:20] LABS: Albumin Globulin Ratio 0.6 (0.9-2); Bilirubin,Total 0.7 mg/dl (0.2-1); Globulin 3.8 gm/dl (2.5-4.0); Total Protein 6.2 gm/dl (6.4-8.2)
--- NOTE | 2021-09-14 12:26 | Hospitalist Progress Note ---
Date of Service September 14, 2021 Assessment & Plan (1) Shock: Plan: Sepsis/Septic Shock and hypovolemic shock, POA with associated acute kidney injury, myocardial demand ischemia. - Blood pressure was 60/40 shortly after admission despite 2 L normal saline. - Transferred to ICU and started on Levophed through peripheral IV, then weaned off within 8 hours. - No source of infection found thus far. * Blood cultures from 09/06 with no growth so far. * Chest x-ray with chronic changes from previous lung surgery and with lung cancer. * UA from 09/08 without signs of infection. * No fevers since admission. His chemotherapy drugs (dabrafenib & trametinib) can be known for having side effects of fevers and SIRS. UpToDate indicates it is even more likely when they are used in combination, and that some patients experienced multiple, discrete episodes. - Stopped antibiotics given negative cultures. - Hold his home chemotherapy medications. Discussed with his oncologist (Clark Jaramillo) on 09/10. Will hold on discharge. Seen by physical therapy. Recommended continued physical therapy and either returning home with 06/04 assistance versus placement at ECF/PCF/SNF. Is high risk for further falls with poor static and dynamic balance. Patient has not met criteria for authorization [facility]. He is reviewing options with insurance and placement, case was discussed with case management today. Insurance does not open over the weekend, do not anticipate that we will be able to submit or obtain off until Thursday. We will continue to follow. (2) Swallowing difficulty: Plan: On 09/11, patient reported a globus sensation in the back of his throat, trouble speaking in the mornings, and trouble with swallowing food. - COLLAR FOLDER OPERATOR consulted. FEES on 09/11 showed significant inflammation of posterior pharynx with food resting there when eating. Ddx includes pills resting there and causing irritation, GERD/reflux causing chemical lópez, or possible chemotherapy effect. 1) Continue PPI PO BID 2) Given eating recs including meds with carriers and taking alternating bites of solids and liquids 3) Holding chemo as otherwise documented in the note (3) Acute renal failure: Plan: With acute kidney injury with creatinine up to 4.6, BUN up to 68. Likely ATN from hypotensions vs. damage from rhabdomyolysis. -Creatinine downtrending - Appreciate Nephrology consultation (4) Rhabdomyolysis: Plan: CK was 8707 on admission. CK now trending downward to 1800. - Stable; monitor (5) Essential hypertension: Plan: BP presently 160/75. - Restarted home felodipine - Hold atenolol and losartan (6) Elevated troponin: Plan: Troponin 0.541 upon admission and repeat trended downward. Supply/demand mismatch, type II [place]. Most recent echocardiogram 07/25/2021 with hyperdynamic systolic function, no regional wall motion abnormalities, trace AI, mild pulmonary hypertension. - No inpatient needs (7) Fall: Plan: Secondary to weakness from sepsis and hypotension. With possible new versus old nasal bone fracture on the right; however, patient does not clinically have any pain there. CT neck also negative for fracture. - PT/OT as above (8) Anemia: Plan: Baseline hgb is ~11 - 12. Hgb dropped to 8.0 the day after admission which was likely hemodilutional. Chronically low due to antineoplastic therapy. No melena or BRBPR but Hemoccult stool is positive, C. difficile negative. - Continue PPI PO BID - Hgb has been stable ~9.5 for several days. (9) Lung cancer: Plan: Lung cancer, presently undergoing chemotherapy. Follows with Clark Jaramillo. Per prior provider, not ready to consider hospice but is thinking about end of life issues and "the big picture." - F/u with oncology after discharge -> Hold dabrafenib & trametinib on discharge. (10) Pancytopenia due to antineoplastic chemotherapy: Plan: Pancytopenia due to antineoplastic chemotherapy. (11) Adenocarcinoma of prostate: Plan: S/p prostatectomy. Is on terazosin for urinary incontinence. - Continue home terazosin (12) Renal cell carcinoma: Plan: Noted with history of cryotherapy. Follows with urology as an outpatient. (13) DVT prophylaxis: Plan: Heparin 5,000 units SQ Q12h Admission and Anticipated Discharge Date Admission Date: September 06, 2021 Subjective Seen at the bedside today. Patient with no new acute complaints/concerns, no chest pain/chest pressure/shortness of breath/difficulty breathing. Patient had not met referral criteria for [facility], patient does not feel safe at home, he is reviewing SNF/placement options with his insurance. Case management following, discussed case today. Patient insurance office is not open over the weekend, do not anticipate that placement progress will be able to be made until Thursday. Review of Systems Review of Systems: All systems reviewed & are unremarkable except as noted in Subjective Physical Exam Physical Exam: General: A&Ox3. NAD. Cooperative. Appears thin, frail. HEENT: Atraumatic, normocephalic. Pulm: CTAB A&P. -wheezes, -rales, -rhonchi. Symmetrical chest rise. No increased work of breathing. No respiratory distress. Cardiac: RRR, -mrg. Radial pulses intact and symmetrical. Abdominal: Nontender, nondistended, soft. BS present. Results & Data Results & Data ([facility]) Vital Signs (Past 12 Hours) Vital Signs Temp Pulse Resp BP Pulse Ox 09/14/21 11:35 37.1 C 78 17 111/70 96 09/14/21 07:24 36.7 C 72 18 155/82 H 93 PG Care Time/CCT Total # of Minutes Spent Total Time Spent with Patient: Total time spent is greater than 50% in coordination of care (as documented) at patient's floor/unit and/or counseling patient: Coding Level of Care Code 35989 Subseq Hosp Care Lvl 1 Diagnoses Shock R57.9 Swallowing difficulty R13.10 Acute renal failure N17.9 Acute renal failure type: unspecified Rhabdomyolysis M62.82 Rhabdomyolysis type: non-traumatic Essential hypertension I10 Elevated troponin R77.8 Fall W19.XXXA Anemia D64.9 Lung cancer C34.90 Pancytopenia due to antineoplastic chemotherapy D61.810; T45.1X5A Adenocarcinoma of prostate C61 Renal cell carcinoma C64.9 DVT prophylaxis Z29.9 (1) Acute renal failure Acute renal failure type: unspecified Qualified Code(s): N17.9 - Acute kidney failure, unspecified (2) Rhabdomyolysis Rhabdomyolysis type: non-traumatic Qualified Code(s): M62.82 - Rhabdomyolysis
[2021-09-14] MEDS: TERAZOSIN HCL 5 MG CAP PO SCH (20:09)
[2021-09-14] MEDS: ACETAMINOPHEN 325 MG TAB PO PRN (20:13)
[2021-09-14] MEDS: SERTRALINE HCL 100 MG TABLET PO SCH (21:30)
[2021-09-15] MEDS: FLUTICASONE PROPIONATE NA SPR 16 GM BTL SCH ×2 (08:11→21:34)
[2021-09-15] MEDS: FLUTICASONE FUROATE 200MCG 14 PUFFS/INHALER INH SCH (08:11)
[2021-09-15] MEDS: HEPARIN SOD 5,000 UNIT/0.5 ML VIAL SC SCH ×2 (08:11→21:35)
[2021-09-15] MEDS: FELODIPINE 5 MG TABCR PO SCH (08:11)
[2021-09-15] MEDS: PANTOprazole 40 MG TAB PO SCH ×2 (08:11→21:35)
[2021-09-15 11:06] LABS: BUN Creatinine Ratio 18.5 (10-20); Calcium 9.3 mg/dl (8.5-10.1); Creatinine Clr Calc Pharmacy 29.9 ml/min; Est GFR (African American) 48.9 ml/min; Est GFR (Non-African American) 42.2 ml/min; Potassium 3.6 mmol/L (3.5-5.1)
--- NOTE | 2021-09-15 12:04 | XRay Report ---
RIGHT FOOT 3 VIEWS CLINICAL HISTORY: Right foot pain and swelling. FINDINGS: 3 views of the right foot are obtained. No prior studies are available for comparison at th e time of dictation. The Skeletal structures are osteopenic. No fracture is seen. There are large leah mode and plantar calcaneal enthesophytes. Moderate osteoarthritic change is noted at the first metatar sophalangeal joint. Milder degenerative change is seen in the midfoot. No erosive disease is identifi ed. Mild soft tissue edema is noted in the forefoot. Atherosclerotic calcification is observed in the regional arteries. IMPRESSION: 1. Soft tissue swelling with no acute bony abnormality identified. 2. Osteopenia, degenerative change, and heel spurs as above. Electronically signed by: Benjamin Mckinney M.D. 09/15/2021 12:03 PM
[2021-09-15] MEDS: POTASSIUM CHLORIDE 10 MEQ TABCR PO SCH ×2 (14:35→21:35)
--- NOTE | 2021-09-15 16:27 | Hospitalist Progress Note ---
Date of Service September 15, 2021 Assessment & Plan (1) Shock: Plan: Disposition: Did review disposition planning for him, he has been reaching out to his insurance and looking through placement options. Discussed with case management, insurance is closed over the weekend and cannot look at authorization/placement until Thursday. Patient is medically frail with multiple comorbidities, although his gross strength with physical therapy has been decent and did not meet criteria for acute rehab. Patient does not feel safe returning home, and is looking into long-term care/SNF options which she has insurance for. Discussed that he does not necessarily need to be in the hospital to be referred to these, and may be safe to go home with home health and continued follow-up in case to look into these options as outpatient. He has had increase d pain in his right foot with some soft tissue swelling as noted below, for which an x-ray is pending. Patient will have PT reassessment tomorrow, and has follow-up with case management and insurance for the morning. Sepsis/Septic Shock and hypovolemic shock, POA with associated acute kidney injury, myocardial demand ischemia. - Blood pressure was 60/40 shortly after admission despite 2 L normal saline. - Transferred to ICU and started on Levophed through peripheral IV, then weaned off within 8 hours. - No source of infection found thus far. * Blood cultures from 09/06 with no growth so far. * Chest x-ray with chronic changes from previous lung surgery and with lung cancer. * UA from 09/08 without signs of infection. * No fevers since admission. His chemotherapy drugs (dabrafenib & trametinib) can be known for having side effects of fevers and SIRS. UpToDate indicates it is even more likely when they are used in combination, and that some patients experienced multiple, discrete episodes. - Stopped antibiotics given negative cultures. - Hold his home chemotherapy medications. Discussed with his oncologist (Clark Jaramillo) on 09/10. Will hold on discharge. (2) Swallowing difficulty: Plan: On 09/11, patient reported a globus sensation in the back of his throat, trouble speaking in the mornings, and trouble with swallowing food. - ASSEMBLY LINE INSPECTOR consulted. FEES on 09/11 showed significant inflammation of posterior pharynx with food resting there when eating. Ddx includes pills resting there and causing irritation, GERD/reflux causing chemical lópez, or possible chemotherapy effect. 1) Continue PPI PO BID 2) Given eating recs including meds with carriers and taking alternating bites of solids and liquids 3) Holding chemo as otherwise documented in the note (3) Acute renal failure: Plan: With acute kidney injury with creatinine up to 4.6, BUN up to 68. Likely ATN from hypotensions vs. damage from rhabdomyolysis. -Creatinine downtrending - Appreciate Nephrology consultation (4) Rhabdomyolysis: Plan: CK was 8707 on admission. CK now trending downward to 1800. - Stable; monitor (5) Essential hypertension: Plan: BP presently 160/75. - Restarted home felodipine - Hold atenolol and losartan (6) Elevated troponin: Plan: Troponin 0.541 upon admission and repeat trended downward. Supply/demand mismatch, type II [place]. Most recent echocardiogram 07/25/2021 with hyperdynamic systolic function, no regional wall motion abnormalities, trace AI, mild pulmonary hypertension. - No inpatient needs (7) Fall: Plan: Secondary to weakness from sepsis and hypotension. With possible new versus old nasal bone fracture on the right; however, patient does not clinically have any pain there. CT neck also negative for fracture. - PT/OT as above (8) Anemia: Plan: Baseline hgb is ~11 - 12. Hgb dropped to 8.0 the day after admission which was likely hemodilutional. Chronically low due to antineoplastic therapy. No melena or BRBPR but Hemoccult stool is positive, C. difficile negative. - Continue PPI PO BID - Hgb has been stable ~9.5 for several days. (9) Lung cancer: Plan: Lung cancer, presently undergoing chemotherapy. Follows with Clark Jaramillo. Per prior provider, not ready to consider hospice but is thinking about end of life issues and "the big picture." - F/u with oncology after discharge -> Hold dabrafenib & trametinib on discharge. (10) Pancytopenia due to antineoplastic chemotherapy: Plan: Pancytopenia due to antineoplastic chemotherapy. (11) Adenocarcinoma of prostate: Plan: S/p prostatectomy. Is on terazosin for urinary incontinence. - Continue home terazosin (12) Renal cell carcinoma: Plan: Noted with history of cryotherapy. Follows with urology as an outpatient. (13) DVT prophylaxis: Plan: Heparin 5,000 units SQ Q12h (14) Injury of right foot: Plan: Patient reports increased pain in his right foot, does not recall a particular injury but this is increased yesterday and today On exam lateral midfoot with swelling and tenderness to palpation, no pitting edema is appreciated. Neurovascularly intact. No malleolar tenderness or navicular tenderness.? Fifth metatarsal tenderness XR: 1. Soft tissue swelling with no acute bony abnormality identified.2. Osteopenia, degenerative change, and heel spurs as above. Conservative care, rest, ice as needed Admission and Anticipated Discharge Date Admission Date: September 06, 2021 Subjective Seen at the bedside today. Has increased pain in his right foot today, some swelling. Denies injury to this as far as he knows. Continues to feel very weak. No chest pain, chest pressure, nausea, vomiting, diarrhea, constipation. Did review disposition planning for him, he has been reaching out to his insurance and looking through placement options. Discussed with case management, insurance is closed over the weekend and cannot look at authorization/placement until Thursday. Patient is medically frail with multiple comorbidities, although his gross strength with physical therapy has been decent and did not meet criteria for rehab. Patient does not feel safe returning home, and is looking into long-term care/SNF options which she has insurance for. Discussed that he does not necessarily need to be in the hospital to be referred to these, and may be safe to go home with home health and continued follow-up. Patient will have PT reassessment tomorrow, and has follow-up with case management and insurance for the morning. Review of Systems Review of Systems: All systems reviewed & are unremarkable except as noted in Subjective Physical Exam Physical Exam: General: A&Ox3. NAD. Cooperative. Appears thin, frail. HEENT: Atraumatic, normocephalic. Pulm: CTAB A&P. -wheezes, -rales, -rhonchi. Symmetrical chest rise. No increased work of breathing. No respiratory distress. Cardiac: RRR, -mrg. Radial pulses intact and symmetrical. Abdominal: Nontender, nondistended, soft. BS present. Extremity: Right foot with lateral midfoot soft tissue swelling and tenderness to palpation. No malleoli or tenderness. Left foot atraumatic. PT pulses, ankle dorsiflexion/plantarflexion, and sensation to soft touch in feet intact and symmetrical. Moves both upper extremities equally. Results & Data Results & Data ([facility]) Vital Signs (Past 12 Hours) Vital Signs Temp Pulse Resp BP BP Pulse Ox 09/15/21 12:00 36.6 C 85 18 178/72 H 94 09/15/21 07:17 36.6 C 69 18 168/54 H 92 PG Care Time/CCT Total # of Minutes Spent Total Time Spent with Patient: Total time spent is greater than 50% in coordination of care (as documented) at patient's floor/unit and/or counseling patient: Coding Level of Care Code 45160 Subseq Hosp Care Lvl 1 Diagnoses Shock R57.9 Swallowing difficulty R13.10 Acute renal failure N17.9 Acute renal failure type: unspecified Rhabdomyolysis M62.82 Rhabdomyolysis type: non-traumatic Essential hypertension I10 Elevated troponin R77.8 Fall W19.XXXA Anemia D64.9 Lung cancer C34.90 Pancytopenia due to antineoplastic chemotherapy D61.810; T45.1X5A Adenocarcinoma of prostate C61 Renal cell carcinoma C64.9 DVT prophylaxis Z29.9 Injury of right foot S99.921A (1) Acute renal failure Acute renal failure type: unspecified Qualified Code(s): N17.9 - Acute kidney failure, unspecified (2) Rhabdomyolysis Rhabdomyolysis type: non-traumatic Qualified Code(s): M62.82 - Rhabdomyolysis
[2021-09-15] MEDS: SERTRALINE HCL 100 MG TABLET PO SCH (21:34)
[2021-09-15] MEDS: TERAZOSIN HCL 5 MG CAP PO SCH (21:35)
[2021-09-16] MEDS: POTASSIUM CHLORIDE 10 MEQ TABCR PO SCH (08:22)
[2021-09-16] MEDS: PANTOprazole 40 MG TAB PO SCH ×2 (08:22→20:25)
[2021-09-16] MEDS: FELODIPINE 5 MG TABCR PO SCH (08:22)
[2021-09-16] MEDS: HEPARIN SOD 5,000 UNIT/0.5 ML VIAL SC SCH ×2 (08:23→20:26)
[2021-09-16] MEDS: FLUTICASONE FUROATE 200MCG 14 PUFFS/INHALER INH SCH (08:23)
[2021-09-16] MEDS: FLUTICASONE PROPIONATE NA SPR 16 GM BTL SCH ×2 (08:23→20:26)
--- NOTE | 2021-09-16 11:47 | Hospitalist Progress Note ---
Date of Service September 16, 2021 Assessment & Plan (1) Shock: Plan: Sepsis/Septic Shock and hypovolemic shock, POA with associated acute kidney injury, myocardial demand ischemia. - Blood pressure was 60/40 shortly after admission despite 2 L normal saline. - Transferred to ICU and started on Levophed through peripheral IV, then weaned off within 8 hours. - No source of infection found thus far. * Blood cultures from 09/06 with no growth so far. * Chest x-ray with chronic changes from previous lung surgery and with lung cancer. * UA from 09/08 without signs of infection. * No fevers since admission. His chemotherapy drugs (dabrafenib & trametinib) can be known for having side effects of fevers and SIRS. UpToDate indicates it is even more likely when they are used in combination, and that some patients experienced multiple, discrete episodes. - Stopped antibiotics given negative cultures. - Hold his home chemotherapy medications. Discussed with his oncologist (Clark Jaramillo) on 09/10. Will hold on discharge. - Still stable. Working with PT/OT. Hoping to work on SNF vs. providers at home. (2) Swallowing difficulty: Plan: On 09/11, patient reported a globus sensation in the back of his throat, trouble speaking in the mornings, and trouble with swallowing food. - HOOKMAN consulted. FEES on 09/11 showed significant inflammation of posterior pharynx with food resting there when eating. Ddx includes pills resting there and causing irritation, GERD/reflux causing chemical lópez, or possible chemotherapy effect. 1) Continue PPI PO BID 2) Given eating recs including meds with carriers and taking alternating bites of solids and liquids 3) Holding chemo as otherwise documented in the note (3) Acute renal failure: Plan: With acute kidney injury with creatinine up to 4.6, BUN up to 68. Likely ATN from hypotensions vs. damage from rhabdomyolysis. - Cr stable on 09/15 at 1.5. - Appreciate Nephrology consultation (4) Rhabdomyolysis: Plan: CK was 8707 on admission. CK now trending downward to 1800. - Stable; monitor (5) Essential hypertension: Plan: BP presently 170/75. - Restarted home felodipine - Hold atenolol and losartan (6) Elevated troponin: Plan: Troponin 0.541 upon admission and repeat trended downward. Supply/demand mismatch, type II [place]. Most recent echocardiogram 07/25/2021 with hyperdynamic systolic function, no regional wall motion abnormalities, trace AI, mild pulmonary hypertension. - No inpatient needs (7) Fall: Plan: Secondary to weakness from sepsis and hypotension. With possible new versus old nasal bone fracture on the right; however, patient does not clinically have any pain there. CT neck also negative for fracture. - PT/OT as above (8) Anemia: Plan: Baseline hgb is ~11 - 12. Hgb dropped to 8.0 the day after admission which was likely hemodilutional. Chronically low due to antineoplastic therapy. No melena or BRBPR but Hemoccult stool is positive, C. difficile negative. - Continue PPI PO BID - Hgb has been stable ~9.5 for several days. (9) Lung cancer: Plan: Lung cancer, presently undergoing chemotherapy. Follows with Clark Jaramillo. Per prior provider, not ready to consider hospice but is thinking about end of life issues and "the big picture." - F/u with oncology after discharge -> Hold dabrafenib & trametinib on discharge. (10) Pancytopenia due to antineoplastic chemotherapy: Plan: Pancytopenia due to antineoplastic chemotherapy. (11) Adenocarcinoma of prostate: Plan: S/p prostatectomy. Is on terazosin for urinary incontinence. - Continue home terazosin (12) Renal cell carcinoma: Plan: Noted with history of cryotherapy. Follows with urology as an outpatient. (13) DVT prophylaxis: Plan: Heparin 5,000 units SQ Q12h Admission and Anticipated Discharge Date Admission Date: September 06, 2021 Physical Exam Constitutional: WD/WN, vitals as above + frail appearing Eyes: EOM intact bilaterally; no conjunctival abnormality ENMT: external ear and nose normal, oropharynx normal Neck: trachea midline, no thyromegaly normal visual inspection Respiratory: normal respiratory effort, lungs clear to auscultation no respiratory distress Cardiovascular: RRR, no murmur, no edema Gastrointestinal (Abdomen): Inspection/Auscultation: abdomen normal to insp ection; abdomen not distended Musculoskeletal: no cyanosis or clubbing, extremities motor strength 5/5 Skin: no rashes, warm and dry Neurologic: moves all extremities and awake Psychiatric: Orientation: alert, oriented to person and cooperative Results & Data Results & Data ([facility]) Vital Signs (Past 12 Hours) Vital Signs Temp Pulse Resp BP Pulse Ox 09/16/21 07:00 36.6 C 72 18 169/75 H 95 PG Care Time/CCT Total # of Minutes Spent Total Time Spent with Patient: Total time spent is greater than 50% in coordination of care (as documented) at patient's floor/unit and/or counseling patient: Coding Level of Care Code 96010 Subseq Hosp Care Lvl 2 Diagnoses Shock R57.9 Swallowing difficulty R13.10 Acute renal failure N17.9 Acute renal failure type: unspecified Rhabdomyolysis M62.82 Rhabdomyolysis type: non-traumatic Essential hypertension I10 Elevated troponin R77.8 Fall W19.XXXA Anemia D64.9 Lung cancer C34.90 Pancytopenia due to antineoplastic chemotherapy D61.810; T45.1X5A Adenocarcinoma of prostate C61 Renal cell carcinoma C64.9 DVT prophylaxis Z29.9 (1) Acute renal failure Acute renal failure type: unspecified Qualified Code(s): N17.9 - Acute kidney failure, unspecified (2) Rhabdomyolysis Rhabdomyolysis type: non-traumatic Qualified Code(s): M62.82 - Rhabdomyolysis
[2021-09-16] MEDS: DICLOFENAC SOD 1% GEL 100 GM TUBE EXT SCH ×2 (14:00→20:27)
--- NOTE | 2021-09-16 14:37 | Ultrasound Report ---
RIGHT LOWER EXTREMITY VENOUS DOPPLER HISTORY: Right Leg swelling; dilated veins; concern for DVT COMPARISON STUDY: None. FINDINGS: There is normal compressibility, flow, and augmentation within the right lower extremity de ep venous system. IMPRESSION: No DVT within the right lower extremity ACT 112: Negative or not required by law. Electronically signed by: Malcolm Perales M.D. 09/16/2021 2:35 PM
[2021-09-16] MEDS: ACETAMINOPHEN 325 MG TAB PO PRN (19:32)
[2021-09-16] MEDS: SERTRALINE HCL 100 MG TABLET PO SCH (20:25)
[2021-09-16] MEDS: TERAZOSIN HCL 5 MG CAP PO SCH (20:25)
[2021-09-17] MEDS: FELODIPINE 5 MG TABCR PO SCH (07:35)
[2021-09-17] MEDS: DICLOFENAC SOD 1% GEL 100 GM TUBE EXT SCH ×3 (07:51→21:33)
[2021-09-17] MEDS: PANTOprazole 40 MG TAB PO SCH ×2 (07:51→21:33)
[2021-09-17] MEDS: HEPARIN SOD 5,000 UNIT/0.5 ML VIAL SC SCH ×2 (07:51→21:34)
[2021-09-17] MEDS: FLUTICASONE FUROATE 200MCG 14 PUFFS/INHALER INH SCH (07:52)
[2021-09-17] MEDS: FLUTICASONE PROPIONATE NA SPR 16 GM BTL SCH ×2 (07:52→21:33)
[2021-09-17] MEDS: LOSARTAN POTASSIUM 50 MG TAB PO SCH (08:26)
[2021-09-17 10:28] LABS: Hematocrit (blood only) 31.5 % (42-52); Mean Corpuscular Hemoglobin 27.9 pg (25-34); Mean Corpuscular Hgb Conc 31.7 g/dL (32-36); Platelet Count 183 K/uL (130-400); RDW Coefficient of Variation 14.9 % (11.5-14.5); RDW Standard Deviation 45.9 fL (36.4-46.3); Red Blood Count 3.58 M/uL (4.7-6.1); White Blood Count 4.43 K/uL (4.8-10.8)
[2021-09-17 10:53] LABS: BUN Creatinine Ratio 16.8 (10-20); Calcium 9.1 mg/dl (8.5-10.1); Creatinine Clr Calc Pharmacy 30.3 ml/min; Est GFR (African American) 49.7 ml/min; Est GFR (Non-African American) 42.9 ml/min; Magnesium 1.8 mg/dl (1.8-2.4); Potassium 3.1 mmol/L (3.5-5.1)
--- NOTE | 2021-09-17 15:02 | Hospitalist Progress Note ---
Date of Service September 17, 2021 Assessment & Plan (1) Shock: Plan: Sepsis/Septic Shock and hypovolemic shock, POA with associated acute kidney injury, myocardial demand ischemia. - Blood pressure was 60/40 shortly after admission despite 2 L normal saline. - Transferred to ICU and started on Levophed through peripheral IV, then weaned off within 8 hours. - No source of infection found thus far. * Blood cultures from 09/06 with no growth so far. * Chest x-ray with chronic changes from previous lung surgery and with lung cancer. * UA from 09/08 without signs of infection. * No fevers since admission. His chemotherapy drugs (dabrafenib & trametinib) can be known for having side effects of fevers and SIRS. UpToDate indicates it is even more likely when they are used in combination, and that some patients experienced multiple, discrete episodes. - Stopped antibiotics given negative cultures. - Hold his home chemotherapy medications. Discussed with his oncologist (Clark Jaramillo) on 09/10. Will hold on discharge. - Still stable. Working with PT/OT. Hoping to work on SNF vs. providers at home. -> Left ankle sore today, but Dopplers for DVT and x-rays all negative. No warmth or erythema to indicate gout or infection. Encouraged Tylenol and Voltaren gel PRN. (2) Swallowing difficulty: Plan: On 09/11, patient reported a globus sensation in the back of his throat, trouble speaking in the mornings, and trouble with swallowing food. - NATURAL SCIENCE CURATOR consulted. FEES on 09/11 showed significant inflammation of posterior pharynx with food resting there when eating. Ddx includes pills resting there and causing irritation, GERD/reflux causing chemical lópez, or possible chemotherapy effect. 1) Continue PPI PO BID 2) Given eating recs including meds with carriers and taking alternating bites of solids and liquids 3) Holding chemo as otherwise documented in the note (3) Acute renal failure: Plan: With acute kidney injury with creatinine up to 4.6, BUN up to 68. Likely ATN from hypotensions vs. damage from rhabdomyolysis. - Cr stable on 09/17 at 1.5. - Appreciate Nephrology consultation (4) Rhabdomyolysis: Plan: CK was 8707 on admission. CK now trending downward to 1800. - Stable; monitor (5) Essential hypertension: Plan: BP presently 170/75. - Restarted home felodipine & losartan (at lower than home dose (50 mg)). - Hold atenolol (6) Elevated troponin: Plan: Troponin 0.541 upon admission and repeat trended downward. Supply/demand mismatch, type II [place]. Most recent echocardiogram 07/25/2021 with hyperdynamic systolic function, no regional wall motion abnormalities, trace AI, mild pulmonary hypertension. - No inpatient needs (7) Fall: Plan: Secondary to weakness from sepsis and hypotension. With possible new versus old nasal bone fracture on the right; however, patient does not clinically have any pain there. CT neck also negative for fracture. - PT/OT as above (8) Anemia: Plan: Baseline hgb is ~11 - 12. Hgb dropped to 8.0 the day after admission which was likely hemodilutional. Chronically low due to antineoplastic therapy. No melena or BRBPR but Hemoccult stool is positive, C. difficile negative. - Continue PPI PO BID - Hgb has been stable ~9.5 for several days. (9) Lung cancer: Plan: Lung cancer, presently undergoing chemotherapy. Follows with Clark Jaramillo. Per prior provider, not ready to consider hospice but is thinking about end of life issues and "the big picture." - F/u with oncology after discharge -> Hold dabrafenib & trametinib on discharge. (10) Pancytopenia due to antineoplastic chemotherapy: Plan: Pancytopenia due to antineoplastic chemotherapy. (11) Adenocarcinoma of prostate: Plan: S/p prostatectomy. Is on terazosin for urinary incontinence. - Continue home terazosin (12) Renal cell carcinoma: Plan: Noted with history of cryotherapy. Follows with urology as an outpatient. (13) DVT prophylaxis: Plan: Heparin 5,000 units SQ Q12h Admission and Anticipated Discharge Date Admission Date: September 06, 2021 Subjective No major issues today. Foot is still somewhat sore. Neck and back of head are also painful. Reports no fevers/chills, chest pain, shortness of breath, abdominal pain, nausea, or vomiting. Physical Exam Constitutional: WD/WN, vitals as above + frail appearing Eyes: EOM intact bilaterally; no conjunctival abnormality ENMT: external ear and nose normal, oropharynx normal Neck: trachea midline, no thyromegaly normal visual inspection Respiratory: normal respiratory effort, lungs clear to auscultation no respiratory distress Cardiovascular: RRR, no murmur, no edema Gastrointestinal (Abdomen): Inspection/Auscultation: abdomen normal to inspection; abdomen not distended Musculoskeletal: no cyanosis or clubbing, extremities motor strength 5/5 Skin: no rashes, warm and dry Neurologic: moves all extremities and awake Psychiatric: Orientation: alert, oriented to person and cooperative Results & Data Results & Data ([facility]) Vital Signs (Past 12 Hours) Vital Signs Temp Pulse Resp BP Pulse Ox 09/17/21 14:54 36.9 C 76 16 146/78 H 09/17/21 09:41 142/68 H 09/17/21 07:25 36.6 C 68 16 199/80 H 97 PG Care Time/CCT Total # of Minutes Spent Total Time Spent with Patient: Total time spent is greater than 50% in coordination of care (as documented) at patient's floor/unit and/or counseling patient: Coding Level of Care Code 69743 Subseq Hosp Care Lvl 3 Diagnoses Shock R57.9 Swallowing difficulty R13.10 Acute renal failure N17.9 Acute renal failure type: unspecified Rhabdomyolysis M62.82 Rhabdomyolysis type: non-traumatic Essential hypertension I10 Elevated troponin R77.8 Fall W19.XXXA Anemia D64.9 Lung cancer C34.90 Pancytopenia due to antineoplastic chemotherapy D61.810; T45.1X5A Adenocarcinoma of prostate C61 Renal cell carcinoma C64.9 DVT prophylaxis Z29.9 (1) Acute renal failure Acute renal failure type: unspecified Qualified Code(s): N17.9 - Acute kidney failure, unspecified (2) Rhabdomyolysis Rhabdomyolysis type: non-traumatic Qualified Code(s): M62.82 - Rhabdomyolysis
[2021-09-17] MEDS: SERTRALINE HCL 100 MG TABLET PO SCH (21:33)
[2021-09-17] MEDS: TERAZOSIN HCL 5 MG CAP PO SCH (21:33)
[2021-09-17] MEDS: POTASSIUM CHLORIDE 20 MEQ/15 ML UDC PO SCH (21:38)
[2021-09-18 07:25] LABS: Hematocrit (blood only) 27.4 % (42-52); Hemoglobin 8.9 g/dL (14.0-18.0); Mean Corpuscular Hemoglobin 28.3 pg (25-34); Mean Corpuscular Hgb Conc 32.5 g/dL (32-36); Platelet Count 202 K/uL (130-400); RDW Coefficient of Variation 15.1 % (11.5-14.5); RDW Standard Deviation 45.9 fL (36.4-46.3); Red Blood Count 3.15 M/uL (4.7-6.1); White Blood Count 4.57 K/uL (4.8-10.8)
[2021-09-18 07:57] LABS: BUN Creatinine Ratio 20.4 (10-20); Calcium 9.4 mg/dl (8.5-10.1); Creatinine Clr Calc Pharmacy 34.5 ml/min; Est GFR (African American) 58.3 ml/min; Est GFR (Non-African American) 50.3 ml/min; Potassium 3.8 mmol/L (3.5-5.1)
--- NOTE | 2021-09-18 08:50 | Hospitalist Progress Note ---
Date of Service September 18, 2021 Assessment & Plan (1) Shock: Plan: Sepsis/Septic Shock and hypovolemic shock, POA with associated acute kidney injury, myocardial demand ischemia. - Blood pressure was 60/40 shortly after admission despite 2 L normal saline. - Transferred to ICU and started on Levophed through peripheral IV, then weaned off within 8 hours. - No source of infection found thus far. * Blood cultures from 09/06 with no growth so far. * Chest x-ray with chronic changes from previous lung surgery and with lung cancer. * UA from 09/08 without signs of infection. * No fevers since admission. His chemotherapy drugs (dabrafenib & trametinib) can be known for having side effects of fevers and SIRS. UpToDate indicates it is even more likely when they are used in combination, and that some patients experienced multiple, discrete episodes. - Stopped antibiotics given negative cultures. - Hold his home chemotherapy medications. Discussed with his oncologist (Clark Jaramillo) on 09/10. Will hold on discharge. - Still stable. Working with PT/OT. Hoping to work on SNF vs. providers at home. -> Left ankle sore today, but Dopplers for DVT and x-rays all negative. No warmth or erythema to indicate gout or infection. Encouraged Tylenol and Voltaren gel PRN. (2) Swallowing difficulty: Plan: On 09/11, patient reported a globus sensation in the back of his throat, trouble speaking in the mornings, and trouble with swallowing food. - SUBSTATION DESIGNER consulted. FEES on 09/11 showed significant inflammation of posterior pharynx with food resting there when eating. Ddx includes pills resting there and causing irritation, GERD/reflux causing chemical lópez, or possible chemotherapy effect. 1) Continue PPI PO BID 2) Given eating recs including meds with carriers and taking alternating bites of solids and liquids 3) Holding chemo as otherwise documented in the note (3) Acute renal failure: Plan: With acute kidney injury with creatinine up to 4.6, BUN up to 68. Likely ATN from hypotensions vs. damage from rhabdomyolysis. - Ressolved, Cr stable on 09/17 at 1.5. - Appreciate Nephrology consultation (4) Rhabdomyolysis: Plan: CK was 8707 on admission. CK now trending downward - Stable; monitor (5) Essential hypertension: Plan: BP presently 170/75. - Restarted home felodipine & losartan (at lower than home dose (50 mg)). - Hold atenolol watch for rebound tachycardia (6) Elevated troponin: Plan: Troponin 0.541 upon admission and repeat trended downward. Supply/demand m ismatch, type II [place]. Most recent echocardiogram 07/25/2021 with hyperdynamic systolic function, no regional wall motion abnormalities, trace AI, mild pulmonary hypertension. - No plans for further evaluation (7) Fall: Plan: Secondary to weakness from sepsis and hypotension. With possible new versus old nasal bone fracture on the right; however, patient does not clinically have any pain there. CT neck also negative for fracture. - PT/OT as above (8) Anemia: Plan: Baseline hgb is ~11 - 12. Hgb dropped to 8.0 the day after admission which was likely hemodilutional. Chronically low due to antineoplastic therapy. No melena or BRBPR but Hemoccult stool is positive, C. difficile negative. - Continue PPI PO BID - Hgb has been stable ~9.5 for several days. (9) Lung cancer: Plan: Lung cancer, presently undergoing chemotherapy. Follows with Clark Jaramillo. Per prior provider, not ready to consider hospice but is thinking about end of life issues and "the big picture." - F/u with oncology after discharge -> Hold dabrafenib & trametinib on discharge. (10) Pancytopenia due to antineoplastic chemotherapy: Plan: Pancytopenia due to antineoplastic chemotherapy. Resolved (11) Adenocarcinoma of prostate: Plan: S/p prostatectomy. Is on terazosin for urinary incontinence. - Continue home terazosin (12) Renal cell carcinoma: Plan: Noted with history of cryotherapy. Follows with urology as an outpatient. (13) DVT prophylaxis: Plan: Heparin 5,000 units SQ Q12h Admission and Anticipated Discharge Date Admission Date: September 06, 2021 Subjective Patient is in good spirits has some questions but nothing significant his lower legs are feeling better his general spirits are good he is eating food Review of Systems Review of Systems: Mild distress and fatigue no headache, no visual changes no speech or swallowing issues no chest pain, pressure or palpitations no shortness of breath, cough or wheezes no abdominal pain, nausea or vomiting, diarrhea or constipation no dysuria, hematuria or frequency no focal joint pain or swelling no back pain, CVA tenderness or radicular pain no bruising, bleeding or rashes no focal signs of weakness or numbness or altered sensation no complaints of anxiety or depression.. Physical Exam Physical Exam: The patient appeared well nourished and normally developed. Vital signs as documented. Head exam is normocephalic atraumatic, oropharynx examined without evidence of thrush or erythema Neck is without JVD, thyromegaly, or carotid bruits. Lungs are clear to auscultation, no focal loss of breath sounds Cardiac exam, Rhythm is regular.. No murmurs, rubs or gallops. Abdominal exam reveals normal bowel sounds, soft non tender, no masses Extremities are nonedematous and both pedal pulses are present Neurologic exam is alert and oriented, no focal loss of strength or sensation Skin is without bruises or rashes Psychologically is without concerns for anxiety or depression.. Results & Data Results & Data ([facility]) Vital Signs (Past 12 Hours) Vital Signs Temp Pulse Resp BP Pulse Ox 09/18/21 07:51 97.9 F 73 20 169/71 H 94 09/17/21 22:47 98.2 F 77 20 169/85 H 95 PG Care Time/CCT Total # of Minutes Spent Total Time Spent with Patient: Total time spent is greater than 50% in coordination of care (as documented) at patient's floor/unit and/or counseling patient: Coding Level of Care Code 55664 Subseq Hosp Care Lvl 2 Diagnoses Shock R57.9 Swallowing difficulty R13.10 Acute renal failure N17.9 Acute renal failure type: unspecified Rhabdomyolysis Rhabdomyolysis type: non-traumatic Essential hypertension I10 Elevated troponin R77.8 Fall W19.XXXA Anemia D64.9 Lung cancer C34.90 Pancytopenia due to antineoplastic chemotherapy D61.810; T45.1X5A Adenocarcinoma of prostate C61 Renal cell carcinoma C64.9 DVT prophylaxis Z29.9 (1) Acute renal failure Acute renal failure type: unspecified Qualified Code(s): N17.9 - Acute kidney failure, unspecified (2) Rhabdomyolysis Rhabdomyolysis type: non-traumatic Qualified Code(s): M6.82 - Rhabdomyolysis
[2021-09-18] MEDS: FELODIPINE 5 MG TABCR PO SCH (09:39)
[2021-09-18] MEDS: LOSARTAN POTASSIUM 50 MG TAB PO SCH (09:40)
[2021-09-18] MEDS: FLUTICASONE PROPIONATE NA SPR 16 GM BTL SCH ×2 (09:40→21:01)
[2021-09-18] MEDS: FLUTICASONE FUROATE 200MCG 14 PUFFS/INHALER INH SCH (09:40)
[2021-09-18] MEDS: PANTOprazole 40 MG TAB PO SCH ×2 (09:40→21:02)
[2021-09-18] MEDS: HEPARIN SOD 5,000 UNIT/0.5 ML VIAL SC SCH ×2 (09:41→21:02)
[2021-09-18] MEDS: POTASSIUM CHLORIDE 20 MEQ/15 ML UDC PO SCH ×2 (09:41→10:20)
[2021-09-18] MEDS: DICLOFENAC SOD 1% GEL 100 GM TUBE EXT SCH ×3 (09:43→21:01)
[2021-09-18] MEDS: POTASSIUM CHLORIDE CRTAB 20 MEQ TABCR PO SCH ×2 (10:54→21:02)
[2021-09-18] MEDS: SERTRALINE HCL 100 MG TABLET PO SCH (21:02)
[2021-09-18] MEDS: TERAZOSIN HCL 5 MG CAP PO SCH (21:03)
[2021-09-19 09:17] LABS: Basophils # (auto) 0.02 K/uL (0-0.2); Basophils % (auto) 0.5 %; Eosinophils % (auto) 2.4 %; Hematocrit (blood only) 28.6 % (42-52); Hemoglobin 8.9 g/dL (14.0-18.0); Immature Granulocytes # (auto) 0.02 K/uL (0.00-0.02); Immature Granulocytes % (auto) 0.5 %; Lymphocytes # (auto) 0.55 K/uL (1.2-3.4); Lymphocytes % (auto) 13.3 %; Mean Corpuscular Hemoglobin 27.6 pg (25-34); Mean Corpuscular Hgb Conc 31.1 g/dL (32-36); Mean Corpuscular Volume 88.8 fL (80-100); Mean Platelet Volume 9.7 fL (7.4-10.4); Monocytes # (auto) 0.31 K/uL (0.11-0.59); Monocytes % (auto) 7.5 %; Neutrophils # (auto) 3.14 K/uL (1.4-6.5); Neutrophils % (auto) 75.8 %; Platelet Count 204 K/uL (130-400); RDW Coefficient of Variation 15.3 % (11.5-14.5); RDW Standard Deviation 49.4 fL (36.4-46.3); Red Blood Count 3.22 M/uL (4.7-6.1); White Blood Count 4.14 K/uL (4.8-10.8)
[2021-09-19 09:48] LABS: Albumin Level 2.4 gm/dl (3.4-5.0); BUN Creatinine Ratio 20.2 (10-20); Calcium 9.1 mg/dl (8.5-10.1); Creatinine Clr Calc Pharmacy 32.2 ml/min; Est GFR (African American) 53.5 ml/min; Est GFR (Non-African American) 46.1 ml/min; Potassium 3.8 mmol/L (3.5-5.1)
[2021-09-19 09:50] LABS: Albumin Globulin Ratio 0.6 (0.9-2); Bilirubin,Total 0.6 mg/dl (0.2-1); Globulin 3.9 gm/dl (2.5-4.0); Total Protein 6.3 gm/dl (6.4-8.2)
[2021-09-19] MEDS: FLUTICASONE PROPIONATE NA SPR 16 GM BTL SCH ×2 (10:02→20:06)
[2021-09-19] MEDS: FLUTICASONE FUROATE 200MCG 14 PUFFS/INHALER INH SCH (10:02)
[2021-09-19] MEDS: DICLOFENAC SOD 1% GEL 100 GM TUBE EXT SCH ×3 (10:02→20:06)
[2021-09-19] MEDS: LOSARTAN POTASSIUM 50 MG TAB PO SCH (10:03)
[2021-09-19] MEDS: PANTOprazole 40 MG TAB PO SCH ×2 (10:03→20:06)
[2021-09-19] MEDS: HEPARIN SOD 5,000 UNIT/0.5 ML VIAL SC SCH ×2 (10:03→20:06)
[2021-09-19] MEDS: POTASSIUM CHLORIDE CRTAB 20 MEQ TABCR PO SCH ×2 (10:03→20:05)
[2021-09-19] MEDS: FELODIPINE 5 MG TABCR PO SCH (10:03)
--- NOTE | 2021-09-19 12:50 | Hospitalist Progress Note ---
Date of Service September 19, 2021 Assessment & Plan (1) Shock: Plan: Sepsis ruled out. Suspect hypovolemia secondary to anti-hypertensives and chemotherapy associated with associated acute kidney injury, myocardial demand ischemia. - Blood pressure was 60/40 shortly after admission despite 2 L normal saline. - Transferred to ICU and started on Levophed through peripheral IV, then weaned off within 8 hours. - No source of infection found thus far. * Blood cultures from 09/06 with no growth so far. * Chest x-ray with chronic changes from previous lung surgery and with lung cancer. * UA from 09/08 without signs of infection. * No fevers since admission. His chemotherapy drugs (dabrafenib & trametinib) can be known for having side effects of fevers and SIRS. UpToDate indicates it is even more likely when they are used in combination, and that some patients experienced multiple, discrete episodes. - Stopped antibiotics given negative cultures. - Hold his home chemotherapy medications. Discussed with his oncologist (Clark Jaramillo) on 09/10. Will hold on discharge. - Medically stable for discharge pending placement (2) Swallowing difficulty: Plan: On 09/11, patient reported a globus sensation in the back of his throat, trouble speaking in the mornings, and trouble with swallowing food. - BUSINESS INTELLIGENCE ENGINEER consulted. FEES on 09/11 showed significant inflammation of posterior pharynx with food resting there when eating. Ddx includes pills resting there and causing irritation, GERD/reflux causing chemical lópez, or possible chemotherapy effect. 1) Continue PPI PO BID 2) Given eating recs including meds with carriers and taking alternating bites of solids and liquids 3) Holding chemo as otherwise documented in the note (3) Acute renal failure: Plan: With acute kidney injury with creatinine up to 4.6, BUN up to 68. Likely ATN from hypotensions vs. damage from rhabdomyolysis. - Ressolved, Cr stable on 09/17 at 1.5. - Appreciate Nephrology consultation (4) Rhabdomyolysis: Plan: CK was 8707 on admission. CK now trending downward - Stable; monitor (5) Essential hypertension: Plan: - Restarted home felodipine & losartan (at lower than home dose (50 mg)). - Hold atenolol watch for rebound tachycardia (6) Elevated troponin: Plan: Troponin 0.541 upon admission and repeat trended downward. Supply/demand mismatch, type II [place]. Most recent echocardiogram 07/25/2021 with hyperdynamic systolic function, no regional wall motion abnormalities, trace AI, mild pulmonary hypertension. - No plans for further evaluation (7) Fall: Plan: Secondary to weakness from chemotherapy and hypotension. With possible new v ersus old nasal bone fracture on the right; however, patient does not clinically have any pain there. CT neck also negative for fracture. - PT/OT as above (8) Anemia: Plan: Baseline hgb is ~11 - 12. Hgb dropped to 8.0 the day after admission which was likely hemodilutional. Chronically low due to antineoplastic therapy. No melena or BRBPR but Hemoccult stool is positive, C. difficile negative. - Continue PPI PO BID - Hgb has been stable ~ 8.9 for several days. (9) Lung cancer: Plan: Lung cancer, presently undergoing chemotherapy. Follows with Clark Jaramillo. Per prior provider, not ready to consider hospice but is thinking about end of life issues and "the big picture." - F/u with oncology after discharge -> Hold dabrafenib & trametinib on discharge. (10) Pancytopenia due to antineoplastic chemotherapy: Plan: Resolved (11) Adenocarcinoma of prostate: Plan: S/p prostatectomy. - Continue home terazosin (12) Renal cell carcinoma: Plan: Noted with history of cryotherapy. Follows with urology as an outpatient. Plan: VTE Prophylaxis - heparin 5000 units SQ BID Diet - regular, easy to chew Disposition - continue on med/surg, Admission and Anticipated Discharge Date Admission Date: September 06, 2021 Subjective No acute concerns or questions for me today. No acute issues. Awaiting rehabilitation bed. Review of Systems Review of Systems: All systems reviewed & are unremarkable except as noted in HPI & below Physical Exam Constitutional: well developed; + not well nourished and no acute distress ENMT: external ear and nose normal, oropharynx normal Respiratory: normal respiratory effort Gastrointestinal (Abdomen): Percussion/Palpation: abdomen soft; abdomen nontender Musculoskeletal: no cyanosis or clubbing, extremities motor strength 5/5 Skin: no rashes, warm and dry Neurologic: moves all extremities and awake; not confused Psychiatric: A+Ox3, euthymic affect Results & Data Results & Data ([place]) Vital Signs (Past 12 Hours) Vital Signs Temp Pulse Resp BP Pulse Ox 09/19/21 07:27 36.8 C 79 16 189/71 H 95 Laboratory Results Abnormal lab results 09/19/21 09/19/21 Range/Units 08:48 08:48 WBC 4.14 L (4.8-10.8) K/uL RBC 3.22 L (4.7-6.1) M/uL Hgb 8.9 L (14.0-18.0) g/dL Hct 28.6 L (42-52) % MCHC 31.1 L (32-36) g/dL RDW Std Deviation 49.4 H (36.4-46.3) fL RDW Coeff of Girish 15.3 H (11.5-14.5) % Lymph # (Auto) 0.55 L (1.2-3.4) K/uL BUN 29 H (7-18) mg/dl Creatinine 1.45 H (0.6-1.4) mg/dl BUN/Creatinine Ratio 20.2 H (10-20) Glucose 100 H (70-99) mg/dl Alkaline Phosphatase 162 H D (45-117) U/L Total Protein 6.3 L (6.4-8.2) gm/dl Albumin 2.4 L (3.4-5.0) gm/dl Albumin/Globulin Ratio 0.6 L (0.9-2) PG Care Time/CCT Total # of Minutes Spent Total Time Spent with Patient: Total time spent is greater than 50% in coordination of care (as documented) at patient's floor/unit and/or counseling patient: Coding Level of Care Code 48220 Subseq Hosp Care Lvl 1 Diagnoses Shock R57.9 Swallowing difficulty R13.10 Acute renal failure N17.9 Acute renal failure type: unspecified Rhabdomyolysis M62.82 Rhabdomyolysis type: non-traumatic Essential hypertension I10 Elevated troponin R77.8 Fall W19.XXXA Anemia D64.9 Lung cancer C34.90 Pancytopenia due to antineoplastic chemotherapy D61.810; T45.1X5A Adenocarcinoma of prostate C61 Renal cell carcinoma C64.9 (1) Acute renal failure Acute renal failure type: unspecified Qualified Code(s): N17.9 - Acute kidney failure, unspecified (2) Rhabdomyolysis Rhabdomyolysis type: non-traumatic Qualified Code(s): M62.82 - Rhabdomyolysis
[2021-09-19] MEDS: TERAZOSIN HCL 5 MG CAP PO SCH (20:05)
[2021-09-19] MEDS: SERTRALINE HCL 100 MG TABLET PO SCH (20:06)
[2021-09-20] MEDS: ACETAMINOPHEN 325 MG TAB PO PRN (01:37)
--- NOTE | 2021-09-20 08:48 | Discharge Summary ---
Date of Service September 20, 2021 Admission HPI Per Admitting Provider The patient is a 75-year-old male with a past medical history including SNHL bilaterally, prostate cancer, aortic regurgitation, asthma, diastases recti, diastolic dysfunction, hypertension, hyperlipidemia, irritable bowel syndrome, LVH, male stress incontinence, much regurgitation, non-small cell carcinoma of lung, renal cell carcinoma, umbilical hernia, ayla B12 deficiency and hypertension. The patient is presently undergoing chemotherapy for lung cancer. He does not remember any of the events that led up to his fall. He has a notable Eulalio contusion over his right frontal area. Principal Diagnosis Hypovolemic shock Rhabdomyolysis Acute kidney failure Discharge Exam Constitutional well developed; + not well nourished and no acute distress ENMT external ear and nose normal, oropharynx normal Respiratory normal respiratory effort Gastrointestinal (Abdomen) Percussion/Palpation: abdomen soft; abdomen nontender Musculoskeletal no cyanosis or clubbing, extremities motor strength 5/5 Skin no rashes, warm and dry Neurologic moves all extremities and awake; not confused Psychiatric A+Ox3, euthymic affect Discharge Data Allergies Allergy/AdvReac Type Severity Reaction Status Date / Time No Known Allergies Allergy Verified 09/06/21 17:37 Consultations 09/06/21 19:10 ED Decision to Admit Stat 09/07/21 06:49 Consult Nephrology Routine Ordered Studies 09/06/21 17:06 CT head/brain wo con Stat IMPRESSION: No acute intracerebral pathology. Mild cerebral cortical atrophy and remote small vessel disease. Small subgaleal hematoma. 09/06/21 17:09 CT facial bones wo con Stat IMPRESSION: Evidence for a minimally depressed, nondisplaced fracture involving the wall of the nasal bones on the right. It is possible that this represents an old fracture. Focal correlation is necessary. No other evidence for acute fracture. Mild soft tissue swelling involving the right forehead. 09/07/21 11:14 CT cervical spine wo con Urgent IMPRESSION: No evidence of acute bony injury. 09/07/21 16:49 US renal/blad retro comp Routine IMPRESSION: No evidence of hydronephrosis bilaterally. Renal cysts are seen. 09/16/21 14:00 US venous doppler LE RT Routine IMPRESSION: No DVT within the right lower extremity Hospital Course (1) Shock: Livan Wayne is a 75 year old male admitted to [facility] from September 06 to September 20, 2020 due to a fall at home. He was found to have hypovolemic shock in acute kidney failure (Cr 4.44 from baseline 1.05, 1.45 on dicharge) with rhabdomyolysis (Total CK [id number] U/L) suspect secondary to chemotherapy and anti-hypertensives. Initially requiring vasopressor support in the intensive care unit. However on discontinuation of your medications and intravenous fluids renal function has recovered back to baseline. He should follow up with nephrology with repeat BMP in the next 1-2 weeks. Initial concerns for sepsis ruled out and no infection was found therefore antibiotics were subsequently discontinued. Anti-hypertensive medications have been uptitrated as his blood pressure has allowed and he is now back on losartan and felodipine. Atenolol has not been restarted at this time but may be reintroduced uptitrated as needed for his blood pressure. Per oncology recommendations will stop your chemotherapy at this time and recommend following up with your oncologist in the next 1-2 weeks. Physical therapy recommending acute rehabilitation therefore he will be transferred to [facility] to facilitate this. (2) Swallowing difficulty: (3) Acute renal failure: (4) Rhabdomyolysis: (5) Essential hypertension: (6) Elevated troponin: (7) Fall: (8) Anemia: (9) Lung cancer: (10) Pancytopenia due to antineoplastic chemotherapy: (11) Adenocarcinoma of prostate: (12) Renal cell carcinoma: Total Time Total Time Spent Total Time Spent (In Minutes): 35 Discharge Plan Discharge Items Patient Disposition: Transfer [facility] Fac Reason For Visit: BRYAN, SEN Discharge Diagnosis: Hypovolemic shock Rhabdomyolysis Acute kidney failure Activity: Resume your previous activity Non-emergency contact: Primary Care Provider and Oncologist Call non-emergency contact if: you have any medication questions and your symptoms worsen Follow-up/Referrals: Raffy Bedolla MD [Primary Care Provider] - 09/25/21 11:20 am Kashif Adams DO [Physician] - 10/04/21 11:20 am (2 weeks with repeat BMP) Clark Jaramillo MD [Surgeon] - (2 weeks hospital follow up) Diet: Regular Diet Texture: Easy to Chew Addtl Attending Provider Instructions: You were admitted to [facility] from September 06 to September 20, 2020 due to a fall at home. You were found to be in acute kidney failure with rhabdomyolysis suspect secondary to chemotherapy medications and anti- hypertensives. Initially you required vasopressor support in the intensive care unit. However on discontinuation of your medications and intravenous fluids your kidney function has recovered back to baseline. Please follow up with neph rology with repeat BMP in the next 1-2 weeks. Initial concerns for sepsis ruled out and no infection was found therefore antibiotics were subsequently discontinued. Your anti-hypertensive medications have been uptitrated as your blood pressure has allowed and you are now back on losartan and felodipine. Atenolol has not been restarted at this time but may be reintroduced uptitrated as needed fo your blood pressure. Per oncology recommendations will stop your chemotherapy at this time and recommend following up with your oncologist in the next 1-2 weeks. Physical therapy recommending acute rehabilitation therefore he will be transferred to [facility] to facilitate this. Pending Studies at Discharge: No Stand-Alone Forms: My [facility] Skilled Items Patient informed of condition?: Yes DNR: No Discharge Level of Care: Acute rehab Communicable Disease: No Discharge Prognosis: Stable Lines: None Urinary Catheter: No Medications and DC Order Prescriptions: Continued losartan [Cozaar] 100 mg tablet 100 mg PO QAM Qty: 90 RF: 3 terazosin 5 mg capsule 5 mg PO HS Qty: 90 RF: 3 sertraline [Zoloft] 100 mg tablet 200 mg PO HS Qty: 180 RF: 3 ferrous sulfate 325 mg (65 mg iron) tablet,delayed release (DR/EC) 325 mg PO QAM RF: 0 albuterol sulfate [Ventolin HFA] 90 mcg/actuation HFA aerosol inhaler 2 puff Inhalation Q4 PRN (Reason: Shortness Of Breath Or Wheezing) Qty: 18 RF: 11 Flovent HFA 220 mcg/actuation HFA aerosol inhaler 2 puff INH BID Qty: 3 RF: 3 cholecalciferol (vitamin D3) [Vitamin D3] 1,000 unit Tablet 1,000 unit PO QAM RF: 0 ondansetron 8 mg Tablet,Disintegrating 8 mg PO Q8 PRN (Reason: Nausea) RF: 0 famotidine [Pepcid] 20 mg Tablet 20 mg PO QAM RF: 0 felodipine 5 mg tablet extended release 24 hr 5 mg PO AMPM RF: 0 prochlorperazine maleate 10 mg tablet 10 mg PO Q6 PRN (Reason: Nausea) RF: 0 Multiple Vitamin-Minerals Tablet 1 tab PO BID RF: 0 omega [id number]-hyw-fish oil [Fish Oil] 1,200 (144-216) mg Capsule 1 cap PO DAILY RF: 0 cyanocobalamin (vitamin B-12) 1,000 mcg/mL Solution 1,000 mcg IM MONTHLY RF: 0 loperamide 2 mg Capsule 2 mg PO Q4H PRN (Reason: loose stool) Qty: 30 RF: 0 acetaminophen [Tylenol] 325 mg Tablet 650 mg PO DIRECTED PRN (Reason: PAIN/FEVER) RF: 0 psyllium husk [Metamucil] 0.4 gram Capsule 0.4 g PO DAILY RF: 0 Changed potassium chloride [Klor-Con M10] 10 mEq tablet,ER particles/crystals 20 meq PO BID Qty: 540 RF: 3 Discontinued atenolol [Tenormin] 25 mg tablet 25 mg PO BID Qty: 180 RF: 3 Mekinist 2 mg tablet 2 mg PO DAILY RF: 0 Tafinlar 75 mg capsule 150 mg PO Q12 RF: 0 Discharge Orders: Discharge Order (Routine); Ordered 09/20/21 Ordered By: Jared Allen Admission Data Admit Date/Time: 09/06/21 20:24 Attending Provider: Jared Allen Admit Provider: Aakash Vargas Primary Care Provider: Raffy Bedolla Other Providers: Valentin Ochoa ; Kashif Adams ; [facility] ; [facility] ; [facility] ; [facility], Other Interventions: Discharge Summary Assessment (RN) Last Done: 09/20/21 11:16 Coding Level of Care Code D/C DAY MANAGEMENT >30 MINS Diagnoses Shock R57.9 Swallowing difficulty R13.10 Acute renal failure N17.9 Acute renal failure type: unspecified Rhabdomyolysis M62.82 Rhabdomyolysis type: non-traumatic Essential hypertension I10 Elevated troponin R77.8 Fall W19.XXXA Anemia D64.9 Lung cancer C34.90 Pancytopenia due to antineoplastic chemotherapy D61.810; T45.1X5A Adenocarcinoma of prostate C61 Renal cell carcinoma C64.9
[2021-09-20] MEDS ORDERED: LOSARTAN POTASSIUM 50 MG TAB PO SCH (09:00)
[2021-09-20] MEDS: FELODIPINE 5 MG TABCR PO SCH (09:39)
[2021-09-20] MEDS: DICLOFENAC SOD 1% GEL 100 GM TUBE EXT SCH (09:39)
[2021-09-20] MEDS: PANTOprazole 40 MG TAB PO SCH (09:40)
[2021-09-20] MEDS: POTASSIUM CHLORIDE CRTAB 20 MEQ TABCR PO SCH (09:41)
[2021-09-20] MEDS: HEPARIN SOD 5,000 UNIT/0.5 ML VIAL SC SCH (09:43)
[2021-09-20] MEDS: FLUTICASONE FUROATE 200MCG 14 PUFFS/INHALER INH SCH (09:43)
[2021-09-20] MEDS: FLUTICASONE PROPIONATE NA SPR 16 GM BTL SCH (11:44)
== END 2021-09-20 11:44 | DRG 682 ==
LOC: ED 16:49 → EDINP 20:24 → SUATTDRO 20:24 → 1E 23:42 → 2N 09-12 22:54 → 3W 09-17 02:16

== ENCOUNTER 2022-01-07 02:30 | Inpatient (IN) ==
[2022-01-07] MEDS ORDERED: SODIUM CHLORIDE 0.9% 500 ML IV STA (02:36)
[2022-01-07] MEDS ORDERED: methylPREDNISolone 125 MG/2 ML VIAL IV STA (02:36)
[2022-01-07] MEDS ORDERED: ALBUT/IPRATROP 3MG/0.5MG NEB 3 ML VIAL INH STA (02:36)
--- NOTE | 2022-01-07 02:40 | Emergency Department Note ---
Impression & Plan Hypoxia ADMIT ED Provider Note HPI: The patient is a 76-year-old gentleman with history of non-small cell carcinoma of the lung, presents the emergency department the chief complaint of nausea and vomiting as well as fever and shortness of breath from his nursing facility at [facility]. Per EMS the patient reportedly had oxygen saturations in the 70s, he was placed on nonrebreather mask with breathing treatment and oxygenation did improve to 94%. On arrival patient denies any chest pain, he states he actually does not feel short of breath but does feel very nauseous. On arrival here to the ED the patient is saturating on a nonrebreather 94% with some increased work of breathing. He is alert, complains of nausea, he is in mild respiratory distress on arrival. ROS: -Pulmonary: Respiratory distress -GI: Nausea and vomiting *10 point review systems was conducted and is otherwise negative unless stated above. *Outpatient medications and allergy history reviewed PE: General: Alert, frail-appearing, mild distress secondary to increased work of breathing HEENT: Normocephalic, atraumatic Eyes: Extraocular eye movement is intact, no scleral erythema Pulmonary: Diminished bilateral air movement without wheezing Cardio: Regular rate and rhythm GI: Abdomen is soft, nontender : No suprapubic tenderness MSK: No evidence of trauma or malformation of the extremities, no edema Skin: No evidence of rash Neuro: Alert, no focal deficits Psychiatric: Cooperative quality assurance monitor body: - An order was placed for continuous cardiac monitoring - Patient was noted to be in paced rhythm with rate of 75 CT ABDOMEN & PELVIS With Contrast: The pelvis. Splenomegaly with multiple abnormal lesions scattered throughout the liver, new from the previous examination 10/25/2015. Findings are concerning for metastatic disease. There is a nodule in the left lower lobe with spiculated margins measuring 16 mm. Differential consideration includes primary lung carcinoma versus metastatic disease. There is asymmetric interlobular septal thickening of the right lung base with trace free fluid and peribronchial cuffing. Findings suggest pulmonary vascular congestion. However, lymphangitic spread of carcinomatosis in the interstitium is also a differential consideration. There is a left inguinal hernia containing the sigmoid colon. No proximal obstruction is identified. There is distention of the colon without evidence for mucosal thickening or surrounding fat stranding. The clinical significance of this finding is indeterminant. Diverticulosis without definitive diverticulitis. No free intraperitoneal fluid or pneumoperitoneum. Gallbladder is distended with subcentimeter gallstones layering posteriorly. No biliary dilatation. The pancreas, adrenal glands and kidneys demonstrate no significant acute abnormality. Lobulation and cortical atrophy is similar in appearance. A hypodense structure along the superior margin of the left kidney on the previous examination has resolved. The bladder is unremarkable. Postsurgical changes consistent with prior prostatectomy. No acute osseous abnormality. Radiologist: Dewayne Tineo MD CTA CHEST: No evidence for pulmonary embolism. Spiculated mass in the left lower lobe measuring 16 mm. There is also a 16 mm nodule in the medial aspect of the left upper lobe. Given the enhancing lesions in the liver, the diagnosis of exclusion is metastatic foci. There is asymmetric peribronchial thickening with intermittent opacification of the endobronchial structures. Diffuse interlobular septal thickening is most notable in the right lower lobe. There are curvilinear fibrotic changes in the anterior aspect of the right upper lobe with suture material noted laterally. Findings are concerning for bronchitis or aspiration with underlying interstitial vascular prominence. Differential consideration however in the setting of tumor also includes lymphangitic spread of carcinomatosis. Trace pleural effusion noted posteriorly in the right lower lobe. No pneumothorax. The thoracic aorta is unremarkable. The cardiac chambers are unremarkable. No pericardial effusion. Nonspecific preaortic, AP window and paratracheal lymph nodes which are all subcentimeter in size. No acute osseous abnormality. Sclerotic focus along the inferior endplate of the T8 vertebral body and the lateral aspect of the T5 vertebral body are suspicious for metastatic foci. Radiologist: Dewayne Tineo MD EKG: Rate: 118 Rhythm: Sinus tachycardia ST changes: No ST elevation Time: 0237 Intervals: Within normal limits Medical Decision Making: Patient presented to the emergency department in respiratory distress, he was stabilized on nonrebreather mask following a breathing treatment in the field, shortly after arrival patient was placed on BiPAP for diminished air movement and increased work of breathing, he did respond well to this with oxygen saturations in the mid 90s with less work of breathing. IV was established, lab work obtained, patient was placed on cardiac tech. Lab work shows hypokalemia 2.9, slight elevation in creatinine to 1.62, high- sensitivity troponin is approximately 37, glucose is 200 without evidence of DKA, CT imaging of the chest does not show any evidence of pulmonary embolism, does show evidence of metastatic disease and changes likely consistent with aspiration pneumonia. CT imaging of the abdomen pelvis does not show any evidence of bowel obstruction or acute surgical process, does also show evidence of what appears to be metastatic disease within the abdomen. Patient was given DuoNeb breathing treatment, IV Solu-Medrol, a small fluid bolus of 500cc and none further secondary to concern for fluid overload and general hemodynamic stability following sublingual nitroglycerin for hypertension, BNP is within normal limits, I do suspect that his respiratory failure is likely secondary to tumor burden and aspiration given his episodes of vomiting earlier. Patient remained stable on BiPAP, hospitalist service was consulted for admission, discussed the case with the on-call hospitalist, Dr. Rodriguez, will defer antibiotic therapy for aspiration pneumonia to the hospitalist team at this time. Patient was in agreement for admission, he is noted to be full code, he was admitted in improved condition for further care. Critical care time: 45 minutes -Stabilization of acute hypoxic respiratory failure with oxygen saturations less than 90% on room air requiring supplemental oxygen and positive pressure ventilation for stabilization, time spent at the bedside, interpretation of diagnostic studies, discussion with other healthcare providers and arrangement of admission Diagnosis: 1. Acute respiratory failure with hypoxia 2. Metastatic lung cancer 3. Aspiration pneumonia 4. Hypokalemia 5. Elevated creatinine level 6. Hypertension/hypertensive urgency Disposition: Admission Diony Garcia DO Emergency Medicine Past Med/Surg History Medical History (Updated 01/07/22 @ 05:55 by Rell Hunter MD) 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 per records Anxiety Asthma well controlled Bladder neck contracture Cancer of kidney s/p cryoablation Chronic back pain Diastasis recti Dysphagia per remote records Essential hypertension GERD (gastroesophageal reflux disease) Hyperlipidemia Hypertension Inguinal hernia of left side without obstruction or gangrene Irritable bowel syndrome Lung cancer 7 years ago, s/p surgery Male stress incontinence Migraine ocular Non-small cell carcinoma of lung Osteoarthritis Pancytopenia due to antineoplastic chemotherapy Renal cell carcinoma Sensorineural hearing loss (SNHL) of both ears Umbilical hernia Surgical History H/O basal cell carcinoma excision x2 H/O radical prostatectomy H/O straightening of nasal septum H/O vasectomy History of colonoscopy History of esophagogastroduodenoscopy (EGD) History of lung surgery RIGHT > 7 YRS AGO History of right cataract extraction Family History Mother Parkinson disease Father Colon cancer Colorectal cancer Other FHx: cancer Family history of diabetes mellitus Family history of high blood pressure Family history of lung disease No family history of adverse response to anesthesia Denies family history of Ovarian cancer Prostate cancer Myocardial infarction Breast cancer Social History Smoking Status: Unknown if ever smoked Second Hand Exposure: No; Hx Alcohol Use: No Hx Substance Use: No Preferred Language: Romansh Communication Ability: Unable Visual Impairment: No Limitations Hearing Ability: Normal Collateral Clerk Required: No Beliefs That Will Affect Care: None marital status: / Current Living Situation: Alone current occupational status: retired Feels Safe at Home: Yes Childhood Exposure to Second-Hand Smoke: Yes Dental Care, Regularly: Yes Physical Activity Frequency: Does not Exercise Seatbelt Use: always Sunscreen Use: Yes Assistive Devices: Glasses and Hearing Aid - Left Allergies Allergies Allergy/AdvReac Type Severity Reaction Status Date / Time No Known Allergies Allergy Verified 01/07/22 03:06 Home Meds Home Medications Medication Instructions Recorded Confirmed cholecalciferol (vitamin D3) 25 1,000 unit PO QAM 07/02/18 01/07/22 mcg (1,000 unit) tablet (Vitamin D3) ferrous sulfate 325 mg (65 mg 325 mg PO QAM tab 09/08/19 01/07/22 iron) tablet,delayed release multivitamin with minerals 1 tab PO BID 08/24/21 01/07/22 (Multiple Vitamin-Minerals) omega 6-zgn-orf-fish oil 1,200 mg 1 cap PO DAILY 08/24/21 01/07/22 (144 mg-216 mg) capsule (Fish Oil) prochlorperazine maleate 10 mg 10 mg PO Q6 PRN 08/24/21 01/07/22 tablet acetaminophen 325 mg tablet 650 mg PO DIRECTED PRN 09/06/21 01/07/22 (Tylenol) psyllium husk 0.4 gram capsule 0.4 g PO DAILY 09/06/21 01/07/22 (Metamucil) dabrafenib 50 mg capsule (Tafinlar) 50 mg PO BID 01/07/22 01/07/22 docusate sodium 100 mg capsule 100 mg PO DAILY PRN 01/07/22 01/07/22 (Colace) felodipine 10 mg tablet,extended 10 mg PO QAM 01/07/22 01/07/22 release 24 hr felodipine 5 mg tablet,extended 5 mg PO QPM 01/07/22 01/07/22 release 24 hr ondansetron HCl 8 mg tablet 8 mg PO Q8 PRN 01/07/22 01/07/22 oxycodone-acetaminophen 5 mg-325 0.5 tab PO BID PRN 01/07/22 01/07/22 mg tablet polyethylene glycol 3350 17 gram 17 g PO DAILY PRN 01/07/22 01/07/22 oral powder packet (Miralax) potassium chloride 20 mEq 40 meq PO BID 01/07/22 01/07/22 tablet,extended release(part/cryst) trametinib 0.5 mg tablet (Mekinist) 1.5 mg PO DAILY 01/07/22 01/07/22 Previous Rx's Medication Instructions Recorded albuterol sulfate 90 mcg/actuation 2 puff INHALATION Q4 PRN #18 gm 10/11/20 aerosol inhaler (Ventolin HFA) loperamide 2 mg capsule 2 mg PO Q4H PRN #30 cap 08/28/21 fluticasone propionate 220 2 puff INH BID #3 inhaler 11/07/21 mcg/actuation HFA aerosol inhaler (Flovent HFA) famotidine 20 mg tablet 20 mg PO DAILY #90 tab 11/21/21 losartan 100 mg tablet (Cozaar) 100 mg PO QAM #90 tab 11/21/21 sertraline 100 mg tablet (Zoloft) 200 mg PO HS #180 tab 11/21/21 terazosin 5 mg capsule 5 mg PO HS #90 cap 11/21/21 furosemide 20 mg tablet 20 mg PO DAILY #90 tab 12/13/21 Results & Data (ED) Vital Signs Vital Signs - 24 hr 01/07/22 02:26 01/07/22 02:59 01/07/22 04:01 Temperature 36.8 C Temperature Source Oral Pulse Rate 110 H 112 H 104 H Pulse Rate [Apical] 106 H Respiratory Rate 24 Respiratory Effort / Characteristics Non-Labored Spontaneous Respiratory Depth Normal Normal Respiratory Pattern Tachypnea Tachypnea Blood Pressure 156/90 H Blood Pressure [Right Arm] 186/79 H Blood Pressure Mean 112 Blood Pressure Mean [Right Arm] 114 Pulse Oximetry 94 95 95 Oxygen Delivery Method Non-rebreather BiPAP Oxygen Flow Rate 15 Fraction of Inspired Oxygen 40 Sepsis Recent Fever Within 48 Hours Yes Sepsis New/Unexplained Change in Mental Status No Sepsis Action Taken by Nursing Physician Notified Laboratory Data Result diagrams: 01/07/22 02:39 01/07/22 02:39 Lab Results 01/07/22 01/07/22 01/07/22 Range/Units 02:39 02:39 02:39 WBC 4.96 (4.8-10.8) K/uL RBC 4.65 L (4.7-6.1) M/uL Hgb 13.3 L (14.0-18.0) g/dL Hct 39.9 L (42-52) % MCV 85.8 (80-100) fL MCH 28.6 (25-34) pg MCHC 33.3 (32-36) g/dL RDW Std Deviation 42.3 (36.4-46.3) fL RDW Coeff of Girish 13.5 (11.5-14.5) % Plt Count 131 (130-400) K/uL MPV 9.3 (7.4-10.4) fL Immature Gran % (Auto) 0.2 % Neut % (Auto) 86.0 % Lymph % (Auto) 6.3 % [place] % (Auto) 7.5 % Eos % (Auto) 0.0 % Baso % (Auto) 0.0 % Neut # (Auto) 4.27 (1.4-6.5) K/uL Lymph # (Auto) 0.31 L (1.2-3.4) K/uL [place] # (Auto) 0.37 (0.11-0.59) K/uL Eos # (Auto) 0.00 (0-0.5) K/uL Baso # (Auto) 0.00 (0-0.2) K/uL Immature Gran # (Auto) 0.01 (0.00-0.02) K/uL PT 11.2 (9.0-12.0) Seconds INR 1.1 (0.9-1.1) APTT 28.8 (21.0-31.0) Seconds PTT Ratio 1.0 VBG pH (7.36-7.41) VBG pCO2 (38-50) mmHg VBG pO2 mmHg VBG HCO3 mmol/L VBG O2 Saturation % VBG Base Excess mEq/L Barometric Pressure mm/Hg Sodium 136 (136-145) mmol/L Potassium 2.9 L (3.5-5.1) mmol/L Chloride 100 (98-107) mmol/L Carbon Dioxide 28 (21-32) mmol/L Anion Gap 8 (3-11) BUN 22 (6-23) mg/dl Creatinine 1.62 H (0.6-1.4) mg/dl Est Cr Clr Drug Dosing 34.0 ml/min Est GFR ( Amer) 46.4 ml/min Est GFR (Non-Af Amer) 40.1 ml/min BUN/Creatinine Ratio 13.6 (10-20) Glucose 200 H (70-99(Fasting)) mg/dl Calcium 8.8 (8.5-10.1) mg/dl Total Bilirubin 0.7 (0.2-1.0) mg/dl AST 32 (13-39) U/L ALT 10 (7-52) U/L Alkaline Phosphatase 169 H (34-104) U/L Troponin I High Sens 36.9 H (0-20) pg/ml B-Natriuretic Peptide (0-100) pg/ml Total Protein 6.8 (6.0-8.3) gm/dl Albumin 3.6 (3.4-5.0) gm/dl Globulin 3.2 (2.5-4.0) gm/dl Albumin/Globulin Ratio 1.1 (0.9-2) SARS-CoV-2 (PCR) (Negative) Influenza Type A (PCR) (Neg) Influenza Type B (PCR) (Neg) RSV (RT-PCR) (Neg) 01/07/22 01/07/22 01/07/22 Range/Units 02:46 02:46 02:54 WBC (4.8-10.8) K/uL RBC (4.7-6.1) M/uL Hgb (14.0-18.0) g/dL Hct (42-52) % MCV (80-100) fL MCH (25-34) pg MCHC (32-36) g/dL RDW Std Deviation (36.4-46.3) fL RDW Coeff of Girish (11.5-14.5) % Plt Count (130-400) K/uL MPV (7.4-10.4) fL Immature Gran % (Auto) % Neut % (Auto) % Lymph % (Auto) % [place] % (Auto) % Eos % (Auto) % Baso % (Auto) % Neut # (Auto) (1.4-6.5) K/uL Lymph # (Auto) (1.2-3.4) K/uL [place] # (Auto) (0.11-0.59) K/uL Eos # (Auto) (0-0.5) K/uL Baso # (Auto) (0-0.2) K/uL Immature Gran # (Auto) (0.00-0.02) K/uL PT (9.0-12.0) Seconds INR (0.9-1.1) APTT (21.0-31.0) Seconds PTT Ratio VBG pH 7.43 H (7.36-7.41) VBG pCO2 45 (38-50) mmHg VBG pO2 52 mmHg VBG HCO3 29 mmol/L VBG O2 Saturation 87.0 % VBG Base Excess 4.0 mEq/L Barometric Pressure 731.0 mm/Hg Sodium (136-145) mmol/L Potassium (3.5-5.1) mmol/L Chloride (98-107) mmol/L Carbon Dioxide (21-32) mmol/L Anion Gap (3-11) BUN (6-23) mg/dl Creatinine (0.6-1.4) mg/dl Est Cr Clr Drug Dosing ml/min Est GFR ( Amer) ml/min Est GFR (Non-Af Amer) ml/min BUN/Creatinine Ratio (10-20) Glucose (70-99(Fasting)) mg/dl Calcium (8.5-10.1) mg/dl Total Bilirubin (0.2-1.0) mg/dl AST (13-39) U/L ALT (7-52) U/L Alkaline Phosphatase (34-104) U/L Troponin I High Sens (0-20) pg/ml B-Natriuretic Peptide 80 (0-100) pg/ml Total Protein (6.0-8.3) gm/dl Albumin (3.4-5.0) gm/dl Globulin (2.5-4.0) gm/dl Albumin/Globulin Ratio (0.9-2) SARS-CoV-2 (PCR) NEGATIVE (Negative) Influenza Type A (PCR) Negative (Neg) Influenza Type B (PCR) Negative (Neg) RSV (RT-PCR) Negative (Neg) Administered Medications Discontinued Medications Albuterol (Albut/Ipratrop 3mg/0.5mg Neb 3 Ml Vial) 3 ml INH NOW STA Stop: 01/07/22 02:37 Last Admin: 01/07/22 02:50 Dose: 3 ml Documented by: [id number] Sodium Chloride (Nss) 500 mls @ 999 mls/hr IV .Q31M STA Stop: 01/07/22 03:06 Last Infusion: 01/07/22 03:25 Dose: 0 mls/hr Documented by: [id number] Admin: 01/07/22 02:50 Dose: 999 mls/hr Documented by: [id number] Potassium Chloride (K Eliud / Wtr) 10 meq in 100 mls @ 100 mls/hr IV Q1H MAURO; Protocol Stop: 01/07/22 05:29 Last Admin: 01/07/22 05:07 Dose: 100 mls/hr Documented by: [id number] Infusion: 01/07/22 05:07 Dose: 0 mls/hr Documented by: [id number] Admin: 01/07/22 03:58 Dose: 100 mls/hr Documented by: [id number] Ioversol (Optiray 320 125ml) 125 ml IV ONCE ONE Stop: 01/07/22 04:04 Last Admin: 01/07/22 04:04 Dose: 116 ml Documented by: [id number] Methylprednisolone (Methylprednisolone 125 Mg/2 Ml Vial) 125 mg IV NOW STA Stop: 01/07/22 02:37 Last Admin: 01/07/22 02:50 Dose: 125 mg Documented by: [id number] Nitroglycerin (Nitroglycerin Sl 0.4 Mg/Tab Tab) 0.4 mg SL NOW STA Stop: 01/07/22 04:26 Last Admin: 01/07/22 04:45 Dose: 0.4 mg Documented by: [id number] Discharge Plan Visit Data Chief Complaint: Shortness of Breath/Dyspnea Stated Complaint: SOB, Chest Pain ED Provider: Diony Garcia Discharge Problem: Hypoxia Forms Stand Alone Forms: My [facility] Prescriptions Prescriptions: No Action Flovent HFA 220 mcg/actuation HFA aerosol inhaler 2 puff INH BID Qty: 3 RF: 3 famotidine 20 mg tablet 20 mg PO DAILY Qty: 90 RF: 3 losartan [Cozaar] 100 mg tablet 100 mg PO QAM Qty: 90 RF: 3 sertraline [Zoloft] 100 mg tablet 200 mg PO HS Qty: 180 RF: 3 terazosin 5 mg capsule 5 mg PO HS Qty: 90 RF: 3 ferrous sulfate 325 mg (65 mg iron) tablet,delayed release (DR/EC) 325 mg PO QAM RF: 0 furosemide 20 mg tablet 20 mg PO DAILY Qty: 90 RF: 3 albuterol sulfate [Ventolin HFA] 90 mcg/actuation HFA aerosol inhaler 2 puff Inhalation Q4 PRN (Reason: Shortness Of Breath Or Wheezing) Qty: 18 RF: 11 cholecalciferol (vitamin D3) [Vitamin D3] 1,000 unit Tablet 1,000 unit PO QAM RF: 0 prochlorperazine maleate 10 mg tablet 10 mg PO Q6 PRN (Reason: Nausea) RF: 0 Multiple Vitamin-Minerals Tablet 1 tab PO BID RF: 0 omega 5-hyh-dut-fish oil [Fish Oil] 1,200 (144-216) mg Capsule 1 cap PO DAILY RF: 0 loperamide 2 mg Capsule 2 mg PO Q4H PRN (Reason: loose stool) Qty: 30 RF: 0 acetaminophen [Tylenol] 325 mg Tablet 650 mg PO DIRECTED PRN (Reason: PAIN/FEVER) RF: 0 psyllium husk [Metamucil] 0.4 gram Capsule 0.4 g PO DAILY RF: 0 polyethylene glycol 3350 [Miralax] 17 gram Powder In Packet 17 g PO DAILY PRN (Reason: Constipation) RF: 0 ondansetron HCl 8 mg tablet 8 mg PO Q8 PRN (Reason: Nausea) RF: 0 oxycodone-acetaminophen 5-325 mg tablet 0.5 tab PO BID PRN (Reason: Pain) RF: 0 potassium chloride 20 mEq tablet,ER particles/crystals 40 meq PO BID RF: 0 docusate sodium [Colace] 100 mg Capsule 100 mg PO DAILY PRN (Reason: Constipation) RF: 0 felodipine 10 mg tablet extended release 24 hr 10 mg PO QAM RF: 0 Tafinlar 50 mg capsule 50 mg PO BID RF: 0 Mekinist 0.5 mg tablet 1.5 mg PO DAILY RF: 0 felodipine 5 mg tablet extended release 24 hr 5 mg PO QPM RF: 0 Referrals Referrals: Raffy Bedolla MD [Primary Care Provider] -
[2022-01-07 02:56] LABS: Hematocrit (blood only) 39.9 % (42-52); Hemoglobin 13.3 g/dL (14.0-18.0); Immature Granulocytes # (auto) 0.01 K/uL (0.00-0.02); Immature Granulocytes % (auto) 0.2 %; Lymphocytes # (auto) 0.31 K/uL (1.2-3.4); Lymphocytes % (auto) 6.3 %; Mean Corpuscular Hemoglobin 28.6 pg (25-34); Mean Corpuscular Hgb Conc 33.3 g/dL (32-36); Mean Corpuscular Volume 85.8 fL (80-100); Mean Platelet Volume 9.3 fL (7.4-10.4); Monocytes # (auto) 0.37 K/uL (0.11-0.59); Monocytes % (auto) 7.5 %; Neutrophils # (auto) 4.27 K/uL (1.4-6.5); Platelet Count 131 K/uL (130-400); RDW Coefficient of Variation 13.5 % (11.5-14.5); RDW Standard Deviation 42.3 fL (36.4-46.3); Red Blood Count 4.65 M/uL (4.7-6.1); White Blood Count 4.96 K/uL (4.8-10.8)
[2022-01-07 03:01] LABS: pH VBG 7.43 (7.36-7.41)
[2022-01-07 03:09] LABS: INR 1.1 (0.9-1.1); Partial Thromboplastin Time 28.8 Seconds (21.0-31.0); Prothrombin Time 11.2 Seconds (9.0-12.0)
[2022-01-07 03:18] LABS: Albumin Globulin Ratio 1.1 (0.9-2); Albumin Level 3.6 gm/dl (3.4-5.0); BUN Creatinine Ratio 13.6 (10-20); Bilirubin,Total 0.7 mg/dl (0.2-1.0); Calcium 8.8 mg/dl (8.5-10.1); Est GFR (African American) 46.4 ml/min; Est GFR (Non-African American) 40.1 ml/min; Globulin 3.2 gm/dl (2.5-4.0); Potassium 2.9 mmol/L (3.5-5.1); Total Protein 6.8 gm/dl (6.0-8.3)
[2022-01-07 03:20] LABS: Troponin I High Sensitivity 36.9 pg/ml (0-20)
[2022-01-07 03:55] LABS: Influenza A virus by PCR Negative (Neg); Influenza B virus by PCR Negative (Neg); RSV by PCR Negative (Neg); SARS CoV2 RNA(COVID-19) InHosp NEGATIVE (Negative)
[2022-01-07] MEDS: POTASSIUM CHLORIDE / WTR 10 MEQ/100 ML PLCT IV SCH ×4 (03:58→09:35)
[2022-01-07] MEDS ORDERED: OPTIRAY 320 125ml IV ONE (04:03)
[2022-01-07] MEDS ORDERED: NITROGLYCERIN SL 0.4 MG/TAB TAB SL STA (04:25)
[2022-01-07] MEDS ORDERED: ACETAMINOPHEN 325 MG TAB PO PRN ×2 (04:52→07:53)
--- NOTE | 2022-01-07 05:58 | History & Physical Report ---
Date of Service January 07, 2022 Assessment & Plan (1) Acute respiratory failure with hypoxia: Plan: 76-year-old male and resident of [facility] with history of known metastatic right lower lobe adenocarcinoma status post wedge resection and chemotherapy, prostate cancer status post prostatectomy, left kidney renal cell carcinoma, aortic regurgitation, asthma, hypertension, IBS, mitral regurgitation who presents to [facility] for evaluation of shortness of breath. Acute Hypoxic Respiratory Failure - noted in context of known diffusely metastatic RLL adenocarcinoma s/p wedge resection and chemotherapy - [facility] CT-A demonstrating peribronchial thickening and intermittent opacification of bronchial structures with septal thickening - suspect aspiration vs. lymphangitic spread of cancer - While findings of pulmonary vascular congestion are noted, patient appears clinically dry and not in active CHF - No evidence of PE on CTA - Await final read by [facility] - Though history was somewhat difficult to obtain, suspect with his known h/o of dysphagia that his AHRF may be secondary to aspiration and progression of his known malignancy - Check procal, CRP, sputum culture, and blood cultures to clarify clinical picture - Initiate Zosyn/Vancomycin -- can de-escalate as appropriate - Defer further steroid treatments at this time - Maintain SpO2 >90-92%; transition off BiPAP as tolerated, suspect he will soon be ready for HFNC/OxyMask - Hold on diuresis and TTE at this time - DuoNebs q4h PRN for SOB (2) Lung cancer: Plan: - Follows with Dr. Jaramillo (see most recent note in system) -- patient has extensive and diffuse metastases in his chest, abdomen, pelvis, and bones. He is s/p wedge resection and radiation. Per most recent ONC note, seemed like the plan was to discontinue chemotherapeutics due to adverse reactions in the past. However, patient says he is still taking some medications and cannot elaborate more on this discrepancy - Spoke with daytime RN, who is contacting [facility] to obtain [facility] medication list to clarify this -- will need to f/u and reconcile in the chart when complete - Pending clinical course and further discussion, may wish to clarify current goals of care moving forward with regards to diffusely metastatic disease and role of chemotherapy, acute illnesses (3) Cancer of kidney: Plan: - Follows with Dr. Jaramillo, as above. Also follows with Urology. Noted in setting of SEN. (4) Hypertension: Plan: - Patient noted to be hypertensive on arrival in setting of AHRF - Continue felodipine - Hold losartan, Lasix in setting of SEN and clinically dry status on exam (5) Dysphagia: Plan: - Initially noted to have dysphagia on 09/11/21 during last admission -- FEES showed significant inflammation in posterior pharynx, ?due to reflux - Appreciate [employer] consultation during this admission in setting of c/f aspiration - Continue H2 melvin (6) Adenocarcinoma of prostate: Plan: - History noted. Status post prostatecetomy. (7) Acute renal failure: Plan: - on arrival, noted to have BUN 22 / Cr 1.62 - on 12/13 - noted to be at BUN 18 / Cr 1.2 (baseline closer to 1.2-1.4) - history of poor PO intake and nausea makes his SEN suspicious for prerenal etiology; no symptoms, at present, or findings on [facility] CT-A/P to suggest post-renal process. Situation likely compounded by dry status, continued Lasix, and ARB - Attempt gentle rehydration, recheck BMP following fluids -- if still persistently elevated, would obtain FENa - Hold ARB, Lasix - CT-A/P STAT Rad read without acute renal findings, could always consider dedicated US if not resolving/worsening (8) Hypokalemia: Plan: - Noted at 2.9 on admission - no appreciable GI losses reported by patient, but does endorse poor PO intake - s/p receipt of 20 mEq KCl IV in ED -- will give another 2 now, can likely begin oral or continue IV replacement if persisting - Check magnesium, replete if indicated - Monitor BMP Plan: Code: full code at present; extensive conversation held at bedside, initially said he would NOT want CPR, but then said he wanted to discuss further with his son before making that official -- confirmed with him that until this discussion, he did want CPR, and he verifies. He is OK with intubation if needed. Dispo: PCU until oxygen requirement stabilizes Diet: NPO until spech evaluation PPX: Lovenox - if worsening kidney function, would transition to heparin SQ History of Present Illness Primary Care Provider: Raffy Bedolla MD 76-year-old male and resident of [facility] with history of known diffusely metastatic right lower lobe adenocarcinoma status post wedge resection and chemotherapy, prostate cancer status post prostatectomy, left kidney renal cell carcinoma, aortic regurgitation, asthma, hypertension, IBS, mitral regurgitation who presents to [facility] for evaluation of shortness of breath. Given that patient was on BiPAP at time of history, information is primarily obtained through interprovider communication and documentation, with simple questions answered with patient. Over the last week, patient is reportedly had increasing shortness of breath and fatigue (per care home - though interestingly, patient says his breathing has been fine). He endorses a mild cough. He also reports reported intermittent nausea. One episode of loose stool, which has resolved - no diarrhea He has been able to keep down some food but hasn't had much of an appetite. He denies any chest pain or palpitations. He does endorse intermittent chills with night sweats. He denies trouble swallowing, but also notes that he has issue with "fluid getting stuck in my throat." No odynophagia. 911 was called. Patient reportedly had oxygen saturation in the 70s, with subsequent improvement on nonrebreather. In the ED, patient was found to be hypoxic requiring a nonrebreather. He did demonstrate increased work of breathing. He required 15 L nonrebreather. He was tachycardic to 110 with hypertension 150-180/90s. WBC 4.96. pH 7.43 / pCO2 45 / pO2 52 / pHCO3 29. K at 2.9. BUN 22 / Cr 1.62 / BSG 200. hsTRP 37. Given methylprednisone x 1. [facility] CTA Chest: " No evidence for pulmonary embolism. Spiculated mass in the left lower lobe measuring 16 mm. There is also a 16mm nodule in the medial aspect of the left upper lobe. Given the enhancing lesions in the liver, the d iagnosis of exclusion is metastatic foci. There is asymptomatic peribronchial thickening with indeterminate opacification of the endobronchial structures. Diffuse interlobular septal thickening is most notable in the right lower lobe. There are curvilinear fibrotic changes in the anterior aspect of the right upper lobe with suture material noted laterally. Findings are concerning for bronchitis or aspiration with underlying interstitial vascular prominence." [facility] CTA/P: " Splenomegaly with multiple abnormal lesions scattered throughout the liver Findings are concerning for metastatic disease ... There is asymmetric interlobular septal thickening of the right lung base with trace free fluid and parabronchial cuffing. Findings suggest pulmonary vascular congestion. However, lymphangitic spread of carcinomatosis in the interstitum is also a differential consideration." Allergies Allergy/AdvReac Type Severity Reaction Status Date / Time No Known Allergies Allergy Verified 01/07/22 03:06 Home Medications Medication Instructions Recorded Confirmed Type cholecalciferol (vitamin D3) 25 1,000 unit PO QAM 07/02/18 01/07/22 History mcg (1,000 unit) tablet (Vitamin D3) ferrous sulfate 325 mg (65 mg 325 mg PO QAM tab 09/08/19 01/07/22 History iron) tablet,delayed release albuterol sulfate 90 mcg/actuation 2 puff INHALATION Q4 PRN #18 gm 10/11/20 01/07/22 Rx aerosol inhaler (Ventolin HFA) multivitamin with minerals 1 tab PO BID 08/24/21 01/07/22 History (Multiple Vitamin-Minerals) omega 5-wzv-wqf-fish oil 1,200 mg 1 cap PO DAILY 08/24/21 01/07/22 History (144 mg-216 mg) capsule (Fish Oil) prochlorperazine maleate 10 mg 10 mg PO Q6 PRN 08/24/21 01/07/22 History tablet loperamide 2 mg capsule 2 mg PO Q4H PRN #30 cap 08/28/21 01/07/22 Rx acetaminophen 325 mg tablet 650 mg PO DIRECTED PRN 09/06/21 01/07/22 History (Tylenol) psyllium husk 0.4 gram capsule 0.4 g PO DAILY 09/06/21 01/07/22 History (Metamucil) fluticasone propionate 220 2 puff INH BID #3 inhaler 11/07/21 01/07/22 Rx mcg/actuation HFA aerosol inhaler (Flovent HFA) famotidine 20 mg tablet 20 mg PO DAILY #90 tab 11/21/21 01/07/22 Rx losartan 100 mg tablet (Cozaar) 100 mg PO QAM #90 tab 11/21/21 01/07/22 Rx sertraline 100 mg tablet (Zoloft) 200 mg PO HS #180 tab 11/21/21 01/07/22 Rx terazosin 5 mg capsule 5 mg PO HS #90 cap 11/21/21 01/07/22 Rx furosemide 20 mg tablet 20 mg PO DAILY #90 tab 12/13/21 01/07/22 Rx dabrafenib 50 mg capsule (Tafinlar) 50 mg PO BID 01/07/22 01/07/22 History docusate sodium 100 mg capsule 100 mg PO DAILY PRN 01/07/22 01/07/22 History (Colace) felodipine 10 mg tablet,extended 10 mg PO QAM 01/07/22 01/07/22 History release 24 hr felodipine 5 mg tablet,extended 5 mg PO QPM 01/07/22 01/07/22 History release 24 hr ondansetron HCl 8 mg tablet 8 mg PO Q8 PRN 01/07/22 01/07/22 History oxycodone-acetaminophen 5 mg-325 0.5 tab PO BID PRN 01/07/22 01/07/22 History mg tablet polyethylene glycol 3350 17 gram 17 g PO DAILY PRN 01/07/22 01/07/22 History oral powder packet (Miralax) potassium chloride 20 mEq 40 meq PO BID 01/07/22 01/07/22 History tablet,extended release(part/cryst) trametinib 0.5 mg tablet (Mekinist) 1.5 mg PO DAILY 01/07/22 01/07/22 History Past Med/Surg History Medical History (Updated 01/07/22 @ 05:55 by Rell Hunter MD) 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 per records Anxiety Asthma well controlled Bladder neck contracture Cancer of kidney s/p cryoablation Chronic back pain Diastasis recti Dysphagia per remote records Essential hypertension GERD (gastroesophageal reflux disease) Hyperlipidemia Hypertension Inguinal hernia of left side without obstruction or gangrene Irritable bowel syndrome Lung cancer 7 years ago, s/p surgery Male stress incontinence Migraine ocular Non-small cell carcinoma of lung Osteoarthritis Pancytopenia due to antineoplastic chemotherapy Renal cell carcinoma Sensorineural hearing loss (SNHL) of both ears Umbilical hernia Surgical History H/O basal cell carcinoma excision x2 H/O radical prostatectomy H/O straightening of nasal septum H/O vasectomy History of colonoscopy History of esophagogastroduodenoscopy (EGD) History of lung surgery RIGHT > 7 YRS AGO History of right cataract extraction Family History Mother Parkinson disease Father Colon cancer Colorectal cancer Other FHx: cancer Family history of diabetes mellitus Family history of high blood pressure Family history of lung disease No family history of adverse response to anesthesia Denies family history of Ovarian cancer Prostate cancer Myocardial infarction Breast cancer Social History Smoking Status: Former smoker Second Hand Exposure: No; Do You Dip or Chew Tobacco: No; Tobacco Cessation Education Requested by Patient: No Hx Alcohol Use: No Hx Substance Use: Yes Preferred Language: Croatian Communication Ability: Effective Visual Impairment: No Limitations Hearing Ability: Normal Rapier Insertion Loom Fixer Required: No Beliefs That Will Affect Care: None marital status: / Current Living Situation: Alone current occupational status: retired How many Children do You have: 1 Other Information That Helps Us Care for You: No Feels Safe at Home: Yes Safety Concerns: Feels Safe At This Time Childhood Exposure to Second-Hand Smoke: Yes Dental Care, Regularly: Yes Physical Activity Frequency: Does not Exercise Seatbelt Use: always Sunscreen Use: Yes Assistive Devices: Cane and Walker Assistive Devices Comment: pt has bilateral hearing aides not here at present Review of Systems Review of Systems: as per HPI Physical Exam Physical Exam: General: Tired but otherwise well appearing 76yoM in NAD, BiPAP in place. HEENT: NCAT. - Eyes - Sclera are white, anicteric, and without injection. PERRL. - Mouth - MMM with no tonsillar edema or exudates. - Neck - No appreciable JVD Cardiac: Tachycardic with regular rhythm; S1 and S2 present with no murmurs, rubs, or gallops. Pulmonary: BiPAP in place. Appears comfortable. No use of accessory muscles. Lungs demonstrating scattered crackles and rhonchi in the bases bilaterally, more appreciable on the right Abdominal: Normoactive bowel sounds. Abdomen was soft, nondistended, and non- tender to palpation. Extremities: Upper and lower extremities are warm and well perfused. No significant peripheral edema Results & Data Results & Data ([facility]) Vital Signs (Past 12 Hours) Vital Signs Temp Pulse Pulse Resp BP BP Pulse Ox 01/07/22 04:01 104 H 106 H 24 186/79 H 95 01/07/22 02:59 112 H 22 95 01/07/22 02:26 36.8 C 110 H 22 156/90 H 94 Supervising Physician Co-Signing Physician Notes Attending addendum: I have physically seen this patient, have supervised the medical residents activities, and agree with the H&P unless as otherwise noted. Assessment and Plan: Acute respiratory failure with hypoxia/right-sided pneumonia- Vancomycin IV/Zosyn IV per pharmacokinetic monitoring Duonebs every 4 hours while awake and every 2 hours when necessary. Guaifenesin extended release 12 mg p.o. twice daily Nasal cannula oxygen, titrate to keep pulse ox around 92% Lung cancer- Extensive metastases in chest, abdomen, pelvis and bones Following with Dr. Jaramillo Remaining orders and notations as noted Resident Activity Tracking Resident Involvement: Resident Care Provided Care Provided: Adult Hospital Medicine (1) Acute renal failure Acute renal failure type: unspecified Qualified Code(s): N17.9 - Acute kidney failure, unspecified
[2022-01-07 06:15] LABS: Appearance Urine Clear (Clear); Bacteria Urine Automated Negative (Negative); Bilirubin Urine Negative (Negative); Blood Urine 1+ (Negative); Color Urine Yellow; Glucose Urine UA Trace (Negative); Ketones Urine Negative (Negative); Leukocyte Esterase Urine Negative (Negative); Nitrite Urine Negative (Negative); RBC Urine Automated 0-4 /hpf (0-4); Specific Gravity Urine 1.024 (1.000-1.030); Urobilinogen Urine Negative (Negative); pH Urine 7.5 (4.5-7.5)
[2022-01-07 06:33] LABS: Protein Urine 3+ (Negative)
[2022-01-07 06:44] LABS: Cast Urine Automated 0 /lpf (0-5)
[2022-01-07] MEDS ORDERED: ALBUT/IPRATROP 3MG/0.5MG NEB 3 ML VIAL NEB PRN (06:52)
--- NOTE | 2022-01-07 07:50 | CT Scan Report ---
CT ANGIOGRAPHY OF THE CHEST, PULMONARY EMBOLUS PROTOCOL CLINICAL HISTORY: Dyspnea. History of malignancy. COMPARISON STUDY: Chest radiograph September 06, 2021 and January 07, 2022. Chest CT July 13, 2018. TECHNIQUE: Following IV administration of 116 mL of Optiray, helical axial images of the chest were o btained utilizing the pulmonary embolus protocol. Maximal intensity projections and sagittal and cor onal reformats were viewed on an independent 3D workstation. IV contrast was administered without co mplication. Automated exposure control was utilized for the study. A dose lowering technique was ut ilized adhering to the principles of ALARA. FINDINGS: No pulmonary emboli are identified. There is no thoracic aortic dissection. Moderate cardi omegaly is noted. There is no pericardial effusion. Note is made of several mildly enlarged mediastin al and right hilar lymph nodes. Index right paratracheal lymph node shown on axial image 238 of 316 m easures 1.7 x 1.3 cm. Right pleural thickening is noted with a trace right pleural effusion. Multiple pulmonary nodules are noted. These have increased in size since CT of July 13, 2018. A left lower lobe nodule on image 88 of 316 measures 1.8 cm. It previously measured 0.8 cm. There is a 1.6 cm daisha gular nodule which has also increased in size. A 2 cm nodule within the anterior segment of the right upper lobe has increased in size. In addition, there are extensive secretions within the right lower lobe segmental bronchi. Numerous additional smaller ground glass and ill-defined nodules throughout the right lung are noted. Bronchovascular thickening within the right lower lobe is also present with distortion. Several indeterminate sclerotic right sided rib lesions are noted. There has been interv al development of multiple hepatic lesions which measure up to approximately 3.1 cm. These are consis tent with metastases, better depicted on the CT of the abdomen and pelvis. Splenomegaly is unchanged. There is an indeterminate 8 mm lesion within the T9 vertebral body with sclerotic margin. IMPRESSION: 1. No pulmonary emboli identified. 2. Progression of multifocal pulmonary metastases since chest CT of July 13, 2018 and development of hepatic metastases better depicted on the CT of the abdomen and pelvis which will be reported sepa rately. Mediastinal and right hilar lymphadenopathy which is suspicious for gail spread of disease. 3. Numerous additional smaller irregular right lung nodules and groundglass opacities which could ref lect an infectious process or additional metastases. Extensive secretions within the right lower lobe segmental bronchi with architectural distortion and bronchovascular thickening. Trace right pleural effusion. ACT 112: Negative or not required by law. Electronically signed by: Mono Haddad M.D. 01/07/2022 7:48 AM
[2022-01-07] MEDS ORDERED: SODIUM CHLORIDE 0.9% 1000ML 1,000 ML IV SCH (07:53)
[2022-01-07] MEDS ORDERED: LOPERAMIDE HCL 2 MG CAP PO PRN (07:53)
[2022-01-07] MEDS ORDERED: VANCOMYCIN CONSULT ACTIVE PRN (07:53)
[2022-01-07] MEDS ORDERED: DOCUSATE SODIUM 100 MG CAP PO PRN (07:53)
[2022-01-07] MEDS ORDERED: POLYETHYLENE (MIRALAX) 17 GM PACK PO PRN (07:53)
[2022-01-07] MEDS ORDERED: ALBUTEROL HFA 8 GM INHALER INH PRN (07:53)
[2022-01-07] MEDS ORDERED: PIPERACILL/TAZOBAC CONSULT ACTIVE PRN (07:53)
[2022-01-07 08:18] LABS: Hematocrit (blood only) 37.7 % (42-52); Hemoglobin 12.6 g/dL (14.0-18.0); Mean Corpuscular Hemoglobin 28.8 pg (25-34); Mean Corpuscular Hgb Conc 33.4 g/dL (32-36); Mean Corpuscular Volume 86.3 fL (80-100); Mean Platelet Volume 9.2 fL (7.4-10.4); Platelet Count 131 K/uL (130-400); RDW Coefficient of Variation 13.5 % (11.5-14.5); Red Blood Count 4.37 M/uL (4.7-6.1); White Blood Count 9.78 K/uL (4.8-10.8)
--- NOTE | 2022-01-07 08:29 | XRay Report ---
XR chest 1V portable CLINICAL HISTORY: Dyspnea. History of malignancy. COMPARISON STUDY: Chest radiograph September 06, 2021. FINDINGS: A small right pleural effusion is noted. No pneumothorax. Right mid and lower lung airspace opacity is present. Cardiomegaly is unchanged. No evidence for pulmonary edema. IMPRESSION: 1. Right mid and lower lung airspace opacity which favors an infectious process. Underlying neoplasti c process cannot be excluded. 2. Small right pleural effusion. No pneumothorax. 3. Cardiomegaly without evidence for pulmonary edema. ACT 112: Negative or not required by law. Electronically signed by: Mono Haddad M.D. 01/07/2022 8:27 AM
[2022-01-07] MEDS ORDERED: PIPERACILLIN/TAZOBACTAM 3.375 GM in DEXTROSE 5% 100 ML IV ONE (08:30)
[2022-01-07] MEDS ORDERED: VANCOMYCIN HCL 1,500 MG in SODIUM CHLORIDE 0.9% 500 ML IV ONE (08:30)
[2022-01-07] MEDS ORDERED: ONDANSETRON 4 MG OD TAB PO PRN (08:34)
[2022-01-07 08:44] LABS: Basophils # (auto) 0.01 K/uL (0-0.2); Basophils % (auto) 0.1 %; Immature Granulocytes # (auto) 0.02 K/uL (0.00-0.02); Immature Granulocytes % (auto) 0.2 %; Lymphocytes # (auto) 0.23 K/uL (1.2-3.4); Lymphocytes % (auto) 2.4 %; Monocytes # (auto) 0.27 K/uL (0.11-0.59); Monocytes % (auto) 2.8 %; Neutrophils # (auto) 9.25 K/uL (1.4-6.5); Neutrophils % (auto) 94.5 %; RBC Morphology Unremarkable
[2022-01-07] MEDS ORDERED: DABRAFENIB PO SCH (09:00)
[2022-01-07 09:02] LABS: Albumin Globulin Ratio 1.1 (0.9-2); Albumin Level 3.4 gm/dl (3.4-5.0); BUN Creatinine Ratio 12.6 (10-20); Bilirubin,Total 0.6 mg/dl (0.2-1.0); C Reactive Protein 11.43 mg/dl (0-0.5); Calcium 8.6 mg/dl (8.5-10.1); Creatinine Clr Calc Pharmacy 31.5 ml/min; Est GFR (African American) 42.3 ml/min; Est GFR (Non-African American) 36.5 ml/min; Globulin 3.2 gm/dl (2.5-4.0); Magnesium 1.8 mg/dl (1.7-2.4); Potassium 3.7 mmol/L (3.5-5.1); Total Protein 6.6 gm/dl (6.0-8.3); Troponin I High Sensitivity 65.5 pg/ml (0-20)
--- NOTE | 2022-01-07 09:04 | CT Scan Report ---
CT abd pelvis IV con only CLINICAL HISTORY: Cancer patient with nausea and vomiting COMPARISON STUDY: 10/25/2015 CT DOSE: 707.41 mGy.cm TECHNIQUE: Standard CT of the Abdomen and Pelvis was performed with IV contrast. A dose lowering hazel hnique was utilized adhering to the principles of ALARA. Contrast Volume: Optiray 320, 116 ml. The patient did not receive oral contrast. FINDINGS: Lung base: Compared to the previous examination, there is an approximately 1.6 cm spiculated nodule t he left lung base. Scarring is also present in both lung bases, right greater than left. Abdominal cavity: There is no evidence for abdominal mass, adenopathy or ascites. Liver: Compared to previous examination, numerous heterogeneously enhancing masses are seen within th e liver characteristic of metastatic disease. The largest measures approximately 3.1 cm . No biliary duct dilatation is seen. Spleen: There is homogeneous attenuation of the splenic parenchyma. There is no enhancing mass lesion . There has been interval development of at least moderate splenomegaly. Pancreas: There is homogeneous attenuation of the pancreatic parenchyma. There is no evidence for mas s lesion or peripancreatic fluid collection. Gall Bladder: The gallbladder is distended with cholelithiasis. There is no CT evidence for acute cho lecystitis. Adrenal glands: The adrenal glands are normal in size and attenuation. There is no evidence for enhan cing mass lesion. Kidneys: There is homogeneous attenuation of the renal parenchyma bilaterally. There is no evidence f or renal calculus or hydronephrosis. There is no evidence for enhancing mass. Sharply defined bilater al renal cysts are present. Bowel: There are scattered fluid-filled loops of small bowel without evidence for disproportionate di latation or obstruction. Findings are most characteristic of an ileus versus gastroenteritis. There is a left inguinal hernia with loop of sigmoid colon extending into the hernia sac. There is no evidence for obstruction or incarceration. The remaining bowel loops are normally placed within the abdomen and pelvis. There is extensive sigmoid diverticulosis without evidence for diverticulitis. There are no inflammat ory changes present. There is no evidence for free air. There is evidence for a normal appendix in th e right lower quadrant. Bladder: The bladder is within normal limits with no evidence for focal mass, calculus or diverticulu m. : There is no evidence for pelvic mass or adenopathy. There is no evidence for pelvic ascites. Vasculature: There is no evidence for aneurysmal dilatation of the abdominal aorta. Atherosclerotic c alcification is present. Osseous structures: There is no acute osseous pathology. Degenerative changes are present within the spine. IMPRESSION: 1. Spiculated nodule at left lung base characteristic of metastatic disease versus primary neoplasm. 2. Interval development of diffuse liver metastases. 3. Splenomegaly. 4. Cholelithiasis. 5. Left inguinal hernia with loop of sigmoid colon. No evidence for obstruction. 6. Findings characteristic of gastroenteritis versus ileus. 7. Additional nonacute findings are delineated above. ACT 112: Negative or not required by law. Electronically signed by: Aleksey Brandt M.D. 01/07/2022 9:02 AM
[2022-01-07] MEDS: ENOXAPARIN INJ 40 MG/0.4 ML SYR SQ SCH (09:13)
[2022-01-07] MEDS: FLUTICASONE FUROATE 200MCG 14 PUFFS/INHALER INH SCH (09:13)
--- NOTE | 2022-01-07 09:52 | Electrocardiogram Report ---
Test Reason : Blood Pressure : / mmHG Vent. Rate : 118 BPM Atrial Rate : 118 BPM P-R Int : 144 ms QRS Dur : 078 ms QT Int : 356 ms P-R-T Axes : 070 040 057 degrees QTc Int : 498 ms Poor data quality, interpretation may be adversely affected Sinus tachycardia with frequent Premature ventricular complexes Left atrial enlargement Nonspecific ST abnormality Abnormal ECG When compared with ECG of 06-SEP-2021 17:18, Premature supraventricular complexes are no longer Present T wave inversion no longer evident in Lateral leads Confirmed by Raffy Dawn ([id number]) on 01/07/2022 9:51:41 AM Referred By: REFERRED SELF Confirmed By:Raffy Dawn
--- NOTE | 2022-01-07 10:06 | Pharmacy Report ---
Pharmacy Vanc AUC Short Note - Date of Service January 07, 2022 - Assessment & Plan Assessment 76 year old M receiving vancomycin/zosyn for treatment of respiratory failure, significant hx of metastatic r lower lobe adenocarcinoma with resection. Blood cultures pending. Normal WBC, afebrile. Patient had negative MRSA nasal in August of 2021, new swab ordered. Re-eval need for abx in 24-48 hours Plan Vancomycin * AUC/KIM is the preferred PK/PD target for vancomycin * AUC guided dosing is effective and associated with decreased risk of nephrotoxicity compared to traditional trough targets * 1500 mg loading dose x 1 * Maintenance dose 750 mg q24H is predicted to achieve target AUC/KIM of 400-600 mg/L.hr and may be associated with a 10 % risk of nephrotoxicity * Continue to monitor renal function, may need to switch to dosing by levels if SCr trends further upwards * Trough to be ordered if continued > 48 hours Pharmacy will continue to follow and will adjust dose/frequency as necessary. Thank you.
[2022-01-07] MEDS: FERROUS SULFATE 325 MG TAB PO SCH (11:04)
[2022-01-07] MEDS: FAMOTIDINE 20 MG TAB PO SCH (11:04)
[2022-01-07] MEDS: CHOLECALCIFEROL 1,000 UNITS 25 MCG TAB PO SCH (11:04)
[2022-01-07] MEDS: FELODIPINE 5 MG TABCR PO SCH ×2 (11:04→20:04)
[2022-01-07] MEDS: OMEGA-3 (PURIFIED FISH OIL) 1 GM CAP PO SCH (11:04)
[2022-01-07] MEDS: POTASSIUM CHLORIDE CRTAB 20 MEQ TABCR PO SCH ×2 (11:04→20:03)
[2022-01-07] MEDS: CEROVITE ADV FORMULA TAB PO SCH ×2 (11:04→20:04)
[2022-01-07] MEDS: PSYLLIUM or GUAR GUM FIBER POWDER PACKET PO SCH (11:05)
[2022-01-07] MEDS: PIPERACILLIN/TAZOBACTAM 3.375 GM in DEXTROSE 5% 100 ML IV SCH ×2 (13:47→21:58)
[2022-01-07] MEDS: TERAZOSIN HCL 5 MG CAP PO SCH (20:03)
[2022-01-07] MEDS: SERTRALINE HCL 100 MG TABLET PO SCH (20:03)
--- NOTE | 2022-01-07 21:48 | Billing Data ---
Date of Service January 07, 2022 Coding Level of Care Code 28046 Initial Inpt Care Lvl 3
[2022-01-08] MEDS: PIPERACILLIN/TAZOBACTAM 3.375 GM in DEXTROSE 5% 100 ML IV SCH ×3 (05:27→21:53)
[2022-01-08] MEDS: ENOXAPARIN INJ 40 MG/0.4 ML SYR SQ SCH (05:27)
[2022-01-08] MEDS: FERROUS SULFATE 325 MG TAB PO SCH (08:21)
[2022-01-08] MEDS: POTASSIUM CHLORIDE CRTAB 20 MEQ TABCR PO SCH ×2 (08:21→20:24)
[2022-01-08] MEDS: OMEGA-3 (PURIFIED FISH OIL) 1 GM CAP PO SCH (08:21)
[2022-01-08] MEDS: CHOLECALCIFEROL 1,000 UNITS 25 MCG TAB PO SCH (08:21)
[2022-01-08] MEDS: FELODIPINE 5 MG TABCR PO SCH ×2 (08:21→20:23)
[2022-01-08] MEDS: CEROVITE ADV FORMULA TAB PO SCH ×2 (08:21→20:23)
[2022-01-08] MEDS: FLUTICASONE FUROATE 200MCG 14 PUFFS/INHALER INH SCH (08:21)
[2022-01-08] MEDS: PSYLLIUM or GUAR GUM FIBER POWDER PACKET PO SCH (08:22)
[2022-01-08] MEDS: FAMOTIDINE 20 MG TAB PO SCH (08:22)
[2022-01-08] MEDS ORDERED: VANCOMYCIN HCL 750 MG in SODIUM CHLORIDE 0.9% 250 ML IV SCH (09:00)
[2022-01-08] MEDS: SERTRALINE HCL 100 MG TABLET PO SCH (20:23)
[2022-01-08] MEDS: TERAZOSIN HCL 5 MG CAP PO SCH (20:24)
--- NOTE | 2022-01-08 21:50 | Hospitalist Progress Note ---
Date of Service January 08, 2022 Assessment & Plan (1) Acute respiratory failure with hypoxia: Plan: 76-year-old male and resident of [facility] with history of known metastatic right lower lobe adenocarcinoma status post wedge resection and chemotherapy, prostate cancer status post prostatectomy, left kidney renal cell carcinoma, aortic regurgitation, asthma, hypertension, IBS, mitral regurgitation who presents to [facility] for evaluation of shortness of breath. Acute Hypoxic Respiratory Failure - noted in context of known diffusely metastatic RLL adenocarcinoma s/p wedge resection and chemotherapy - [facility] CT-A demonstrating peribronchial thickening and intermittent opacification of bronchial structures with septal thickening - suspect aspiration vs. lymphangitic spread of cancer - While findings of pulmonary vascular congestion are noted, patient appears clinically dry and not in active CHF - No evidence of PE on CT - Though history was somewhat difficult to obtain, suspect with his known h/o of dysphagia that his AHRF may be secondary to aspiration and progression of his known malignancy - Appears likely aspiration pneumonia. - - Initiatly on Zosyn/Vancomycin -- stopped vanco on 01/08, will continue zosyn, likely can transition to augmentin at discharge - Maintain SpO2 >90-92%; transition off BiPAP as tolerated, suspect he will soon be ready for HFNC/OxyMask - Hold on diuresis and TTE at this time - DuoNebs q4h PRN for SOB (2) Lung cancer: Plan: - Follows with Dr. Jaramillo (see most recent note in system) -- patient has extensive and diffuse metastases in his chest, abdomen, pelvis, and bones. He is s/p wedge resection and radiation. Per most recent ONC note, seemed like the plan was to discontinue chemotherapeutics due to adverse reactions in the past. -Discussed with Dr. Jaramillo, ok to hold Mekinist and Tafinlar - Patient would like to forego palliative care consult during this hospital stay. (3) Cancer of kidney: Plan: - Follows with Dr. Jaramillo, as above. Also follows with Urology. -creatinine elevated at 1.7 (4) Hypertension: Plan: - Patient noted to be hypertensive on arrival in setting of AHRF - Continue felodipine - Hold losartan, Lasix in setting of SEN and clinically dry status on exam (5) Dysphagia: Plan: - Initially noted to have dysphagia on 09/11/21 during last admission -- FEES showed significant inflammation in posterior pharynx, ?due to reflux - Appreciate DIVISIONAL HUMAN RESOURCES DIRECTOR consultation during this admission in setting of c/f aspiration - Continue H2 melvin (6) Adenocarcinoma of prostate: Plan: - History noted. Status post prostatecetomy. (7) Acute renal failure: Plan: - on arrival, noted to have BUN 22 / Cr 1.62 - on 12/13 - noted to be at BUN 18 / Cr 1.2 (baseline closer to 1.2-1.4) - history of poor PO intake and nausea makes his SEN suspicious for prerenal etiology; no symptoms, at present, or findings on [facility] CT-A/P to suggest post-renal process. Situation likely compounded by dry status, continued Lasix, and ARB - Attempt gentle rehydration, recheck BMP following fluids -- if still persistently elevated, would obtain FENa - Hold ARB, Lasix - CT-A/P STAT Rad read without acute renal findings, could always consider dedicated US if not resolving/worsening (8) Hypokalemia: Plan: - Noted at 2.9 on admission - no appreciable GI losses reported by patient, but does endorse poor PO intake - s/p receipt of 20 mEq KCl IV in ED -- will give another 2 now, can likely begin oral or continue IV replacement if persisting - Check magnesium, replete if indicated - will recheck bloodwork in AM Plan: Code: full code at present; extensive conversation held at bedside, initially said he would NOT want CPR, but then said he wanted to discuss further with his son before making that official -- confirmed with him that until this discussion, he did want CPR, and he verifies. He is OK with intubation if needed. Dispo: PCU until oxygen requirement stabilizes PPX: Lovenox - if worsening kidney function, would transition to heparin SQ Anticipate discharge once hypoxia improves. Admission and Anticipated Discharge Date Admission Date: January 07, 2022 Subjective 76 yo male reports feeling better today. He is tolerating his diet, but just does not have an appetite.. denies any swallowing issues. Patient understands his poor prognosis, but at this point does not want to discuss palliative care. Patient would like to go back to [facility] once he is ready. Patient is agreeable to discuss goals of care once back to [facility] "when the time is right." Review of Systems Review of Systems: All systems reviewed & are unremarkable except as noted in HPI & below Physical Exam Physical Exam: General: Tired but otherwise well appearing 76yoM in NAD, on nasal cannula. HEENT: NCAT. - Eyes - Sclera are white, anicteric, and without injection. PERRL. - Mouth - MMM with no tonsillar edema or exudates. - Neck - No appreciable JVD Cardiac: normal rate; S1 and S2 present with no murmurs, rubs, or gallops. Pulmonary: now on nasal cannula. Appears comfortable. No use of accessory muscles. Lungs demonstrating scattered crackles and rhonchi in the bases bilaterally Abdominal: Normoactive bowel sounds. Abdomen was soft, nondistended, and non- tender to palpation. Extremities: Upper and lower extremities are warm and well perfused. No significant peripheral edema Results & Data Results & Data ([facility]) Vital Signs (Past 12 Hours) Vital Signs Temp Pulse Pulse Resp BP Pulse Ox 01/08/22 19:00 36.8 C 100 H 20 174/78 H 92 01/08/22 16:00 103 H 01/08/22 15:58 36.9 C 104 H 22 172/77 H 91 01/08/22 11:49 36.8 C 96 H 20 155/74 H 91 PG Care Time/CCT Total # of Minutes Spent Total Time Spent with Patient: Total time spent is greater than 50% in coordination of care (as documented) at patient's floor/unit and/or counseling patient: Coding Level of Care Code 94279 Subseq Hosp Care Lvl 3 Diagnoses Acute respiratory failure with hypoxia J96.01 Lung cancer C34.90 Cancer of kidney C64.9 Hypertension I10 Dysphagia R13.10 Adenocarcinoma of prostate C61 Acute renal failure N17.9 Acute renal failure type: unspecified Hypokalemia E87.6 Time Spent (min) 40 (1) Acute renal failure Acute renal failure type: unspecified Qualified Code(s): N17.9 - Acute kidney failure, unspecified
--- NOTE | 2022-01-08 21:51 | Hospitalist Progress Note ---
Date of Service January 08, 2022 Assessment & Plan (1) Acute respiratory failure with hypoxia: Plan: 76-year-old male and resident of [facility] with history of known metastatic right lower lobe adenocarcinoma status post wedge resection and chemotherapy, prostate cancer status post prostatectomy, left kidney renal cell carcinoma, aortic regurgitation, asthma, hypertension, IBS, mitral regurgitation who presents to [facility] for evaluation of shortness of breath. Acute Hypoxic Respiratory Failure - noted in context of known diffusely metastatic RLL adenocarcinoma s/p wedge resection and chemotherapy - [facility] CT-A demonstrating peribronchial thickening and intermittent opacification of bronchial structures with septal thickening - suspect aspiration vs. lymphangitic spread of cancer - While findings of pulmonary vascular congestion are noted, patient appears clinically dry and not in active CHF - No evidence of PE on CTA - Await final read by [facility] - Though history was somewhat difficult to obtain, suspect with his known h/o of dysphagia that his AHRF may be secondary to aspiration and progression of his known malignancy - Check procal, CRP, sputum culture, and blood cultures to clarify clinical picture - Initiate Zosyn/Vancomycin -- can de-escalate as appropriate - Defer further steroid treatments at this time - Maintain SpO2 >90-92%; transition off BiPAP as tolerated, suspect he will soon be ready for HFNC/OxyMask - Hold on diuresis and TTE at this time - DuoNebs q4h PRN for SOB (2) Lung cancer: Plan: - Follows with Dr. Jaramillo (see most recent note in system) -- patient has extensive and diffuse metastases in his chest, abdomen, pelvis, and bones. He is s/p wedge resection and radiation. Per most recent ONC note, seemed like the plan was to discontinue chemotherapeutics due to adverse reactions in the past. However, patient says he is still taking some medications and cannot elaborate more on this discrepancy - Spoke with daytime RN, who is contacting [facility] to obtain [facility] medication list to clarify this -- will need to f/u and reconcile in the chart when complete - Pending clinical course and further discussion, may wish to clarify current goals of care moving forward with regards to diffusely metastatic disease and role of chemotherapy, acute illnesses (3) Cancer of kidney: Plan: - Follows with Dr. Jaramillo, as above. Also follows with Urology. Noted in setting of SEN. (4) Hypertension: Plan: - Patient noted to be hypertensive on arrival in setting of AHRF - Continue felodipine - Hold losartan, Lasix in setting of SEN and clinically dry status on exam (5) Dysphagia: Plan: - Initially noted to have dysphagia on 09/11/21 during last admission -- FEES showed significant inflammation in posterior pharynx, ?due to reflux - Appreciate WEB MARKETING ASSISTANT consultation during this admission in setting of c/f aspiration - Continue H2 melvin (6) Adenocarcinoma of prostate: Plan: - History noted. Status post prostatecetomy. (7) Acute renal failure: Plan: - on arrival, noted to have BUN 22 / Cr 1.62 - on 12/13 - noted to be at BUN 18 / Cr 1.2 (baseline closer to 1.2-1.4) - history of poor PO intake and nausea makes his SEN suspicious for prerenal etiology; no symptoms, at present, or findings on [facility] CT-A/P to suggest post-renal process. Situation likely compounded by dry status, continued Lasix, and ARB - Attempt gentle rehydration, recheck BMP following fluids -- if still persistently elevated, would obtain FENa - Hold ARB, Lasix - CT-A/P STAT Rad read without acute renal findings, could always consider dedicated US if not resolving/worsening (8) Hypokalemia: Plan: - Noted at 2.9 on admission - no appreciable GI losses reported by patient, but does endorse poor PO intake - s/p receipt of 20 mEq KCl IV in ED -- will give another 2 now, can likely begin oral or continue IV replacement if persisting - Check magnesium, replete if indicated - Monitor BMP Plan: Code: full code at present; extensive conversation held at bedside, initially said he would NOT want CPR, but then said he wanted to discuss further with his son before making that official -- confirmed with him that until this discussion, he did want CPR, and he verifies. He is OK with intubation if needed. Dispo: PCU until oxygen requirement stabilizes Diet: NPO until spech evaluation PPX: Lovenox - if worsening kidney function, would transition to heparin SQ Admission and Anticipated Discharge Date Admission Date: January 07, 2022 Results & Data Results & Data ([facility]) Vital Signs (Past 12 Hours) Vital Signs Temp Pulse Pulse Resp BP Pulse Ox 01/08/22 19:00 36.8 C 100 H 20 174/78 H 92 01/08/22 16:00 103 H 01/08/22 15:58 36.9 C 104 H 22 172/77 H 91 01/08/22 11:49 36.8 C 96 H 20 155/74 H 91 PG Care Time/CCT Total # of Minutes Spent Total Time Spent with Patient: Total time spent is greater than 50% in coordination of care (as documented) at patient's floor/unit and/or counseling patient: Coding Diagnoses Acute respiratory failure with hypoxia J96.01 Lung cancer C34.90 Cancer of kidney C64.9 Hypertension I10 Dysphagia R13.10 Adenocarcinoma of prostate C61 Acute renal failure N17.9 Acute renal failure type: unspecified Hypokalemia E87.6 (1) Acute renal failure Acute renal failure type: unspecified Qualified Code(s): N17.9 - Acute kidney failure, unspecified
[2022-01-09] MEDS: ENOXAPARIN INJ 40 MG/0.4 ML SYR SQ SCH (06:15)
[2022-01-09] MEDS: PIPERACILLIN/TAZOBACTAM 3.375 GM in DEXTROSE 5% 100 ML IV SCH ×3 (06:23→21:42)
[2022-01-09 07:54] LABS: Hematocrit (blood only) 32.9 % (42-52); Mean Corpuscular Hemoglobin 28.1 pg (25-34); Mean Corpuscular Hgb Conc 33.4 g/dL (32-36); Mean Corpuscular Volume 84.1 fL (80-100); Mean Platelet Volume 10.4 fL (7.4-10.4); Platelet Count 134 K/uL (130-400); RDW Coefficient of Variation 13.5 % (11.5-14.5); Red Blood Count 3.91 M/uL (4.7-6.1); White Blood Count 5.82 K/uL (4.8-10.8)
[2022-01-09] MEDS: OMEGA-3 (PURIFIED FISH OIL) 1 GM CAP PO SCH (08:01)
[2022-01-09] MEDS: CHOLECALCIFEROL 1,000 UNITS 25 MCG TAB PO SCH (08:02)
[2022-01-09] MEDS: FAMOTIDINE 20 MG TAB PO SCH (08:02)
[2022-01-09] MEDS: CEROVITE ADV FORMULA TAB PO SCH ×2 (08:02→20:47)
[2022-01-09] MEDS: FERROUS SULFATE 325 MG TAB PO SCH (08:02)
[2022-01-09 08:12] LABS: BUN Creatinine Ratio 15.2 (10-20); Calcium 8.5 mg/dl (8.5-10.1); Creatinine Clr Calc Pharmacy 45.5 ml/min; Est GFR (African American) 63.5 ml/min; Est GFR (Non-African American) 54.8 ml/min; Potassium 3.1 mmol/L (3.5-5.1)
[2022-01-09] MEDS: FLUTICASONE FUROATE 200MCG 14 PUFFS/INHALER INH SCH (08:32)
[2022-01-09] MEDS: POTASSIUM CHLORIDE CRTAB 20 MEQ TABCR PO SCH ×2 (08:39→20:46)
[2022-01-09] MEDS: POTASSIUM CHLORIDE / WTR 10 MEQ/100 ML PLCT IV SCH ×2 (08:56→10:48)
[2022-01-09] MEDS: PSYLLIUM or GUAR GUM FIBER POWDER PACKET PO SCH (08:58)
[2022-01-09] MEDS: FELODIPINE 5 MG TABCR PO SCH ×2 (11:08→20:47)
--- NOTE | 2022-01-09 17:30 | Hospitalist Progress Note ---
Date of Service January 09, 2022 Assessment & Plan (1) Acute respiratory failure with hypoxia: Plan: 76-year-old male and resident of [facility] with history of known metastatic right lower lobe adenocarcinoma status post wedge resection and chemotherapy, prostate cancer status post prostatectomy, left kidney renal cell carcinoma, aortic regurgitation, asthma, hypertension, IBS, mitral regurgitation who presents to [facility] for evaluation of shortness of breath. Acute Hypoxic Respiratory Failure - noted in context of known diffusely metastatic RLL adenocarcinoma s/p wedge resection and chemotherapy - [facility] CT-A demonstrating peribronchial thickening and intermittent opacification of bronchial structures with septal thickening - suspect aspiration vs. lymphangitic spread of cancer - While findings of pulmonary vascular congestion are noted, patient appears clinically dry and not in active CHF - No evidence of PE on CT - Though history was somewhat difficult to obtain, suspect with his known h/o of dysphagia that his AHRF may be secondary to aspiration and progression of his known malignancy - Appears likely aspiration pneumonia. - Initially on Zosyn/Vancomycin -- stopped vanco on 01/08, will continue zosyn, likely can transition to augmentin at discharge - Maintain SpO2 >90-92%; transition off BiPAP as tolerated, - Hold on diuresis and TTE at this time - DuoNebs q4h PRN for SOB (2) Lung cancer: Plan: - Follows with Dr. Jaramillo (see most recent note in system) -- patient has extensive and diffuse metastases in his chest, abdomen, pelvis, and bones. He is s/p wedge resection and radiation. Per most recent ONC note, seemed like the plan was to discontinue chemotherapeutics due to adverse reactions in the past. - Discussed with Dr. Jaramillo, ok to hold Mekinist and Tafinlar - Patient would like to forego palliative care consult during this hospital stay. (3) Cancer of kidney: Plan: - Follows with Dr. Jaramillo, as above. Also follows with Urology. - creatinine elevated at 1.7-->improved to 1.25 (4) Acute renal failure: Plan: - on arrival, noted to have BUN 22 / Cr 1.62 - on 12/13 - noted to be at BUN 18 / Cr 1.2 (baseline closer to 1.2-1.4) - history of poor PO intake and nausea makes his SEN suspicious for prerenal etiology; no symptoms, at present, or findings on [facility] CT-A/P to suggest post-renal process. Situation likely compounded by dry status, continued Lasix, and ARB - Attempt gentle rehydration, recheck BMP following fluids -- if still persistently elevated, would obtain FENa - ARB and Lasix held - CT-A/P STAT Rad read without acute renal findings - At this time, renal fxn back to baseline, resume ARB as outlined below (5) Hypertension: Plan: - Patient noted to be hypertensive on arrival in setting of AHRF - Continue felodipine - Held losartan, Lasix in setting of SEN - BP accelerated and SEN improved, resume Losartan (6) Dysphagia: Plan: - Initially noted to have dysphagia on 09/11/21 during last admission -- FEES showed significant inflammation in posterior pharynx, ?due to reflux - Appreciate SURG RN consultation during this admission in setting of c/f aspiration - Continue H2 melvin (7) Adenocarcinoma of prostate: Plan: - History noted. Status post prostatecetomy. (8) Hypokalemia: Plan: - Noted at 2.9 on admission - no appreciable GI losses reported by patient, but does endorse poor PO intake - s/p receipt of 20 mEq KCl IV in ED -- will give another 2 now, can likely begin oral or continue IV replacement if persisting - Check magnesium, replete if indicated - K+ 3.1 this morning, replacement ordered, repeat labs in AM Plan: Code: full code at present; extensive conversation held at bedside, initially said he would NOT want CPR, but then said he wanted to discuss further with his son before making that official -- confirmed with him that until this discussion, he did want CPR, and he verifies. He is OK with intubation if needed. Replace K+, Transfer to med/surg, transition to PO Augmentin on D/C Wean O2 as able, add Tessalon PRN cough Repeat labs in AM D/C planning back to [facility], ideally in the next 24-48 hrs Plan d/w Dr. Allen Admission and Anticipated Discharge Date Admission Date: January 07, 2022 Subjective Patient seen on daily rounds this morning. He is resting in bed, offers no new complaints. Denies any change in his breathing. Occasional cough, worse with activity. Denies cp, palpitations, n/v/d, f/c, headache, or gu symptoms. Review of Systems Review of Systems: All systems reviewed and are unremarkable except as noted in HPI and below. Denies fever, chills, fatigue, headache, nasal congestion, sore throat, chest pain, shortness of breath, palpitations, orthopnea, PND, abdominal pain, n/v/d, constipation, dysuria, hematuria, frequency, back pain, joint pain or swelling, easy bruising or bleeding, skin lesions or rashes. Physical Exam Physical Exam: GENERAL: 76 yo well developed thin elderly wm. NAD. LUNGS: No conversational dyspnea. Lungs are diminished with RLL crackles. CARDIOVASCULAR: Regular rate and rhythm. ABDOMEN: Soft, non-tender and non-distended. BS normal x 4 quad. EXTREMITIES: No edema. Non-tender. Peripheral pulses +2/4. NEUROLOGIC: A&O x3. PSYCHIATRIC: Cooperative. Appropriate mood and affect. SKIN: Warm, dry, intact. No rashes or lesions. Results & Data Results & Data ([facility]) Vital Signs (Past 12 Hours) Vital Signs Temp Pulse Pulse Resp BP Pulse Ox 01/09/22 15:28 90 01/09/22 11:50 36.9 C 85 18 160/66 H 95 01/09/22 08:24 93 H 01/09/22 08:01 36.8 C 82 20 159/78 H 94 PG Care Time/CCT Total # of Minutes Spent Total Time Spent with Patient: Total time spent is greater than 50% in coordination of care (as documented) at patient's floor/unit and/or counseling patient: Coding Level of Care Code 65738 Subseq Hosp Care Lvl 2 Diagnoses Acute respiratory failure with hypoxia J96.01 Lung cancer C34.90 Cancer of kidney C64.9 Hypertension I10 Dysphagia R13.10 Adenocarcinoma of prostate C61 Acute renal failure N17.9 Acute renal failure type: unspecified Hypokalemia E87.6 (1) Acute renal failure Acute renal failure type: unspecified Qualified Code(s): N17.9 - Acute kidney failure, unspecified
[2022-01-09] MEDS: TERAZOSIN HCL 5 MG CAP PO SCH (20:46)
[2022-01-09] MEDS: BENZONATATE 100 MG CAPSULE PO PRN (20:46)
[2022-01-09] MEDS: SERTRALINE HCL 100 MG TABLET PO SCH (20:47)
[2022-01-10] MEDS: ENOXAPARIN INJ 40 MG/0.4 ML SYR SQ SCH (05:45)
[2022-01-10] MEDS: PIPERACILLIN/TAZOBACTAM 3.375 GM in DEXTROSE 5% 100 ML IV SCH ×2 (05:45→13:30)
[2022-01-10] MEDS: FLUTICASONE FUROATE 200MCG 14 PUFFS/INHALER INH SCH (08:02)
[2022-01-10] MEDS: CHOLECALCIFEROL 1,000 UNITS 25 MCG TAB PO SCH (08:02)
[2022-01-10] MEDS: OMEGA-3 (PURIFIED FISH OIL) 1 GM CAP PO SCH (08:02)
[2022-01-10] MEDS: FERROUS SULFATE 325 MG TAB PO SCH (08:02)
[2022-01-10] MEDS: FELODIPINE 5 MG TABCR PO SCH ×2 (08:02→20:28)
[2022-01-10] MEDS: FAMOTIDINE 20 MG TAB PO SCH (08:02)
[2022-01-10] MEDS: PSYLLIUM or GUAR GUM FIBER POWDER PACKET PO SCH (08:03)
[2022-01-10] MEDS: CEROVITE ADV FORMULA TAB PO SCH ×2 (08:03→20:27)
[2022-01-10] MEDS: POTASSIUM CHLORIDE CRTAB 20 MEQ TABCR PO SCH ×2 (08:09→20:27)
[2022-01-10 08:30] LABS: BUN Creatinine Ratio 12.7 (10-20); Calcium 8.8 mg/dl (8.5-10.1); Creatinine Clr Calc Pharmacy 42.5 ml/min; Est GFR (African American) 58.4 ml/min; Est GFR (Non-African American) 50.4 ml/min; Potassium 3.2 mmol/L (3.5-5.1)
[2022-01-10] MEDS: LOSARTAN POTASSIUM 50 MG TAB PO SCH (09:31)
[2022-01-10] MEDS: BENZONATATE 100 MG CAPSULE PO PRN (13:32)
[2022-01-10] MEDS ORDERED: POTASSIUM CHLORIDE CRTAB 20 MEQ TABCR PO STA (14:47)
--- NOTE | 2022-01-10 14:55 | Hospitalist Progress Note ---
Date of Service January 10, 2022 Assessment & Plan (1) Acute respiratory failure with hypoxia: Plan: AHRF d/t aspiration pneumonia + progression of malignancy - noted in context of known diffusely metastatic RLL adenocarcinoma s/p wedge resection and chemotherapy - [facility] CT-A demonstrating peribronchial thickening and intermittent opacification of bronchial structures with septal thickening - suspect aspiration vs. lymphangitic spread of cancer - While findings of pulmonary vascular congestion are noted, patient appears clinically dry and not in active CHF - No evidence of PE on CT - Initially on Zosyn/Vancomycin -- stopped vanco on 01/08, continued on Zosyn - Maintain SpO2 >90-92% - Hold on diuresis and TTE at this time - DuoNebs q4h PRN for SOB - Added Tessalon prn cough, doesn't seem to be helping, try Robitussin w/ DM - Transition to oral Augmentin to start 01/10 PM (today day 12/19) (2) Lung cancer: Plan: - Follows with Dr. Jaramillo (see most recent note in system) -- patient has ext ensive and diffuse metastases in his chest, abdomen, pelvis, and bones. He is s/p wedge resection and radiation. Per most recent ONC note, seemed like the plan was to discontinue chemotherapeutics due to adverse reactions in the past. - Discussed with Dr. Jaramillo, ok to hold Mekinist and Tafinlar and resume upon d/c - Patient would like to forego palliative care consult during this hospital stay. (3) Cancer of kidney: Plan: - Follows with Dr. Jaramillo, as above. Also follows with Urology. - creatinine elevated at 1.7-->improved (4) Acute renal failure: Plan: - on arrival, noted to have BUN 22 / Cr 1.62 - on 12/13 - noted to be at BUN 18 / Cr 1.2 (baseline closer to 1.2-1.4) - history of poor PO intake and nausea makes his SEN suspicious for prerenal etiology; no symptoms, at present, or findings on [facility] CT-A/P to suggest post-renal process. Situation likely compounded by dry status, continued Lasix, and ARB - Attempt gentle rehydration, recheck BMP following fluids -- if still persistently elevated, would obtain FENa - ARB and Lasix held - CT-A/P STAT Rad read without acute renal findings - At this time, renal fxn back to baseline, resumed ARB on 01/09 as outlined below and monitor renal fxn (5) Hypertension: Plan: - Patient noted to be hypertensive on arrival in setting of AHRF - Continue felodipine - Held losartan, Lasix in setting of SEN - BP accelerated and SEN improved, resume Losartan (6) Dysphagia: Plan: - Initially noted to have dysphagia on 09/11/21 during last admission -- FEES showed significant inflammation in posterior pharynx, ?due to reflux - Appreciate ASSOCIATE ART DIRECTOR consultation during this admission in setting of c/f aspiration - Continue H2 melvin (7) Adenocarcinoma of prostate: Plan: - History noted. Status post prostatecetomy. (8) Hypokalemia: Plan: - Noted at 2.9 on admission - no appreciable GI losses reported by patient, but does endorse poor PO intake - s/p receipt of 20 mEq KCl IV in ED -- will give another 2 now, can likely begin oral or continue IV replacement if persisting - Check magnesium, replete if indicated - K+ 3.1 on 01/09, replacement ordered, repeat labs today still low at 3.2 (believe this is all lack of adequate dietary intake) - Additional replacement ordered 01/10, repeat labs on 01/11 Plan: Code: full code at present; extensive conversation held at bedside, initially said he would NOT want CPR, but then said he wanted to discuss further with his son before making that official -- confirmed with him that until this discussion, he did want CPR, and he verifies. He is OK with intubation if needed. Interventions as outlined above PT/OT recommending rehab, case management working on this, calls made to [facility] to see if they will accept to SNF and apply for auth He is medically stable for d/c once dispo is determined Will d/w Dr. Allen Admission and Anticipated Discharge Date Admission Date: January 07, 2022 Subjective Patient seen on daily rounds this morning. He is resting in bed, offers no new complaints. Denies any change in his breathing. Occasional cough, worse with activity. Denies cp, palpitations, n/v/d, f/c, headache, or gu symptoms. Review of Systems Review of Systems: All systems reviewed and are unremarkable except as noted in HPI and below. Denies fever, chills, fatigue, headache, nasal congestion, sore throat, chest pain, shortness of breath, palpitations, orthopnea, PND, abdominal pain, n/v/d, constipation, dysuria, hematuria, frequency, back pain, joint pain or swelling, easy bruising or bleeding, skin lesions or rashes. Physical Exam Physical Exam: GENERAL: 76 yo well developed thin elderly wm. NAD. LUNGS: No conversational dyspnea. Lungs are diminished with RLL crackles. CARDIOVASCULAR: Regular rate and rhythm. 2/6 MALATHI ABDOMEN: Soft, non-tender and non-distended. BS normal x 4 quad. EXTREMITIES: No edema. Non-tender. Peripheral pulses +2/4. NEUROLOGIC: A&O x3. PSYCHIATRIC: Cooperative. Appropriate mood and affect. SKIN: Warm, dry, intact. No rashes or lesions. Results & Data Results & Data ([facility]) Vital Signs (Past 12 Hours) Vital Signs Temp Pulse Resp BP Pulse Ox 01/10/22 06:56 36.8 C 65 16 157/69 H 92 Laboratory Results 01/09/22 06:40 01/10/22 07:07 PG Care Time/CCT Total # of Minutes Spent Total Time Spent with Patient: Total time spent is greater than 50% in coordination of care (as documented) at patient's floor/unit and/or counseling patient: Coding Level of Care Code 60960 Subseq Hosp Care Lvl 2 Diagnoses Acute respiratory failure with hypoxia J96.01 Lung cancer C34.90 Cancer of kidney C64.9 Acute renal failure N17.9 Acute renal failure type: unspecified Hypertension I10 Dysphagia R13.10 Adenocarcinoma of prostate C61 Hypokalemia E87.6 (1) Acute renal failure Acute renal failure type: unspecified Qualified Code(s): N17.9 - Acute kidney failure, unspecified
[2022-01-10] MEDS: POTASSIUM CHLORIDE / WTR 10 MEQ/100 ML PLCT IV SCH ×2 (15:56→17:44)
[2022-01-10] MEDS: AMOXICILLIN/CLAVULANATE 875 MG TAB PO SCH (17:44)
[2022-01-10] MEDS: guaiFENesin/DEXTROM SYRUP 200MG/20MG 10ML UDC PO PRN (17:44)
[2022-01-10] MEDS: SERTRALINE HCL 100 MG TABLET PO SCH (20:27)
[2022-01-10] MEDS: TERAZOSIN HCL 5 MG CAP PO SCH (20:28)
[2022-01-11] MEDS: ENOXAPARIN INJ 40 MG/0.4 ML SYR SQ SCH (05:23)
[2022-01-11] MEDS: AMOXICILLIN/CLAVULANATE 875 MG TAB PO SCH ×2 (07:51→17:16)
[2022-01-11] MEDS: OMEGA-3 (PURIFIED FISH OIL) 1 GM CAP PO SCH (07:52)
[2022-01-11] MEDS: LOSARTAN POTASSIUM 50 MG TAB PO SCH (07:52)
[2022-01-11] MEDS: PSYLLIUM or GUAR GUM FIBER POWDER PACKET PO SCH (07:52)
[2022-01-11] MEDS: CHOLECALCIFEROL 1,000 UNITS 25 MCG TAB PO SCH (07:52)
[2022-01-11] MEDS: FELODIPINE 5 MG TABCR PO SCH ×2 (07:52→20:13)
[2022-01-11] MEDS: FERROUS SULFATE 325 MG TAB PO SCH (07:52)
[2022-01-11] MEDS: FLUTICASONE FUROATE 200MCG 14 PUFFS/INHALER INH SCH (07:53)
[2022-01-11] MEDS: CEROVITE ADV FORMULA TAB PO SCH ×2 (07:53→20:14)
[2022-01-11] MEDS: POTASSIUM CHLORIDE CRTAB 20 MEQ TABCR PO SCH ×2 (07:56→20:13)
[2022-01-11] MEDS: FAMOTIDINE 20 MG TAB PO SCH (07:56)
[2022-01-11 08:47] LABS: BUN Creatinine Ratio 11.5 (10-20); Calcium 9.1 mg/dl (8.5-10.1); Creatinine Clr Calc Pharmacy 50.4 ml/min; Est GFR (African American) 71.8 ml/min; Est GFR (Non-African American) 61.9 ml/min; Potassium 3.5 mmol/L (3.5-5.1)
--- NOTE | 2022-01-11 13:03 | Hospitalist Progress Note ---
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 lymphangitic spread of cancer - While findings of pulmonary vascular congestion are noted, patient appears clinically dry and not in active CHF - No evidence of PE on CT - Initially on Zosyn/Vancomycin -- stopped vanco on 01/08, continued on Zosyn - Maintain SpO2 >90-92% - Hold on diuresis and TTE at this time - DuoNebs q4h PRN for SOB - Added Tessalon prn cough, doesn't seem to be helping, try Robitussin w/ DM - Transitioned to oral Augmentin on 01/10 PM (today day 01/18) (2) Lung cancer: Plan: - Follows with Dr. Jaramillo (see most recent note in system) -- patient has extensi ve and diffuse metastases in his chest, abdomen, pelvis, and bones. He is s/p wedge resection and radiation. Per most recent ONC note, seemed like the plan was to discontinue chemotherapeutics due to adverse reactions in the past. - Discussed with Dr. Jaramillo, ok to hold Mekinist and Tafinlar and resume upon d/c - Patient would like to forego palliative care consult during this hospital stay. (3) Cancer of kidney: Plan: - Follows with Dr. Jaramillo, as above. Also follows with Urology. - creatinine elevated at 1.7-->improved (4) Acute renal failure: Plan: - on arrival, noted to have BUN 22 / Cr 1.62 - on 12/13 - noted to be at BUN 18 / Cr 1.2 (baseline closer to 1.2-1.4) - history of poor PO intake and nausea makes his SEN suspicious for prerenal etiology; no symptoms, at present, or findings on [facility] CT-A/P to suggest post-renal process. Situation likely compounded by dry status, continued Lasix, and ARB - Attempt gentle rehydration, recheck BMP following fluids -- if still persistently elevated, would obtain FENa - ARB and Lasix held - CT-A/P STAT Rad read without acute renal findings - At this time, renal fxn back to baseline, resumed ARB on 01/09 as outlined below and monitor renal fxn (5) Hypertension: Plan: - Patient noted to be hypertensive on arrival in setting of AHRF - Continue felodipine - Held losartan, Lasix in setting of SEN - BP accelerated and SEN improved, resumed Losartan (6) Dysphagia: Plan: - Initially noted to have dysphagia on 09/11/21 during last admission -- FEES showed significant inflammation in posterior pharynx, ?due to reflux - Appreciate INFANTRY WEAPONS CREWMEMBER consultation during this admission in setting of c/f aspiration - Continue H2 melvin (7) Adenocarcinoma of prostate: Plan: - History noted. Status post prostatecetomy. (8) Hypokalemia: Plan: - Noted at 2.9 on admission - no appreciable GI losses reported by patient, but does endorse poor PO intake - s/p receipt of 20 mEq KCl IV in ED -- will give another 2 now, can likely begin oral or continue IV replacement if persisting - Check magnesium, replete if indicated - K+ 3.1 on 01/09, replacement ordered, repeat labs today still low at 3.2 (believe this is all lack of adequate dietary intake) - Additional replacement ordered 01/10 - Repeat BMP this AM finally demonstrates normal K+ of 3.5, continue daily supplementation Plan: Code: full code at present; extensive conversation held at bedside, initially said he would NOT want CPR, but then said he wanted to discuss further with his son before making that official -- confirmed with him that until this discussion, he did want CPR, and he verifies. He is OK with intubation if needed. Plan is for d/c to [facility] for acute rehab as recommended by PT/OT. He has been medically stable for the past two days for d/c but is still waiting for authorization. Apparently his insurance is not open over the weekend so he will remain in the hospital until insurance auth received. Case management is on board. Plan d/w Dr. Allen. Admission and Anticipated Discharge Date Admission Date: January 07, 2022 Subjective Patient seen on daily rounds this morning. He is resting in bed, offers no new complaints. Denies any change in his breathing. Feels cough has improved. Denies cp, palpitations, n/v/d, f/c, headache, or gu symptoms. Review of Systems Review of Systems: All systems reviewed and are unremarkable except as noted in HPI and below. Denies fever, chills, fatigue, headache, nasal congestion, sore throat, chest pain, shortness of breath, palpitations, orthopnea, PND, abdominal pain, n/v/d, constipation, dysuria, hematuria, frequency, back pain, joint pain or swelling, easy bruising or bleeding, skin lesions or rashes. Physical Exam Physical Exam: GENERAL: 76 yo well developed thin elderly wm. NAD. LUNGS: No conversational dyspnea. Coarse RLL crackles and fine LLL crackles. No wheezes. CARDIOVASCULAR: Regular rate and rhythm. 2/6 MALATHI ABDOMEN: Soft, non-tender and non-distended. BS normal x 4 quad. EXTREMITIES: No edema. Non-tender. Peripheral pulses +2/4. NEUROLOGIC: A&O x3. PSYCHIATRIC: Cooperative. Appropriate mood and affect. SKIN: Warm, dry, intact. No rashes or lesions. Results & Data Results & Data ([facility]) Vital Signs (Past 12 Hours) Vital Signs Temp Pulse Resp BP Pulse Ox 01/11/22 07:38 36.6 C 73 16 176/99 H 95 Laboratory Results 01/09/22 06:40 01/11/22 07:47 PG Care Time/CCT Total # of Minutes Spent Total Time Spent with Patient: Total time spent is greater than 50% in coordination of care (as documented) at patient's floor/unit and/or counseling patient: Coding Level of Care Code 93384 Subseq Hosp Care Lvl 2 Diagnoses Acute respiratory failure with hypoxia J96.01 Lung cancer C34.90 Cancer of kidney C64.9 Acute renal failure N17.9 Acute renal failure type: unspecified Hypertension I10 Dysphagia R13.10 Adenocarcinoma of prostate C61 Hypokalemia E87.6 (1) Acute renal failure Acute renal failure type: unspecified Qualified Code(s): N17.9 - Acute kidney failure, unspecified
[2022-01-11] MEDS: SERTRALINE HCL 100 MG TABLET PO SCH (20:13)
[2022-01-11] MEDS: TERAZOSIN HCL 5 MG CAP PO SCH (20:13)
[2022-01-12] MEDS: ENOXAPARIN INJ 40 MG/0.4 ML SYR SQ SCH (04:59)
[2022-01-12] MEDS: PSYLLIUM or GUAR GUM FIBER POWDER PACKET PO SCH (08:08)
[2022-01-12] MEDS: CEROVITE ADV FORMULA TAB PO SCH ×2 (08:08→20:05)
[2022-01-12] MEDS: LOSARTAN POTASSIUM 50 MG TAB PO SCH (08:08)
[2022-01-12] MEDS: CHOLECALCIFEROL 1,000 UNITS 25 MCG TAB PO SCH (08:08)
[2022-01-12] MEDS: FERROUS SULFATE 325 MG TAB PO SCH (08:09)
[2022-01-12] MEDS: AMOXICILLIN/CLAVULANATE 875 MG TAB PO SCH ×2 (08:09→16:53)
[2022-01-12] MEDS: OMEGA-3 (PURIFIED FISH OIL) 1 GM CAP PO SCH (08:09)
[2022-01-12] MEDS: FELODIPINE 5 MG TABCR PO SCH ×2 (08:09→20:05)
[2022-01-12] MEDS: FLUTICASONE FUROATE 200MCG 14 PUFFS/INHALER INH SCH (08:09)
[2022-01-12] MEDS: guaiFENesin/DEXTROM SYRUP 200MG/20MG 10ML UDC PO PRN ×2 (08:10→16:53)
[2022-01-12] MEDS: FAMOTIDINE 20 MG TAB PO SCH (08:19)
[2022-01-12] MEDS: POTASSIUM CHLORIDE CRTAB 20 MEQ TABCR PO SCH ×2 (08:19→20:04)
--- NOTE | 2022-01-12 11:29 | Hospitalist Progress Note ---
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 lymphangitic spread of cancer - While findings of pulmonary vascular congestion are noted, patient appears clinically dry and not in active CHF - No evidence of PE on CT - Initially on Zosyn/Vancomycin -- stopped vanco on 01/08, continued on Zosyn - Maintain SpO2 >90-92% - Hold on diuresis and TTE at this time - DuoNebs q4h PRN for SOB - Added Tessalon prn cough, doesn't seem to be helping, try Robitussin w/ DM - Transitioned to oral Augmentin on 01/10 PM (today day 02/18) (2) Lung cancer: Plan: - Follows with Dr. Jaramillo (see most recent note in system) -- patient has extensive and diffuse metastases in his chest, abdomen, pelvis, and bones. He is s/p wedge resection and radiation. Per most recent ONC note, seemed like the plan was to discontinue chemotherapeutics due to adverse reactions in the past. - Discussed with Dr. Jaramillo, ok to hold Mekinist and Tafinlar and resume upon d/c - Patient would like to forego palliative care consult during this hospital stay. (3) Cancer of kidney: Plan: - Follows with Dr. Jaramillo, as above. Also follows with Urology. - creatinine elevated at 1.7-->improved (4) Acute renal failure: Plan: - on arrival, noted to have BUN 22 / Cr 1.62 - on 12/13 - noted to be at BUN 18 / Cr 1.2 (baseline closer to 1.2-1.4) - history of poor PO intake and nausea makes his SEN suspicious for prerenal etiology; no symptoms, at present, or findings on [facility] CT-A/P to suggest post-renal process. Situation likely compounded by dry status, continued Lasix, and ARB - Attempt gentle rehydration - ARB and Lasix held - CT-A/P STAT Rad read without acute renal findings - At this time, renal fxn back to baseline, resumed ARB on 01/09 as outlined below and monitor renal fxn (5) Hypertension: Plan: - Patient noted to be hypertensive on arrival in setting of AHRF - Continue felodipine - Held losartan, Lasix in setting of SEN - BP accelerated and SEN improved, resumed Losartan (6) Dysphagia: Plan: - Initially noted to have dysphagia on 09/11/21 during last admission -- FEES showed significant inflammation in posterior pharynx, ?due to reflux - Appreciate LARYNGOLOGIST consultation during this admission in setting of c/f aspiration - Continue H2 melvin (7) Adenocarcinoma of prostate: Plan: - History noted. Status post prostatecetomy. (8) Hypokalemia: Plan: - Noted at 2.9 on admission - no appreciable GI losses reported by patient, but does endorse poor PO intake - s/p receipt of 20 mEq KCl IV in ED -- will give another 2 now, can likely begin oral or continue IV replacement if persisting - Repeat BMP 01/11 demonstrated normal K+ of 3.5, continue daily supplementation Plan: Code: full code at present; extensive conversation held at bedside, initially said he would NOT want CPR, but then said he wanted to discuss further with his son before making that official -- confirmed with him that until this discussion, he did want CPR, and he verifies. He is OK with intubation if needed. Plan is for d/c to [facility] for acute rehab as recommended by PT/OT. He has been medically stable for the past two days for d/c but is still waiting for authorization. Apparently his insurance is not open over the weekend so he will remain in the hospital until insurance auth received. Case management is on board. Plan d/w Dr. Allen. Admission and Anticipated Discharge Date Admission Date: January 07, 2022 Subjective Patient seen on daily rounds this morning. He is resting in bed, offers no new complaints. Denies any change in his breathing. Feels cough has improved. Denies cp, palpitations, n/v/d, f/c, headache, or gu symptoms. Review of Systems Review of Systems: All systems reviewed and are unremarkable except as noted in HPI and below. Denies fever, chills, fatigue, headache, nasal congestion, sore throat, chest pain, shortness of breath, palpitations, orthopnea, PND, abdominal pain, n/v/d, constipation, dysuria, hematuria, frequency, back pain, joint pain or swelling, easy bruising or bleeding, skin lesions or rashes. Physical Exam Physical Exam: GENERAL: 76 yo well developed thin WM who appears chronically ill. NAD. LUNGS: No conversational dyspnea. Coarse RLL crackles. No wheezes. CARDIOVASCULAR: Regular rate and rhythm. 2/6 MALATHI ABDOMEN: Soft, non-tender and non-distended. BS normal x 4 quad. EXTREMITIES: No edema. Non-tender. Peripheral pulses +2/4. NEUROLOGIC: A&O x3. PSYCHIATRIC: Cooperative. Appropriate mood and affect. SKIN: Warm, dry, intact. No rashes or lesions. Results & Data Results & Data ([facility]) Vital Signs (Past 12 Hours) Vital Signs Temp Pulse Resp BP BP Pulse Ox 01/12/22 07:07 36.8 C 51 L 18 193/80 H 96 01/11/22 23:37 36.4 C L 83 18 198/87 H 183/90 H 96 PG Care Time/CCT Total # of Minutes Spent Total Time Spent with Patient: Total time spent is greater than 50% in coordination of care (as documented) at patient's floor/unit and/or counseling patient: Coding Level of Care Code 92021 Subseq Hosp Care Lvl 2 Diagnoses Acute respiratory failure with hypoxia J96.01 Lung cancer C34.90 Cancer of kidney C64.9 Acute renal failure N17.9 Acute renal failure type: unspecified Hypertension I10 Dysphagia R13.10 Adenocarcinoma of prostate C61 Hypokalemia E87.6 (1) Acute renal failure Acute renal failure type: unspecified Qualified Code(s): N17.9 - Acute kidney failure, unspecified
[2022-01-12] MEDS: SERTRALINE HCL 100 MG TABLET PO SCH (20:05)
[2022-01-12] MEDS: TERAZOSIN HCL 5 MG CAP PO SCH (20:05)
[2022-01-13] MEDS: ENOXAPARIN INJ 40 MG/0.4 ML SYR SQ SCH (05:01)
[2022-01-13] MEDS: CHOLECALCIFEROL 1,000 UNITS 25 MCG TAB PO SCH (09:28)
[2022-01-13] MEDS: FAMOTIDINE 20 MG TAB PO SCH (09:28)
[2022-01-13] MEDS: FLUTICASONE FUROATE 200MCG 14 PUFFS/INHALER INH SCH (09:28)
[2022-01-13] MEDS: guaiFENesin/DEXTROM SYRUP 200MG/20MG 10ML UDC PO PRN (09:28)
[2022-01-13] MEDS: OMEGA-3 (PURIFIED FISH OIL) 1 GM CAP PO SCH (09:29)
[2022-01-13] MEDS: CEROVITE ADV FORMULA TAB PO SCH (09:29)
[2022-01-13] MEDS: PSYLLIUM or GUAR GUM FIBER POWDER PACKET PO SCH (09:29)
[2022-01-13] MEDS: POTASSIUM CHLORIDE CRTAB 20 MEQ TABCR PO SCH (09:29)
[2022-01-13] MEDS: FELODIPINE 5 MG TABCR PO SCH (09:29)
[2022-01-13] MEDS: FERROUS SULFATE 325 MG TAB PO SCH (09:29)
[2022-01-13] MEDS: LOSARTAN POTASSIUM 50 MG TAB PO SCH (09:29)
[2022-01-13] MEDS: AMOXICILLIN/CLAVULANATE 875 MG TAB PO SCH (10:17)
--- NOTE | 2022-01-13 11:30 | Discharge Summary ---
Date of Service January 13, 2022 Admission HPI Per Admitting Provider 76-year-old male and resident of [facility] with history of known diffusely metastatic right lower lobe adenocarcinoma status post wedge resection and chemotherapy, prostate cancer status post prostatectomy, left kidney renal cell carcinoma, aortic regurgitation, asthma, hypertension, IBS, mitral regurgitation who presents to [facility] for evaluation of shortness of breath. Given that patient was on BiPAP at time of history, information is primarily obtained through interprovider communication and documentation, with simple questions answered with patient. Over the last week, patient is reportedly had increasing shortness of breath and fatigue (per fpc - though interestingly, patient says his breathing has been fine). He endorses a mild cough. He also reports reported intermittent nausea. One episode of loose stool, which has resolved - no diarrhea He has been able to keep down some food but hasn't had much of an appetite. He denies any chest pain or palpitations. He does endorse intermittent chills with night sweats. He denies trouble swallowing, but also notes that he has issue with "fluid getting stuck in my throat." No odynophagia. 911 was called. Patient reportedly had oxygen saturation in the 70s, with subsequent improvement on nonrebreather. In the ED, patient was found to be hypoxic requiring a nonrebreather. He did demonstrate increased work of breathing. He required 15 L nonrebreather. He was tachycardic to 110 with hypertension 150-180/90s. WBC 4.96. pH 7.43 / pCO2 45 / pO2 52 / pHCO3 29. K at 2.9. BUN 22 / Cr 1.62 / BSG 200. hsTRP 37. Given methylprednisone x 1. [facility] CTA Chest: " No evidence for pulmonary embolism. Spiculated mass in the left lower lobe measuring 16 mm. There is also a 16mm nodule in the medial aspect of the left upper lobe. Given the enhancing lesions in the liver, the diagnosis of exclusion is metastatic foci. There is asymptomatic peribronchial thickening with indeterminate opacification of the endobronchial structures. Diffuse interlobular septal thickening is most notable in the right lower lobe. There are curvilinear fibrotic changes in the anterior aspect of the right upper lobe with suture material noted laterally. Findings are concerning for bronchitis or aspiration with underlying interstitial vascular prominence." [facility] CTA/P: " Splenomegaly with multiple abnormal lesions scattered thro ughout the liver Findings are concerning for metastatic disease ... There is asymmetric interlobular septal thickening of the right lung base with trace free fluid and parabronchial cuffing. Findings suggest pulmonary vascular congestion. However, lymphangitic spread of carcinomatosis in the interstitum is also a differential consideration." Principal Diagnosis 1. Acute hypoxic respiratory failure 2. Aspiration pneumonia 3. Lung cancer with progression 4. Renal cell CA 5. HTN--poorly controlled 6. Hypokalemia--replaced/resolved Discharge Exam GENERAL: 76 yo well developed thin WM who appears chronically ill. NAD. LUNGS: No conversational dyspnea. Coarse RLL crackles. No wheezes. CARDIOVASCULAR: Regular rate and rhythm. 2/6 MALATHI ABDOMEN: Soft, non-tender and non-distended. BS normal x 4 quad. EXTREMITIES: No edema. Non-tender. Peripheral pulses +2/4. NEUROLOGIC: A&O x3. PSYCHIATRIC: Cooperative. Appropriate mood and affect. SKIN: Warm, dry, intact. No rashes or lesions. Discharge Data Allergies Allergy/AdvReac Type Severity Reaction Status Date / Time No Known Allergies Allergy Verified 01/07/22 03:06 Consultations 01/07/22 05:10 ED Decision to Admit Stat Ordered Studies Chest CTA 01/07/22 02:36 CT ANGIOGRAPHY OF THE CHEST, PULMONARY EMBOLUS PROTOCOL CLINICAL HISTORY: Dyspnea. History of malignancy. COMPARISON STUDY: Chest radiograph September 06, 2021 and January 07, 2022. Chest CT July 13, 2018. TECHNIQUE: Following IV administration of 116 mL of Optiray, helical axial images of the chest were obtained utilizing the pulmonary embolus protocol. Maximal intensity projections and sagittal and coronal reformats were viewed on an independent 3D workstation. IV contrast was administered without complication. Automated exposure control was utilized for the study. A dose lowering technique was utilized adhering to the principles of ALARA. FINDINGS: No pulmonary emboli are identified. There is no thoracic aortic dissection. Moderate cardiomegaly is noted. There is no pericardial effusion. Note is made of several mildly enlarged mediastinal and right hilar lymph nodes. Index right paratracheal lymph node shown on axial image 238 of 316 measures 1.7 x 1.3 cm. Right pleural thickening is noted with a trace right pleural effusion. Multiple pulmonary nodules are noted. These have increased in size since CT of July 13, 2018. A left lower lobe nodule on image 88 of 316 measures 1.8 cm. It previously measured 0.8 cm. There is a 1.6 cm lingular nodule which has also increased in size. A 2 cm nodule within the anterior segment of the right upper lobe has increased in size. In addition, there are extensive secretions within the right lower lobe segmental bronchi. Numerous additional smaller ground glass and ill-defined nodules throughout the right lung are noted. Bronchovascular thickening within the right lower lobe is also present with distortion. Several indeterminate sclerotic right sided rib lesions are noted. There has been interval development of multiple hepatic lesions which measure up to approxi mately 3.1 cm. These are consistent with metastases, better depicted on the CT of the abdomen and pelvis. Splenomegaly is unchanged. There is an indeterminate 8 mm lesion within the T9 vertebral body with sclerotic margin. IMPRESSION: 1. No pulmonary emboli identified. 2. Progression of multifocal pulmonary metastases since chest CT of July 13, 2018 and development of hepatic metastases better depicted on the CT of the abdomen and pelvis which will be reported separately. Mediastinal and right hilar lymphadenopathy which is suspicious for gail spread of disease. 3. Numerous additional smaller irregular right lung nodules and groundglass opacities which could reflect an infectious process or additional metastases. Extensive secretions within the right lower lobe segmental bronchi with architectural distortion and bronchovascular thickening. Trace right pleural effusion. ACT 112: Negative or not required by law. Electronically signed by: Mono Haddad M.D. 01/07/2022 7:48 AM Chest X-Ray 01/07/22 02:36 XR chest 1V portable CLINICAL HISTORY: Dyspnea. History of malignancy. COMPARISON STUDY: Chest radiograph September 06, 2021. FINDINGS: A small right pleural effusion is noted. No pneumothorax. Right mid and lower lung airspace opacity is present. Cardiomegaly is unchanged. No evidence for pulmonary edema. IMPRESSION: 1. Right mid and lower lung airspace opacity which favors an infectious process. Underlying neoplastic process cannot be excluded. 2. Small right pleural effusion. No pneumothorax. 3. Cardiomegaly without evidence for pulmonary edema. ACT 112: Negative or not required by law. Electronically signed by: Mono Haddad M.D. 01/07/2022 8:27 AM Abdomen/Pelvis CT 01/07/22 02:40 CT abd pelvis IV con only CLINICAL HISTORY: Cancer patient with nausea and vomiting COMPARISON STUDY: 10/25/2015 CT DOSE: 707.41 mGy.cm TECHNIQUE: Standard CT of the Abdomen and Pelvis was performed with IV contrast. A dose lowering technique was utilized adhering to the principles of ALARA. Contrast Volume: Optiray 320, 116 ml. The patient did not receive oral contrast. FINDINGS: Lung base: Compared to the previous examination, there is an approximately 1.6 cm spiculated nodule the left lung base. Scarring is also present in both lung bases, right greater than left. Abdominal cavity: There is no evidence for abdominal mass, adenopathy or ascites. Liver: Compared to previous examination, numerous heterogeneously enhancing masses are seen within the liver characteristic of metastatic disease. The largest measures approximately 3.1 cm . No biliary duct dilatation is seen. Spleen: There is homogeneous attenuation of the splenic parenchyma. There is no enhancing mass lesion. There has been interval development of at least moderate splenomegaly. Pancreas: There is homogeneous attenuation of the pancreatic parenchyma. There is no evidence for mass lesion or peripancreatic fluid collection. Gall Bladder: The gallbladder is distended with cholelithiasis. There is no CT evidence for acute cholecystitis. Adrenal glands: The adrenal glands are normal in size and attenuation. There is no evidence for enhancing mass lesion. Kidneys: There is homogeneous attenuation of the renal parenchyma bilaterally. There is no evidence for renal calculus or hydronephrosis. There is no evidence for enhancing mass. Sharply defined bilateral renal cysts are present. Bowel: There are scattered fluid-filled loops of small bowel without evidence for disproportionate dilatation or obstruction. Findings are most characteristic of an ileus versus gastroenteritis. There is a left inguinal hernia with loop of sigmoid colon extending into the hernia sac. There is no evidence for obstruction or incarceration. The remaining bowel loops are normally placed within the abdomen and pelvis. There is extensive sigmoid diverticulosis without evidence for diverticulitis. There are no inflammatory changes present. There is no evidence for free air. There is evidence for a normal appendix in the right lower quadrant. Bladder: The bladder is within normal limits with no evidence for focal mass, calculus or diverticulum. : There is no evidence for pelvic mass or adenopathy. There is no evidence for pelvic ascites. Vasculature: There is no evidence for aneurysmal dilatation of the abdominal aorta. Atherosclerotic calcification is present. Osseous structures: There is no acute osseous pathology. Degenerative changes are present within the spine. IMPRESSION: 1. Spiculated nodule at left lung base characteristic of metastatic disease versus primary neoplasm. 2. Interval development of diffuse liver metastases. 3. Splenomegaly. 4. Cholelithiasis. 5. Left inguinal hernia with loop of sigmoid colon. No evidence for obstruction. 6. Findings characteristic of gastroenteritis versus ileus. 7. Additional nonacute findings are delineated above. ACT 112: Negative or not required by law. Electronically signed by: Aleksey Brandt M.D. 01/07/2022 9:02 AM Hospital Course (1) Acute respiratory failure with hypoxia: AHRF d/t aspiration pneumonia + progression of malignancy - noted in context of known diffusely metastatic RLL adenocarcinoma s/p wedge resection and chemotherapy - [facility] CT-A demonstrating peribronchial thickening and intermittent opacification of bronchial structures with septal thickening - suspect aspiration vs. lymphangitic spread of cancer - While findings of pulmonary vascular congestion are noted, patient appears clinically dry and not in active CHF - No evidence of PE on CT - Initially on Zosyn/Vancomycin -- stopped vanco on 01/08, continued on Zosyn - Maintain SpO2 >90-92% - Hold on diuresis and TTE at this time - DuoNebs q4h PRN for SOB - Added Tessalon prn cough, doesn't seem to be helping, try Robitussin w/ DM - Transitioned to oral Augmentin on 01/10 PM which he will completed today / after evening dose (2) Lung cancer: - Follows with Dr. Jaramillo (see most recent note in system) -- patient has extensive and diffuse metastases in his chest, abdomen, pelvis, and bones. He is s/p wedge resection and radiation. Per most recent ONC note, seemed like the p karina was to discontinue chemotherapeutics due to adverse reactions in the past. - Discussed with Dr. Jaramillo, ok to hold Mekinist and Tafinlar and resume upon d/c - Patient would like to forego palliative care consult during this hospital stay. (3) Cancer of kidney: - Follows with Dr. Jaramillo, as above. Also follows with Urology. - creatinine elevated at 1.7-->improved (4) Acute renal failure: - on arrival, noted to have BUN 22 / Cr 1.62 - on 12/13 - noted to be at BUN 18 / Cr 1.2 (baseline closer to 1.2-1.4) - history of poor PO intake and nausea makes his SEN suspicious for prerenal etiology; no symptoms, at present, or findings on STATRad CT-A/P to suggest post-renal process. Situation likely compounded by dry status, continued Lasix, and ARB - Attempt gentle rehydration - ARB and Lasix held - CT-A/P STAT Rad read without acute renal findings - At this time, renal fxn back to baseline, resumed ARB on 01/09 as outlined below and monitor renal fxn (5) Hypertension: - Patient noted to be hypertensive on arrival in setting of AHRF and BP has remained fairly poorly controlled throughout stay - Continued on current dose of felodipine 10mg in AM and 5mg in PM - Held losartan, Lasix in setting of SEN - Once SEN resolved, Losartan was resumed, BP only marginally better with resuming this - At this point, would increase the Felodipine to 10mg BID (max dose 20mg) - Monitor BP with this change, could also consider increasing Terazosin which he also takes for BP - Last resort would be to consider adding Hydralazine or Metoprolol Tartrate as I do believe his HR would tolerate it - Ultimately, further adjustments can be made as an outpatient, he has neuro sx or headache or any other end organ damage - SBP this AM 188 but medicated and repeat SBP 165, asymptomatic (6) Dysphagia: - Initially noted to have dysphagia on 09/11/21 during last admission -- FEES showed significant inflammation in posterior pharynx, ?due to reflux - Appreciate MEDICAL DOCTOR MD consultation during this admission in setting of c/f aspiration - Continue H2 melvin (7) Adenocarcinoma of prostate: - History noted. Status post prostatecetomy. (8) Hypokalemia: - Noted at 2.9 on admission - no appreciable GI losses reported by patient, but does endorse poor PO intake - s/p receipt of 20 mEq KCl IV in ED -- will give another 2 now, can likely begin oral or continue IV replacement if persisting - Repeat BMP 01/11 demonstrated normal K+ of 3.5, continue daily supplementation Seen by PT/OT during his hospitalization, they recommended acute rehab. Referral sent to [facility] who accepted, submitted for insurance authorization which was received today. Plan is for discharge to [facility] where he can participate in rehab. Ultimately, his prognosis is poor given his advanced malignancy. Attempts were made to discuss goals of care with him but he did not want to discuss and deferred palliative medicine consult. Would strongly recommend that he consider this as an outpatient. He would be hospice appropriate. This can be addressed at SNF. He is otherwise medically stable for discharge. Above plan of care has been d/w Dr. Allen who has also seen and evaluated this patient prior to d/c. Total Time Total Time Spent Total Time Spent (In Minutes): >30 minutes Discharge Plan Discharge Items Patient Disposition: Transfer Detention Fac Reason For Visit: SEVERE PNA Discharge Diagnosis: Pneumonia Activity: Resume your previous activity Non-emergency contact: Primary Care Provider Call non-emergency contact if: you have any medication questions and your symptoms worsen Follow-up/Referrals: Pro,Raffy Montano MD [Primary Care Provider] - Diet: Regular Diet Texture: Easy to Chew Addtl Attending Provider Instructions: You were hospitalized due to pneumonia which was felt to be related to aspiration (where food/liquids are traveling into your lungs when you swallow instead of into the stomach) pneumonia and a progression of your lung cancer. You were seen by speech therapists during your stay who felt you were safe to continue with a regular, easy to chew diet. Would recommend taking small bites, and alternating bites with liquids. In order to treat the pneumonia, you were placed on IV antibiotics which have since been changed to oral antibiotics which you will finish upon discharge. The antibiotic that you will be discharged on is called Augmentin. You are due for your next dose on 01/13/22 with dinner (or could take an hour before bedtime with a snack) this will be your last dose of antibiotics. Your remaining medications can be taken as directed on medication reconciliation provided in your discharge. We would like you to stop taking Lasix. Your blood pressure has been elevated throughout your hospitalization, for this we have increased your Felodipine to 10mg twice daily. Your family doctor may need to make other adjustments to your blood pressure medications to improve it. Physical and occupational therapy have seen you during this hospitalization and are recommending rehabilitation upon discharge. We have contacted [facility] and they have agreed to take you to their intermediate wing in order for you to participate in physical rehabilitation. We would recommend that you follow up with your established healthcare provider upon discharge from the hospital within 1 week. We would also recommend that you follow up as scheduled with your oncologist (Dr. Jaramillo). If you do not have an appointment already made, we would advise you to call his office to schedule one. If you have any questions, please call the nonemergency number listed on your discharge paperwork. In the event of a medical emergency, call 911. Pending Studies at Discharge: No Stand-Alone Forms: My [facility] Skilled Items Patient informed of condition?: Yes DNR: No Discharge Level of Care: Skilled Communicable Disease: No Discharge Prognosis: Stable Lines: None Urinary Catheter: No Medications and DC Order Prescriptions: New amoxicillin-pot clavulanate 875-125 mg tablet 1 tab PO BID Qty: 5 RF: 0 Continued Flovent HFA 220 mcg/actuation HFA aerosol inhaler 2 puff INH BID Qty: 3 RF: 3 famotidine 20 mg tablet 20 mg PO DAILY Qty: 90 RF: 3 losartan [Cozaar] 100 mg tablet 100 mg PO QAM Qty: 90 RF: 3 sertraline [Zoloft] 100 mg tablet 200 mg PO HS Qty: 180 RF: 3 terazosin 5 mg capsule 5 mg PO HS Qty: 90 RF: 3 ferrous sulfate 325 mg (65 mg iron) tablet,delayed release (DR/EC) 325 mg PO QAM RF: 0 albuterol sulfate [Ventolin HFA] 90 mcg/actuation HFA aerosol inhaler 2 puff Inhalation Q4 PRN (Reason: Shortness Of Breath Or Wheezing) Qty: 18 RF: 11 cholecalciferol (vitamin D3) [Vitamin D3] 1,000 unit Tablet 1,000 unit PO QAM RF: 0 prochlorperazine maleate 10 mg tablet 10 mg PO Q6 PRN (Reason: Nausea) RF: 0 Multiple Vitamin-Minerals Tablet 1 tab PO BID RF: 0 omega 6-ewl-ebr-fish oil [Fish Oil] 1,200 (144-216) mg Capsule 1 cap PO DAILY RF: 0 loperamide 2 mg Capsule 2 mg PO Q4H PRN (Reason: loose stool) Qty: 30 RF: 0 acetaminophen [Tylenol] 325 mg Tablet 650 mg PO DIRECTED PRN (Reason: PAIN/FEVER) RF: 0 psyllium husk [Metamucil] 0.4 gram Capsule 0.4 g PO DAILY RF: 0 polyethylene glycol 3350 [Miralax] 17 gram Powder In Packet 17 g PO DAILY PRN (Reason: Constipation) RF: 0 ondansetron HCl 8 mg tablet 8 mg PO Q8 PRN (Reason: Nausea) RF: 0 oxycodone-acetaminophen 5-325 mg tablet 0.5 tab PO BID PRN (Reason: Pain) RF: 0 potassium chloride 20 mEq tablet,ER particles/crystals 40 meq PO BID RF: 0 docusate sodium [Colace] 100 mg Capsule 100 mg PO DAILY PRN (Reason: Constipation) RF: 0 felodipine 10 mg tablet extended release 24 hr 10 mg PO QAM RF: 0 Tafinlar 50 mg capsule 50 mg PO BID RF: 0 Mekinist 0.5 mg tablet 1.5 mg PO DAILY RF: 0 Changed felodipine 10 mg tablet extended release 24 hr 10 mg PO BID Qty: 0 RF: 0 Discontinued furosemide 20 mg tablet 20 mg PO DAILY Qty: 90 RF: 3 felodipine 5 mg tablet extended release 24 hr 5 mg PO QPM RF: 0 Discharge Orders: Discharge Order (Routine); Ordered 01/13/22 Ordered By: Mehreen Ghosh/Other Patient Handouts: What Is Pneumonia?, Preventing Pneumonia Admission Data Admit Date/Time: 01/07/22 04:52 Attending Provider: Jared Allen Admit Provider: Rell Hunter Primary Care Provider: Raffy Bedolla Other Providers: Lidia Barr Morton ; Aakash Vargas Coding Level of Care Code D/C DAY MANAGEMENT >30 MINS Diagnoses Acute respiratory failure with hypoxia J96.01 Lung cancer C34.90 Cancer of kidney C64.9 Acute renal failure N17.9 Acute renal failure type: unspecified Hypertension I10 Dysphagia R13.10 Adenocarcinoma of prostate C61 Hypokalemia E87.6
== END 2022-01-13 12:01 | DRG 177 ==
LOC: ED 02:30 → 2S 04:52 → SUATTDRO 04:52 → 2S 06:44 → 3W 01-09 21:30

== ENCOUNTER 2022-02-21 22:48 | Inpatient (IN) ==
[2022-02-22 00:11] LABS: Hematocrit (blood only) 33.4 % (42-52); Hemoglobin 11.3 g/dL (14.0-18.0); Mean Corpuscular Hemoglobin 28.5 pg (25-34); Mean Corpuscular Hgb Conc 33.8 g/dL (32-36); Mean Corpuscular Volume 84.1 fL (80-100); Mean Platelet Volume 9.3 fL (7.4-10.4); Platelet Count 179 K/uL (130-400); RDW Coefficient of Variation 14.1 % (11.5-14.5); RDW Standard Deviation 43.4 fL (36.4-46.3); Red Blood Count 3.97 M/uL (4.7-6.1); White Blood Count 6.02 K/uL (4.8-10.8)
[2022-02-22 00:27] LABS: Basophils # (auto) 0.02 K/uL (0-0.2); Basophils % (auto) 0.3 %; Eosinophils # (auto) 0.22 K/uL (0-0.5); Eosinophils % (auto) 3.7 %; Immature Granulocytes # (auto) 0.01 K/uL (0.00-0.02); Immature Granulocytes % (auto) 0.2 %; Lymphocytes # (auto) 0.76 K/uL (1.2-3.4); Lymphocytes % (auto) 12.6 %; Monocytes # (auto) 0.44 K/uL (0.11-0.59); Monocytes % (auto) 7.3 %; Neutrophils # (auto) 4.57 K/uL (1.4-6.5); Neutrophils % (auto) 75.9 %
[2022-02-22 00:40] LABS: Albumin Globulin Ratio 1.2 (0.9-2); Albumin Level 3.8 gm/dl (3.4-5.0); BUN Creatinine Ratio 14.5 (10-20); Bilirubin,Total 0.6 mg/dl (0.2-1.0); Creatinine Clr Calc Pharmacy 37.2 ml/min; Est GFR (African American) 56.4 ml/min; Est GFR (Non-African American) 48.6 ml/min; Globulin 3.1 gm/dl (2.5-4.0); Potassium 3.4 mmol/L (3.5-5.1); Total Protein 6.9 gm/dl (6.0-8.3)
--- NOTE | 2022-02-22 00:43 | History & Physical Report ---
Date of Service February 22, 2022 Assessment & Plan (1) Inguinal hernia of left side without obstruction or gangrene: Plan: -not reducible -will need urgent exploration and hernia repair -consent obtained and to OR tonight History of Present Illness Chief Complaint: Right groin mass with abdominal pain Primary Care Provider: Cortney Murillo at [facility] This is a 76YO male with a known left inguinal hernia who presents with a left groin mass and abdominal pain since this evening beginning at 7PM. He has had some episodes of nausea but no change in bowel or bladder habits. He has known metastatic lung cancer. He was scheduled to have the hernia repaired but it was delayed. The hernia was attempted to be reduced in ED but it was not successful. Allergies Allergy/AdvReac Type Severity Reaction Status Date / Time No Known Allergies Allergy Verified 02/22/22 00:19 Home Medications Medication Instructions Recorded Confirmed Type cholecalciferol (vitamin D3) 25 1,000 unit PO QAM 07/02/18 02/22/22 History mcg (1,000 unit) tablet (Vitamin D3) ferrous sulfate 325 mg (65 mg 325 mg PO QAM tab 09/08/19 02/22/22 History iron) tablet,delayed release albuterol sulfate 90 mcg/actuation 2 puff INHALATION Q4 PRN #18 gm 10/11/20 02/22/22 Rx aerosol inhaler (Ventolin HFA) multivitamin with minerals 1 tab PO DAILY 08/24/21 02/22/22 History (Multiple Vitamin-Minerals) omega 8-bcz-fjy-fish oil 1,200 mg 1 cap PO DAILY 08/24/21 02/22/22 History (144 mg-216 mg) capsule (Fish Oil) loperamide 2 mg capsule 2 mg PO Q4H PRN #30 cap 08/28/21 02/22/22 Rx acetaminophen 325 mg tablet 650 mg PO Q4 PRN 09/06/21 02/22/22 History (Tylenol) psyllium husk 0.4 gram capsule 0.4 g PO DAILY 09/06/21 02/22/22 History (Metamucil) fluticasone propionate 220 2 puff INH BID #3 inhaler 11/07/21 02/22/22 Rx mcg/actuation HFA aerosol inhaler (Flovent HFA) famotidine 20 mg tablet 20 mg PO DAILY #90 tab 11/21/21 02/22/22 Rx losartan 100 mg tablet (Cozaar) 100 mg PO QAM #90 tab 11/21/21 02/22/22 Rx sertraline 100 mg tablet (Zoloft) 200 mg PO HS #180 tab 11/21/21 02/22/22 Rx terazosin 5 mg capsule 5 mg PO HS #90 cap 11/21/21 02/22/22 Rx docusate sodium 100 mg capsule 100 mg PO DAILY PRN 01/07/22 02/22/22 History (Colace) ondansetron HCl 8 mg tablet 8 mg PO Q8 PRN 01/07/22 02/22/22 History oxycodone-acetaminophen 5 mg-325 0.5 tab PO BID PRN 01/07/22 02/22/22 History mg tablet polyethylene glycol 3350 17 gram 17 g PO DAILY PRN 01/07/22 02/22/22 History oral powder packet (Miralax) potassium chloride 20 mEq 40 meq PO BID 01/07/22 02/22/22 History tablet,extended release(part/cryst) felodipine 10 mg tablet,extended 10 mg PO QAM 02/22/22 02/22/22 History release 24 hr simethicone 125 mg capsule (Gas 125 mg PO DIRECTED PRN 02/22/22 02/22/22 History Relief Extra Strength) Past Med/Surg History Medical History (Updated 02/22/22 @ 00:04 by Background Lara) 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 per records Anxiety Asthma well controlled Bladder neck contracture Cancer of kidney s/p cryoablation Chronic back pain Diastasis recti Difficulty speaking Dysphagia per remote records Essential hypertension GERD (gastroesophageal reflux disease) Hyperlipidemia Hypertension Inguinal hernia of left side without obstruction or gangrene Irritable bowel syndrome Lung cancer 7 years ago, s/p surgery Male stress incontinence Migraine ocular Non-small cell carcinoma of lung Osteoarthritis Pancytopenia due to antineoplastic chemotherapy Renal cell carcinoma Sensorineural hearing loss (SNHL) of both ears Umbilical hernia Surgical History H/O basal cell carcinoma excision x2 H/O radical prostatectomy H/O straightening of nasal septum H/O vasectomy History of colonoscopy History of esophagogastroduodenoscopy (EGD) History of lung surgery RIGHT > 7 YRS AGO History of right cataract extraction Family History Mother Parkinson disease Father Colon cancer Colorectal cancer Other FHx: cancer Family history of diabetes mellitus Family history of high blood pressure Family history of lung disease No family history of adverse response to anesthesia Denies family history of Ovarian cancer Prostate cancer Myocardial infarction Breast cancer Social History Smoking Status: Never smoker Second Hand Exposure: No; Hx Alcohol Use: No Hx Substance Use: Yes Preferred Language: Greek Communication Ability: Effective Visual Impairment: No Limitations Hearing Ability: Normal Lathe Set Up Person Required: No Beliefs That Will Affect Care: None marital status: / Current Living Situation: Alone current occupational status: retired How many Children do You have: 1 Feels Safe at Home: Yes Childhood Exposure to Second-Hand Smoke: Yes Dental Care, Regularly: Yes Physical Activity Frequency: Does not Exercise Seatbelt Use: always Sunscreen Use: Yes Assistive Devices: Cane and Walker Review of Systems no fever and no chills + corrective lenses no problem reported + dyspnea; no cough no chest pain + abdominal pain and + nausea; no vomiting and no change in bowel habits no dysuria or no difficulty urinating no problem reported no rash and no lesions + generalized weakness; no localized weakness no behavioral changes no problem reported + easy bruising Physical Exam Constitutional: + ill appearing and + thin; no acute distress Eyes: PERRL, conjunctivae normal, anicteric sclerae ENMT: external ear and nose normal, oropharynx normal Neck: trachea midline Respiratory: normal respiratory effort; no respiratory distress Cardiovascular: Rate/Rhythm: regular rate and regular rhythm Gastrointestinal (Abdomen): Inspection/Auscultation: abdomen normal to inspection, + abdomen distended, + visible herniation (incarcerated left inguinal hernia, tender) and + abdominal surgical scar Percussion/Palpation: abdomen soft; abdomen nontender Musculoskeletal: Head/Neck/Chest: normocephalic and head atraumatic Skin: no rashes, warm and dry Psychiatric: Orientation: alert and oriented x 3 ASA Classification ASA [id number] Results & Data ([facility]) Vital Signs (Past 12 Hours) Vital Signs Temp Pulse Pulse Resp BP BP Pulse Ox 02/21/22 22:58 36.7 C 103 H 87 18 200/107 H 200/107 H 98
[2022-02-22 00:56] LABS: Appearance Urine Clear (Clear); Bacteria Urine Automated Negative (Negative); Bilirubin Urine Negative (Negative); Blood Urine Negative (Negative); Cast Urine Automated 0 /lpf (0-5); Color Urine Yellow; Glucose Urine UA Negative (Negative); Ketones Urine Negative (Negative); Leukocyte Esterase Urine Negative (Negative); Nitrite Urine Negative (Negative); RBC Urine Automated 0-4 /hpf (0-4); Specific Gravity Urine 1.009 (1.000-1.030); Urobilinogen Urine Negative (Negative); WBC Urine Automated 0 /hpf (0-5); pH Urine 7.5 (4.5-7.5)
[2022-02-22 00:58] LABS: Protein Urine 2+ (Negative)
[2022-02-22] MEDS ORDERED: EPINEPHrine INJ 1 MG/ML AMP ONE (01:00)
[2022-02-22] MEDS ORDERED: BUPIVACAINE 0.5 % 5 MG/1 ML MPF 30ML VIAL ONE (01:00)
--- NOTE | 2022-02-22 01:07 | Emergency Department Note ---
Impression & Plan Incarcerated left inguinal hernia To the OR with Dr. Fitzgerlad ED Provider Note NAME: JOYCE SEGURA AGE: 76 SEX: M ARRIVES VIA: Ambulance INFORMANT: Patient ED PROVIDER(S): Helen Hodge DO CHIEF COMPLAINT: abdominal pain PLAN: Disposition: To the OR with Dr. Fitzgerald Condition: Stable MEDICAL DECISION MAKING: This is a 76-year-old male patient who presents to the emergency department with left inguinal canal pain. Patient has a known inguinal hernia. Elective surgery had been scheduled but was canceled because of other health issues. Unfortunately, tonight the patient had sudden onset of left inguinal canal pain that would not resolve. On physical exam, the patient has an obvious incarcerated hernia. I could not manually reduce it. Discussed the case with general surgery and they will take the patient to the OR. Triage Nursing notes reviewed and agree with them. Prior medical records reviewed Vital Signs: reviewed and remarkable for hypertension Differential diagnosis: Inguinal hernia, incarcerated hernia, diverticulitis, Diagnostics interpreted by me: ECG: Normal sinus rhythm at 76 with PVCs. There is no signs of ischemia. There is no ST segment elevation Cardiac Monitoring: Normal sinus rhythm at 87 Laboratory studies: See below HPI: 76/M arrives for evaluation of left inguinal canal pain. The patient has a known history of a left inguinal canal hernia. The patient was supposed to have this electively repaired but the surgery was canceled because of another issue. Around 7 PM this evening, the patient developed increasing pain in the area of the hernia and it would not resolve. ROS: See above HPI for pertinent positives & negatives. A total of 10 systems reviewed and were otherwise negative. PAST MEDICAL HISTORY:See Below PAST SURGICAL HISTORY:See Below FAMILY HISTORY:See Below SOCIAL HISTORY:See Below HOME MEDICATIONS:See list ALLERGIES:None VITALS:See Below PHYSICAL EXAMINATION: HEENT: Head - normocephalic and atraumatic. Pupils are equal, round, and reactive to light. Extraocular eye muscles are intact, and sclera are ani cteric. Nose - moist nasal mucosa without discharge. Mouth - moist buccal mucosa. Oropharynx is nonerythematous and there is no tonsillar exudate or edema noted. Neck: Supple; no cervical lymphadenopathy Heart: Regular rate and rhythm. There is a normal S1 and S2 with no murmurs, clicks, or gallops appreciated. Lungs: Clear to auscultation bilaterally with no wheezes, rales, or rhonchi. Abdomen: Soft, nontender in the abdomen with an obvious incarcerated left inguinal canal hernia the size of an orange. This was tender to the touch. There are no palpable pulsatile masses or hepatosplenomegaly. There is no guarding, rigidity, or rebound noted. Extremities: No evidence of cyanosis, clubbing, or edema. There are easily palpable peripheral pulses. Skin: warm and dry with good turgor and no rashes. ED COURSE: Times/Reassessments: 2300: The patient was initially evaluated by the [facility]. I evaluated the patient along with the medical student. A complete history and physical was performed. An order was placed for continuous cardiac monitoring. The patient was in a normal sinus rhythm with PVCs at a rate of 87. An IV lock was initiated and labs were drawn as above. The patient declined wanting anything for pain at this time. I discussed the case with Dr. Fitzgerald and he will take the patient to the OR. 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 per records Anxiety Asthma well controlled Bladder neck contracture Cancer of kidney s/p cryoablation Chronic back pain Diastasis recti Difficulty speaking Dysphagia per remote records Essential hypertension GERD (gastroesophageal reflux disease) Hyperlipidemia Hypertension Inguinal hernia of left side without obstruction or gangrene Irritable bowel syndrome Lung cancer 7 years ago, s/p surgery Male stress incontinence Migraine ocular Non-small cell carcinoma of lung Osteoarthritis Pancytopenia due to antineoplastic chemotherapy Renal cell carcinoma Sensorineural hearing loss (SNHL) of both ears Umbilical hernia Surgical History H/O basal cell carcinoma excision x2 H/O radical prostatectomy H/O straightening of nasal septum H/O vasectomy History of colonoscopy History of esophagogastroduodenoscopy (EGD) History of lung surgery RIGHT > 7 YRS AGO History of right cataract extraction Family History Mother Parkinson disease Father Colon cancer Colorectal cancer Other FHx: cancer Family history of diabetes mellitus Family history of high blood pressure Family history of lung disease No family history of adverse response to anesthesia Denies family history of Ovarian cancer Prostate cancer Myocardial infarction Breast cancer Social History Smoking Status: Never smoker Second Hand Exposure: No; Hx Alcohol Use: No Hx Substance Use: Yes Preferred Language: Swazi Communication Ability: Effective Visual Impairment: No Limitations Hearing Ability: Normal Bead Inspector Required: No Beliefs That Will Affect Care: None marital status: / Current Living Situation: Alone current occupational status: retired How many Children do You have: 1 Feels Safe at Home: Yes Childhood Exposure to Second-Hand Smoke: Yes Dental Care, Regularly: Yes Physical Activity Frequency: Does not Exercise Seatbelt Use: always Sunscreen Use: Yes Assistive Devices: Cane and Walker Allergies Allergies Allergy/AdvReac Type Severity Reaction Status Date / Time No Known Allergies Allergy Verified 02/22/22 00:19 Home Meds Home Medications Medication Instructions Recorded Confirmed cholecalciferol (vitamin D3) 25 1,000 unit PO QAM 07/02/18 02/22/22 mcg (1,000 unit) tablet (Vitamin D3) ferrous sulfate 325 mg (65 mg 325 mg PO QAM tab 09/08/19 02/22/22 iron) tablet,delayed release multivitamin with minerals 1 tab PO DAILY 08/24/21 02/22/22 (Multiple Vitamin-Minerals) omega 6-nar-syh-fish oil 1,200 mg 1 cap PO DAILY 08/24/21 02/22/22 (144 mg-216 mg) capsule (Fish Oil) acetaminophen 325 mg tablet 650 mg PO Q4 PRN 09/06/21 02/22/22 (Tylenol) psyllium husk 0.4 gram capsule 0.4 g PO DAILY 09/06/21 02/22/22 (Metamucil) docusate sodium 100 mg capsule 100 mg PO DAILY PRN 01/07/22 02/22/22 (Colace) ondansetron HCl 8 mg tablet 8 mg PO Q8 PRN 01/07/22 02/22/22 oxycodone-acetaminophen 5 mg-325 0.5 tab PO BID PRN 01/07/22 02/22/22 mg tablet polyethylene glycol 3350 17 gram 17 g PO DAILY PRN 01/07/22 02/22/22 oral powder packet (Miralax) potassium chloride 20 mEq 40 meq PO BID 01/07/22 02/22/22 tablet,extended release(part/cryst) felodipine 10 mg tablet,extended 10 mg PO QAM 02/22/22 02/22/22 release 24 hr simethicone 125 mg capsule (Gas 125 mg PO DIRECTED PRN 02/22/22 02/22/22 Relief Extra Strength) Previous Rx's Medication Instructions Recorded albuterol sulfate 90 mcg/actuation 2 puff INHALATION Q4 PRN #18 gm 10/11/20 aerosol inhaler (Ventolin HFA) loperamide 2 mg capsule 2 mg PO Q4H PRN #30 cap 08/28/21 fluticasone propionate 220 2 puff INH BID #3 inhaler 11/07/21 mcg/actuation HFA aerosol inhaler (Flovent HFA) famotidine 20 mg tablet 20 mg PO DAILY #90 tab 11/21/21 losartan 100 mg tablet (Cozaar) 100 mg PO QAM #90 tab 11/21/21 sertraline 100 mg tablet (Zoloft) 200 mg PO HS #180 tab 11/21/21 terazosin 5 mg capsule 5 mg PO HS #90 cap 11/21/21 Results & Data (ED) Vital Signs Vital Signs - 24 hr 02/21/22 22:58 02/21/22 23:50 02/22/22 02:40 Temperature 36.7 C 36.3 C L Temperature Source Oral Temporal Artery Scan Pulse Rate 103 H Pulse Rate [Apical] 75 Pulse Rate [Right Finger] 87 Pulse Rhythm [Apical] Regular Respiratory Rate 18 16 Respiratory Effort / Characteristics Non-Labored Spontaneous Non-Labored Spontaneous Respiratory Depth Normal Normal Respiratory Pattern Regular Blood Pressure 200/107 H Blood Pressure [Right Arm] 200/107 H 185/88 H Blood Pressure Mean 138 Blood Pressure Mean [Right Arm] 138 120 Pulse Oximetry 98 99 Oxygen Delivery Method Room Air Room Air Oxymask Oxygen Flow Rate 6 Sepsis Recent Fever Within 48 Hours No Sepsis New/Unexplained Change in Mental Status N/A Sepsis Action Taken by Nursing No Action Required 02/22/22 02:50 02/22/22 03:00 02/22/22 03:10 Temperature Temperature Source Pulse Rate Pulse Rate [Apical] 75 76 76 Pulse Rate [Right Finger] Pulse Rhythm [Apical] Regular Regular Regular Respiratory Rate 22 19 17 Respiratory Effort / Characteristics Non-Labored Spontaneous Non-Labored Spontaneous Non-Labored Spontaneous Respiratory Depth Normal Normal Normal Respiratory Pattern Regular Regular Regular Blood Pressure Blood Pressure [Right Arm] 182/92 H 197/95 H 199/86 H Blood Pressure Mean Blood Pressure Mean [Right Arm] 122 129 123 Pulse Oximetry 96 94 97 Oxygen Delivery Method Oxymask Room Air Nasal Cannula Oxygen Flow Rate 6 2 Sepsis Recent Fever Within 48 Hours Sepsis New/Unexplained Change in Mental Status Sepsis Action Taken by Nursing 02/22/22 03:20 Temperature Temperature Source Pulse Rate Pulse Rate [Apical] 76 Pulse Rate [Right Finger] Pulse Rhythm [Apical] Regular Respiratory Rate 17 Respiratory Effort / Characteristics Non-Labored Spontaneous Respiratory Depth Normal Respiratory Pattern Regular Blood Pressure Blood Pressure [Right Arm] 176/78 H Blood Pressure Mean Blood Pressure Mean [Right Arm] 110 Pulse Oximetry 97 Oxygen Delivery Method Nasal Cannula Oxygen Flow Rate 2 Sepsis Recent Fever Within 48 Hours Sepsis New/Unexplained Change in Mental Status Sepsis Action Taken by Nursing Laboratory Data Result diagrams: 02/21/22 23:58 02/21/22 23:58 Lab Results 02/21/22 02/21/22 02/21/22 Range/Units 23:58 23:58 23:58 WBC 6.02 (4.8-10.8) K/uL RBC 3.97 L (4.7-6.1) M/uL Hgb 11.3 L (14.0-18.0) g/dL Hct 33.4 L (42-52) % MCV 84.1 (80-100) fL MCH 28.5 (25-34) pg MCHC 33.8 (32-36) g/dL RDW Std Deviation 43.4 (36.4-46.3) fL RDW Coeff of Girish 14.1 (11.5-14.5) % Plt Count 179 (130-400) K/uL MPV 9.3 (7.4-10.4) fL Immature Gran % (Auto) 0.2 % Neut % (Auto) 75.9 % Lymph % (Auto) 12.6 % [place] % (Auto) 7.3 % Eos % (Auto) 3.7 % Baso % (Auto) 0.3 % Neut # (Auto) 4.57 (1.4-6.5) K/uL Lymph # (Auto) 0.76 L (1.2-3.4) K/uL [place] # (Auto) 0.44 (0.11-0.59) K/uL Eos # (Auto) 0.22 (0-0.5) K/uL Baso # (Auto) 0.02 (0-0.2) K/uL Immature Gran # (Auto) 0.01 (0.00-0.02) K/uL Sodium 138 (136-145) mmol/L Potassium 3.4 L (3.5-5.1) mmol/L Chloride 103 (98-107) mmol/L Carbon Dioxide 26 (21-32) mmol/L Anion Gap 9 (3-11) BUN 20 (6-23) mg/dl Creatinine 1.38 (0.6-1.4) mg/dl Est Cr Clr Drug Dosing 37.2 ml/min Est GFR ( Amer) 56.4 ml/min Est GFR (Non-Af Amer) 48.6 ml/min BUN/Creatinine Ratio 14.5 (10-20) Glucose 100 H (70-99(Fasting)) mg/dl Calcium 9.0 (8.5-10.1) mg/dl Total Bilirubin 0.6 (0.2-1.0) mg/dl AST 22 (13-39) U/L ALT 9 (7-52) U/L Alkaline Phosphatase 161 H (34-104) U/L Total Protein 6.9 (6.0-8.3) gm/dl Albumin 3.8 (3.4-5.0) gm/dl Globulin 3.1 (2.5-4.0) gm/dl Albumin/Globulin Ratio 1.2 (0.9-2) Lipase 22 (11-82) U/L Urine Color Urine Appearance (Clear) Urine pH (4.5-7.5) Ur Specific [place] (1.000-1.030) Urine Protein (Negative) Urine Glucose (UA) (Negative) Urine Ketones (Negative) Urine Blood (Negative) Urine Nitrite (Negative) Urine Bilirubin (Negative) Urine Urobilinogen (Negative) Ur Leukocyte Esterase (Negative) Urine WBC (Auto) (0-5) /hpf Urine RBC (Auto) (0-4) /hpf U Hyaline Cast (Auto) (0-5) /lpf U Epithel Cells (Auto) (0-5) /lpf Urine Bacteria (Auto) (Negative) SARS-CoV-2, RNA, NAAT NEGATIVE (NEGATIVE) 02/22/22 Range/Units 00:40 WBC (4.8-10.8) K/uL RBC (4.7-6.1) M/uL Hgb (14.0-18.0) g/dL Hct (42-52) % MCV (80-100) fL MCH (25-34) pg MCHC (32-36) g/dL RDW Std Deviation (36.4-46.3) fL RDW Coeff of Girish (11.5-14.5) % Plt Count (130-400) K/uL MPV (7.4-10.4) fL Immature Gran % (Auto) % Neut % (Auto) % Lymph % (Auto) % [place] % (Auto) % Eos % (Auto) % Baso % (Auto) % Neut # (Auto) (1.4-6.5) K/uL Lymph # (Auto) (1.2-3.4) K/uL [place] # (Auto) (0.11-0.59) K/uL Eos # (Auto) (0-0.5) K/uL Baso # (Auto) (0-0.2) K/uL Immature Gran # (Auto) (0.00-0.02) K/uL Sodium (136-145) mmol/L Potassium (3.5-5.1) mmol/L Chloride (98-107) mmol/L Carbon Dioxide (21-32) mmol/L Anion Gap (3-11) BUN (6-23) mg/dl Creatinine (0.6-1.4) mg/dl Est Cr Clr Drug Dosing ml/min Est GFR ( Amer) ml/min Est GFR (Non-Af Amer) ml/min BUN/Creatinine Ratio (10-20) Glucose (70-99(Fasting)) mg/dl Calcium (8.5-10.1) mg/dl Total Bilirubin (0.2-1.0) mg/dl AST (13-39) U/L ALT (7-52) U/L Alkaline Phosphatase (34-104) U/L Total Protein (6.0-8.3) gm/dl Albumin (3.4-5.0) gm/dl Globulin (2.5-4.0) gm/dl Albumin/Globulin Ratio (0.9-2) Lipase (11-82) U/L Urine Color Yellow Urine Appearance Clear (Clear) Urine pH 7.5 (4.5-7.5) Ur Specific [place] 1.009 (1.000-1.030) Urine Protein 2+ H (Negative) Urine Glucose (UA) Negative (Negative) Urine Ketones Negative (Negative) Urine Blood Negative (Negative) Urine Nitrite Negative (Negative) Urine Bilirubin Negative (Negative) Urine Urobilinogen Negative (Negative) Ur Leukocyte Esterase Negative (Negative) Urine WBC (Auto) 0 (0-5) /hpf Urine RBC (Auto) 0-4 (0-4) /hpf U Hyaline Cast (Auto) 0 (0-5) /lpf U Epithel Cells (Auto) 5-10 H (0-5) /lpf Urine Bacteria (Auto) Negative (Negative) SARS-CoV-2, RNA, NAAT (NEGATIVE) Administered Medications Fentanyl Citrate (Fentanyl Citrate 100 Mcg/2 Ml Vial) 25 mcg IV Q5M PRN PRN Reason: PACU Use Only-Pain Stop: 02/22/22 09:17 Last Admin: 02/22/22 02:58 Dose: 25 mcg Documented by: [id number] Admin: 02/22/22 02:49 Dose: 25 mcg Documented by: [id number] Ondansetron HCl (Ondansetron Inj 2 Mg/Ml 2 Ml Vial) 4 mg IV ONCE PRN PRN Reason: PACU Use Only-Nausea/Vomiting Stop: 02/22/22 09:17 Last Admin: 02/22/22 02:56 Dose: 4 mg Documented by: [id number] Discontinued Medications Bupivacaine HCl (Bupivacaine 0.5 % 5 Mg/1 Ml Mpf 30ml Vial) Confirm Administered Dose 30 ml .ROUTE .STK-MED ONE Stop: 02/22/22 01:01 Last Admin: 02/22/22 02:15 Dose: 20 ml Documented by: [id number] Epinephrine HCl (Epinephrine Inj 1 Mg/Ml Amp) Confirm Administered Dose 1 mg .ROUTE .STK-MED ONE Stop: 02/22/22 01:01 Last Admin: 02/22/22 02:15 Dose: 0.15 mg Documented by: [id number] Fentanyl Citrate (Fentanyl Citrate 100 Mcg/2 Ml Vial) Confirm Administered Dose 100 mcg .ROUTE .STK-MED ONE Stop: 02/22/22 02:50 Last Admin: 02/22/22 02:52 Dose: Not Given Documented by: [id number] Hydralazine HCl (Hydralazine Hcl 20 Mg/Ml Vial) Confirm Administered Dose 20 mg .ROUTE .STK-MED ONE Stop: 02/22/22 03:10 Last Admin: 02/22/22 03:16 Dose: Not Given Documented by: [id number] Hydralazine HCl (Hydralazine Hcl 20 Mg/Ml Vial) 10 mg IV NOW STA Stop: 02/22/22 03:10 Last Admin: 02/22/22 03:09 Dose: 10 mg Documented by: [id number] Hydralazine HCl (Hydralazine Hcl 20 Mg/Ml Vial) 10 mg IV NOW STA Stop: 02/22/22 03:11 Last Admin: 02/22/22 03:15 Dose: 10 mg Documented by: [id number] Cefazolin Sodium (Ancef 1000mg) 1,000 mg in 7.5 mls @ 2.5 mls/min IV ONCE ONE Stop: 02/22/22 02:07 Last Admin: 02/22/22 01:50 Dose: 2.5 mls/min Documented by: [id number] Labetalol HCl (Labetalol Hcl Iv 5 Mg/Ml 20ml) Confirm Administered Dose 10 mg IV .STK-MED ONE Stop: 02/22/22 02:43 Last Admin: 02/22/22 02:44 Dose: 10 mg Documented by: [id number] Cosigned by: [id number] Ondansetron HCl (Ondansetron Inj 2 Mg/Ml 2 Ml Vial) Confirm Administered Dose 4 mg .ROUTE .STK-MED ONE Stop: 02/22/22 02:56 Last Admin: 02/22/22 03:16 Dose: Not Given Documented by: [id number] Discharge Plan Visit Data Chief Complaint: Abdominal Pain Stated Complaint: lower abdominal pain ED Provider: Helen Hodge Discharge Problem: Incarcerated left inguinal hernia Discharge Instructions Interventions: ED Discharge Assessment Last Done: 02/22/22 01:08 Forms Stand Alone Forms: [facility] [email or web address] (formerly [email or web address] Prescriptions Prescriptions: No Action Flovent HFA 220 mcg/actuation HFA aerosol inhaler 2 puff INH BID Qty: 3 RF: 3 famotidine 20 mg tablet 20 mg PO DAILY Qty: 90 RF: 3 losartan [Cozaar] 100 mg tablet 100 mg PO QAM Qty: 90 RF: 3 sertraline [Zoloft] 100 mg tablet 200 mg PO HS Qty: 180 RF: 3 terazosin 5 mg capsule 5 mg PO HS Qty: 90 RF: 3 ferrous sulfate 325 mg (65 mg iron) tablet,delayed release (DR/EC) 325 mg PO QAM RF: 0 albuterol sulfate [Ventolin HFA] 90 mcg/actuation HFA aerosol inhaler 2 puff Inhalation Q4 PRN (Reason: Shortness Of Breath Or Wheezing) Qty: 18 RF: 11 cholecalciferol (vitamin D3) [Vitamin D3] 1,000 unit Tablet 1,000 unit PO QAM RF: 0 Multiple Vitamin-Minerals Tablet 1 tab PO DAILY RF: 0 omega 8-dao-jak-fish oil [Fish Oil] 1,200 (144-216) mg Capsule 1 cap PO DAILY RF: 0 loperamide 2 mg Capsule 2 mg PO Q4H PRN (Reason: loose stool) Qty: 30 RF: 0 simethicone [Gas Relief Extra Strength] 125 mg capsule 125 mg PO DIRECTED PRN (Reason: .GAS RELIEF) RF: 0 felodipine 10 mg tablet extended release 24 hr 10 mg PO QAM RF: 0 acetaminophen [Tylenol] 325 mg Tablet 650 mg PO Q4 PRN (Reason: PAIN/FEVER) RF: 0 psyllium husk [Metamucil] 0.4 gram Capsule 0.4 g PO DAILY RF: 0 polyethylene glycol 3350 [Miralax] 17 gram Powder In Packet 17 g PO DAILY PRN (Reason: Constipation) RF: 0 ondansetron HCl 8 mg tablet 8 mg PO Q8 PRN (Reason: Nausea) RF: 0 oxycodone-acetaminophen 5-325 mg tablet 0.5 tab PO BID PRN (Reason: Pain) RF: 0 potassium chloride 20 mEq tablet,ER particles/crystals 40 meq PO BID RF: 0 docusate sodium [Colace] 100 mg Capsule 100 mg PO DAILY PRN (Reason: Constipation) RF: 0 Referrals Referrals: Lidia Barr at [place] [Primary Care Provider] -
--- NOTE | 2022-02-22 01:16 | Anesthesiology Consultation ---
Date of Service February 22, 2022 Assessment & Plan (1) Encounter for pre-operative examination: Chart Review Chart Review: Acceptable Risk for Surgery (emergency surgery) and Patient NOT seen in Pre Admission Testing Consults Requested none History Surgery Operation Date: 02/22/22 01:30 Proposed Procedures p Inguinal Hernia Repair(Left) - Duran Fitzgerald MD Height/Weight Height: 5 ft 6 in Weight: 59.6 kg Allergies Allergy/AdvReac Type Severity Reaction Status Date / Time No Known Allergies Allergy Verified 02/22/22 00:19 Medications Home Medications Medication Instructions Recorded Confirmed Last Taken cholecalciferol (vitamin D3) 25 1,000 unit PO QAM 07/02/18 02/22/22 09/05/21 mcg (1,000 unit) tablet (Vitamin D3) ferrous sulfate 325 mg (65 mg 325 mg PO QAM tab 09/08/19 02/22/22 09/05/21 iron) tablet,delayed release albuterol sulfate 90 mcg/actuation 2 puff INHALATION Q4 PRN #18 gm 10/11/20 02/22/22 Unknown aerosol inhaler (Ventolin HFA) multivitamin with minerals 1 tab PO DAILY 08/24/21 02/22/22 09/05/21 (Multiple Vitamin-Minerals) omega 3-tsz-xjo-fish oil 1,200 mg 1 cap PO DAILY 08/24/21 02/22/22 09/05/21 (144 mg-216 mg) capsule (Fish Oil) loperamide 2 mg capsule 2 mg PO Q4H PRN #30 cap 08/28/21 02/22/22 Unknown acetaminophen 325 mg tablet 650 mg PO Q4 PRN 09/06/21 02/22/22 Unknown (Tylenol) psyllium husk 0.4 gram capsule 0.4 g PO DAILY 09/06/21 02/22/22 09/05/21 (Metamucil) fluticasone propionate 220 2 puff INH BID #3 inhaler 11/07/21 02/22/22 Unknown mcg/actuation HFA aerosol inhaler (Flovent HFA) famotidine 20 mg tablet 20 mg PO DAILY #90 tab 11/21/21 02/22/22 Unknown losartan 100 mg tablet (Cozaar) 100 mg PO QAM #90 tab 11/21/21 02/22/22 Unknown sertraline 100 mg tablet (Zoloft) 200 mg PO HS #180 tab 11/21/21 02/22/22 Unknown terazosin 5 mg capsule 5 mg PO HS #90 cap 11/21/21 02/22/22 Unknown docusate sodium 100 mg capsule 100 mg PO DAILY PRN 01/07/22 02/22/22 Unknown (Colace) ondansetron HCl 8 mg tablet 8 mg PO Q8 PRN 01/07/22 02/22/22 Unknown oxycodone-acetaminophen 5 mg-325 0.5 tab PO BID PRN 01/07/22 02/22/22 Unknown mg tablet polyethylene glycol 3350 17 gram 17 g PO DAILY PRN 01/07/22 02/22/22 Unknown oral powder packet (Miralax) potassium chloride 20 mEq 40 meq PO BID 01/07/22 02/22/22 Unknown tablet,extended release(part/cryst) felodipine 10 mg tablet,extended 10 mg PO QAM 02/22/22 02/22/22 Unknown release 24 hr simethicone 125 mg capsule (Gas 125 mg PO DIRECTED PRN 02/22/22 02/22/22 Unknown Relief Extra Strength) Past Medical History Medical History Adenocarcinoma of prostate Anemia 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 per records Anxiety Asthma well controlled Bladder neck contracture Cancer of kidney s/p cryoablation Chronic back pain Diastasis recti Difficulty speaking Dysphagia per remote records Essential hypertension GERD (gastroesophageal reflux disease) Hyperlipidemia Hypertension Inguinal hernia of left side without obstruction or gangrene Irritable bowel syndrome Lung cancer 7 years ago, s/p surgery Male stress incontinence Migraine ocular Non-small cell carcinoma of lung Osteoarthritis Pancytopenia due to antineoplastic chemotherapy Renal cell carcinoma Sensorineural hearing loss (SNHL) of both ears Umbilical hernia Past Family History Family History Mother Parkinson disease Father Colon cancer Colorectal cancer Other FHx: cancer Family history of diabetes mellitus Family history of high blood pressure Family history of lung disease No family history of adverse response to anesthesia Denies family history of Ovarian cancer Prostate cancer Myocardial infarction Breast cancer Past Surgical History Surgical History H/O basal cell carcinoma excision x2 H/O radical prostatectomy H/O straightening of nasal septum H/O vasectomy History of colonoscopy History of esophagogastroduodenoscopy (EGD) History of lung surgery RIGHT > 7 YRS AGO History of right cataract extraction Social History Smoking Status: Never smoker tobacco type: cigarettes Hx Alcohol Use: No Alcohol type: wine alcohol intake frequency: holidays/special occasions only Hx Substance Use: Yes substance use type: does not use Physical Exam Vital Signs Last Vital Signs Temp 36.7 C 02/21/22 22:58 Pulse 87 02/21/22 22:58 Resp 18 02/21/22 22:58 BP 200/107 H 02/21/22 22:58 Pulse Ox 98 02/21/22 22:58 Testing Laboratory Results 02/21/22 23:58 02/21/22 23:58 Urine Color Yellow 02/22/22 00:40 Urine Appearance Clear (Clear) 02/22/22 00:40 Urine pH 7.5 (4.5-7.5) 02/22/22 00:40 Ur Specific [place] 1.009 (1.000-1.030) 02/22/22 00:40 Urine Protein 2+ (Negative) H 02/22/22 00:40 Urine Glucose (UA) Negative (Negative) 02/22/22 00:40 Urine Ketones Negative (Negative) 02/22/22 00:40 Urine Nitrite Negative (Negative) 02/22/22 00:40 Ur Leukocyte Esterase Negative (Negative) 02/22/22 00:40 Urine WBC (Auto) 0 /hpf (0-5) 02/22/22 00:40 Urine RBC (Auto) 0-4 /hpf (0-4) 02/22/22 00:40 U Hyaline Cast (Auto) 0 /lpf (0-5) 02/22/22 00:40 U Epithel Cells (Auto) 5-10 /lpf (0-5) H 02/22/22 00:40 Urine Bacteria (Auto) Negative (Negative) 02/22/22 00:40
[2022-02-22] MEDS ORDERED: ATROPINE SULFATE 0.1 MG/ML 10ML SYR IV PRN (01:17)
[2022-02-22] MEDS ORDERED: PHENYLEPHRINE 100MCG/ML 5ML SYR IV PRN (01:17)
[2022-02-22] MEDS ORDERED: HYDROmorphone INJ 1 MG/ML SYRINGE IV PRN (01:17)
[2022-02-22] MEDS ORDERED: ePHEDrine sulfate 50 MG/ML AMP IV PRN (01:17)
[2022-02-22] MEDS ORDERED: ONDANSETRON INJ 2 MG/ML 2 ML VIAL IV PRN (01:17)
[2022-02-22] MEDS ORDERED: LABETALOL HCL IV 5 MG/ML 20ML IV PRN (01:17)
--- NOTE | 2022-02-22 01:19 | Anesthesiology Consultation ---
Date of Service February 22, 2022 Assessment & Plan (1) Encounter for pre-operative examination: Chart Review Chart Review: Acceptable Risk for Surgery (emergency surgery) and Patient NOT seen in Pre Admission Testing Consults Requested none History Surgery Operation Date: 02/22/22 01:30 Proposed Procedures p Inguinal Hernia Repair(Left) - Duran Fitzgerald MD Height/Weight Height: 5 ft 6 in Weight: 59.6 kg Allergies Allergy/AdvReac Type Severity Reaction Status Date / Time No Known Allergies Allergy Verified 02/22/22 00:19 Medications Home Medications Medication Instructions Recorded Confirmed Last Taken cholecalciferol (vitamin D3) 25 1,000 unit PO QAM 07/02/18 02/22/22 09/05/21 mcg (1,000 unit) tablet (Vitamin D3) ferrous sulfate 325 mg (65 mg 325 mg PO QAM tab 09/08/19 02/22/22 09/05/21 iron) tablet,delayed release albuterol sulfate 90 mcg/actuation 2 puff INHALATION Q4 PRN #18 gm 10/11/20 02/22/22 Unknown aerosol inhaler (Ventolin HFA) multivitamin with minerals 1 tab PO DAILY 08/24/21 02/22/22 09/05/21 (Multiple Vitamin-Minerals) omega 2-hbg-ekk-fish oil 1,200 mg 1 cap PO DAILY 08/24/21 02/22/22 09/05/21 (144 mg-216 mg) capsule (Fish Oil) loperamide 2 mg capsule 2 mg PO Q4H PRN #30 cap 08/28/21 02/22/22 Unknown acetaminophen 325 mg tablet 650 mg PO Q4 PRN 09/06/21 02/22/22 Unknown (Tylenol) psyllium husk 0.4 gram capsule 0.4 g PO DAILY 09/06/21 02/22/22 09/05/21 (Metamucil) fluticasone propionate 220 2 puff INH BID #3 inhaler 11/07/21 02/22/22 Unknown mcg/actuation HFA aerosol inhaler (Flovent HFA) famotidine 20 mg tablet 20 mg PO DAILY #90 tab 11/21/21 02/22/22 Unknown losartan 100 mg tablet (Cozaar) 100 mg PO QAM #90 tab 11/21/21 02/22/22 Unknown sertraline 100 mg tablet (Zoloft) 200 mg PO HS #180 tab 11/21/21 02/22/22 Unknown terazosin 5 mg capsule 5 mg PO HS #90 cap 11/21/21 02/22/22 Unknown docusate sodium 100 mg capsule 100 mg PO DAILY PRN 01/07/22 02/22/22 Unknown (Colace) ondansetron HCl 8 mg tablet 8 mg PO Q8 PRN 01/07/22 02/22/22 Unknown oxycodone-acetaminophen 5 mg-325 0.5 tab PO BID PRN 01/07/22 02/22/22 Unknown mg tablet polyethylene glycol 3350 17 gram 17 g PO DAILY PRN 01/07/22 02/22/22 Unknown oral powder packet (Miralax) potassium chloride 20 mEq 40 meq PO BID 01/07/22 02/22/22 Unknown tablet,extended release(part/cryst) felodipine 10 mg tablet,extended 10 mg PO QAM 02/22/22 02/22/22 Unknown release 24 hr simethicone 125 mg capsule (Gas 125 mg PO DIRECTED PRN 02/22/22 02/22/22 Unknown Relief Extra Strength) Past Medical History Medical History Adenocarcinoma of prostate Anemia 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 per records Anxiety Asthma well controlled Bladder neck contracture Cancer of kidney s/p cryoablation Chronic back pain Diastasis recti Difficulty speaking Dysphagia per remote records Essential hypertension GERD (gastroesophageal reflux disease) Hyperlipidemia Hypertension Inguinal hernia of left side without obstruction or gangrene Irritable bowel syndrome Lung cancer 7 years ago, s/p surgery Male stress incontinence Migraine ocular Non-small cell carcinoma of lung Osteoarthritis Pancytopenia due to antineoplastic chemotherapy Renal cell carcinoma Sensorineural hearing loss (SNHL) of both ears Umbilical hernia Past Family History Family History Mother Parkinson disease Father Colon cancer Colorectal cancer Other FHx: cancer Family history of diabetes mellitus Family history of high blood pressure Family history of lung disease No family history of adverse response to anesthesia Denies family history of Ovarian cancer Prostate cancer Myocardial infarction Breast cancer Past Surgical History Surgical History H/O basal cell carcinoma excision x2 H/O radical prostatectomy H/O straightening of nasal septum H/O vasectomy History of colonoscopy History of esophagogastroduodenoscopy (EGD) History of lung surgery RIGHT > 7 YRS AGO History of right cataract extraction Social History Smoking Status: Never smoker tobacco type: cigarettes Hx Alcohol Use: No Alcohol type: wine alcohol intake frequency: holidays/special occasions only Hx Substance Use: Yes substance use type: does not use Physical Exam Vital Signs Last Vital Signs Temp 36.7 C 02/21/22 22:58 Pulse 87 02/21/22 22:58 Resp 18 02/21/22 22:58 BP 200/107 H 02/21/22 22:58 Pulse Ox 98 02/21/22 22:58 Testing Laboratory Results 02/21/22 23:58 02/21/22 23:58 Urine Color Yellow 02/22/22 00:40 Urine Appearance Clear (Clear) 02/22/22 00:40 Urine pH 7.5 (4.5-7.5) 02/22/22 00:40 Ur Specific [place] 1.009 (1.000-1.030) 02/22/22 00:40 Urine Protein 2+ (Negative) H 02/22/22 00:40 Urine Glucose (UA) Negative (Negative) 02/22/22 00:40 Urine Ketones Negative (Negative) 02/22/22 00:40 Urine Nitrite Negative (Negative) 02/22/22 00:40 Ur Leukocyte Esterase Negative (Negative) 02/22/22 00:40 Urine WBC (Auto) 0 /hpf (0-5) 02/22/22 00:40 Urine RBC (Auto) 0-4 /hpf (0-4) 02/22/22 00:40 U Hyaline Cast (Auto) 0 /lpf (0-5) 02/22/22 00:40 U Epithel Cells (Auto) 5-10 /lpf (0-5) H 02/22/22 00:40 Urine Bacteria (Auto) Negative (Negative) 02/22/22 00:40 Electrocardiogram Date: 02/21/22 SR with PVCs, rate 76, cannot rule out inferior infarct Chest X-Ray Date: 01/07/22 XR chest 1V portable CLINICAL HISTORY: Dyspnea. History of malignancy. COMPARISON STUDY: Chest radiograph September 06, 2021. FINDINGS: A small right pleural effusion is noted. No pneumothorax. Right mid and lower lung airspace opacity is present. Cardiomegaly is unchanged. No evidence for pulmonary edema. IMPRESSION: 1. Right mid and lower lung airspace opacity which favors an infectious process. Underlying neoplastic process cannot be excluded. 2. Small right pleural effusion. No pneumothorax. 3. Cardiomegaly without evidence for pulmonary edema. ACT 112: Negative or not required by law. Electronically signed by: Mono Haddad M.D. 01/07/2022 8:27 AM Dictated:01/07/22825 Transcribed: 01/07/22825 Echocardiogram Date: 07/25/21 EF: 70 LV Function: normal Other Findings: + atrial enlargement (moderate left atrial dilation) Valvular Disease: + AI (trace) mild pulmonary hypertension Other Testing CT abd pelvis IV con only CLINICAL HISTORY: Cancer patient with nausea and vomiting COMPARISON STUDY: 10/25/2015 CT DOSE: 707.41 mGy.cm TECHNIQUE: Standard CT of the Abdomen and Pelvis was performed with IV contrast. A dose lowering technique was utilized adhering to the principles of ALARA. Contrast Volume: Optiray 320, 116 ml. The patient did not receive oral contrast. FINDINGS: Lung base: Compared to the previous examination, there is an approximately 1.6 cm spiculated nodule the left lung base. Scarring is also present in both lung bases, right greater than left. Abdominal cavity: There is no evidence for abdominal mass, adenopathy or ascites. Liver: Compared to previous examination, numerous heterogeneously enhancing masses are seen within the liver characteristic of metastatic disease. The largest measures approximately 3.1 cm . No biliary duct dilatation is seen. Spleen: There is homogeneous attenuation of the splenic parenchyma. There is no enhancing mass lesion. There has been interval development of at least moderate splenomegaly. Pancreas: There is homogeneous attenuation of the pancreatic parenchyma. There is no evidence for mass lesion or peripancreatic fluid collection. Gall Bladder: The gallbladder is distended with cholelithiasis. There is no CT evidence for acute cholecystitis. Adrenal glands: The adrenal glands are normal in size and attenuation. There is no evidence for enhancing mass lesion. Kidneys: There is homogeneous attenuation of the renal parenchyma bilaterally. There is no evidence for renal calculus or hydronephrosis. There is no evidence for enhancing mass. Sharply defined bilateral renal cysts are present. Bowel: There are scattered fluid-filled loops of small bowel without evidence for disproportionate dilatation or obstruction. Findings are most characteristic of an ileus versus gastroenteritis. There is a left inguinal hernia with loop of sigmoid colon extending into the hernia sac. There is no evidence for obstruction or incarceration. The remaining bowel loops are normally placed within the abdomen and pelvis. There is extensive sigmoid diverticulosis without evidence for diverticulitis. There are no inflammatory changes present. There is no evidence for free air. There is evidence for a normal appendix in the right lower quadrant. Bladder: The bladder is within normal limits with no evidence for focal mass, calculus or diverticulum. : There is no evidence for pelvic mass or adenopathy. There is no evidence for pelvic ascites. Vasculature: There is no evidence for aneurysmal dilatation of the abdominal aorta. Atherosclerotic calcification is present. Osseous structures: There is no acute osseous pathology. Degenerative changes are present within the spine. IMPRESSION: 1. Spiculated nodule at left lung base characteristic of metastatic disease versus primary neoplasm. 2. Interval development of diffuse liver metastases. 3. Splenomegaly. 4. Cholelithiasis. 5. Left inguinal hernia with loop of sigmoid colon. No evidence for obstruction. 6. Findings characteristic of gastroenteritis versus ileus. 7. Additional nonacute findings are delineated above. ACT 112: Negative or not required by law. Electronically signed by: Aleksey Brandt M.D. 01/07/2022 9:02 AM
[2022-02-22] MEDS ORDERED: fentaNYL citrate 100 MCG/2 ML VIAL ONE ×2 (01:35→02:49)
[2022-02-22] MEDS ORDERED: SUCCINYLCHOLINE 100MG/5ML SYR IV ONE (01:52)
[2022-02-22] MEDS ORDERED: ceFAZolin 330 MG/ML 1 GM VIAL ONE (01:52)
[2022-02-22] MEDS ORDERED: PROPOFOL IV EMULSION 10 MG/ML 20 ML VIAL IV ONE ×2 (01:52→01:55)
[2022-02-22] MEDS ORDERED: DEXAMETHASONE SOD INJ 4 MG/ML VIAL ONE (01:53)
[2022-02-22] MEDS ORDERED: LIDOCAINE 2% 2 ML VIAL/AMP(20MG/ML) INFIL ONE (01:53)
[2022-02-22] MEDS ORDERED: ONDANSETRON INJ 2 MG/ML 2 ML VIAL ONE ×3 (01:53→02:55)
[2022-02-22] MEDS ORDERED: ROCURONIUM BROMIDE 10 MG/ML 5 ML VIAL IV ONE (01:54)
[2022-02-22] MEDS ORDERED: NEOSTIGMINE METHYLSULFATE 1 MG/ML 10ML VIAL ONE (01:54)
[2022-02-22] MEDS ORDERED: GLYCOPYRROLATE 0.2 MG/ML VIAL ONE (01:55)
[2022-02-22] MEDS ORDERED: LABETALOL HCL IV 5 MG/ML 20ML IV ONE ×2 (02:00→02:42)
[2022-02-22] MEDS ORDERED: ceFAZolin 1000MG 1,000 MG/7.5 ML SYR IV ONE (02:05)
[2022-02-22] MEDS ORDERED: SUGAMMADEX SODIUM 200 MG/2 ML VIAL IV ONE (02:22)
--- NOTE | 2022-02-22 02:25 | Post Operative Brief Note ---
Immediate Post Op Note v1 Date of Surgery February 22, 2022 Pre & Post Diagnosis Operation Date: 02/22/22 01:30 Pre-Op Diagnosis: Incarcerated Left Inguinal Hernia Post-Op Diagnosis: Incarcerated Left Inguinal Hernia I identified the patient and participated in the time-out.: Yes Procedure Operation Date: 02/22/22 01:30 Actual Procedures p Open Left Incarcerated Inguinal Hernia Repair(Left) - Duran Fitzgerald MD Surgeon Duran Fitzgerald MD Rn Perioperative none Estimated Blood Loss 35 Findings Consistent with Post-Op Diagnosis incarcerated sigmoid colon, viable in direct hernia
[2022-02-22] MEDS: fentaNYL citrate 100 MCG/2 ML VIAL IV PRN ×4 (02:49→03:08)
[2022-02-22] MEDS ORDERED: hydrALAZINE HCL 20 MG/ML VIAL IV STA ×2 (03:09→03:10)
[2022-02-22] MEDS ORDERED: hydrALAZINE HCL 20 MG/ML VIAL ONE (03:09)
--- NOTE | 2022-02-22 03:19 | Anesthesiology Progress Note ---
Date of Service February 22, 2022 Anesthesia Post Procedure Vital Signs Vital Signs: Temp Pulse Pulse Pulse Resp BP BP 02/22/22 02:40 36.3 C L 75 16 185/88 H 02/21/22 22:58 36.7 C 103 H 87 18 200/107 H 200/107 H Pulse Ox 02/22/22 02:40 99 02/21/22 22:58 98 Pain Intensity Lower Abdomen: Pain Intensity: 2 Transfer of Care Handoff Completed per policy Notes Mental Status: alert / awake / arousable Patient Amnestic to Procedure: Yes Nausea / Vomiting: adequately controlled Pain: adequately controlled Airway Patency, RR, SpO2: stable & adequate BP & HR: stable & adequate and see Notes below Hydration State: stable & adequate Anesthetic Complications: no major complications apparent and Pt Satisfied with anesthetic care Notes: The patient has had significant hypertension throughout the perioperative period. His BP was 200s/100s preoperatively. In the OR, his blood pressure remained elevated and he was treated with labetalol with good effect. However, in the PACU his blood pressure went up again. He has been treated with lab etalol and hydralazine. Dr. Fitzgerald was made aware of the patient's hypertension and will have the medicine team follow him on the floor. The patient feels well with no sob, chest pain, or headache. He has some mild surgical site pain. The patient's other vital signs have been stable. His BP is now 163/78.
[2022-02-22] MEDS ORDERED: ALBUTEROL HFA 8 GM INHALER INH PRN (03:58)
[2022-02-22] MEDS ORDERED: oxyCODONE HCL IR 5 MG TAB (IMMEDIATE RELEASE) PO PRN (03:58)
[2022-02-22] MEDS ORDERED: MoRPHine SULFATE 2 MG/ML CARP IV PRN (03:58)
[2022-02-22] MEDS: oxyCODONE HCL IR 5 MG TAB (IMMEDIATE RELEASE) PO PRN ×2 (05:42→09:54)
--- NOTE | 2022-02-22 07:00 | History and Physical Report ---
DATE OF ADMISSION: 02/22/2022. CHIEF COMPLAINT: Status post surgery for incarcerated left inguinal hernia. HISTORY OF PRESENT ILLNESS: This is a 76-year-old male with past medical history significant for metastatic adenocarcinoma of the lung, history of malignant pleural effusion, history of moderate persistent asthma, hypertension, severe protein calorie malnutrition, history of irritable bowel syndrome with diarrhea, history of GERD, dysphagia, depression, history of prostate cancer, history of renal cell cancer, currently at [facility]. He does not know whether he will go back to [facility] or home. He lives alone at home, ambulates with a walker. He says he is getting speech therapy, but he says he is eating a regular diet at [facility]. He presents with left inguinal hernia incarceration, status post surgery, tolerated the procedure okay, and mild soreness at the surgical site. Denies any headache. No blurred visions, no runny nose, no sore throat, no cough. Has some nausea on and off. No chest pain, no shortness of breath, no abdominal discomfort. Was constipated for the last few days. Appetite is down for a few days. Currently, resting comfortably, hemodynamically stable. ALLERGIES: No known drug allergies. PAST MEDICAL HISTORY: As mentioned above. PAST SURGICAL HISTORY: Colonoscopy, CT-guided cryoablation of the renal cell carcinoma, Mohs surgery, right VATS, wedge resection of right lower lobe lesion, vasectomy. MEDICATIONS: The patient is on Tylenol 650 mg p.o. 4 hours p.r.n., albuterol 2 puffs inhalation q. 4 hours p.r.n., vitamin D 1000 units p.o. a.m., Colace 100 mg p.o. daily p.r.n., famotidine 20 mg p.o. daily, felodipine 10 mg p.o. daily, ferrous sulfate 325 mg p.o. a.m., Flovent HFA 220 mcg 2 puffs inhalation b.i.d., loperamide 2 mg p.o. 4 hours p.r.n., losartan 100 mg p.o. a.m., multivitamin with minerals one tablet p.o. daily, omega fish oil 1 capsule p.o. daily, Zofran 8 mg p.o. q, 8 hours p.r.n., oxycodone/acetaminophen 5/325mg half tab p.o. b.i.d. p.r.n., MiraLax 17 g p.o. daily p.r.n., potassium chloride 40 mEq p.o. b.i.d., sertraline 200 mg p.o. at bedtime, simethicone 125 mg p.o. p.r.n., terazosin 5 mg p.o. at bedtime. FAMILY HISTORY: Significant for daughter has thyroid cancer, father has colon cancer, maternal grandmother has diabetes, daughter has thyroid disorder. SOCIAL HISTORY: . Former smoker, smoked on average one-third pack per day for 5 years. Alcohol moderately. No drug use. REVIEW OF SYSTEMS: As per HPI. Rest of review of systems is negative. PHYSICAL EXAMINATION: GENERAL: The patient is old and frail, not in acute distress. VITAL SIGNS: Temperature 36.6, pulse 74, respiratory rate 18, blood pressure 161/76, oxygen 97% on 1 liter. HEENT: Extraocular muscles intact. NECK: No JVD. No neck masses. CARDIOVASCULAR: S1 and S2 heard. Regular rate and rhythm. No murmur, no gallop. RESPIRATORY SYSTEM: Normal AP diameter. No accessory muscle use. No wheezing, no crackles. ABDOMEN: Soft, bowel sounds sluggish, nontender, no distention. Left groin inguinal hernia surgery, dressing intact, no drainage seen. CENTRAL NERVOUS SYSTEM: Cranial nerves II through XII are grossly intact, nonfocal. EXTREMITIES: No edema, no erythema. LABORATORY DATA: WBC 6.02, hemoglobin 11.3, hematocrit 33.4, platelets 179. Sodium 138, potassium 3.4, chloride 103, bicarb 26, BUN 20, creatinine 1.3, serum glucose 100, calcium 9, total bilirubin 0.6, AST 22, ALT 9, alkaline phosphatase 161, lipase 222. Urinalysis negative. SARS-CoV-2 rapid test negative. EKG: Sinus rhythm with premature supraventricular complexes at a rate of 76, nonspecific ST abnormalities. ASSESSMENT AND PLAN: This is a 76-year-old male with a known left inguinal hernia, who presents with left groin mass, abdominal pain and status post surgery for incarcerated left inguinal hernia. 1. Incarcerated left inguinal hernia, status post surgery: Management as per surgery. 2. Hypertension: Continue his home medication of losartan, felodipine, and terazosin. Will monitor the blood pressure. 3. History of depression: Continue Zoloft. 4. Gastroesophageal reflux disease: Continue his Pepcid. 5. Asthma: Continue his inhalers, currently stable. 6. History of right lower lobe adenocarcinoma of the lung, poorly differentiated metastatic lung cancer, status post wedge resection, status post four cycles of chemotherapy with gemcitabine and carboplatin between 06/06/2013 and 08/17/2013 and status post 4 cycles of Alimta chemotherapy between 09/26/2013 and 11/28/2013. Recurrence of adenocarcinoma, currently under observation since October 2018. 7. History of prostate cancer: Status post prostatectomy in 2009. 8. History of left kidney papillary carcinoma: Status post cryoablation in January 2016. 9. Deep venous thrombosis prophylaxis.as per surgery 10. Question of dysphagia: The patient states he is getting speech therapy in [facility]. He states he is on a regular diet. Currently on clear liquid diet. Will monitor. If any concern, consult speech therapy. DISPOSITION: As per general surgery. Job ID: [id number] [facility]
[2022-02-22] MEDS: FAMOTIDINE 20 MG TAB PO SCH ×2 (08:24→08:26)
[2022-02-22] MEDS: POTASSIUM CHLORIDE CRTAB 20 MEQ TABCR PO SCH ×2 (08:25→20:29)
[2022-02-22] MEDS: OMEGA-3 (PURIFIED FISH OIL) 1 GM CAP PO SCH (08:25)
[2022-02-22] MEDS: FLUTICASONE FUROATE 200MCG 14 PUFFS/INHALER INH SCH (08:25)
[2022-02-22] MEDS: LOSARTAN POTASSIUM 50 MG TAB PO SCH (08:25)
[2022-02-22] MEDS: FELODIPINE 5 MG TABCR PO SCH (08:26)
--- NOTE | 2022-02-22 09:44 | Surgery Progress Note ---
Date of Service February 22, 2022 Assessment & Plan (1) Incarcerated left inguinal hernia: Plan: -advance diet and activity -medically optimize -hopefully discharge in AM Admission and Anticipated Discharge Date Admission Date: February 22, 2022 Subjective pain controlled eating well Review of Systems Constitutional: no fever and no chills Respiratory: no dyspnea Cardiovascular: no chest pain Gastrointestinal: no abdominal pain, no nausea and no vomiting Physical Exam Constitutional: + thin Respiratory: normal respiratory effort, lungs clear to auscultation Cardiovascular: RRR, no murmur, no edema Gastrointestinal (Abdomen): Percussion/Palpation: abdomen soft; abdomen nontender Genitourinary: dressing in place; no sign of recurrence Results & Data ([facility]) Vital Signs (Past 12 Hours) Vital Signs Temp Pulse Pulse Pulse Pulse Resp BP 02/22/22 08:38 36.7 C 87 16 02/22/22 06:50 36.8 C 82 18 02/22/22 05:46 36.8 C 75 18 02/22/22 04:50 36.6 C 74 18 02/22/22 04:20 36.7 C 80 18 02/22/22 03:45 36.7 C 80 18 02/22/22 03:35 36.4 C L 80 14 02/22/22 03:20 76 17 02/22/22 03:10 76 17 02/22/22 03:00 76 19 02/22/22 02:50 75 22 02/22/22 02:40 36.3 C L 75 16 02/21/22 22:58 36.7 C 103 H 87 18 200/107 H BP BP Pulse Ox 02/22/22 08:38 173/56 H 94 02/22/22 06:50 148/77 H 94 02/22/22 05:46 173/82 H 97 02/22/22 04:50 161/76 H 97 02/22/22 04:20 161/76 H 97 02/22/22 03:45 161/76 H 97 02/22/22 03:35 150/83 H 98 02/22/22 03:20 176/78 H 97 02/22/22 03:10 199/86 H 97 02/22/22 03:00 197/95 H 94 02/22/22 02:50 182/92 H 96 02/22/22 02:40 185/88 H 99 02/21/22 22:58 200/107 H 98
[2022-02-22] MEDS: LACTATED RINGER'S 1,000 ML IV SCH ×3 (09:50→22:48)
--- NOTE | 2022-02-22 09:55 | Operative Report (OR) ---
PREOPERATIVE DIAGNOSIS: Incarcerated left inguinal hernia. POSTOPERATIVE DIAGNOSES: Incarcerated direct left inguinal hernia with sigmoid colon, viable colon. PROCEDURE PERFORMED: Open left inguinal hernia repair. SURGEON: Duran Fitzgerald MD. ANESTHESIA: General with 0.5% Marcaine with epinephrine local. ESTIMATED BLOOD LOSS: 35 mL. DRAINS: None. COMPLICATIONS: None. PATHOLOGY: No specimens. INDICATIONS FOR PROCEDURE: This is a 76-year-old male who came in with a known inguinal hernia which was planned to be repaired earlier this year, but did not get repaired. He has metastatic lung canc er. He comes in with an incarcerated left inguinal hernia. This was attempted to be reduced in the ED unsuccessfully. There was some erythema over the mass. He was advised that we would have to take him to the OR and do a repair. Also talked about the risk of having to do a bowel resection if the bowel was nonviable. I talked to him and told him I do not like to place mesh in an inflamed or infe cted field, so if we primarily repair this there is a high chance of recurrence. He understands this and wished to proceed. DESCRIPTION OF PROCEDURE: The patient was taken to the OR and underwent excellent general endotrache al anesthesia. He did well during the surgery. He got a gram of Ancef perioperatively. His blood p ressure was somewhat high during the procedure, but this was treated by anesthesia. His lower abdome n and left groin were prepped and draped in a normal sterile fashion. A transverse oblique incision was made along the lines of Patty's over the mass. Dissection was taken down through his subcutaneo us tissues and Luz Marina's fascia to identify the external oblique aponeurosis. Cautery was used for he mostasis. There were some bleeders from some of these which was about 35 mL of blood loss. Once the aponeurosis was identified, this was incised and cut down through the ring where a direct he rnia could be seen with a colon and within that period the colon was reduced. The direct sac was lig ated and then excised. The cord contents prior to doing this were and put through a Penros e drain. The vas was identified. Once this was done, the groin was then irrigated. He had a fairly well-developed conjoined tendon and therefore this was used to sew down to the shelving edge of the inguinal ligament. This was done with a series of 0 Ethibond sutures. Six separate sutures were use d to do the repair. There was a small 1.5 cm inguinal ring recreated. Once this was done, 0.5% Marcaine with epinephrine was used to create a local field block. The exter nal oblique was then repaired using a running Vicryl suture. A running Vicryl was used to close Scar pa's fascia. Asa were used to close the skin. Sterile dressings were applied. He tolerated the procedure well without complications and sent to the postoperative recovery for a period of observat ion and then will be sent to the floor for the rest of his care. Job ID: [id number]
--- NOTE | 2022-02-22 10:50 | Electrocardiogram Report ---
Test Reason : Blood Pressure : / mmHG Vent. Rate : 076 BPM Atrial Rate : 076 BPM P-R Int : 156 ms QRS Dur : 084 ms QT Int : 394 ms P-R-T Axes : 054 031 047 degrees QTc Int : 443 ms Sinus rhythm with Premature ventricular complexes Left atrial enlargement Abnormal ECG When compared with ECG of 07-JAN-2022 02:37, Premature ventricular complexes are no longer Present Vent. rate has decreased BY [address] no longer depressed in Lateral leads Nonspecific T wave abnormality now evident in Anterolateral leads Confirmed by Momo Malin ([id number]) on 02/22/2022 10:50:01 AM Referred By: REFERRED SELF Confirmed By:Saul Malin
[2022-02-22] MEDS: ceFAZolin 1000MG 1,000 MG/7.5 ML SYR IV SCH ×2 (11:18→17:49)
[2022-02-22] MEDS: ONDANSETRON 4 MG OD TAB PO PRN (12:10)
[2022-02-22] MEDS: ACETAMINOPHEN 325 MG TAB PO PRN ×2 (17:50→22:53)
[2022-02-22] MEDS: TERAZOSIN HCL 5 MG CAP PO SCH (20:28)
[2022-02-22] MEDS: SERTRALINE HCL 100 MG TABLET PO SCH (20:29)
[2022-02-22] MEDS ORDERED: SIMETHICONE 80 MG CHEW PO PRN (22:49)
[2022-02-23] MEDS: OMEGA-3 (PURIFIED FISH OIL) 1 GM CAP PO SCH (08:26)
[2022-02-23] MEDS: POTASSIUM CHLORIDE CRTAB 20 MEQ TABCR PO SCH ×2 (08:26→21:03)
[2022-02-23] MEDS: FLUTICASONE FUROATE 200MCG 14 PUFFS/INHALER INH SCH (08:26)
[2022-02-23] MEDS: LOSARTAN POTASSIUM 50 MG TAB PO SCH (08:27)
[2022-02-23] MEDS: FELODIPINE 5 MG TABCR PO SCH (08:27)
[2022-02-23] MEDS: FAMOTIDINE 20 MG TAB PO SCH (08:27)
[2022-02-23] MEDS: ONDANSETRON 4 MG OD TAB PO PRN ×2 (08:30→17:55)
--- NOTE | 2022-02-23 10:14 | Surgery Progress Note ---
Date of Service February 23, 2022 Assessment & Plan (1) Incarcerated left inguinal hernia: Plan: -advance diet -ambulate hopefully home in AM Admission and Anticipated Discharge Date Admission Date: February 22, 2022 Subjective -eating only OK -ambulate Review of Systems Constitutional: no fever and no chills Respiratory: no cough and no dyspnea Cardiovascular: no chest pain Gastrointestinal: no abdominal pain, no nausea and no vomiting Genitourinary: + testicle pain and + problem reported (some swelling and ecchymosis in scrotum and groin) Integumentary: no rash and no lesions Physical Exam Constitutional: + thin Neck: trachea midline Respiratory: no respiratory distress Cardiovascular: RRR, no murmur, no edema Gastrointestinal (Abdomen): Inspection/Auscultation: abdomen normal to inspection; abdomen not distended Percussion/Palpation: abdomen soft; abdomen nontender Skin: no rashes, warm and dry Genitourinary: + scrotal ecchymosis and + scrotal swelling; no hernia Results & Data ([facility]) Vital Signs (Past 12 Hours) Vital Signs Temp Pulse Resp BP Pulse Ox 02/23/22 08:31 36.9 C 79 16 176/81 H 94 02/22/22 23:27 36.9 C 82 18 186/81 H 93
[2022-02-23] MEDS: LACTATED RINGER'S 1,000 ML IV SCH (12:15)
[2022-02-23 12:41] LABS: Hematocrit (blood only) 37.5 % (42-52); Hemoglobin 12.2 g/dL (14.0-18.0); Mean Corpuscular Hemoglobin 27.7 pg (25-34); Mean Corpuscular Hgb Conc 32.5 g/dL (32-36); Platelet Count 172 K/uL (130-400); RDW Coefficient of Variation 14.6 % (11.5-14.5); RDW Standard Deviation 44.5 fL (36.4-46.3); Red Blood Count 4.41 M/uL (4.7-6.1); White Blood Count 7.29 K/uL (4.8-10.8)
[2022-02-23] MEDS ORDERED: ONDANSETRON 4 MG OD TAB PO STA (12:45)
[2022-02-23 12:57] LABS: BUN Creatinine Ratio 11.9 (10-20); Calcium 9.1 mg/dl (8.5-10.1); Creatinine Clr Calc Pharmacy 48.6 ml/min; Est GFR (Non-African American) 64.7 ml/min; Potassium 3.4 mmol/L (3.5-5.1)
--- NOTE | 2022-02-23 13:41 | Hospitalist Progress Note ---
Date of Service February 23, 2022 Assessment & Plan (1) Incarcerated left inguinal hernia: Plan: s/p open left inguinal hernia repair. Postop day 1 Pain controlled. Advance diet as tolerated (2) Essential hypertension: Plan: Blood pressure is poorly controlled. Continue losartan Recommend discontinuing IVF If still poorly controlled, will add amlodipine 5mg daily (3) Asthma: Plan: Controlled Continue neb prn (4) Anemia: Plan: Chronic anemia Hb is stable. 12 today Plan: History of lung cancer s/p resection, chemotherapy with recurrence in 2019 currently under observation. 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 DVT prophylaxis as per surgeon Admission and Anticipated Discharge Date Admission Date: February 22, 2022 Subjective Patient seen and examined Reports only nausea States surgical site pain is controlled Passing flatus. Yet to move bowel per RN. Reports chronic bowel incontinence Denied any chest pain,cough, SOB, palpitations Physical Exam Constitutional: + well hydrated; no acute distress Eyes: PERRL, conjunctivae normal, anicteric sclerae ENMT: external ear and nose normal, oropharynx normal Respiratory: normal respiratory effort, lungs clear to auscultation Cardiovascular: Rate/Rhythm: regular rate and regular rhythm S1 S2 Gastrointestinal (Abdomen): normal bowel sounds, soft, nontender, no hepatosplenomegaly Clean left groin surgical site dressing Musculoskeletal: No pedal edema Neurologic: PERRL, EOMI, accommodation nl, no face palsy, no dysarthria Psychiatric: A+Ox3, euthymic affect Results & Data Results & Data ([facility]) Vital Signs (Past 12 Hours) Vital Signs Temp Pulse Resp BP Pulse Ox 02/23/22 08:31 36.9 C 79 16 176/81 H 94 Laboratory Results Abnormal lab results 02/23/22 02/23/22 Range/Units 12:26 12:26 RBC 4.41 L (4.7-6.1) M/uL Hgb 12.2 L (14.0-18.0) g/dL Hct 37.5 L (42-52) % RDW Coeff of Girish 14.6 H (11.5-14.5) % Potassium 3.4 L (3.5-5.1) mmol/L Glucose 105 H (70-99(Fasting)) mg/dl
[2022-02-23] MEDS: SERTRALINE HCL 100 MG TABLET PO SCH (21:02)
[2022-02-23] MEDS: TERAZOSIN HCL 5 MG CAP PO SCH (21:04)
[2022-02-24] MEDS: OMEGA-3 (PURIFIED FISH OIL) 1 GM CAP PO SCH (08:39)
[2022-02-24] MEDS: FELODIPINE 5 MG TABCR PO SCH (08:39)
[2022-02-24] MEDS: POTASSIUM CHLORIDE CRTAB 20 MEQ TABCR PO SCH ×2 (08:39→20:08)
[2022-02-24] MEDS: FAMOTIDINE 20 MG TAB PO SCH (08:39)
[2022-02-24] MEDS: LOSARTAN POTASSIUM 50 MG TAB PO SCH (08:39)
[2022-02-24] MEDS: FLUTICASONE FUROATE 200MCG 14 PUFFS/INHALER INH SCH (08:40)
[2022-02-24] MEDS: DOCUSATE SODIUM 100 MG CAP PO SCH (12:28)
--- NOTE | 2022-02-24 12:54 | Surgery Progress Note ---
Date of Service February 24, 2022 Assessment & Plan (1) Incarcerated left inguinal hernia: Plan: POD # 2.5 status post open left inguinal hernia repair -afebrile, HTN with SBP 188, asymptomatic - + return of bowel function today - minimal postop pain Plan: Doing well from surgery standpoint SBP 180's, hospitalist on board Encouraged ambulation Start BID Colace Hopefully home tomorrow if BP controlled Dr. Collins was present during my examination and agrees with above Admission and Anticipated Discharge Date Admission Date: February 22, 2022 Subjective feeling better today feeling slightly bloated but tolerated reg diet, no n,v hard bowel movement this am and passing gas no difficulty urinating no headache, palpitations or chest pain blood pressure is high at home too, 170's are normal high for him Physical Exam Constitutional: WD/WN, vitals as above no acute distress and not ill appearing Neck: normal visual inspection and trachea midline Respiratory: normal respiratory effort; no respiratory distress, no labored breathing and no retractions Gastrointestinal (Abdomen): Inspection/Auscultation: abdomen normal to inspection, + abdomen distended (mild), normal bowel sounds and + abdominal surgical incision (clean, dry, intact with bria) Percussion/Palpation: + abdomen tender (at incision site) and abdomen soft; no guarding and abdomen not rigid Some ecchymosis at incision site and subcutaneous edema some mild ecchymosis extending down into scrotum Skin: no rashes, warm and dry Psychiatric: A+Ox3, euthymic affect Results & Data ([facility]) Vital Signs (Past 12 Hours) Vital Signs Temp Pulse Resp BP Pulse Ox 02/24/22 07:02 37.0 C 80 18 188/90 H 94 Laboratory Results 02/23/22 Range/Units 12:26 Sodium 139 (136-145) mmol/L Potassium 3.4 L (3.5-5.1) mmol/L Chloride 103 (98-107) mmol/L Carbon Dioxide 29 (21-32) mmol/L Anion Gap 7 (3-11) BUN 13 (6-23) mg/dl Creatinine 1.09 (0.6-1.4) mg/dl Est Cr Clr Drug Dosing 48.6 ml/min Est GFR ( Amer) 75.0 ml/min Est GFR (Non-Af Amer) 64.7 ml/min BUN/Creatinine Ratio 11.9 (10-20) Glucose 105 H (70-99(Fasting)) mg/dl Calcium 9.1 (8.5-10.1) mg/dl
--- NOTE | 2022-02-24 13:42 | Hospitalist Progress Note ---
Date of Service February 24, 2022 Assessment & Plan (1) Incarcerated left inguinal hernia: Plan: s/p open left inguinal hernia repair. Postop day 2 Pain controlled. Tolerating diet well (2) Essential hypertension: Plan: Blood pressure is poorly controlled. Continue losartan, felodipine which are already at max doses Patient reported he may have been on Atenolol at [place] RN to call and clarify. If so, will resume. If not, start carvedilol (3) Asthma: Plan: Controlled Continue neb prn (4) Anemia: Plan: Chronic anemia Hb is stable. Plan: History of lung cancer s/p resection, chemotherapy with recurrence in 2019 currently under observation. 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 DVT prophylaxis as per surgeon Admission and Anticipated Discharge Date Admission Date: February 22, 2022 Subjective Patient seen and examined Reports no surgical site pain Denied any nausea, vomiting, abd pain Reports feeling a bit bloated. Had a small bowel movement earlier Denied any chest pain,cough, SOB, palpitations Physical Exam Constitutional: + well hydrated; no acute distress Eyes: PERRL, conjunctivae normal, anicteric sclerae ENMT: external ear and nose normal, oropharynx normal Respiratory: normal respiratory effort, lungs clear to auscultation Cardiovascular: Rate/Rhythm: regular rate and regular rhythm S1 S2 Gastrointestinal (Abdomen): normal bowel sounds, soft, nontender, no hepatosplenomegaly Musculoskeletal: No pedal edema Neurologic: PERRL, EOMI, accommodation nl, no face palsy, no dysarthria Psychiatric: A+Ox3, euthymic affect Results & Data Results & Data ([facility]) Vital Signs (Past 12 Hours) Vital Signs Temp Pulse Resp BP Pulse Ox 02/24/22 07:02 37.0 C 80 18 188/90 H 94
[2022-02-24] MEDS: carvediloL 6.25 MG TAB PO SCH ×2 (15:19→20:08)
[2022-02-24] MEDS: SERTRALINE HCL 100 MG TABLET PO SCH (20:07)
[2022-02-24] MEDS: TERAZOSIN HCL 5 MG CAP PO SCH (20:08)
[2022-02-25] MEDS: FELODIPINE 5 MG TABCR PO SCH (08:09)
[2022-02-25] MEDS: POTASSIUM CHLORIDE CRTAB 20 MEQ TABCR PO SCH (08:09)
[2022-02-25] MEDS: LOSARTAN POTASSIUM 50 MG TAB PO SCH (08:09)
[2022-02-25] MEDS: FAMOTIDINE 20 MG TAB PO SCH (08:09)
[2022-02-25] MEDS: carvediloL 6.25 MG TAB PO SCH (08:09)
[2022-02-25] MEDS: OMEGA-3 (PURIFIED FISH OIL) 1 GM CAP PO SCH (08:10)
[2022-02-25] MEDS: FLUTICASONE FUROATE 200MCG 14 PUFFS/INHALER INH SCH (08:10)
[2022-02-25] MEDS: DOCUSATE SODIUM 100 MG CAP PO SCH (08:10)
--- NOTE | 2022-02-25 14:15 | Surgery Progress Note ---
Date of Service February 25, 2022 Assessment & Plan (1) Incarcerated left inguinal hernia: Plan: POD # 3.5 status post open left inguinal hernia repair -afebrile - + return of bowel function yesterday - minimal postop pain Plan: Doing well from surgery standpoint for discharge today Reviewed with hospitalist team and okay for discharge today as blood pressure better managed with adding Coreg Discharge instructions reviewed with patient Will need follow-up in 10 to 14 days for staple removal Rx sent to pharmacy for pain management as needed (2) Hypertension: Plan: Uncontrolled hypertension -coreg 6.25 mg BID added yesterday, SBP 156 after morning dose - asymptomatic Plan: Continue home HTN medications and will add coreg 6.25 mg BID per hospitalist recommendations will need to monitor his blood pressure at [facility] and follow-up with PCP in 1 week to determine further management Dr. Collins was present during my examination and agrees with above Admission and Anticipated Discharge Date Admission Date: February 22, 2022 Subjective feeling good mild nausea today but no vomiting passing gas, two bowel movements yesterday tolerating diet ambulated hallway urinating without difficulty blood pressure still high, denies chest pain, palpitations, headache Physical Exam Constitutional: WD/WN, vitals as above no acute distress and not ill appearing Neck: normal visual inspection and trachea midline Respiratory: normal respiratory effort; no respiratory distress, no labored breathing and no retractions Gastrointestinal (Abdomen): Inspection/Auscultation: abdomen normal to inspection and + abdominal surgical incision (bria intact, clean,dry,intact); abdomen not distended Percussion/Palpation: + abdomen tender (mild in L groin at incision site) and abdomen soft; no guarding and abdomen not rigid Skin: no rashes, warm and dry Psychiatric: A+Ox3, euthymic affect Results & Data ([facility]) Vital Signs (Past 12 Hours) Vital Signs Temp Pulse Resp BP Pulse Ox 02/25/22 11:00 154/80 H 02/25/22 07:29 36.5 C 58 L 16 190/84 H 95
--- NOTE | 2022-02-25 16:20 | Hospitalist Progress Note ---
Date of Service February 25, 2022 Assessment & Plan (1) Incarcerated left inguinal hernia: Plan: s/p open left inguinal hernia repair. Postop day 3 Pain controlled. Tolerating diet well (2) Essential hypertension: Plan: Continue losartan, felodipine Per review of previous charts/DC summary, patient was on atenolol 25mg before but this was discontinued in 09/20/21. Seems that patient had hypotension at the time Was started on carvedilol 6.25mg bid BP is better today, though still elevated Continue to monitor BP and PCP can adjust as needed (3) Asthma: Plan: Controlled Continue neb prn (4) Anemia: Plan: Chronic anemia Hb is stable. Plan: History of lung cancer s/p resection, chemotherapy with recurrence in 2019 currently under observation. 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 Patient is stable for discharge Admission and Anticipated Discharge Date Admission Date: February 22, 2022 Subjective Patient seen and examined. Denies any pain. Tolerating diet well Had bowel movement yesterday. Denies any chest pain, cough, shortness of breath, palpitations Physical Exam Constitutional: + well hydrated; no acute distress Eyes: PERRL, conjunctivae normal, anicteric sclerae ENMT: external ear and nose normal, oropharynx normal Respiratory: normal respiratory effort, lungs clear to auscultation Cardiovascular: Rate/Rhythm: regular rate and regular rhythm S1 S2 Gastrointestinal (Abdomen): normal bowel sounds, soft, nontender, no hepatosplenomegaly Musculoskeletal: No pedal edema Neurologic: PERRL, EOMI, accommodation nl, no face palsy, no dysarthria Psychiatric: A+Ox3, euthymic affect Results & Data Results & Data ([facility]) Vital Signs (Past 12 Hours) Vital Signs Temp Pulse Pulse Pulse Resp BP BP 02/25/22 14:16 36.5 C 80 83 58 L 16 154/80 H 152/78 H 02/25/22 11:00 154/80 H 02/25/22 07:29 36.5 C 58 L 16 190/84 H Pulse Ox 02/25/22 14:16 95 02/25/22 11:00 02/25/22 07:29 95
--- NOTE | 2022-02-28 11:10 | Discharge Summary ---
Date of Service February 28, 2022 Admission HPI Per Admitting Provider This is a 76YO male with a known left inguinal hernia who presents with a left groin mass and abdominal pain since this evening beginning at 7PM. He has had some episodes of nausea but no change in bowel or bladder habits. He has known metastatic lung cancer. He was scheduled to have the hernia repaired but it was delayed. The hernia was attempted to be reduced in ED but it was not successful. Principal Diagnosis Incarcerated left inguinal hernia Discharge Data Allergies Allergy/AdvReac Type Severity Reaction Status Date / Time No Known Allergies Allergy Verified 02/22/22 00:19 Consultations 02/22/22 02:31 Consult Hospitalist Stat Procedures Performed Operation Date: 02/22/22 01:30 Actual Procedures p Open Left Incarcerated Inguinal Hernia Repair(Left) - Duran Fitzgerald MD Hospital Course (1) Incarcerated left inguinal hernia: Patient was taken to operating room for open left inguinal hernia repair by Dr. Fitzgerald on 02/22/2022. Patient found to have direct inguinal hernia containing sigmoid colon. This was easily reduced and the direct hernia was primarily repaired without mesh. Patient tolerated procedure and was transferred to recovery/medical surgical floor for postop care. Diet was advanced as tolerated. He was encouraged to get OOB to chair and ambulate. pain controlled with oral pain medications. Patient was continued on his home medications for hypertension (see hospital course below). Patient was discharged home on POD # 3 in stable condition. (2) Hypertension: Uncontrolled hypertension systolic BP up to 190's however asymptomatic Hospitalist was consulted and home medication were continued (Losartan and Felodipine at max doses). Coreg 6.25 mg BID was added which decrease systolic BP to 150's. Coreg was added to his discharge medications and he would need 1 week follow-up with PCP. Total Time Total Time Spent Total Time Spent (In Minutes): 60 minutes Discharge Plan Discharge Items Patient Disposition: Personal Usp Reason For Visit: INCARCERATED INGUINAL HERNIA Discharge Diagnosis: Incarcerated left inguinal hernia Activity: Per Instructions section Non-emergency contact: Primary Care Provider Call non-emergency contact if: you have any medication questions, your pain is concerning for you, your temperature is above 101, your wound has increased redness, your wound has increased drainage and your wound pain has increased Follow-up/Referrals: Duran Fitzgerald MD [Physician] - 03/11/22 2:25 pm Lidia Barr [place] [Primary Care Provider] - Diet: Regular Addtl Attending Provider Instructions: Post-Surgical ~Discharge Instructions Activity Recommendations: - lifting limitation: (10 pounds for 6 weeks), - exercise/sex/sports limit: (nonstrenuous for 2 weeks), - driving or machine use limit: (none for 1 week or until pain free), - Shower/bathe limit: (may shower, no submerging incision underwater for two weeks) Diet: - Resume previous diet SPECIAL CARE INSTRUCTIONS: - May shower. Let water run over area and pat dry. - Surgical bria will be removed in office - Call the surgeon's office with any questions or concerns - - (ex. temperature higher than 101 degrees F, excessive bleeding or pain). MEDICATIONS: - Resume previous medications unless instructed otherwise by your surgeon. - May take extra strength Tylenol as needed for pain - Percocet 1 every 4 hours, as needed for pain FOLLOW UP VISIT: - If not already scheduled, please call the office to schedule a two week follow-up appointment. Office number [facility] Provider Instructions: Your blood pressure was high during your admission and hospitalist added Coreg 6.25 mg twice a day to your blood pressure regimen. This new prescription was sent to your pharmacy. Would recommend monitoring your blood pressure closely and your primary care doctor can adjust as needed. Pending Studies at Discharge: No Stand-Alone Forms: My [place], Smoking Cessation Skilled Items Patient informed of condition?: Yes DNR: No Discharge Level of Care: Other Communicable Disease: No Discharge Prognosis: Stable Lines: None Urinary Catheter: No Medications and DC Order Prescriptions: New carvedilol 6.25 mg Tablet 6.25 mg PO BID Qty: 60 RF: 0 oxycodone-acetaminophen 5-325 mg tablet 1 tab PO Q6H PRN (Reason: severe pain) Qty: 5 RF: 0 Continued Flovent HFA 220 mcg/actuation HFA aerosol inhaler 2 puff INH BID Qty: 3 RF: 3 famotidine 20 mg tablet 20 mg PO DAILY Qty: 90 RF: 3 losartan [Cozaar] 100 mg tablet 100 mg PO QAM Qty: 90 RF: 3 sertraline [Zoloft] 100 mg tablet 200 mg PO HS Qty: 180 RF: 3 terazosin 5 mg capsule 5 mg PO HS Qty: 90 RF: 3 ferrous sulfate 325 mg (65 mg iron) tablet,delayed release (DR/EC) 325 mg PO QAM RF: 0 albuterol sulfate [Ventolin HFA] 90 mcg/actuation HFA aerosol inhaler 2 puff Inhalation Q4 PRN (Reason: Shortness Of Breath Or Wheezing) Qty: 18 RF: 11 cholecalciferol (vitamin D3) [Vitamin D3] 1,000 unit Tablet 1,000 unit PO QAM RF: 0 Multiple Vitamin-Minerals Tablet 1 tab PO DAILY RF: 0 omega [id number]-[id number]-fish oil [Fish Oil] 1,200 (144-216) mg Capsule 1 cap PO DAILY RF: 0 loperamide 2 mg Capsule 2 mg PO Q4H PRN (Reason: loose stool) Qty: 30 RF: 0 simethicone [Gas Relief Extra Strength] 125 mg capsule 125 mg PO DIRECTED PRN (Reason: .GAS RELIEF) RF: 0 felodipine 10 mg tablet extended release 24 hr 10 mg PO QAM RF: 0 acetaminophen [Tylenol] 325 mg Tablet 650 mg PO Q4 PRN (Reason: PAIN/FEVER) RF: 0 psyllium husk [Metamucil] 0.4 gram Capsule 0.4 g PO DAILY RF: 0 polyethylene glycol 3350 [Miralax] 17 gram Powder In Packet 17 g PO DAILY PRN (Reason: Constipation) RF: 0 ondansetron HCl 8 mg tablet 8 mg PO Q8 PRN (Reason: Nausea) RF: 0 oxycodone-acetaminophen 5-325 mg tablet 0.5 tab PO BID PRN (Reason: Pain) RF: 0 potassium chloride 20 mEq tablet,ER particles/crystals 40 meq PO BID RF: 0 docusate sodium [Colace] 100 mg Capsule 100 mg PO DAILY PRN (Reason: Constipation) RF: 0 Discharge Orders: Discharge Order (Routine); Ordered 02/25/22 Ordered By: Rama Castellanos Admission Data Admit Date/Time: 02/22/22 02:35 Attending Provider: Duran Fitzgerald Admit Provider: Duran Fitzgerald Primary Care Provider: Lidia Barr [place] Other Providers: Tania Rouse ; Kane Quarles ; Omi Byers ; Kristyn Bhakta ; Lolis Baumann ; Radha Watson ; Tyshawn Vanessa ; Kyle Wilson ; Benjamin Lemus ; Tiarra Aguero ; Omid Abreu ; Beatriz Nelson ; Luisa Beasley ; Kana Salvador ; Sadaf Tucker ; Gila Mohamud ; Bear Barajas ; Asiya Cardozo I. ; Christiano Peñaloza ; Star Jones ; Brenden Marinelli ; Rohit Potter ; Nathan Maxwell ; Herb Wright Other Interventions: Discharge Summary Assessment (RN) Last Done: 02/25/22 14:16
== END 2022-02-25 15:30 | disposition home or self-care (01) | DRG 352 ==
LOC: ED 22:48 → 3N 02-22 01:08